=== PATIENT | female | born 1940 | race Caucasian/White ===

== ENCOUNTER → 2018-09-03 12:56 | Outpatient (CLI) | payer MEDICARE, SELFPAY ==
--- NOTE | 2018-09-03 | DI.MG.S_ITS ---
BILATERAL DIGITAL SCREENING MAMMOGRAM 3D/2D WITH CAD: 09/03/2018 CLINICAL: Routine screening. Family history of breast cancer. Comparison is made to exams dated: 07/21/2017 mammogram, 10/18/2015 mammogram, and 10/03/2014 mammogram - [facility]. There are scattered fibroglandular elements in both breasts. Current study was also evaluated with a Computer Aided Detection (CAD) system. No significant masses, calcifications, or other findings are seen in either breast. There has been no significant interval change. IMPRESSION: NEGATIVE There is no mammographic evidence of malignancy. A 1 year screening mammogram is recommended. This exam was interpreted at Station ID: [id number]. NOTE: For mammograms, a report in lay terms will be sent to the patient. Approximately 15% of breast malignancies will not be visualized mammographically. In the management of a palpable breast mass, a negative mammogram must not discourage biopsy of a clinically suspicious lesion. Electronically Signed By: Danilo jose/marielle:09/03/2018 16:49:14 letter sent: Normal Exam ACR BI-RADS Category 1: Negative 3341F
== END ==
PROVIDERS: PCP Physician Assistant; Visit Provider Physician Assistant
DX: Z12.31 Encounter for screening mammogram for malignant neoplasm of breast (principal); Z80.3 Family history of malignant neoplasm of breast
CPT/HCPCS: 77063; 77067

== ENCOUNTER 2018-10-29 09:46 | Day surgery (SDC) | payer MEDICARE, SELFPAY ==
--- NOTE | 2018-10-29 | PATH_ITS ---
[facility] Accession Number: [id number] . 01 Material submitted: . PART A: CECUM POLYP PART B: COLON POLYP AT 100CM . 01 Clinical history: . A: CECUM POLYP X3 B: COLON POLYP AT 100CM X2 . 02 Diagnosis: A. Cecal Polyps: Fragments of tubular adenoma (3 polyps removed). . B. Colon Polyps At 100 CM: Fragments of tubular adenoma (2 polyps removed). BFI/11/01/2018 . 02 Electronically signed: . Stanley Naik MD, PhD, Pathologist NPI- [id number] . 01 Gross description: . Part A: CECUM POLYP: Received in formalin are multiple fragment(s) of [place], soft tissue measuring 1.2 x 0.6 x 0.3 cm in aggregate submitted entirely in 1 cassette(s) Part B: COLON POLYP AT 100CM: Received in formalin are multiple fragment(s) of [place], soft tissue measuring 1.0 x 0.4 x 0.2 cm in aggregate submitted entirely in 1 cassette(s) /CKI /CKI . 02 Pathologist provided ICD-10: D12.0 . 02 CPT . 699479, [id number] Performed at: 01 [facility] [address], [place], [place] [id number] MD Danilo Moe MD Phone: [phone] Performed at: 02 [facility] [address] [place], [place] [id number] MD Amita Lopez MD Phone: [phone]
[2018-10-29 10:16] VITALS: BP 121/68; PULSE 63; RESP 15; TEMP 36.6; O2SAT 93; BMI 27.4
[2018-10-29] MEDS: SODIUM CHLORIDE 0.9% 1,000 ML 200 ML IV (10:20)
[2018-10-29] MEDS: CEFOTETAN 2 GM/50 ML PIGGYBACK IV (11:42)
--- NOTE | 2018-10-29 11:45 | PM.HP.1 ---
History of Present Illness Date Patient Seen: 10/29/18 Time Patient Seen: 11:45 Chief complaint: [id number] Narrative: Patient is a woman who has had polyps removed in the past. She is here for a follow-up exam. She is not sure when her last colonoscopy was but she was either 3 or 5 years ago. Was done elsewhere. 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5 mg DAILY 10/29/18 10/29/18 History simvastatin 20 mg DAILY 10/29/18 10/29/18 History warfarin 5 mg 10/29/18 History Allergies Allergy/AdvReac Type Severity Reaction Status Date / Time Sulfa (Sulfonamide Allergy Severe Anaphylaxis Verified 10/29/18 10:10 Antibiotics) [SULFA (SULFONAMIDE ANTIBIOTICS)] adhesive tape [ADHESIVE TAPE] Allergy Unknown WELTS Verified 10/29/18 10:10 Review of Systems Review of Systems All systems reviewed & are unremarkable except as noted in HPI and below Exam Vital Signs (past 8 hours): - 10/29/18 10:16 Temperature 97.8 F Pulse Rate 63 Respiratory Rate 15 Blood Pressure 121/68 Pulse Oximetry 93 Oxygen Delivery Method Room Air Narrative Exam Narrative: Operative no apparent distress. Lungs are clear to auscultation no rales or rhonchi . Heart fairly regular rate and rhythm with occasional ectopy. Could be slow AFib. Abdomen is protuberant soft nontender without mass. Patient is alert and oriented x3. Assessment & Plan Plan: Assessment/Plan Narrative: Patient for a screening colonoscopy. I have discussed the procedure and the rationale with the patient including risks of bleeding, perforation which would necessitate a major operation, failure to find remove all lesions and the potential to tattoo. They appeared to understand and wished to proceed.. I explained that she is at slightly increased risk of bleeding due to the use of warfarin.
--- NOTE | 2018-10-29 11:53 | PM.PREOP ---
Pre-operative Note Interval Note History & Physical reviewed/Exam performed by Physician: Yes Changes to H&P: No ASA Class (for procedural sedation): III
[2018-10-29] MEDS: fentaNYL 250 MCG/5 ML INJ IV (12:06)
[2018-10-29] MEDS: MIDAZOLAM 5 MG/5 ML VIAL IV (12:06)
--- NOTE | 2018-10-29 12:34 | PM.OP.ENDO ---
Operative Date/Time/Diagnoses Date of procedure: 10/29/18 Time of procedure: 12:34 Pre-op diagnosis: History of polyps. Screening exam. Last exam 3-5 years ago. Post-op diagnosis: same (Five polyps removed.) Procedure & Clinicians Study performed: Colonoscopy with hot snare polypectomy and cold biopsy Same procedure as scheduled: Yes Indications: Screening Surgeon: Eric Bautista Procedure Notes SCOAP/Timeout: Performed Procedure in detail: The patient was placed in the left lateral decubitus position and underwent IV sedation directed by the surgeon consisting of fentanyl and Versed. Digital exam was unremarkable. The scope was inserted and advanced through the rectum into the sigmoid, descending, transverse, and ascending colon. The patient had extensive diet edwards colonic diverticulosis. A stiffener had to be inserted in order to make our way into the cecum.. The cecum was reached identified by the ileocecal valve and the appendiceal opening. Within the cecum and immediately beyond in the ascending colon there were 3 polyps. One was biopsied to complete removal. This was adjacent to the appendiceal opening. The other 2 were larger polyps and hot snare was applied to them in order to remove them. All appeared to be completely removed. The scope was gradually brought out. Two additional Polyps were found at 100 cm from the anal verge. The rectum was ultimately reached. The scope ultimately was retroflexed in the rectum. The appearance was remarkable for scarring but no active hemorrhoidal disease. The scope was removed and the patient tolerated the procedure well. The prep was good. Scope withdrawal time: 22 min Sedation minutes: 38 Findings: diverticulosis (Edwards colonic) and polyp (Five polyps removed) Specimen(s): other (Polyps) Complications: none Recommendations: Colonscopy in 5 years Follow up: as needed Disposition: PACU
[2018-10-29 12:38] VITALS: BP 115/59; PULSE 68; RESP 16; TEMP 36.5; O2SAT 98
[2018-10-29 12:42] VITALS: BP 109/57; PULSE 69; RESP 18; O2SAT 99
[2018-10-29 12:49] VITALS: BP 106/49; PULSE 70; RESP 12; O2SAT 100
[2018-10-29 12:54] VITALS: BP 95/53; PULSE 66; RESP 12; O2SAT 99
[2018-10-29 13:10] VITALS: BP 106/58; PULSE 63; RESP 16; O2SAT 98
== END 2018-10-29 13:25 ==
LOC: ENDO 09:49
PROVIDERS: Specialist; PCP Physician Assistant; Visit Provider Surgery
PROC: 0DJD8ZZ Inspection of Lower Intestinal Tract, Via Natural or Artificial Opening Endoscopic (ICD-10-PCS; CPT 45378; principal; 2018-10-29 11:45)
DX: Z86.010 Personal history of colon polyps (principal); K57.30 Diverticulosis of large intestine without perforation or abscess without bleeding; I48.91 Unspecified atrial fibrillation; Z79.01 Long term (current) use of anticoagulants; Q79.6 Ehlers-Danlos syndromes; D12.0 Benign neoplasm of cecum
CPT/HCPCS: 45385; 45380; 88305; J2250; J3010

== ENCOUNTER → 2019-05-13 13:43 | Outpatient (CLI) | payer MEDICARE, SELFPAY | PROVIDERS: PCP Physician Assistant; Visit Provider Physician Assistant | DX: R47.01 Aphasia (principal) ==

== ENCOUNTER → 2019-05-30 17:21 | Outpatient (CLI) | payer MEDICARE, SELFPAY ==
--- NOTE | 2019-05-30 | DI.MRI.S_ITS ---
PROCEDURE: MR STROKE Pre- and post-contrast brain MRI, non-contrast brain MR angiogram, pre- and postcontrast neck MR angiogram INDICATIONS: APHASIA TECHNIQUE: Brain: Noncontrast axial T1 spin echo, axial T2 fast spin echo, sagittal and axial FLAIR, coronal T2 fast spin echo, axial gradient echo, axial diffusion and ADC through the brain. After the administration of contrast, axial 3D VIBE of the cranial vasculature and brain. Brain MRA: Non-contrast 3-D time of flight MR angiogram, with multiple adijulh-lgddrkylz-ptlkaytxyl (MIP) reformats performed. Neck MRA: Axial and sagittal TruFISP through the neck. Coronal dynamic MR angiogram during administration of contrast in the arterial and venous phases, with 3-dimenstional cmfmnhs-tklcxyrsn-lngbxjmzbm (MIP) reformats constructed from subtraction images. COMPARISON: None. FINDINGS: Image quality: Excellent. BRAIN: CSF spaces: Ventricles are normal in size and shape. Basal cisterns are patent. No extra-axial fluid collections. Brain: No intracranial bleeds or mass effects. De La Cruz-white matter interface is normal. Diffusion weighted images show no acute ischemic insults. Brainstem appears normal. Normal intravascular flow voids are present. No abnormal intracranial enhancement. Very mild small vessel ischemic change. Tiny area of hemosiderin deposition in the left frontal deep white matter may represent a cavernous angioma. Skull and face: Calvarial marrow signal is normal. Orbits appear normal. Sinuses: Sinuses and mastoids are clear. BRAIN MR ANGIOGRAM: Anterior circulation: Intracranial internal carotid arteries are normal in size and enhancement. The flow within the paired anterior cerebral arteries is normal and symmetric. The flow within the middle cerebral arteries is normal and symmetric. The anterior communicating artery is seen. No stenoses, occlusions, or aneurysms. Posterior circulation: The visualized portions of the vertebral arteries demonstrate normal caliber, and join to form a normal appearing basilar artery. The flow within the posterior cerebral arteries is normal and symmetric. No stenoses, occlusions, or aneurysms. NECK MR ANGIOGRAM: Carotids: Extensive venous opacification decreases image quality. The origins of the common carotid arteries appear grossly patent. The calibers and courses of both common carotid arteries are normal. The bifurcation regions appear normal bilaterally. The internal carotid arteries demonstrate grossly normal course and caliber. Posterior circulation: The origins of the vertebral arteries appear patent. More superior portions of both vertebral arteries demonstrate normal course and caliber, and join to form a normal appearing basilar artery. Miscellaneous: Subclavian arteries appear patent. Pre-contrast images through the neck show no soft tissue abnormalities. IMPRESSION: BRAIN MRI: 1. Incidental tiny focus of hemosiderin deposition in the left frontal deep white matter. 2. Otherwise unremarkable brain MRI for patient age. Very mild small vessel ischemic change. No acute stroke, hemorrhage or mass. BRAIN MR ANGIOGRAM: Unremarkable NECK MR ANGIOGRAM: Image quality diminished by superimposed venous opacification. Internal carotid is grossly patent. Dictated by: Rahul Reyes M.D. on 05/30/2019 at 18:23 Approved by: Rahul Reyes M.D. on 05/30/2019 at 18:31
== END ==
PROVIDERS: PCP Physician Assistant; Visit Provider Physician Assistant
DX: R47.01 Aphasia (principal)
CPT/HCPCS: 70548; 70553; A9579

== ENCOUNTER 2019-07-16 12:08 | Emergency (ER) | payer MEDICARE, SELFPAY ==
[2019-07-16 12:13] VITALS: BP 144/90; PULSE 65; RESP 18; TEMP 36.3; O2SAT 98
--- NOTE | 2019-07-16 12:46 | ED_ITS ---
HPI - Skin/Abscess/Foreign Bdy <Amber Barclay, MOBILITY DEVELOPER-BC - Last Filed: 07/16/19 14:10> General Chief complaint: Skin/Abscess/Foreign Body Stated complaint: rash on head/neck Time Seen by Provider: 07/16/19 12:27 Source: patient Mode of arrival: Ambulatory Limitations: no limitations History of Present Illness HPI narrative: The patient is a 78-year-old female nonsmoker with history of a subarachnoid hemorrhage who presents with a chief complaint of a rash. She states that she has had a rash for the past 10 days over her head face and shoulders. She states it is worse at her shoulders and in her head. She is concerned that she might have measles. She has been afebrile no nausea vomiting diarrhea. She denies any painful rash, just itchy rash. She denies any conjunctivitis symptoms. She thinks that it may be related to a new shampoo that she used for the 1st time just prior to her rash breaking out. She states that the rash is also at her bra line and across her abdomen. Related Data Home Medications Medication Instructions Recorded Confirmed metoprolol tartrate 25 mg PO BID #0 08/20/16 10/29/18 pantoprazole 40 mg PO QDAY #0 08/20/16 10/29/18 Vitamin D2 5,000 units DAILY 10/29/18 10/29/18 biotin 5,000 units DAILY 10/29/18 10/29/18 clonazepam 0.5 mg PRN 10/29/18 levothyroxine 0.25 mg DAILY 10/29/18 10/29/18 losartan 12.5 mg DAILY 10/29/18 10/29/18 simvastatin 20 mg DAILY 10/29/18 10/29/18 warfarin 5 mg 10/29/18 Previous Rx's Medication Instructions Recorded prednisone 50 mg PO DAILY #5 tab 07/16/19 triamcinolone acetonide 1 applictn TOP TID 7 Days #15 gram 07/16/19 Allergies Allergy/AdvReac Type Severity Reaction Status Date / Time Sulfa (Sulfonamide Allergy Severe Anaphylaxis Verified 07/16/19 12:17 Antibiotics) [SULFA (SULFONAMIDE ANTIBIOTICS)] adhesive tape [ADHESIVE TAPE] Allergy Unknown WELTS Verified 07/16/19 12:17 propoxyphene [From Darvon] Allergy Unknown Verified 07/16/19 12:17 Review of Systems <ROSARIO Deluna - Last Filed: 07/16/19 14:10> Review of Systems Narrative: GENERAL: Denies chills, fatigue, malaise, fever, sweats. HEENT: Denies sinus pain, ear pain, sore throat, difficulty swallowing, dizziness. RESPIRATORY: Denies dyspnea, cough, wheezing, hemoptysis, sputum. CARDIOVASCULAR: Denies chest pain, palpitations, orthopnea, edema, GASTROINTESTINAL: Denies nausea, vomiting, abdominal pain, diarrhea, constipation, melena. : Denies dysuria, frequency, incontinence, hematuria, urinary retention. MUSCULOSKELETAL: denies weakness, joint pain, or bony pain SKIN: See HPI NEUROLOGIC: Denies weakness, headache, numbness, change in speech, confusion, seizures, incoordination. PSYCHIATRIC: No concerning psychosocial issues. 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 Normocephalic. No temporal or scalp tenderness. EYES: Pupils equal round and reactive. Extraocular motions intact. No scleral icterus. No injection or drainage. ENT: Nose without bleeding, purulent drainage or septal hematoma. Throat without erythema, tonsillar hypertrophy or exudate. Uvula midline. Airway patent. NECK: Trachea midline. No JVD or lymphadenopathy. Supple, nontender, no meningeal signs. CARDIOVASCULAR: Regular rate and rhythm without murmurs, gallops, or rubs. RESPIRATORY: Clear to auscultation. Breath sounds equal bilaterally. No wheezes, rales, or rhonchi. No cough. No increased respiratory effort. No accessory muscle use. GASTROINTESTINAL: Abdomen soft, non-tender, nondistended. No hepato- splenomegaly, or palpable masses. No guarding. EXTREMITIES: No clubbing, cyanosis, or edema. No joint tenderness, effusion, or edema noted. BACK: Nontender without deformity or crepitance. No flank tenderness. NEURO: AOx3. SKIN: Eczematous lesions noted over neck, shoulders, and hair under breasts. Slight peeling noted. No crusting. No drainage. No extending redness. No weeping lesions. Initial Vital Signs Initial Vital Signs: Vital Signs Temperature 97.3 F L 07/16/19 12:13 Pulse Rate 65 07/16/19 12:13 Respiratory Rate 18 07/16/19 12:13 Blood Pressure 144/90 H 07/16/19 12:13 Pulse Oximetry 98 07/16/19 12:13 <Geovani Robles DO - Last Filed: 07/16/19 14:12> Initial Vital Signs Initial Vital Signs: Vital Signs Temperature 97.3 F L 07/16/19 12:13 Pulse Rate 65 07/16/19 12:13 Respiratory Rate 18 07/16/19 12:13 Blood Pressure 144/90 H 07/16/19 12:13 Pulse Oximetry 98 07/16/19 12:13 Course <FAVIO Deluna-BC - Last Filed: 07/16/19 14:10> Vital Signs Vital signs: Vital Signs - 8 hr 07/16/19 12:13 Temperature 97.3 F L Pulse Rate 65 Respiratory Rate 18 Blood Pressure 144/90 H Pulse Oximetry 98 <Geovani Robles DO - Last Filed: 07/16/19 14:12> Vital Signs Vital signs: Vital Signs - 8 hr 07/16/19 12:13 Temperature 97.3 F L Pulse Rate 65 Respiratory Rate 18 Blood Pressure 144/90 H Pulse Oximetry 98 MDM - Skin/Abscess/Foreign Bdy <KIRIT DelunaP-BC - Last Filed: 07/16/19 14:10> [facility] Narrative Medical decision making narrative: The patient is a 70-year-old female presents with a chief complaint of a rash that has been going on for 10 days. The patient is concerned about measles, but she is afebrile, has been afebrile and has no symptoms of conjunctivitis. Thus I believe a measles is unlikely at this point time. Her rash is itchy not painful, on both sides of her body and does not follow a dermatome is, helping rule out shingles. I do believe that her rash is a reaction to this new she who, as her exam is consistent with a contact dermatitis. Given that she has a rash in her hair, I did offer to put her on a burst of steroids to help ease her symptoms. I also gave her a prescription of triamcinolone cream. I discussed at length follow up with PCP, discussed going back to emergency department for any acute concerns such as chest pain, shortness of breath, etc. Patient has no questions or concerns upon discharge and states understanding of return precautions as well as follow-up care. Discharge Plan Departure Patient Disposition: Home Clinical Impression: Contact dermatitis Qualifiers: Contact dermatitis type: irritant Contact dermatitis trigger: other trigger Qualified Code(s): L24.89 - Irritant contact dermatitis due to other agents Discharge Date/Time: 07/16/19 13:07 Instructions: DI for Contact Dermatitis Activity Restrictions/Additional Instructions: Your exam is not consistent with measles today. Please use the steroid burst and steroid cream that I have given you. Please follow up with primary care provider. Please come back to emergency department for any acute concerns. Please avoid the shampoo that your exposed to. Prescriptions: New prednisone 50 mg tablet 50 mg PO DAILY Qty: 5 RF: 0 triamcinolone acetonide 0.025 % ointment 1 applictn TOP TID 7 Days Qty: 15 RF: 0 No Action pantoprazole 40 MG tablet,delayed release (DR/EC) 40 mg PO QDAY Qty: 0 RF: 0 metoprolol tartrate 25 MG tablet 25 mg PO BID Qty: 0 RF: 0 Vitamin D2 5,000 unit 5,000 units DAILY RF: 0 biotin 5,000 units 5,000 units DAILY RF: 0 clonazepam 0.5 mg 0.5 mg PRN (Reason: Restless Leg(S)) RF: 0 levothyroxine 0.25 mg 0.25 mg DAILY RF: 0 losartan 25 mg 12.5 mg DAILY RF: 0 simvastatin 20 mg 20 mg DAILY RF: 0 warfarin 5 mg 5 mg RF: 0 Referrals: Rosa Darnell PA-C [Primary Care Provider] - <Geovani Robles DO - Last Filed: 07/16/19 14:12> Sign Out Provider Sign Out Attestation: I was available for consultation during this patient's emergency department visit. This chart is signed by myself for administrative purposes only. I did not have direct contact with this patient during this visit. They were seen independently by the APC.
== END 2019-07-16 13:07 | disposition home or self-care (01) ==
PROVIDERS: Emergency Provider Nurse Practitioner Family; PCP Physician Assistant
DX: L24.89 Irritant contact dermatitis due to other agents (principal)
CPT/HCPCS: 99282

== ENCOUNTER → 2019-10-04 13:12 | Outpatient (CLI) | payer MEDICARE, SELFPAY ==
--- NOTE | 2019-10-04 | DI.MG.S_ITS ---
BILATERAL DIGITAL SCREENING MAMMOGRAM 3D/2D WITH CAD: 10/04/2019 CLINICAL: Routine screening. Family history of breast cancer. Comparison is made to exams dated: 09/03/2018 mammogram, 07/21/2017 mammogram, 10/18/2015 mammogram, 10/03/2014 mammogram, 11/22/2012 mammogram, and 11/21/2011 mammogram - [facility]. There are scattered fibroglandular elements in both breasts. Current study was also evaluated with a Computer Aided Detection (CAD) system. No significant masses, calcifications, or other findings are seen in either breast. There has been no significant interval change. IMPRESSION: NEGATIVE There is no mammographic evidence of malignancy. A 1 year screening mammogram is recommended. This exam was interpreted at Station ID: [id number]. NOTE: For mammograms, a report in lay terms will be sent to the patient. Approximately 15% of breast malignancies will not be visualized mammographically. In the management of a palpable breast mass, a negative mammogram must not discourage biopsy of a clinically suspicious lesion. Electronically Signed By: Kamron cole/marielle:10/07/2019 08:29:53 letter sent: Normal Exam ACR BI-RADS Category 1: Negative [id number]
== END ==
PROVIDERS: PCP Student in an Organized Health Care Education/Training Program; Visit Provider Student in an Organized Health Care Education/Training Program
DX: Z12.31 Encounter for screening mammogram for malignant neoplasm of breast (principal); Z80.3 Family history of malignant neoplasm of breast
CPT/HCPCS: 77063; 77067

== ENCOUNTER → 2019-11-15 13:08 | Outpatient (CLI) | payer MEDICARE, SELFPAY | PROVIDERS: PCP Student in an Organized Health Care Education/Training Program; Referring Provider Student in an Organized Health Care Education/Training Program; Visit Provider Student in an Organized Health Care Education/Training Program | DX: M85.832 Other specified disorders of bone density and structure, left forearm (principal); Z78.0 Asymptomatic menopausal state; Z82.62 Family history of osteoporosis | CPT/HCPCS: 77080 ==

== ENCOUNTER 2019-11-22 09:52 | Emergency (ER) | payer MEDICARE, SELFPAY ==
[2019-11-22 09:45] VITALS: BP 143/84; PULSE 66; RESP 18; TEMP 36.9; O2SAT 99
--- NOTE | 2019-11-22 09:58 | DI.RAD.S_ITS ---
PROCEDURE: XR KNEE RT 3V INDICATIONS: Patient concerned about dislocation TECHNIQUE: 3 views of the knee were acquired. COMPARISON: [facility], , KNEE 1-2 VIEWS LEFT, 03/31/2011, 13:30. FINDINGS: Bones: No fractures or dislocations. No suspicious bony lesions. Right knee arthroplasty expected postoperative alignment. No evidence of hardware failure or loosening. Soft tissues: Large joint effusion. No suspicious soft tissue calcifications. IMPRESSION: Large joint effusion. Expected postoperative alignment of right knee arthroplasty. Dictated by: Dario Cash M.D. on 11/22/2019 at 11:04 Approved by: Dario Cash M.D. on 11/22/2019 at 11:32
--- NOTE | 2019-11-22 09:58 | ED.GENADULT ---
HPI - General Adult General Chief complaint: Extremity Problem,Nontraumatic Stated complaint: R knee dislocation Time Seen by Provider: 11/22/19 09:55 Source: patient Mode of arrival: EMS Limitations: no limitations History of Present Illness HPI narrative: Patient is a 79-year-old female. Has a right total knee arthroplasty which was done many years ago. She states that this morning she had pain in her right knee that woke her up. She a very difficult time moving it. No specific trauma. Went to bed without any problems. Is on Coumadin for atrial fibrillation. Related Data Home Medications Medication Instructions Recorded Confirmed pantoprazole 40 mg PO DAILY #0 08/20/16 11/22/19 biotin 5,000 units DAILY 10/29/18 10/29/18 cholecalciferol (vitamin D3) 5,000 unit PO DAILY 10/29/18 11/22/19 [Vitamin D3] clonazepam 0.5 mg PRN 10/29/18 levothyroxine 25 mcg PO DAILY 10/29/18 11/22/19 losartan 12.5 mg PO DAILY 10/29/18 11/22/19 simvastatin 20 mg PO DAILY 10/29/18 11/22/19 latanoprost 1 drp OPHTHALMIC (EYE) BEDTIME 11/22/19 metoprolol succinate 25 mg PO BID 11/22/19 warfarin [Jantoven] 5 mg PO DAILY 11/22/19 11/22/19 zolpidem 5 mg PO BEDTIME 11/22/19 11/22/19 Allergies Allergy/AdvReac Type Severity Reaction Status Date / Time Sulfa (Sulfonamide Allergy Severe Anaphylaxis Verified 11/22/19 10:04 Antibiotics) [SULFA (SULFONAMIDE ANTIBIOTICS)] adhesive tape [ADHESIVE TAPE] Allergy Unknown WELTS Verified 11/22/19 10:04 propoxyphene [From Darvon] Allergy Unknown Verified 11/22/19 10:04 Review of Systems Constitutional Constitutional: Denies fever(s) Cardiovascular Cardiovascular: Denies chest pain and Denies dyspnea Respiratory Respiratory: Denies dyspnea Musculoskeletal Comments: Right knee pain and swelling Integumentary/Breasts Skin/Breast: Denies rash Neurologic Neurologic: Denies behavioral changes and Denies confusion Psychiatric Psychiatric: Denies behavioral changes and Denies confusion Patient History Medical History Atrial fibrillation (Chronic) Chronic anticoagulation (Chronic) 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) Social History household members: none Smoking Status: Never smoker Smoking Status: Never smoker alcohol intake frequency: 0-2 drinks per day Substance Use Type: does not use Exam Initial Vital Signs Initial Vital Signs: Vital Signs Temperature 98.4 F 11/22/19 09:45 Pulse Rate 66 11/22/19 09:45 Respiratory Rate 18 11/22/19 09:45 Blood Pressure 143/84 H 11/22/19 09:45 Pulse Oximetry 99 11/22/19 09:45 Const General: cooperative and comfortable Cardio Pulses: dorsalis pedis present on the right Skin Lesions: no lesions Rashes: no rashes Neuro General: alert and awake Cognition: normal cognition Speech: speech normal Extrem General: normal to inspection and capillary refill normal Other: Swelling in tender throughout palpation of the right knee. Does have a small effusion. Course Orders Ordered: ED Orders 11/22/19 09:58 XR knee RT 3V Stat 11/22/19 10:40 Basic Metabolic Panel Stat Complete Blood Count AUTO DIFF Stat Prothrombin Time INR Stat Discontinued Medications Hydrocodone Bitart/Acetaminophen ([place] 5/325) 1 tab PO NOW ONE Stop: 11/22/19 10:34 Last Admin: 11/22/19 10:41 Dose: 1 tab Documented by: NUNO Vital Signs Vital signs: Vital Signs - 8 hr 11/22/19 09:45 11/22/19 10:05 11/22/19 11:01 Temperature 98.4 F Pulse Rate 80 Pulse Rate [Left Radial] 66 64 Pulse Rate [Right Dorsalis Pedis] 64 Respiratory Rate 18 15 Blood Pressure [Left Arm] 143/84 H 190/71 H Pulse Oximetry 99 99 Medical Decision Making Lab Data Lab results reviewed: Yes I reviewed the patient's lab results. Result diagrams: 11/22/19 10:40 11/22/19 10:40 Labs: Lab Results 11/22/19 11/22/19 11/22/19 Range/Units 10:40 10:40 10:40 WBC 7.6 (4.5-11.0) X10^3/uL RBC 3.94 L (4.0-5.2) X10^6/uL Hgb 13.0 (12.0-16.0) g/dL Hct 37.9 (36-46) % MCV 96.1 (80-100) fL MCH 33.0 (26-34) PG MCHC 34.4 (30-36) % RDW 14.2 (11.6-14.8) % Plt Count 225 (150-400) X10^3/uL Neut % (Auto) 80.4 H (50-75) % Lymph % (Auto) 11.2 L (25-40) % [place] % (Auto) 7.3 (3-14) % Eos % (Auto) 0.3 L (2-4) % Baso % (Auto) 0.8 (0-2) % Neut # (Auto) 6100 (7094-9263) /uL Lymph # (Auto) 800 L (3009-6127) /uL [place] # (Auto) 600 (0-900) /uL Eos # (Auto) 0 (0-450) /uL Baso # (Auto) 100 (0-100) /uL PT 47.6 H (10.1-12.7) SECONDS INR 4.2 H (0.9-1.3) Sodium 139 (137-145) mmol/L Potassium 4.3 (3.4-5.1) mmol/L Chloride 104 (98-107) mmol/L Carbon Dioxide 27 (22-32) mmol/L BUN 16 (7-17) mg/dL Creatinine 0.60 (0.52-1.04) mg/dL Estimated GFR > 60.0 (>60) mL/min BUN/Creatinine Ratio 26.7 H (6-22) Glucose 104 (80-110) mg/dL Calcium 10.1 (8.4-10.2) mg/dL Imaging Data Extremity x-ray #1: Attestation: I personally reviewed and interpreted this imaging study as follows: My Impression: No fractures, no dislocation MDM Narrative Medical decision making narrative: Patient does have an effusion. Her x-ray shows no fractures or dislocations. Her INR is above 4 today. I do suspect that this could very well be a spontaneous hemarthrosis given the lack of trauma and her INR level. She normally takes her Coumadin at night. She is going to hold her Coumadin tonight and tomorrow. She also already has a scheduled INR draw for at her primary provider. We did discuss potentially doing a arthrocentesis however we did discuss the risks and benefits to include pain, introduction of an infection, and potentially recurrence of the effusion despite our efforts. We will hold on this for now. Patient was given a knee immobilizer. She can use this as needed for comfort. She does have a walker at home. We did discuss return precautions and follow-up instructions. She expressed understanding and agreement plan. Discharge Plan Departure Patient Disposition: Home Clinical Impression: Effusion of knee joint right Instructions: DI for Knee Effusion Activity Restrictions/Additional Instructions: Recommend that you hold your Coumadin/warfarin for the next 2 days. Keep your appointment on for repeat INR. You can walk on your right leg. Use the knee immobilizer and Siddharth bandage as needed. Return to the emergency department for any new or worsening symptoms Prescriptions: No Action pantoprazole 40 MG tablet,delayed release (DR/EC) 40 mg PO DAILY Qty: 0 RF: 0 levothyroxine 25 mcg Tablet 25 mcg PO DAILY RF: 0 simvastatin 20 mg Tablet 20 mg PO DAILY RF: 0 losartan 25 mg Tablet 12.5 mg PO DAILY RF: 0 cholecalciferol (vitamin D3) [Vitamin D3] 125 mcg (5,000 unit) Tablet 5,000 unit PO DAILY RF: 0 biotin 5,000 units 5,000 units DAILY RF: 0 clonazepam 0.5 mg 0.5 mg PRN (Reason: Restless Leg(S)) RF: 0 latanoprost 0.005 % drops 1 drp ophthalmic (eye) BEDTIME RF: 0 warfarin [Jantoven] 5 mg tablet 5 mg PO DAILY RF: 0 zolpidem 5 mg tablet 5 mg PO BEDTIME RF: 0 metoprolol succinate 25 mg tablet extended release 24 hr 25 mg PO BID RF: 0 Referrals: Rosette Grey PA-C [Primary Care Provider] -
[2019-11-22 10:05] VITALS: PULSE 64
[2019-11-22] MEDS: HYDROCODONE/ACET 5/325 TABLET 1 TAB PO (10:41)
[2019-11-22 10:52] LABS: Add Manual Diff / Slide Review NO; Basophils Absolute Auto 100 /uL (0-100); Basophils Percent Auto 0.8 % (0-2); Eosinophils Absolute Auto 0 /uL (0-450); Eosinophils Percent Auto 0.3 % (2-4); Hematocrit 37.9 % (36-46); Lymphocytes Absolute Auto 800 /uL (1100-4500); Lymphocytes Percent Auto 11.2 % (25-40); Mean Corpuscular HGB Conc 34.4 % (30-36); Mean Corpuscular Volume 96.1 fL (80-100); Monocytes Absolute Auto 600 /uL (0-900); Monocytes Percent Auto 7.3 % (3-14); Neutrophils Absolute Auto 6100 /uL (1500-7000); Neutrophils Percent Auto 80.4 % (50-75); Platelet Count 225 X10^3/uL (150-400); Red Blood Cell Count 3.94 X10^6/uL (4.0-5.2); Red Cell Distribution Width 14.2 % (11.6-14.8); White Blood Cell Count 7.6 X10^3/uL (4.5-11.0)
[2019-11-22 10:59] LABS: INR 4.2 (0.9-1.3); Prothrombin Time 47.6 SECONDS (10.1-12.7)
[2019-11-22 11:01] VITALS: BP 190/71; PULSE 80; RESP 15; O2SAT 99
[2019-11-22 11:02] LABS: BUN Creatinine Ratio 26.7 (6-22); Blood Urea Nitrogen 16 mg/dL (7-17); Calcium 10.1 mg/dL (8.4-10.2); Carbon Dioxide 27 mmol/L (22-32); Chloride 104 mmol/L (98-107); Estimated Glomerular Filt Rate > 60.0 mL/min (>60); Glucose 104 mg/dL (80-110); HEMOLYSIS < 15 (0-50); Potassium 4.3 mmol/L (3.4-5.1); Sodium 139 mmol/L (137-145)
[2019-11-22 12:14] VITALS: BP 180/88
== END 2019-11-22 12:15 | disposition home or self-care (01) ==
PROVIDERS: Emergency Provider Emergency Medicine; PCP Student in an Organized Health Care Education/Training Program
DX: M25.461 Effusion, right knee (principal); I48.91 Unspecified atrial fibrillation; Z79.01 Long term (current) use of anticoagulants
CPT/HCPCS: 36415; 73562; 80048; 85025; 85610; 99284

== ENCOUNTER 2020-03-28 14:30 | Outpatient (RCR) | payer MEDICARE, SELFPAY ==
--- NOTE | 2019-12-05 15:15 | PT.OIE ---
Current Diagnoses Pain in right hip (12/07/19) Pain in right knee (12/07/19) Pain in right leg (12/07/19) Pain in left leg (12/07/19) Difficulty in walking, not elsewhere classified (12/07/19) Weakness (12/07/19) Past Medical History (Last Reviewed 11/22/19 @ 09:59 by Geovani Robles DO) Atrial fibrillation (Chronic) Chronic anticoagulation (Chronic) 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) Past Surgical History (Last Reviewed 07/16/19 @ 13:03 by FAVIO Deluna-) H/O hysterectomy for benign disease (Resolved) S/P hip replacement (Resolved) Total knee replacement status (Resolved) Visit Care Team Role Provider Type Rosette Grey PA-C Attending Provider Physician Primary Care Provider Referring Provider Specialty: Internal Medicine Address: [address] [place] [address] Email: [email or web address] Physical Therapy Initial Evaluation PT-OP-A Visit Information Start: 12/05/19 15:14 Freq: Status: Active Protocol: Document 12/05/19 15:15 SAK (Rec: 12/05/19 16:50 SAK [id number]) Out-Patient Physical Therapy Visit Information Visit Information Visit Type Initial Evaluation Visit Start Time 15:15 Visit Stop Time 16:12 Total Visit Minutes 57 Visit Number 1 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 After a few years, repair done, but she reports still didn't do well. Saw maribel in [place] who recommended new JUANCARLOS, but by time she said ok, doctor was retired and she did not have surgery. Pain continues and is worsening. 1 week ago went to ER because couldn't move her right leg, states her knee was swollen and locked. . Physician thought hematoma due to Coumadin use. Was given a stabilizing brace. Dr. Noland to review ER x-rays. Pain worse when first stands, then gets a little better. Uses walking stick at sometimes, no cane or walker. Occasional ice or heat. Exercise is around the house and volunteering at [employer]. Short walks around the neighborhood. Left LE longer. Leg hasn't given way. Prior Treatments and Tests Abe JUANCARLOS, abe TKA, mitral valve repair, fall with fractured 12 ribs. 3 foot surgeries right with severe bunion Treatment Goals Patient/Caregiver Goals Decrease pain, resume prior level of physical activity Prior Functional Status Baseline Function- ADL's Independent Baseline Function- Mobility Independent Baseline Function- Gait Able to walk 20-30 min without pain Baseline Function- Work/School retired, volunteers at 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 Also posterior R knee Intensity 6 PT-OP-D Balance Start: 12/05/19 15:14 Freq: Status: Active Protocol: Document 12/05/19 15:15 SAK (Rec: 12/05/19 16:50 [facility] [id number]) OP-PT Balance Assessment Sitting Balance Static Sitting Balance Ability Good Dynamic Sitting Balance Ability Good Standing Balance Static Standing Balance Ability Good Dynamic Standing Balance Ability Fair Device Used walking stick Tinetti Balance Assessment Sitting Balance Sitting Balance Steady, safe Arising from Chair Ability to Arise Able, uses arms to help Standing Balance Standing Balance Steady, wide stance Nudged Response Staggers, catches self Standing with Eyes Closed Unsteady Turning Step Pattern Turning 360 Degrees Discontinuous steps Stability Turning 360 Degrees Unsteady, grabs/staggers Sitting Down Sitting Down Uses arms or unsteady Gait and Step Initiation of Gait No hesitancy Right Foot Step Length Does pass stance foot Right Foot Step Height Completely clears floor Left Foot Step Length Does not pass stance foot Left Foot Step Height Does not clear floor Step Description Step Symmetry Step length not equal Gait Description Path Description Mild/moderate deviation Trunk Description No sway but posturing Scoring and Interpretation Tinetti Composite Score (points) 10 Cobos Fall Scale Copyright Permission PT-OP-F Manual Assessment Start: 12/05/19 15:14 Freq: Status: Active Protocol: Document 12/05/19 15:15 SAK (Rec: 12/05/19 16:50 SAK [id number]) Manual Assessments Soft Tissue Assessment Soft Tissue Mobility Assessment mod tightness right IT band Joint Mobility Assessment Joint Mobility Assessment NA due to abe JUANCARLOS Other Manual Assessments Other Manual Assessments Leg length discrepancy with right LE 1/2 longer than left (patient reports she has a couple built up shoes but doesn't wear regularly) PT-OP-G Mobility & Gait Start: 12/05/19 15:14 Freq: Status: Active Protocol: Document 12/05/19 15:15 SAK (Rec: 12/05/19 16:50 SAK [id number]) OP Mobility Evaluation Bed Mobility Rolling indep Supine to and from Sit indep Transfers Sit to Stand indep with decreased weight- bearing right LE OP Gait Assessment Gait Gait Assistance Required: Independent Distance (Feet) 40 Assistive Devices Assistive Device None Gait Deviations General Gait Pattern Antalgic,Flexed Trunk,Lateral Trunk Lean Factors Limiting Gait Function Factors Limiting Gait Function Decreased Strength,Limited Range of Motion,Pain,Poor Balance Stair Climbing Evaluation Evaluation Level of Assist On Stairs Independent Devices Stair Climbing Assistive Devices Left Railing,Right Railing Technique/Endurance Stair Climbing Direction Ascend and Descend Stair Climbing Technique Step to Step PT-OP-H Neuro Start: 12/05/19 15:14 Freq: Status: Active Protocol: Document 12/05/19 15:15 SAK (Rec: 12/05/19 16:50 SAK [id number]) Sensation Evaluation Gross Sensation Gross Sensation WNL PT-OP-J Posture/Palpation/Skin Start: 12/05/19 15:14 Freq: Status: Active Protocol: Document 12/05/19 15:15 SAK (Rec: 12/05/19 16:50 SAK [id number]) Posture Evaluation Position Standing Head/C-Spine Posture C-Spine Flattened L-Spine Posture Flattened Arm Posture (L) Internally Rotated,(R) Internally Rotated Pelvis Posture (R) Rotated Posterior Weight Distribution Weight Shifted Left Hip Posture (R) Internally Rotated Knee Posture (L) Genu Valgus,(R) Excess Flexion PT-OP-K Range of Motion Start: 12/05/19 15:14 Freq: Status: Active Protocol: Document 12/05/19 15:15 SAK (Rec: 12/05/19 16:50 SAK [id number]) Hip Goniometric Range of Motion Hip Right Hip ROM WFL No Flexion w/Knee Flexed 95 Straight Leg Raise 75 Extension 0 Abduction 25 Internal Rotation 0 External Rotation 35 left Hip ROM WFL No Testing Position Supine Flexion w/Knee Flexed 100 Straight Leg Raise 65 Extension 0 Abduction 25 Internal Rotation 15 External Rotation 45 Hip ROM Limitations Hip ROM Limitations Soft Tissue Tightness,Bony Restriction,Pain Knee Goniometric Range of Motion Knee abe Knee ROM WFL Yes Ankle and Foot Goniometric Range of Motion Ankle and Foot abe Dorsiflexion with Knee Flexed 5 Dorsiflexion with Knee Extended 0 Ankle and Foot ROM Limitations ROM Limitations Soft Tissue Tightness PT-OP-M Strength Start: 12/05/19 15:14 Freq: Status: Active Protocol: Document 12/05/19 15:15 [facility] (Rec: 12/05/19 16:50 [facility] [id number]) Trunk Strength Trunk Manual Muscle Testing Core Stabilization poor ability to activate TrA Hip Strength Hip Manual Muscle Testing Right Abduction 3+ Fair+ Adduction 3+ Fair+ External Rotation 3+ Fair+ Internal Rotation 3+ Fair+ Left Flexion (L2) 4 Good Abduction 4 Good Adduction 4 Good External Rotation 3+ Fair+ Internal Rotation 4 Good Knee Strength Knee Manual Muscle Testing Right Flexion (S2) 4 Good Extension (L3) 4- Good- Left Flexion (S2) 5 Normal Extension (L3) 5 Normal Ankle/Foot Strength Ankle and Foot Manual Muscle Testing Left Dorsiflexion (L4) 4+ Good+ Plantarflexion (S1) 4+ Good+ Right Dorsiflexion (L4) 4 Good Plantarflexion (S1) 4 Good PT-OP-Q Treatments Start: 12/05/19 15:14 Freq: Status: Active Protocol: Document 12/05/19 15:15 SAK (Rec: 12/05/19 16:50 [facility] [id number]) Self-Care/Home Management Treatment Education Patient Education Home Exercise Program,Pain Management,Safety Other Education Wear shoes with lift, use cane or walking stick; bring all to next PT Use of ice and heat PT-OP-R Modalities Start: 12/05/19 15:14 Freq: Status: Active Protocol: Document 12/05/19 15:15 SAK (Rec: 12/05/19 16:50 [facility] [id number]) Hot Pack/Cold Pack Treatment Hot Pack Location right hip and knee Patient Position Hooklying Treatment Duration (minutes) 15 PT-OP-T Assessment and Plan Start: 12/05/19 15:14 Freq: Status: Active Protocol: Document 12/05/19 15:15 [facility] (Rec: 12/05/19 16:50 [facility] [id number]) Physical Therapy Assessment Rehab Potential Rehabilitation Potential Good Evaluation Complexity Number of Personal Factors/Comorbidities 1-2 Impairments Impairments Activity Tolerance,Gait,Pain, Strength Goals Four Impairment weakness abe LE's right greater than left Short Term Goal (STG) Patient to be independent and compliant with HEP, ongoing progression of HEP as tolerated STG Duration 01/21/20 Technical Aid Goal (LTG) Patient to demonstrate improvement in LE muscle strength to at least 4+/5 throughout LTG Duration 03/04/20 Three Impairment antalgic and unsteady gait Technical Aid Goal (LTG) Patient able to ambulate with least restrictive device with minimal limp or compensatory movement strategies to decrease stresses to her joints and soft tissues. Be able to ascend and descend stairs with step over step pattern. LTG Duration 03/04/20 Two Impairment lower extremity functional scale (LEFS) 49% Short Term Goal (STG) Improve LEFS to at least 60% STG Duration 01/21/20 Prison Goal (LTG) Improve LEFS to at least 75%, with patient resuming prior level of functional activity LTG Duration 03/04/20 One Impairment function-limiting pain right LE Short Term Goal (STG) Decrease pain to no greater than 3/10 STG Duration 01/21/20 Prison Goal (LTG) Decrease pain to no grater than 1/10 LTG Duration 03/04/20 Assessment Summary Assessment Patient presents with function -limiting pain right LE. Impairments include muscle imbalances and weakness throughout her LE's, leg length discrepancy with patient not consistently wearing her built up shoes, antalgic gait with patient not using assistive device. Would benefit from physical therapy to help her decrease her pain, improve her strength and muscle activation patterns, and return to a more active lifestyle. Physical Therapy Plan Frequency and Duration Frequency of Treatment 2x/Week Duration of Treatment 12 wks Plan of Care Start Date 12/05/19 Plan of Care End Date 03/04/20 Therapeutic Interventions Therapeutic Interventions Aquatic Therapy,Balance Training,Gait Training,Home Exercise Program,Manual Therapy,Neuromuscular Re- education,Patient/Caregiver Education,Self-Care/Home Management,Soft Tissue Mobilization,Taping, Therapeutic Activities, Therapeutic Exercises Modalities Cold Pack/Ice Massage,Electric Stimulation,Hot Packs Next Visit Focus/Plan Next Visit Plan Review HEP, gait training with cane or trekking pole ( patient to bring in), neur re- ed regarding muscle activation patterns and posture for gait , ther ex for strengthening, moist heat.
--- NOTE | 2019-12-05 15:15 | PT.OPPOC ---
Physical, Occupational & Speech Therapy At [facility] Current Diagnoses Pain in right hip (12/07/19) Pain in right knee (12/07/19) Pain in right leg (12/07/19) Pain in left leg (12/07/19) Difficulty in walking, not elsewhere classified (12/07/19) Weakness (12/07/19) Visit Care Team Role Provider Type Rosette Grey PA-C Attending Provider Physician Primary Care Provider Referring Provider Specialty: Internal Medicine Address: [address] [place] [address], [facility] Email: [email or web address] Plan Of Care PT-OP-T Assessment and Plan Start: 12/05/19 15:14 Freq: Status: Active Protocol: Document 12/05/19 15:15 SAK (Rec: 12/05/19 16:50 SAK [id number]) Physical Therapy Assessment Rehab Potential Rehabilitation Potential Good Evaluation Complexity Number of Personal Factors/Comorbidities 1-2 Impairments Impairments Activity Tolerance,Gait,Pain, Strength Goals Four Impairment weakness abe LE's right greater than left Short Term Goal (STG) Patient to be independent and compliant with HEP, ongoing progression of HEP as tolerated STG Duration 01/21/20 It Security Architect Goal (LTG) Patient to demonstrate improvement in LE muscle strength to at least 4+/5 throughout LTG Duration 03/04/20 Three Impairment antalgic and unsteady gait It Security Architect Goal (LTG) Patient able to ambulate with least restrictive device with minimal limp or compensatory movement strategies to decrease stresses to her joints and soft tissues. Be able to ascend and descend stairs with step over step pattern. LTG Duration 03/04/20 Two Impairment lower extremity functional scale (LEFS) 49% Short Term Goal (STG) Improve LEFS to at least 60% STG Duration 01/21/20 It Security Architect Goal (LTG) Improve LEFS to at least 75%, with patient resuming prior level of functional activity LTG Duration 03/04/20 One Impairment function-limiting pain right LE Short Term Goal (STG) Decrease pain to no greater than 3/10 STG Duration 01/21/20 Intermediate Goal (LTG) Decrease pain to no grater than 1/10 LTG Duration 03/04/20 Assessment Summary Assessment Patient presents with function -limiting pain right LE. Impairments include muscle imbalances and weakness throughout her LE's, leg length discrepancy with patient not consistently wearing her built up shoes, antalgic gait with patient not using assistive device. Would benefit from physical therapy to help her decrease her pain, improve her strength and muscle activation patterns, and return to a more active lifestyle. Physical Therapy Plan Frequency and Duration Frequency of Treatment 2x/Week Duration of Treatment 12 wks Plan of Care Start Date 12/05/19 Plan of Care End Date 03/04/20 Therapeutic Interventions Therapeutic Interventions Aquatic Therapy,Balance Training,Gait Training,Home Exercise Program,Manual Therapy,Neuromuscular Re- education,Patient/Caregiver Education,Self-Care/Home Management,Soft Tissue Mobilization,Taping, Therapeutic Activities, Therapeutic Exercises Modalities Cold Pack/Ice Massage,Electric Stimulation,Hot Packs Next Visit Focus/Plan Next Visit Plan Review HEP, gait training with cane or trekking pole ( patient to bring in), neur re- ed regarding muscle activation patterns and posture for gait , ther ex for strengthening, moist heat. Plan of Care Dates Plan of Care Start Date 12/05/19 Plan of Care End Date 03/04/20 Electronically Signed by: Elizabeth Quick, PT 12/07/19 [id number] Please Sign and Return: I have reviewed this Plan of Care and certify that the skilled therapy services above are required to meet the patient?s needs. Physician Signature Date Printed Name and Credentials Clinical Instructor Signature Printed Name and Credentials
--- NOTE | 2019-12-07 16:59 | PT.OTN ---
Current Diagnoses Pain in right hip (12/07/19) Pain in right knee (12/07/19) Pain in right leg (12/07/19) Pain in left leg (12/07/19) Difficulty in walking, not elsewhere classified (12/07/19) Weakness (12/07/19) Physical Therapy Treatment Note PT-OP-A Visit Information Start: 12/05/19 15:14 Freq: Status: Active Protocol: Document 12/07/19 16:44 [facility] (Rec: 12/07/19 16:59 [facility] [id number]) Out-Patient Physical Therapy Visit Information Visit Information Visit Type Treatment Note Visit Start Time 14:30 Visit Stop Time 15:15 Total Visit Minutes 60 Visit Number 2 Number of BACON STRINGER Visits 0 Evaluation Information Evaluation Date 12/05/19 Precautions Precautions Cardiac; history of miltral valve replacement, chronic coumadin use, history osteoporosis,history of fall with 12 rib fractures PT-OP-B Current Condition Start: 12/05/19 15:14 Freq: Status: Active Protocol: Document 12/07/19 16:44 [facility] (Rec: 12/07/19 16:59 [facility] [id number]) Current Condition History of Current Condition Onset Date 6 yrs ago Current Complaints right hip pain History of Current Condition Reports that after her original right JUANCARLOS, greater trochanter was found to be broken and did not heal well. After a few years, repair done, but she reports still didn't do well. Saw maribel in [place] who recommended new JUANCARLOS, but by time she said ok, doctor was retired and she did not have surgery. Pain continues and is worsening. 1 week ago went to ER because couldn't move her right leg, states her knee was swollen and locked. . Physician thought hematoma due to Coumadin use. Was given a stabilizing brace. Dr. Noland to review ER x-rays. Pain worse when first stands, then gets a little better. Uses walking stick at sometimes, no cane or walker. Occasional ice or heat. Exercise is around the house and volunteering at [employer]. Short walks around the neighborhood. Left LE longer. Leg hasn't given way. Prior Treatments and Tests Gio JUANCARLOS, gio TKA, mitral valve repair, fall with fractured 12 ribs. 3 foot surgeries right with severe bunion Treatment Goals Patient/Caregiver Goals Decrease pain, resume prior level of physical activity PT-OP-C Subjective Start: 12/05/19 15:14 Freq: Status: Active Protocol: Document 12/07/19 16:44 [facility] (Rec: 12/07/19 16:59 [facility] [id number]) OP-PT Subjective Patient Comments Patient Comments Compliant to HEP except didn't have a theraband. Brought her walking stick, trekking pole, and 2 pairs of built up shoes. PT-OP-D Balance Start: 12/05/19 15:14 Freq: Status: Active Protocol: Document 12/05/19 15:15 [facility] (Rec: 12/05/19 16:50 [facility] [id number]) OP-PT Balance Assessment Sitting Balance Static Sitting Balance Ability Good Dynamic Sitting Balance Ability Good Standing Balance Static Standing Balance Ability Good Dynamic Standing Balance Ability Fair Device Used walking stick Tinetti Balance Assessment Sitting Balance Sitting Balance Steady, safe Arising from Chair Ability to Arise Able, uses arms to help Standing Balance Standing Balance Steady, wide stance Nudged Response Staggers, catches self Standing with Eyes Closed Unsteady Turning Step Pattern Turning 360 Degrees Discontinuous steps Stability Turning 360 Degrees Unsteady, grabs/staggers Sitting Down Sitting Down Uses arms or unsteady Gait and Step Initiation of Gait No hesitancy Right Foot Step Length Does pass stance foot Right Foot Step Height Completely clears floor Left Foot Step Length Does not pass stance foot Left Foot Step Height Does not clear floor Step Description Step Symmetry Step length not equal Gait Description Path Description Mild/moderate deviation Trunk Description No sway but posturing Scoring and Interpretation Tinetti Composite Score (points) 10 Cobos Fall Scale Copyright Permission PT-OP-F Manual Assessment Start: 12/05/19 15:14 Freq: Status: Active Protocol: Document 12/05/19 15:15 [facility] (Rec: 12/05/19 16:50 [facility] [id number]) Manual Assessments Soft Tissue Assessment Soft Tissue Mobility Assessment mod tightness right IT band Joint Mobility Assessment Joint Mobility Assessment NA due to gio JUANCARLOS Other Manual Assessments Other Manual Assessments Leg length discrepancy with right LE 1/2 longer than left (patient reports she has a couple built up shoes but doesn't wear regularly) PT-OP-G Mobility & Gait Start: 12/05/19 15:14 Freq: Status: Active Protocol: Document 12/05/19 15:15 [facility] (Rec: 12/05/19 16:50 [facility] [id number]) OP Mobility Evaluation Bed Mobility Rolling indep Supine to and from Sit indep Transfers Sit to Stand indep with decreased weight- bearing right LE OP Gait Assessment Gait Gait Assistance Required: Independent Distance (Feet) 40 Assistive Devices Assistive Device None Gait Deviations General Gait Pattern Antalgic,Flexed Trunk,Lateral Trunk Lean Factors Limiting Gait Function Factors Limiting Gait Function Decreased Strength,Limited Range of Motion,Pain,Poor Balance Stair Climbing Evaluation Evaluation Level of Assist On Stairs Independent Devices Stair Climbing Assistive Devices Left Railing,Right Railing Technique/Endurance Stair Climbing Direction Ascend and Descend Stair Climbing Technique Step to Step PT-OP-H Neuro Start: 12/05/19 15:14 Freq: Status: Active Protocol: Document 12/05/19 15:15 [facility] (Rec: 12/05/19 16:50 [facility] [id number]) Sensation Evaluation Gross Sensation Gross Sensation WNL PT-OP-J Posture/Palpation/Skin Start: 12/05/19 15:14 Freq: Status: Active Protocol: Document 12/05/19 15:15 [facility] (Rec: 12/05/19 16:50 [facility] [id number]) Posture Evaluation Position Standing Head/C-Spine Posture C-Spine Flattened L-Spine Posture Flattened Arm Posture (L) Internally Rotated,(R) Internally Rotated Pelvis Posture (R) Rotated Posterior Weight Distribution Weight Shifted Left Hip Posture (R) Internally Rotated Knee Posture (L) Genu Valgus,(R) Excess Flexion PT-OP-K Range of Motion Start: 12/05/19 15:14 Freq: Status: Active Protocol: Document 12/05/19 15:15 [facility] (Rec: 12/05/19 16:50 [facility] [id number]) Hip Goniometric Range of Motion Hip Right Hip ROM WFL No Flexion w/Knee Flexed 95 Straight Leg Raise 75 Extension 0 Abduction 25 Internal Rotation 0 External Rotation 35 left Hip ROM WFL No Testing Position Supine Flexion w/Knee Flexed 100 Straight Leg Raise 65 Extension 0 Abduction 25 Internal Rotation 15 External Rotation 45 Hip ROM Limitations Hip ROM Limitations Soft Tissue Tightness,Bony Restriction,Pain Knee Goniometric Range of Motion Knee gio Knee ROM WFL Yes Ankle and Foot Goniometric Range of Motion Ankle and Foot gio Dorsiflexion with Knee Flexed 5 Dorsiflexion with Knee Extended 0 Ankle and Foot ROM Limitations ROM Limitations Soft Tissue Tightness PT-OP-M Strength Start: 12/05/19 15:14 Freq: Status: Active Protocol: Document 12/05/19 15:15 [facility] (Rec: 12/05/19 16:50 [facility] [id number]) Trunk Strength Trunk Manual Muscle Testing Core Stabilization poor ability to activate TrA Hip Strength Hip Manual Muscle Testing Right Abduction 3+ Fair+ Adduction 3+ Fair+ External Rotation 3+ Fair+ Internal Rotation 3+ Fair+ Left Flexion (L2) 4 Good Abduction 4 Good Adduction 4 Good External Rotation 3+ Fair+ Internal Rotation 4 Good Knee Strength Knee Manual Muscle Testing Right Flexion (S2) 4 Good Extension (L3) 4- Good- Left Flexion (S2) 5 Normal Extension (L3) 5 Normal Ankle/Foot Strength Ankle and Foot Manual Muscle Testing Left Dorsiflexion (L4) 4+ Good+ Plantarflexion (S1) 4+ Good+ Right Dorsiflexion (L4) 4 Good Plantarflexion (S1) 4 Good PT-OP-Q Treatments Start: 12/05/19 15:14 Freq: Status: Active Protocol: Document 12/07/19 16:44 [facility] (Rec: 12/07/19 16:59 [facility] [id number]) Cardio Equipment Recumbent Stepper (Sci-Fit) Duration (Minutes) 7 Resistance 1 Other cues for neutral LE alignment Gym Equipment Shuttle Recovery Bilateral Squats Resistance 50 Shuttle Recovery Platform Stable Reps/Time 10x2 Therapeutic Exercises Supine Exercises ball squeeze Reps/Minutes 10x hip ab/ER with TB Resistance L2 TB Reps/Minutes 10x glut set Reps/Minutes 10x gio, 5x ea unil Gait Training Gait Activity level surface gait Device Used single point cane, trekking pole Level of Assistance CGA to SBA, verbal and manual cues Surface level Treatment Focus upright posture, decreased lateral lean, activation of gluteals in stance Comments visual cues with mirror Neuro Re-Education Treatment Movement Re-Education Movement Re-education Activities verbal and manual cues for neutral postural alignment with mirror for visual feedback Pre-gait weight-shift in stride position with emphasis on upright posture and gluteal activation with mirror for visual feedback PT-OP-R Modalities Start: 12/05/19 15:14 Freq: Status: Active Protocol: Document 12/07/19 16:44 [facility] (Rec: 12/07/19 16:59 [facility] [id number]) Hot Pack/Cold Pack Treatment Hot Pack Location right hip and knee Patient Position Hooklying Treatment Duration (minutes) 15 PT-OP-T Assessment and Plan Start: 12/05/19 15:14 Freq: Status: Active Protocol: Document 12/07/19 16:44 [facility] (Rec: 12/07/19 16:59 [facility] [id number]) Physical Therapy Assessment Goals Four Impairment weakness gio LE's right greater than left Short Term Goal (STG) Patient to be independent and compliant with HEP, ongoing progression of HEP as tolerated STG Duration 01/21/20 Carpet Floor Layer Apprentice Goal (LTG) Patient to demonstrate improvement in LE muscle strength to at least 4+/5 throughout LTG Duration 03/04/20 Three Impairment antalgic and unsteady gait Nursing Home Goal (LTG) Patient able to ambulate with least restrictive device with minimal limp or compensatory movement strategies to decrease stresses to her joints and soft tissues. Be able to ascend and descend stairs with step over step pattern. LTG Duration 03/04/20 Two Impairment lower extremity functional scale (LEFS) 49% Short Term Goal (STG) Improve LEFS to at least 60% STG Duration 01/21/20 Nursing Home Goal (LTG) Improve LEFS to at least 75%, with patient resuming prior level of functional activity LTG Duration 03/04/20 One Impairment function-limiting pain right LE Short Term Goal (STG) Decrease pain to no greater than 3/10 STG Duration 01/21/20 Nursing Home Goal (LTG) Decrease pain to no grater than 1/10 LTG Duration 03/04/20 Physical Therapy Plan Frequency and Duration Frequency of Treatment 2x/Week Duration of Treatment 12 wks Plan of Care Start Date 12/05/19 Plan of Care End Date 03/04/20 Therapeutic Interventions Therapeutic Interventions Aquatic Therapy,Balance Training,Gait Training,Home Exercise Program,Manual Therapy,Neuromuscular Re- education,Patient/Caregiver Education,Self-Care/Home Management,Soft Tissue Mobilization,Taping, Therapeutic Activities, Therapeutic Exercises Modalities Cold Pack/Ice Massage,Electric Stimulation,Hot Packs Next Visit Focus/Plan Next Visit Plan Review pre-gait and gait with emphasis on alignment and muscle activation, progression of ther ex as tolerated, Consider kinesiotape to right hip and knee.
--- NOTE | 2019-12-14 15:01 | PT.OTN ---
Current Diagnoses Pain in right hip (12/14/19) Pain in right knee (12/14/19) Pain in right leg (12/14/19) Pain in left leg (12/14/19) Difficulty in walking, not elsewhere classified (12/14/19) Weakness (12/14/19) Physical Therapy Treatment Note PT-OP-A Visit Information Start: 12/05/19 15:14 Freq: Status: Active Protocol: Document 12/14/19 08:27 [facility] (Rec: 12/14/19 09:02 [facility] [id number]) Out-Patient Physical Therapy Visit Information Visit Information Visit Type Treatment Note Visit Start Time 08:15 Visit Stop Time 09:10 Total Visit Minutes 55 Visit Number 3 Number of CHILD WELFARE CASEWORKER Visits 0 Evaluation Information Evaluation Date 12/05/19 Precautions Precautions Cardiac; history of miltral valve replacement, chronic coumadin use, history osteoporosis,history of fall with 12 rib fractures PT-OP-B Current Condition Start: 12/05/19 15:14 Freq: Status: Active Protocol: Document 12/14/19 08:27 [facility] (Rec: 12/14/19 09:02 [facility] [id number]) Current Condition Treatment Goals Patient/Caregiver Goals Decrease pain, resume prior level of physical activity PT-OP-C Subjective Start: 12/05/19 15:14 Freq: Status: Active Protocol: Document 12/14/19 08:27 [facility] (Rec: 12/14/19 09:02 [facility] [id number]) OP-PT Subjective Patient Comments Patient Comments Pain a little better. Having difficulty with correction of gait due to habits, fearful of right knee locking again. PT-OP-D Balance Start: 12/05/19 15:14 Freq: Status: Active Protocol: Document 12/05/19 15:15 [facility] (Rec: 12/05/19 16:50 [facility] [id number]) OP-PT Balance Assessment Sitting Balance Static Sitting Balance Ability Good Dynamic Sitting Balance Ability Good Standing Balance Static Standing Balance Ability Good Dynamic Standing Balance Ability Fair Device Used walking stick Tinetti Balance Assessment Sitting Balance Sitting Balance Steady, safe Arising from Chair Ability to Arise Able, uses arms to help Standing Balance Standing Balance Steady, wide stance Nudged Response Staggers, catches self Standing with Eyes Closed Unsteady Turning Step Pattern Turning 360 Degrees Discontinuous steps Stability Turning 360 Degrees Unsteady, grabs/staggers Sitting Down Sitting Down Uses arms or unsteady Gait and Step Initiation of Gait No hesitancy Right Foot Step Length Does pass stance foot Right Foot Step Height Completely clears floor Left Foot Step Length Does not pass stance foot Left Foot Step Height Does not clear floor Step Description Step Symmetry Step length not equal Gait Description Path Description Mild/moderate deviation Trunk Description No sway but posturing Scoring and Interpretation Tinetti Composite Score (points) 10 Cobos Fall Scale Copyright Permission PT-OP-F Manual Assessment Start: 12/05/19 15:14 Freq: Status: Active Protocol: Document 12/05/19 15:15 [facility] (Rec: 12/05/19 16:50 [facility] [id number]) Manual Assessments Soft Tissue Assessment Soft Tissue Mobility Assessment mod tightness right IT band Joint Mobility Assessment Joint Mobility Assessment NA due to abe JUANCARLOS Other Manual Assessments Other Manual Assessments Leg length discrepancy with right LE 1/2 longer than left (patient reports she has a couple built up shoes but doesn't wear regularly) PT-OP-G Mobility & Gait Start: 12/05/19 15:14 Freq: Status: Active Protocol: Document 12/05/19 15:15 [facility] (Rec: 12/05/19 16:50 [facility] [id number]) OP Mobility Evaluation Bed Mobility Rolling indep Supine to and from Sit indep Transfers Sit to Stand indep with decreased weight- bearing right LE OP Gait Assessment Gait Gait Assistance Required: Independent Distance (Feet) 40 Assistive Devices Assistive Device None Gait Deviations General Gait Pattern Antalgic,Flexed Trunk,Lateral Trunk Lean Factors Limiting Gait Function Factors Limiting Gait Function Decreased Strength,Limited Range of Motion,Pain,Poor Balance Stair Climbing Evaluation Evaluation Level of Assist On Stairs Independent Devices Stair Climbing Assistive Devices Left Railing,Right Railing Technique/Endurance Stair Climbing Direction Ascend and Descend Stair Climbing Technique Step to Step PT-OP-H Neuro Start: 12/05/19 15:14 Freq: Status: Active Protocol: Document 12/05/19 15:15 [facility] (Rec: 12/05/19 16:50 [facility] [id number]) Sensation Evaluation Gross Sensation Gross Sensation WNL PT-OP-J Posture/Palpation/Skin Start: 12/05/19 15:14 Freq: Status: Active Protocol: Document 12/05/19 15:15 [facility] (Rec: 12/05/19 16:50 [facility] [id number]) Posture Evaluation Position Standing Head/C-Spine Posture C-Spine Flattened L-Spine Posture Flattened Arm Posture (L) Internally Rotated,(R) Internally Rotated Pelvis Posture (R) Rotated Posterior Weight Distribution Weight Shifted Left Hip Posture (R) Internally Rotated Knee Posture (L) Genu Valgus,(R) Excess Flexion PT-OP-K Range of Motion Start: 12/05/19 15:14 Freq: Status: Active Protocol: Document 12/05/19 15:15 [facility] (Rec: 12/05/19 16:50 [facility] [id number]) Hip Goniometric Range of Motion Hip Right Hip ROM WFL No Flexion w/Knee Flexed 95 Straight Leg Raise 75 Extension 0 Abduction 25 Internal Rotation 0 External Rotation 35 left Hip ROM WFL No Testing Position Supine Flexion w/Knee Flexed 100 Straight Leg Raise 65 Extension 0 Abduction 25 Internal Rotation 15 External Rotation 45 Hip ROM Limitations Hip ROM Limitations Soft Tissue Tightness,Bony Restriction,Pain Knee Goniometric Range of Motion Knee abe Knee ROM WFL Yes Ankle and Foot Goniometric Range of Motion Ankle and Foot abe Dorsiflexion with Knee Flexed 5 Dorsiflexion with Knee Extended 0 Ankle and Foot ROM Limitations ROM Limitations Soft Tissue Tightness PT-OP-M Strength Start: 12/05/19 15:14 Freq: Status: Active Protocol: Document 12/05/19 15:15 [facility] (Rec: 12/05/19 16:50 [facility] [id number]) Trunk Strength Trunk Manual Muscle Testing Core Stabilization poor ability to activate TrA Hip Strength Hip Manual Muscle Testing Right Abduction 3+ Fair+ Adduction 3+ Fair+ External Rotation 3+ Fair+ Internal Rotation 3+ Fair+ Left Flexion (L2) 4 Good Abduction 4 Good Adduction 4 Good External Rotation 3+ Fair+ Internal Rotation 4 Good Knee Strength Knee Manual Muscle Testing Right Flexion (S2) 4 Good Extension (L3) 4- Good- Left Flexion (S2) 5 Normal Extension (L3) 5 Normal Ankle/Foot Strength Ankle and Foot Manual Muscle Testing Left Dorsiflexion (L4) 4+ Good+ Plantarflexion (S1) 4+ Good+ Right Dorsiflexion (L4) 4 Good Plantarflexion (S1) 4 Good PT-OP-Q Treatments Start: 12/05/19 15:14 Freq: Status: Active Protocol: Document 12/14/19 08:27 [facility] (Rec: 12/14/19 09:02 [facility] [id number]) Cardio Equipment Recumbent Stepper (Sci-Fit) Duration (Minutes) 10 Resistance 1.5 Other cues for neutral LE alignment, 5 min UE's/LE's, 5 min LE's only Gym Equipment Shuttle Recovery Unilateral Squats Resistance 37 Shuttle Recovery Platform Stable Reps/Time 10x1 Bilateral Squats Resistance 75 Shuttle Recovery Platform Stable Reps/Time 10x1 Therapeutic Exercises Supine Exercises ball squeeze Reps/Minutes 10x hip ab/ER with TB Resistance L2 TB Reps/Minutes 10x glut set Reps/Minutes 10x abe, 5x ea unil Sitting Exercises knee flexion Equipment Used L2 TB Comments start next session Standing Exercises SLS Reps/Minutes 5 x 3 Comments bilateral UE support, mirror for visual feedback Gait Training Gait Activity level surface gait Device Used single point cane, trekking pole Level of Assistance CGA to SBA, verbal and manual cues Surface level Treatment Focus upright posture, decreased lateral lean, activation of gluteals in stance Comments visual cues with mirror Neuro Re-Education Treatment Movement Re-Education Movement Re-education Activities verbal and manual cues for neutral postural alignment with mirror for visual feedback Pre-gait weight-shift in stride position with emphasis on upright posture and gluteal activation with mirror for visual feedback PT-OP-R Modalities Start: 12/05/19 15:14 Freq: Status: Active Protocol: Document 12/14/19 08:27 [facility] (Rec: 12/14/19 09:02 [facility] [id number]) Hot Pack/Cold Pack Treatment Cold Pack Location right knee and hip Patient Position Hooklying Treatment Duration (minutes) 10 PT-OP-T Assessment and Plan Start: 12/05/19 15:14 Freq: Status: Active Protocol: Document 12/14/19 08:27 [facility] (Rec: 12/14/19 09:02 [facility] [id number]) Physical Therapy Assessment Goals Four Impairment weakness abe LE's right greater than left Short Term Goal (STG) Patient to be independent and compliant with HEP, ongoing progression of HEP as tolerated STG Duration 01/21/20 Box Office Clerk Goal (LTG) Patient to demonstrate improvement in LE muscle strength to at least 4+/5 throughout LTG Duration 03/04/20 Three Impairment antalgic and unsteady gait Correction Goal (LTG) Patient able to ambulate with least restrictive device with minimal limp or compensatory movement strategies to decrease stresses to her joints and soft tissues. Be able to ascend and descend stairs with step over step pattern. LTG Duration 03/04/20 Two Impairment lower extremity functional scale (LEFS) 49% Short Term Goal (STG) Improve LEFS to at least 60% STG Duration 01/21/20 Correction Goal (LTG) Improve LEFS to at least 75%, with patient resuming prior level of functional activity LTG Duration 03/04/20 One Impairment function-limiting pain right LE Short Term Goal (STG) Decrease pain to no greater than 3/10 STG Duration 01/21/20 Box Office Clerk Goal (LTG) Decrease pain to no grater than 1/10 LTG Duration 03/04/20 Assessment Summary Assessment Patient able to partially correct posture and gait with verbal, manual, and visual cues, but quickly slips back into usual habits. Aching but no increase in pain and no locking of right knee. Physical Therapy Plan Frequency and Duration Frequency of Treatment 2x/Week Duration of Treatment 12 wks Plan of Care Start Date 12/05/19 Plan of Care End Date 03/04/20 Therapeutic Interventions Therapeutic Interventions Aquatic Therapy,Balance Training,Gait Training,Home Exercise Program,Manual Therapy,Neuromuscular Re- education,Patient/Caregiver Education,Self-Care/Home Management,Soft Tissue Mobilization,Taping, Therapeutic Activities, Therapeutic Exercises Modalities Cold Pack/Ice Massage,Electric Stimulation,Hot Packs Next Visit Focus/Plan Next Visit Plan Patient to see Dr. Noland tomorrow. Continue PT pending any further recommendations from him. Assess response to ice. Kinesiotape.
--- NOTE | 2019-12-19 14:54 | PT.OTN ---
Current Diagnoses Pain in right hip (12/21/19) Pain in right knee (12/21/19) Pain in right leg (12/21/19) Pain in left leg (12/21/19) Difficulty in walking, not elsewhere classified (12/21/19) Weakness (12/21/19) Physical Therapy Treatment Note PT-OP-A Visit Information Start: 12/05/19 15:14 Freq: Status: Active Protocol: Document 12/19/19 14:27 SAK (Rec: 12/19/19 15:17 SAK [id number]) Out-Patient Physical Therapy Visit Information Visit Information Visit Type Treatment Note Visit Start Time 14:30 Total Visit Minutes 55 Visit Number 4 Number of SNAILER Visits 0 Evaluation Information Evaluation Date 12/05/19 Precautions Precautions Cardiac; history of miltral valve replacement, chronic coumadin use, history osteoporosis,history of fall with 12 rib fractures PT-OP-B Current Condition Start: 12/05/19 15:14 Freq: Status: Active Protocol: Document 12/19/19 14:27 SAK (Rec: 12/19/19 15:17 SAK [id number]) Current Condition History of Current Condition Onset Date 6 yrs ago Current Complaints right hip pain History of Current Condition Reports that after her original right JUANCARLOS, greater trochanter was found to be broken and did not heal well. After a few years, repair done, but she reports still didn't do well. Saw maribel in [place] who recommended new JUANCARLOS, but by time she said ok, doctor was retired and she did not have surgery. Pain continues and is worsening. 1 week ago went to ER because couldn't move her right leg, states her knee was swollen and locked. . Physician thought hematoma due to Coumadin use. Was given a stabilizing brace. Dr. Noland to review ER x-rays. Pain worse when first stands, then gets a little better. Uses walking stick at sometimes, no cane or walker. Occasional ice or heat. Exercise is around the house and volunteering at [employer]. Short walks around the neighborhood. Left LE longer. Leg hasn't given way. Prior Treatments and Tests Abe JUANCARLOS, abe TKA, mitral valve repair, fall with fractured 12 ribs. 3 foot surgeries right with severe bunion Treatment Goals Patient/Caregiver Goals Decrease pain, resume prior level of physical activity PT-OP-C Subjective Start: 12/05/19 15:14 Freq: Status: Active Protocol: Document 12/19/19 14:27 SAK (Rec: 12/19/19 15:17 SAK [id number]) OP-PT Subjective Patient Comments Patient Comments x-rays negative, may be referred to new orthopedist. PT-OP-D Balance Start: 12/05/19 15:14 Freq: Status: Active Protocol: Document 12/05/19 15:15 SAK (Rec: 12/05/19 16:50 SAK [id number]) OP-PT Balance Assessment Sitting Balance Static Sitting Balance Ability Good Dynamic Sitting Balance Ability Good Standing Balance Static Standing Balance Ability Good Dynamic Standing Balance Ability Fair Device Used walking stick Tinetti Balance Assessment Sitting Balance Sitting Balance Steady, safe Arising from Chair Ability to Arise Able, uses arms to help Standing Balance Standing Balance Steady, wide stance Nudged Response Staggers, catches self Standing with Eyes Closed Unsteady Turning Step Pattern Turning 360 Degrees Discontinuous steps Stability Turning 360 Degrees Unsteady, grabs/staggers Sitting Down Sitting Down Uses arms or unsteady Gait and Step Initiation of Gait No hesitancy Right Foot Step Length Does pass stance foot Right Foot Step Height Completely clears floor Left Foot Step Length Does not pass stance foot Left Foot Step Height Does not clear floor Step Description Step Symmetry Step length not equal Gait Description Path Description Mild/moderate deviation Trunk Description No sway but posturing Scoring and Interpretation Tinetti Composite Score (points) 10 Cobos Fall Scale Copyright Permission PT-OP-F Manual Assessment Start: 12/05/19 15:14 Freq: Status: Active Protocol: Document 12/05/19 15:15 SAK (Rec: 12/05/19 16:50 [facility] [id number]) Manual Assessments Soft Tissue Assessment Soft Tissue Mobility Assessment mod tightness right IT band Joint Mobility Assessment Joint Mobility Assessment NA due to abe JUANCARLOS Other Manual Assessments Other Manual Assessments Leg length discrepancy with right LE 1/2 longer than left (patient reports she has a couple built up shoes but doesn't wear regularly) PT-OP-G Mobility & Gait Start: 12/05/19 15:14 Freq: Status: Active Protocol: Document 12/05/19 15:15 SAK (Rec: 12/05/19 16:50 SAK [id number]) OP Mobility Evaluation Bed Mobility Rolling indep Supine to and from Sit indep Transfers Sit to Stand indep with decreased weight- bearing right LE OP Gait Assessment Gait Gait Assistance Required: Independent Distance (Feet) 40 Assistive Devices Assistive Device None Gait Deviations General Gait Pattern Antalgic,Flexed Trunk,Lateral Trunk Lean Factors Limiting Gait Function Factors Limiting Gait Function Decreased Strength,Limited Range of Motion,Pain,Poor Balance Stair Climbing Evaluation Evaluation Level of Assist On Stairs Independent Devices Stair Climbing Assistive Devices Left Railing,Right Railing Technique/Endurance Stair Climbing Direction Ascend and Descend Stair Climbing Technique Step to Step PT-OP-H Neuro Start: 12/05/19 15:14 Freq: Status: Active Protocol: Document 12/05/19 15:15 SAK (Rec: 12/05/19 16:50 SAK [id number]) Sensation Evaluation Gross Sensation Gross Sensation WNL PT-OP-J Posture/Palpation/Skin Start: 12/05/19 15:14 Freq: Status: Active Protocol: Document 12/05/19 15:15 SAK (Rec: 12/05/19 16:50 SAK [id number]) Posture Evaluation Position Standing Head/C-Spine Posture C-Spine Flattened L-Spine Posture Flattened Arm Posture (L) Internally Rotated,(R) Internally Rotated Pelvis Posture (R) Rotated Posterior Weight Distribution Weight Shifted Left Hip Posture (R) Internally Rotated Knee Posture (L) Genu Valgus,(R) Excess Flexion PT-OP-K Range of Motion Start: 12/05/19 15:14 Freq: Status: Active Protocol: Document 12/05/19 15:15 SAK (Rec: 12/05/19 16:50 SAK [id number]) Hip Goniometric Range of Motion Hip Right Hip ROM WFL No Flexion w/Knee Flexed 95 Straight Leg Raise 75 Extension 0 Abduction 25 Internal Rotation 0 External Rotation 35 left Hip ROM WFL No Testing Position Supine Flexion w/Knee Flexed 100 Straight Leg Raise 65 Extension 0 Abduction 25 Internal Rotation 15 External Rotation 45 Hip ROM Limitations Hip ROM Limitations Soft Tissue Tightness,Bony Restriction,Pain Knee Goniometric Range of Motion Knee abe Knee ROM WFL Yes Ankle and Foot Goniometric Range of Motion Ankle and Foot abe Dorsiflexion with Knee Flexed 5 Dorsiflexion with Knee Extended 0 Ankle and Foot ROM Limitations ROM Limitations Soft Tissue Tightness PT-OP-M Strength Start: 12/05/19 15:14 Freq: Status: Active Protocol: Document 12/05/19 15:15 [facility] (Rec: 12/05/19 16:50 [facility] [id number]) Trunk Strength Trunk Manual Muscle Testing Core Stabilization poor ability to activate TrA Hip Strength Hip Manual Muscle Testing Right Abduction 3+ Fair+ Adduction 3+ Fair+ External Rotation 3+ Fair+ Internal Rotation 3+ Fair+ Left Flexion (L2) 4 Good Abduction 4 Good Adduction 4 Good External Rotation 3+ Fair+ Internal Rotation 4 Good Knee Strength Knee Manual Muscle Testing Right Flexion (S2) 4 Good Extension (L3) 4- Good- Left Flexion (S2) 5 Normal Extension (L3) 5 Normal Ankle/Foot Strength Ankle and Foot Manual Muscle Testing Left Dorsiflexion (L4) 4+ Good+ Plantarflexion (S1) 4+ Good+ Right Dorsiflexion (L4) 4 Good Plantarflexion (S1) 4 Good PT-OP-Q Treatments Start: 12/05/19 15:14 Freq: Status: Active Protocol: Document 12/19/19 14:27 [facility] (Rec: 12/19/19 15:17 [facility] [id number]) Cardio Equipment Recumbent Stepper (Sci-Fit) Duration (Minutes) 10 Resistance 1.5 Other cues for neutral LE alignment, 5 min UE's/LE's, 5 min LE's only Therapeutic Exercises Sidelying Exercises hip abd Reps/Minutes 10x clamshell Reps/Minutes 10x Sitting Exercises knee flexion Equipment Used L2 TB Comments start next session Gait Training Gait Activity level surface gait Device Used single point cane, trekking pole Level of Assistance CGA to SBA, verbal and manual cues Surface level Treatment Focus upright posture, decreased lateral lean, activation of gluteals in stance Comments visual cues with mirror Manual Therapy Treatment Soft Tissue Mobilization IT band Mobilization Type Instrument Assisted,Rolling Intensity/Depth mild Body Position left sidelying Taping 1 Body Location right IT band Treatment Focus inhibition Type of Tape Kinesio Tape Skin Inspection intact Neuro Re-Education Treatment Movement Re-Education Movement Re-education Activities verbal and manual cues for neutral postural alignment with mirror for visual feedback Pre-gait weight-shift in stride position with emphasis on upright posture and gluteal activation with mirror for visual feedback PT-OP-R Modalities Start: 12/05/19 15:14 Freq: Status: Active Protocol: Document 12/14/19 08:27 [facility] (Rec: 12/14/19 09:02 [facility] [id number]) Hot Pack/Cold Pack Treatment Cold Pack Location right knee and hip Patient Position Hooklying Treatment Duration (minutes) 10 PT-OP-T Assessment and Plan Start: 12/05/19 15:14 Freq: Status: Active Protocol: Document 12/19/19 14:27 MORIAH (Rec: 12/19/19 15:17 SAK [id number]) Physical Therapy Assessment Goals Four Impairment weakness abe LE's right greater than left Short Term Goal (STG) Patient to be independent and compliant with HEP, ongoing progression of HEP as tolerated STG Duration 01/21/20 Shelter Goal (LTG) Patient to demonstrate improvement in LE muscle strength to at least 4+/5 throughout LTG Duration 03/04/20 Three Impairment antalgic and unsteady gait Carpet Yarn Winder Operator Goal (LTG) Patient able to ambulate with least restrictive device with minimal limp or compensatory movement strategies to decrease stresses to her joints and soft tissues. Be able to ascend and descend stairs with step over step pattern. LTG Duration 03/04/20 Two Impairment lower extremity functional scale (LEFS) 49% Short Term Goal (STG) Improve LEFS to at least 60% STG Duration 01/21/20 Shelter Goal (LTG) Improve LEFS to at least 75%, with patient resuming prior level of functional activity LTG Duration 03/04/20 One Impairment function-limiting pain right LE Short Term Goal (STG) Decrease pain to no greater than 3/10 STG Duration 01/21/20 Carpet Yarn Winder Operator Goal (LTG) Decrease pain to no grater than 1/10 LTG Duration 03/04/20 Assessment Summary Assessment Mod IT band tightness but low tolerance for use of rolling pin, encouraged patient to do at home. Feel IT band tightness contributory Physical Therapy Plan Frequency and Duration Frequency of Treatment 2x/Week Duration of Treatment 12 wks Plan of Care Start Date 12/05/19 Plan of Care End Date 03/04/20 Therapeutic Interventions Therapeutic Interventions Aquatic Therapy,Balance Training,Gait Training,Home Exercise Program,Manual Therapy,Neuromuscular Re- education,Patient/Caregiver Education,Self-Care/Home Management,Soft Tissue Mobilization,Taping, Therapeutic Activities, Therapeutic Exercises Modalities Cold Pack/Ice Massage,Electric Stimulation,Hot Packs Next Visit Focus/Plan Next Note Type Treatment Note Next Visit Plan assess response to manual treatment and kinesiotape today, addition of hamstring strengthening.
--- NOTE | 2020-02-16 12:43 | PT.OTRE ---
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) Surgical History (Last Reviewed 07/16/19 @ 13:03 by FAVIO Deluna-) H/O hysterectomy for benign disease (Resolved) S/P hip replacement (Resolved) Total knee replacement status (Resolved) Visit Care Team Role Provider Type Rosette Grey PA-C Attending Provider Physician Primary Care Provider Referring Provider Specialty: Internal Medicine Address: [address] [place] [address] Email: [email or web address] Physical Therapy Re-Evaluation PT-OP-A Visit Information Start: 12/05/19 15:14 Freq: Status: Active Protocol: Document 02/16/20 08:14 SAK (Rec: 02/16/20 09:12 SAK [id number]) Out-Patient Physical Therapy Visit Information Visit Information Visit Type Re-Evaluation Visit Start Time 08:15 Visit Stop Time 09:00 Total Visit Minutes 45 Visit Number 6 Number of SURVEILLANCE TECHNICIAN Visits 0 Evaluation Information Evaluation Date 12/05/19 Precautions Precautions Cardiac; history of miltral valve replacement, chronic coumadin use, history osteoporosis,history of fall with 12 rib fractures PT-OP-B Current Condition Start: 12/05/19 15:14 Freq: Status: Active Protocol: Document 12/21/19 15:04 SAK (Rec: 12/21/19 15:11 SAK [id number]) Current Condition Treatment Goals Patient/Caregiver Goals Decrease pain, resume prior level of physical activity PT-OP-C Subjective Start: 12/05/19 15:14 Freq: Status: Active Protocol: Document 02/16/20 08:14 SAK (Rec: 02/16/20 09:12 SAK [id number]) OP-PT Subjective Patient Comments Patient Comments doing fair, compliant to HEP, started chair yoga. PT-OP-D Balance Start: 12/05/19 15:14 Freq: Status: Active Protocol: Document 12/05/19 15:15 [facility] (Rec: 12/05/19 16:50 [facility] [id number]) OP-PT Balance Assessment Sitting Balance Static Sitting Balance Ability Good Dynamic Sitting Balance Ability Good Standing Balance Static Standing Balance Ability Good Dynamic Standing Balance Ability Fair Device Used walking stick Tinetti Balance Assessment Sitting Balance Sitting Balance Steady, safe Arising from Chair Ability to Arise Able, uses arms to help Standing Balance Standing Balance Steady, wide stance Nudged Response Staggers, catches self Standing with Eyes Closed Unsteady Turning Step Pattern Turning 360 Degrees Discontinuous steps Stability Turning 360 Degrees Unsteady, grabs/staggers Sitting Down Sitting Down Uses arms or unsteady Gait and Step Initiation of Gait No hesitancy Right Foot Step Length Does pass stance foot Right Foot Step Height Completely clears floor Left Foot Step Length Does not pass stance foot Left Foot Step Height Does not clear floor Step Description Step Symmetry Step length not equal Gait Description Path Description Mild/moderate deviation Trunk Description No sway but posturing Scoring and Interpretation Tinetti Composite Score (points) 10 Cobos Fall Scale Copyright Permission Chandrika OWENS, Chandrika RM, Júnior SJ. Development of a scale to identify the fall- prone patient. Can J Aging 1989;8;366-7. Carina Cobos (2009). Preventing patient falls. (2nd ed). [place]: Gutierrez. PT-OP-F Manual Assessment Start: 12/05/19 15:14 Freq: Status: Active Protocol: Document 12/05/19 15:15 [facility] (Rec: 12/05/19 16:50 [facility] [id number]) Manual Assessments Soft Tissue Assessment Soft Tissue Mobility Assessment mod tightness right IT band Joint Mobility Assessment Joint Mobility Assessment NA due to abe JUANCARLOS Other Manual Assessments Other Manual Assessments Leg length discrepancy with right LE 1/2 longer than left (patient reports she has a couple built up shoes but doesn't wear regularly) PT-OP-G Mobility & Gait Start: 12/05/19 15:14 Freq: Status: Active Protocol: Document 12/05/19 15:15 SAK (Rec: 12/05/19 16:50 [facility] [id number]) OP Mobility Evaluation Bed Mobility Rolling indep Supine to and from Sit indep Transfers Sit to Stand indep with decreased weight- bearing right LE OP Gait Assessment Gait Gait Assistance Required: Independent Distance (Feet) 40 Assistive Devices Assistive Device None Gait Deviations General Gait Pattern Antalgic,Flexed Trunk,Lateral Trunk Lean Factors Limiting Gait Function Factors Limiting Gait Function Decreased Strength,Limited Range of Motion,Pain,Poor Balance Stair Climbing Evaluation Evaluation Level of Assist On Stairs Independent Devices Stair Climbing Assistive Devices Left Railing,Right Railing Technique/Endurance Stair Climbing Direction Ascend and Descend Stair Climbing Technique Step to Step PT-OP-H Neuro Start: 12/05/19 15:14 Freq: Status: Active Protocol: Document 12/05/19 15:15 SAK (Rec: 12/05/19 16:50 SAK [id number]) Sensation Evaluation Gross Sensation Gross Sensation WNL PT-OP-J Posture/Palpation/Skin Start: 12/05/19 15:14 Freq: Status: Active Protocol: Document 12/05/19 15:15 SAK (Rec: 12/05/19 16:50 SAK [id number]) Posture Evaluation Position Standing Head/C-Spine Posture C-Spine Flattened L-Spine Posture Flattened Arm Posture (L) Internally Rotated,(R) Internally Rotated Pelvis Posture (R) Rotated Posterior Weight Distribution Weight Shifted Left Hip Posture (R) Internally Rotated Knee Posture (L) Genu Valgus,(R) Excess Flexion PT-OP-K Range of Motion Start: 12/05/19 15:14 Freq: Status: Active Protocol: Document 02/16/20 08:14 SAK (Rec: 02/16/20 09:12 SAK [id number]) Knee Goniometric Range of Motion Knee Measured in Degrees abe Knee ROM WFL Yes PT-OP-M Strength Start: 12/05/19 15:14 Freq: Status: Active Protocol: Document 02/16/20 08:14 SAK (Rec: 02/16/20 09:12 SAK [id number]) Trunk Strength Trunk Manual Muscle Testing Core Stabilization Poor Hip Strength Hip Manual Muscle Testing Right Flexion (L2) 4- Good- Abduction 3+ Fair+ Adduction 4- Good- External Rotation 3+ Fair+ Internal Rotation 3+ Fair+ Left Flexion (L2) 4 Good Abduction 4 Good Adduction 4 Good External Rotation 4- Good- Internal Rotation 4 Good Knee Strength Knee Manual Muscle Testing Right Flexion (S2) 4+ Good+ Extension (L3) 4+ Good+ Left Flexion (S2) 5 Normal Extension (L3) 5 Normal Ankle/Foot Strength Ankle and Foot Manual Muscle Testing Left Dorsiflexion (L4) 4+ Good+ Plantarflexion (S1) 4+ Good+ Right Dorsiflexion (L4) 4+ Good+ Plantarflexion (S1) 4 Good PT-OP-Q Treatments Start: 12/05/19 15:14 Freq: Status: Active Protocol: Document 02/16/20 08:14 [facility] (Rec: 02/16/20 09:12 [facility] [id number]) Therapeutic Exercises Supine Exercises march, supine LE lower Reps/Minutes 10x Comments core stab emphasis Sidelying Exercises reverse clamshell Reps/Minutes 10x Other Exercises sit to stand Reps/Minutes 10x Comments 2 pillows + cushion on chair PT-OP-R Modalities Start: 12/05/19 15:14 Freq: Status: Active Protocol: Document 02/16/20 08:14 [facility] (Rec: 02/16/20 09:12 [facility] [id number]) Hot Pack/Cold Pack Treatment Hot Pack Location right hip and knee Patient Position Hooklying Treatment Duration (minutes) 10 Comments time constraints of pt. PT-OP-T Assessment and Plan Start: 12/05/19 15:14 Freq: Status: Active Protocol: Document 02/16/20 08:14 [facility] (Rec: 02/16/20 09:12 [facility] [id number]) Physical Therapy Assessment Goals Four Impairment weakness abe LE's right greater than left Short Term Goal (STG) Patient to be independent and compliant with HEP, ongoing progression of HEP as tolerated STG Duration 02/29/20 Telephone Station Repairer Goal (LTG) Patient to demonstrate improvement in LE muscle strength to at least 4+/5 throughout LTG Duration 03/15/20 Three Impairment antalgic and unsteady gait Group Home Goal (LTG) Patient able to ambulate with least restrictive device with minimal limp or compensatory movement strategies to decrease stresses to her joints and soft tissues. Be able to ascend and descend stairs with step over step pattern. LTG Duration 03/15/20 Two Impairment lower extremity functional scale (LEFS) 49% Telephone Station Repairer Goal (LTG) Improve LEFS to at least 75%, with patient resuming prior level of functional activity 02/15/20: currently 53% LTG Duration 03/15/20 One Impairment function-limiting pain right LE Group Home Goal (LTG) Decrease pain to no grater than 10/1402/15/20: currently 11/14 LTG Duration 03/15/20 Assessment Summary Assessment Patient has made some improvements in all goal areas , though not as much as anticipated with strength and core stabilization or gait. Feel she would benefit from further PT to help her further improve in all impairment areas and reach all PT goals. We progressed her HEP today with good tolerance. Not able to do aquatic therapy at this time due to pool closure as result of Covid19. Physical Therapy Plan Frequency and Duration Frequency of Treatment 1x/Week Duration of Treatment 4 Plan of Care Start Date 02/16/20 Plan of Care End Date 03/15/20 Therapeutic Interventions Therapeutic Interventions Aquatic Therapy,Balance Training,Gait Training,Home Exercise Program,Manual Therapy,Neuromuscular Re- education,Patient/Caregiver Education,Self-Care/Home Management,Therapeutic Activities,Therapeutic Exercises Modalities Cold Pack/Ice Massage,Electric Stimulation,Hot Packs, Ultrasound Next Visit Focus/Plan Next Note Type Treatment Note Next Visit Plan Review new exercises, further functional gait training and ther ex.
--- NOTE | 2020-02-16 12:43 | PT.OPPOC ---
Physical, Occupational & Speech Therapy At [facility] Current Diagnoses Pain in right hip (02/16/20) Pain in right knee (02/16/20) Pain in right leg (02/16/20) Pain in left leg (02/16/20) Difficulty in walking, not elsewhere classified (02/16/20) Weakness (02/16/20) Visit Care Team Role Provider Type Rosette Grey PA-C Attending Provider Physician Primary Care Provider Referring Provider Specialty: Internal Medicine Address: [address] [place] [address], [facility] Email: [email or web address] Plan Of Care PT-OP-T Assessment and Plan Start: 12/05/19 15:14 Freq: Status: Active Protocol: Document 02/16/20 08:14 MORIAH (Rec: 02/16/20 09:12 SAK [id number]) Physical Therapy Assessment Goals Four Impairment weakness abe LE's right greater than left Short Term Goal (STG) Patient to be independent and compliant with HEP, ongoing progression of HEP as tolerated STG Duration 02/29/20 Shelter Goal (LTG) Patient to demonstrate improvement in LE muscle strength to at least 4+/5 throughout LTG Duration 03/15/20 Three Impairment antalgic and unsteady gait Streetcar Conductor Goal (LTG) Patient able to ambulate with least restrictive device with minimal limp or compensatory movement strategies to decrease stresses to her joints and soft tissues. Be able to ascend and descend stairs with step over step pattern. LTG Duration 03/15/20 Two Impairment lower extremity functional scale (LEFS) 49% Shelter Goal (LTG) Improve LEFS to at least 75%, with patient resuming prior level of functional activity 02/15/20: currently 53% LTG Duration 03/15/20 One Impairment function-limiting pain right LE Streetcar Conductor Goal (LTG) Decrease pain to no grater than 1/10 02/15/20: currently 2/10 LTG Duration 03/15/20 Assessment Summary Assessment Patient has made some improvements in all goal areas , though not as much as anticipated with strength and core stabilization or gait. Feel she would benefit from further PT to help her further improve in all impairment areas and reach all PT goals. We progressed her HEP today with good tolerance. Not able to do aquatic therapy at this time due to pool closure as result of Covid19. Physical Therapy Plan Frequency and Duration Frequency of Treatment 1x/Week Duration of Treatment 4 Plan of Care Start Date 02/16/20 Plan of Care End Date 03/15/20 Therapeutic Interventions Therapeutic Interventions Aquatic Therapy,Balance Training,Gait Training,Home Exercise Program,Manual Therapy,Neuromuscular Re- education,Patient/Caregiver Education,Self-Care/Home Management,Therapeutic Activities,Therapeutic Exercises Modalities Cold Pack/Ice Massage,Electric Stimulation,Hot Packs, Ultrasound Next Visit Focus/Plan Next Note Type Treatment Note Next Visit Plan Review new exercises, further functional gait training and ther ex. Plan of Care Dates Plan of Care Start Date 02/16/20 Plan of Care End Date 03/15/20 Electronically Signed by: Elizabeth Quick, PT 02/16/20 7312 Please Sign and Return: I have reviewed this Plan of Care and certify that the skilled therapy services above are required to meet the patient?s needs. Physician Signature Date Printed Name and Credentials Clinical Instructor Signature Printed Name and Credentials
--- NOTE | 2020-02-23 12:01 | PT.OTN ---
Current Diagnoses Pain in right hip (02/23/20) Pain in right knee (02/23/20) Pain in right leg (02/23/20) Pain in left leg (02/23/20) Difficulty in walking, not elsewhere classified (02/23/20) Weakness (02/23/20) Physical Therapy Treatment Note PT-OP-A Visit Information Start: 12/05/19 15:14 Freq: Status: Active Protocol: Document 02/23/20 08:14 SAK (Rec: 02/23/20 08:59 SAK [id number]) Out-Patient Physical Therapy Visit Information Visit Information Visit Type Treatment Note Visit Start Time 08:15 Visit Stop Time 09:13 Total Visit Minutes 57 Visit Number 7 Number of CORRECTIONAL SECURITY OFFICER Visits 0 Evaluation Information Evaluation Date 12/05/19 Precautions Precautions Cardiac; history of miltral valve replacement, chronic coumadin use, history osteoporosis,history of fall with 12 rib fractures PT-OP-B Current Condition Start: 12/05/19 15:14 Freq: Status: Active Protocol: Document 12/21/19 15:04 SAK (Rec: 12/21/19 15:11 SAK [id number]) Current Condition Treatment Goals Patient/Caregiver Goals Decrease pain, resume prior level of physical activity PT-OP-C Subjective Start: 12/05/19 15:14 Freq: Status: Active Protocol: Document 02/23/20 08:14 SAK (Rec: 02/23/20 08:59 SAK [id number]) OP-PT Subjective Patient Comments Patient Comments reports sit to stand difficult , not sure doing reverse clamshell correctly. PT-OP-D Balance Start: 12/05/19 15:14 Freq: Status: Active Protocol: Document 12/05/19 15:15 SAK (Rec: 12/05/19 16:50 SAK [id number]) OP-PT Balance Assessment Sitting Balance Static Sitting Balance Ability Good Dynamic Sitting Balance Ability Good Standing Balance Static Standing Balance Ability Good Dynamic Standing Balance Ability Fair Device Used walking stick Tinetti Balance Assessment Sitting Balance Sitting Balance Steady, safe Arising from Chair Ability to Arise Able, uses arms to help Standing Balance Standing Balance Steady, wide stance Nudged Response Staggers, catches self Standing with Eyes Closed Unsteady Turning Step Pattern Turning 360 Degrees Discontinuous steps Stability Turning 360 Degrees Unsteady, grabs/staggers Sitting Down Sitting Down Uses arms or unsteady Gait and Step Initiation of Gait No hesitancy Right Foot Step Length Does pass stance foot Right Foot Step Height Completely clears floor Left Foot Step Length Does not pass stance foot Left Foot Step Height Does not clear floor Step Description Step Symmetry Step length not equal Gait Description Path Description Mild/moderate deviation Trunk Description No sway but posturing Scoring and Interpretation Tinetti Composite Score (points) 10 Cobos Fall Scale Copyright Permission PT-OP-F Manual Assessment Start: 12/05/19 15:14 Freq: Status: Active Protocol: Document 12/05/19 15:15 SAK (Rec: 12/05/19 16:50 [facility] [id number]) Manual Assessments Soft Tissue Assessment Soft Tissue Mobility Assessment mod tightness right IT band Joint Mobility Assessment Joint Mobility Assessment NA due to abe JUANCARLOS Other Manual Assessments Other Manual Assessments Leg length discrepancy with right LE 1/2 longer than left (patient reports she has a couple built up shoes but doesn't wear regularly) PT-OP-G Mobility & Gait Start: 12/05/19 15:14 Freq: Status: Active Protocol: Document 12/05/19 15:15 SAK (Rec: 12/05/19 16:50 [facility] [id number]) OP Mobility Evaluation Bed Mobility Rolling indep Supine to and from Sit indep Transfers Sit to Stand indep with decreased weight- bearing right LE OP Gait Assessment Gait Gait Assistance Required: Independent Distance (Feet) 40 Assistive Devices Assistive Device None Gait Deviations General Gait Pattern Antalgic,Flexed Trunk,Lateral Trunk Lean Factors Limiting Gait Function Factors Limiting Gait Function Decreased Strength,Limited Range of Motion,Pain,Poor Balance Stair Climbing Evaluation Evaluation Level of Assist On Stairs Independent Devices Stair Climbing Assistive Devices Left Railing,Right Railing Technique/Endurance Stair Climbing Direction Ascend and Descend Stair Climbing Technique Step to Step PT-OP-H Neuro Start: 12/05/19 15:14 Freq: Status: Active Protocol: Document 12/05/19 15:15 SAK (Rec: 12/05/19 16:50 SAK [id number]) Sensation Evaluation Gross Sensation Gross Sensation WNL PT-OP-J Posture/Palpation/Skin Start: 12/05/19 15:14 Freq: Status: Active Protocol: Document 12/05/19 15:15 SAK (Rec: 12/05/19 16:50 SAK [id number]) Posture Evaluation Position Standing Head/C-Spine Posture C-Spine Flattened L-Spine Posture Flattened Arm Posture (L) Internally Rotated,(R) Internally Rotated Pelvis Posture (R) Rotated Posterior Weight Distribution Weight Shifted Left Hip Posture (R) Internally Rotated Knee Posture (L) Genu Valgus,(R) Excess Flexion PT-OP-K Range of Motion Start: 12/05/19 15:14 Freq: Status: Active Protocol: Document 02/16/20 08:14 [facility] (Rec: 02/16/20 09:12 [facility] [id number]) Knee Goniometric Range of Motion Knee abe Knee ROM WFL Yes PT-OP-M Strength Start: 12/05/19 15:14 Freq: Status: Active Protocol: Document 02/16/20 08:14 [facility] (Rec: 02/16/20 09:12 [facility] [id number]) Trunk Strength Trunk Manual Muscle Testing Core Stabilization Poor Hip Strength Hip Manual Muscle Testing Right Flexion (L2) 4- Good- Abduction 3+ Fair+ Adduction 4- Good- External Rotation 3+ Fair+ Internal Rotation 3+ Fair+ Left Flexion (L2) 4 Good Abduction 4 Good Adduction 4 Good External Rotation 4- Good- Internal Rotation 4 Good Knee Strength Knee Manual Muscle Testing Right Flexion (S2) 4+ Good+ Extension (L3) 4+ Good+ Left Flexion (S2) 5 Normal Extension (L3) 5 Normal Ankle/Foot Strength Ankle and Foot Manual Muscle Testing Left Dorsiflexion (L4) 4+ Good+ Plantarflexion (S1) 4+ Good+ Right Dorsiflexion (L4) 4+ Good+ Plantarflexion (S1) 4 Good PT-OP-Q Treatments Start: 12/05/19 15:14 Freq: Status: Active Protocol: Document 02/23/20 08:14 [facility] (Rec: 02/23/20 08:59 [facility] [id number]) Cardio Equipment Recumbent Stepper (Sci-Fit) Duration (Minutes) 10 Resistance 2.0 Other cues for neutral LE alignment, 5 min UE's/LE's, 5 min LE's only Gym Equipment Shuttle Balance chains red Details weight shifts forward/bck, side to side Reps/Duration 10' Therapeutic Exercises Supine Exercises march, supine LE lower Reps/Minutes 10x Comments core stab emphasis Sidelying Exercises reverse clamshell Reps/Minutes 10x clamshell Reps/Minutes 10x Other Exercises sit to stand Reps/Minutes 10x Comments hi-lo table starting high, gradual lowering to 18 Gait Training Gait Activity level surface gait Device Used 1 trekking pole Level of Assistance CGA to SBA, verbal and manual cues Surface level Treatment Focus upright posture, decreased lateral lean, activation of gluteals in stance Comments visual cues with mirror Neuro Re-Education Treatment Balance Activities standing rhythmic stabilization Surface firm Comments mirror for visual feedback PT-OP-R Modalities Start: 12/05/19 15:14 Freq: Status: Active Protocol: Document 02/23/20 08:14 [facility] (Rec: 02/23/20 08:59 [facility] [id number]) Hot Pack/Cold Pack Treatment Hot Pack Location right hip and knee Patient Position Hooklying Treatment Duration (minutes) 10 PT-OP-T Assessment and Plan Start: 12/05/19 15:14 Freq: Status: Active Protocol: Document 02/23/20 08:14 [facility] (Rec: 02/23/20 08:59 [facility] [id number]) Physical Therapy Assessment Goals Four Impairment weakness abe LE's right greater than left Short Term Goal (STG) Patient to be independent and compliant with HEP, ongoing progression of HEP as tolerated STG Duration 02/29/20 Fish Culturist Goal (LTG) Patient to demonstrate improvement in LE muscle strength to at least 4+/5 throughout LTG Duration 03/15/20 Three Impairment antalgic and unsteady gait Fish Culturist Goal (LTG) Patient able to ambulate with least restrictive device with minimal limp or compensatory movement strategies to decrease stresses to her joints and soft tissues. Be able to ascend and descend stairs with step over step pattern. LTG Duration 03/15/20 Two Impairment lower extremity functional scale (LEFS) 49% Fish Culturist Goal (LTG) Improve LEFS to at least 75%, with patient resuming prior level of functional activity 02/15/20: currently 53% LTG Duration 03/15/20 One Impairment function-limiting pain right LE Halfway Goal (LTG) Decrease pain to no grater than 10/1402/15/20: currently 2/10 LTG Duration 03/15/20 Assessment Summary Assessment Mirror for visual feedback helpful in partial self- correction of biomechanical impairments; poor kinesthetic awareness and ability to correct without verbal and manual cues. Patient very fearful of falling again . Improved sit to stand mechanics with repetition and cues. Physical Therapy Plan Frequency and Duration Frequency of Treatment 1x/Week Duration of Treatment 4 Plan of Care Start Date 02/16/20 Plan of Care End Date 03/15/20 Therapeutic Interventions Therapeutic Interventions Aquatic Therapy,Balance Training,Gait Training,Home Exercise Program,Manual Therapy,Neuromuscular Re- education,Patient/Caregiver Education,Self-Care/Home Management,Therapeutic Activities,Therapeutic Exercises Modalities Cold Pack/Ice Massage,Electric Stimulation,Hot Packs, Ultrasound Next Visit Focus/Plan Next Note Type Treatment Note Next Visit Plan Continue progression of ther ex and gait training to correct impairments and return patient to improved gait and function.
--- NOTE | 2020-03-01 13:10 | PT.OTN ---
Current Diagnoses Pain in right hip (03/01/20) Pain in right knee (03/01/20) Pain in right leg (03/01/20) Pain in left leg (03/01/20) Difficulty in walking, not elsewhere classified (03/01/20) Weakness (03/01/20) Physical Therapy Treatment Note PT-OP-A Visit Information Start: 12/05/19 15:14 Freq: Status: Active Protocol: Document 03/01/20 08:19 SAK (Rec: 03/01/20 09:06 [facility] [id number]) Out-Patient Physical Therapy Visit Information Visit Information Visit Type Treatment Note Visit Start Time 08:15 Visit Stop Time 09:13 Total Visit Minutes 58 Visit Number 8 Number of JEWELRY MECHANIC Visits 0 Evaluation Information Evaluation Date 12/05/19 Precautions Precautions Cardiac; history of miltral valve replacement, chronic coumadin use, history osteoporosis,history of fall with 12 rib fractures PT-OP-B Current Condition Start: 12/05/19 15:14 Freq: Status: Active Protocol: Document 12/21/19 15:04 SAK (Rec: 12/21/19 15:11 SAK [id number]) Current Condition Treatment Goals Patient/Caregiver Goals Decrease pain, resume prior level of physical activity PT-OP-C Subjective Start: 12/05/19 15:14 Freq: Status: Active Protocol: Document 03/01/20 08:19 SAK (Rec: 03/01/20 09:06 [facility] [id number]) OP-PT Subjective Patient Comments Patient Comments Feels very tight on her right side of her body due to hip, prior rib fractures, as well as 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 Feels PT is helping, pain not as excruciating. PT-OP-D Balance Start: 12/05/19 15:14 Freq: Status: Active Protocol: Document 12/05/19 15:15 SAK (Rec: 12/05/19 16:50 SAK [id number]) OP-PT Balance Assessment Sitting Balance Static Sitting Balance Ability Good Dynamic Sitting Balance Ability Good Standing Balance Static Standing Balance Ability Good Dynamic Standing Balance Ability Fair Device Used walking stick Tinetti Balance Assessment Sitting Balance Sitting Balance Steady, safe Arising from Chair Ability to Arise Able, uses arms to help Standing Balance Standing Balance Steady, wide stance Nudged Response Staggers, catches self Standing with Eyes Closed Unsteady Turning Step Pattern Turning 360 Degrees Discontinuous steps Stability Turning 360 Degrees Unsteady, grabs/staggers Sitting Down Sitting Down Uses arms or unsteady Gait and Step Initiation of Gait No hesitancy Right Foot Step Length Does pass stance foot Right Foot Step Height Completely clears floor Left Foot Step Length Does not pass stance foot Left Foot Step Height Does not clear floor Step Description Step Symmetry Step length not equal Gait Description Path Description Mild/moderate deviation Trunk Description No sway but posturing Scoring and Interpretation Tinetti Composite Score (points) 10 Cobos Fall Scale Copyright Permission PT-OP-F Manual Assessment Start: 12/05/19 15:14 Freq: Status: Active Protocol: Document 12/05/19 15:15 SAK (Rec: 12/05/19 16:50 SAK [id number]) Manual Assessments Soft Tissue Assessment Soft Tissue Mobility Assessment mod tightness right IT band Joint Mobility Assessment Joint Mobility Assessment NA due to abe JUANCARLOS Other Manual Assessments Other Manual Assessments Leg length discrepancy with right LE 1/2 longer than left (patient reports she has a couple built up shoes but doesn't wear regularly) PT-OP-G Mobility & Gait Start: 12/05/19 15:14 Freq: Status: Active Protocol: Document 12/05/19 15:15 SAK (Rec: 12/05/19 16:50 SAK [id number]) OP Mobility Evaluation Bed Mobility Rolling indep Supine to and from Sit indep Transfers Sit to Stand indep with decreased weight- bearing right LE OP Gait Assessment Gait Gait Assistance Required: Independent Distance (Feet) 40 Assistive Devices Assistive Device None Gait Deviations General Gait Pattern Antalgic,Flexed Trunk,Lateral Trunk Lean Factors Limiting Gait Function Factors Limiting Gait Function Decreased Strength,Limited Range of Motion,Pain,Poor Balance Stair Climbing Evaluation Evaluation Level of Assist On Stairs Independent Devices Stair Climbing Assistive Devices Left Railing,Right Railing Technique/Endurance Stair Climbing Direction Ascend and Descend Stair Climbing Technique Step to Step PT-OP-H Neuro Start: 12/05/19 15:14 Freq: Status: Active Protocol: Document 12/05/19 15:15 SAK (Rec: 12/05/19 16:50 SAK [id number]) Sensation Evaluation Gross Sensation Gross Sensation WNL PT-OP-J Posture/Palpation/Skin Start: 12/05/19 15:14 Freq: Status: Active Protocol: Document 12/05/19 15:15 [facility] (Rec: 12/05/19 16:50 [facility] [id number]) Posture Evaluation Position Standing Head/C-Spine Posture C-Spine Flattened L-Spine Posture Flattened Arm Posture (L) Internally Rotated,(R) Internally Rotated Pelvis Posture (R) Rotated Posterior Weight Distribution Weight Shifted Left Hip Posture (R) Internally Rotated Knee Posture (L) Genu Valgus,(R) Excess Flexion PT-OP-K Range of Motion Start: 12/05/19 15:14 Freq: Status: Active Protocol: Document 02/16/20 08:14 [facility] (Rec: 02/16/20 09:12 [facility] [id number]) Knee Goniometric Range of Motion Knee abe Knee ROM WFL Yes PT-OP-M Strength Start: 12/05/19 15:14 Freq: Status: Active Protocol: Document 02/16/20 08:14 [facility] (Rec: 02/16/20 09:12 [facility] [id number]) Trunk Strength Trunk Manual Muscle Testing Core Stabilization Poor Hip Strength Hip Manual Muscle Testing Right Flexion (L2) 4- Good- Abduction 3+ Fair+ Adduction 4- Good- External Rotation 3+ Fair+ Internal Rotation 3+ Fair+ Left Flexion (L2) 4 Good Abduction 4 Good Adduction 4 Good External Rotation 4- Good- Internal Rotation 4 Good Knee Strength Knee Manual Muscle Testing Right Flexion (S2) 4+ Good+ Extension (L3) 4+ Good+ Left Flexion (S2) 5 Normal Extension (L3) 5 Normal Ankle/Foot Strength Ankle and Foot Manual Muscle Testing Left Dorsiflexion (L4) 4+ Good+ Plantarflexion (S1) 4+ Good+ Right Dorsiflexion (L4) 4+ Good+ Plantarflexion (S1) 4 Good PT-OP-Q Treatments Start: 12/05/19 15:14 Freq: Status: Active Protocol: Document 03/01/20 08:19 [facility] (Rec: 03/01/20 09:06 [facility] [id number]) Cardio Equipment Recumbent Stepper (Sci-Fit) Duration (Minutes) 10 Resistance 2.0 Other cues for neutral LE alignment, 5 min UE's/LE's, 5 min LE's only Gym Equipment Shuttle Balance chains red Details weight shifts forward/bck, side to side Reps/Duration 10' Therapeutic Exercises Supine Exercises lateral trunk stretch Side bilateral Comments cues to incorporate deep breathing bridge Reps/Minutes isometric with small lift glut set Reps/Minutes 10x abe, 5x ea unil Sidelying Exercises reverse clamshell Reps/Minutes 10x clamshell Reps/Minutes 10x Standing Exercises forward/bck wt shifts Reps/Minutes 10x Comments cues for gluteal activation on weight-bearing LE glut set Reps/Minutes 10x abe, 5x unil Other Exercises sit to stand Reps/Minutes 10x Comments hi-lo table starting high, gradual lowering to 18 Gait Training Gait Activity level surface gait Device Used 1 NowledgeDataing pole Level of Assistance CGA to SBA, verbal and manual cues Surface level Treatment Focus upright posture, decreased lateral lean, activation of gluteals in stance Comments visual cues with mirror; improved gait after training Manual Therapy Treatment Soft Tissue Mobilization IT band Mobilization Type Rolling Intensity/Depth mild Body Position left sidelying PT-OP-R Modalities Start: 12/05/19 15:14 Freq: Status: Active Protocol: Document 03/01/20 08:19 [facility] (Rec: 03/01/20 13:10 [facility] [id number]) Hot Pack/Cold Pack Treatment Hot Pack Location right hip and knee Patient Position Hooklying Treatment Duration (minutes) 15 PT-OP-T Assessment and Plan Start: 12/05/19 15:14 Freq: Status: Active Protocol: Document 03/01/20 08:19 [facility] (Rec: 03/01/20 09:06 [facility] [id number]) Physical Therapy Assessment Goals Four Impairment weakness abe LE's right greater than left Short Term Goal (STG) Patient to be independent and compliant with HEP, ongoing progression of HEP as tolerated STG Duration 02/29/20 Technical Programs Manager Goal (LTG) Patient to demonstrate improvement in LE muscle strength to at least 4+/5 throughout LTG Duration 03/15/20 Three Impairment antalgic and unsteady gait Technical Programs Manager Goal (LTG) Patient able to ambulate with least restrictive device with minimal limp or compensatory movement strategies to decrease stresses to her joints and soft tissues. Be able to ascend and descend stairs with step over step pattern. LTG Duration 03/15/20 Two Impairment lower extremity functional scale (LEFS) 49% Shelter Goal (LTG) Improve LEFS to at least 75%, with patient resuming prior level of functional activity 02/15/20: currently 53% LTG Duration 03/15/20 One Impairment function-limiting pain right LE Technical Programs Manager Goal (LTG) Decrease pain to no grater than 10/1402/15/20: currently 2/ LTG Duration 03/15/20 Assessment Summary Assessment Patient has tightness entire right side kinetic chain, supine lateral trunk stretching tolerated well. Patient has much difficulty activating her right gluteals; stressed limportance of transition to standing for functional gluteal facilitation Physical Therapy Plan Frequency and Duration Frequency of Treatment 1x/Week Duration of Treatment 4 Plan of Care Start Date 02/16/20 Plan of Care End Date 03/15/20 Therapeutic Interventions Therapeutic Interventions Aquatic Therapy,Balance Training,Gait Training,Home Exercise Program,Manual Therapy,Neuromuscular Re- education,Patient/Caregiver Education,Self-Care/Home Management,Therapeutic Activities,Therapeutic Exercises Modalities Cold Pack/Ice Massage,Electric Stimulation,Hot Packs, Ultrasound Next Visit Focus/Plan Next Note Type Treatment Note Next Visit Plan Assess gluteal activation, continue progressive therapeutic exercise, patient education, neuro-re-ed. Modalities as needed for pain.
--- NOTE | 2020-03-06 17:19 | PT.OTN ---
Current Diagnoses Pain in right hip (03/06/20) Pain in right knee (03/06/20) Pain in right leg (03/06/20) Pain in left leg (03/06/20) Difficulty in walking, not elsewhere classified (03/06/20) Weakness (03/06/20) Physical Therapy Treatment Note PT-OP-A Visit Information Start: 12/05/19 15:14 Freq: Status: Active Protocol: Document 03/06/20 11:10 SAK (Rec: 03/06/20 12:06 [facility] [id number]) Out-Patient Physical Therapy Visit Information Visit Information Visit Type Treatment Note Visit Start Time 11:13 Visit Stop Time 12:13 Total Visit Minutes 60 Visit Number 9 Number of SECTION PLOTTER OPERATOR Visits 0 Evaluation Information Evaluation Date 12/05/19 Precautions Precautions Cardiac; history of miltral valve replacement, chronic coumadin use, history osteoporosis,history of fall with 12 rib fractures PT-OP-B Current Condition Start: 12/05/19 15:14 Freq: Status: Active Protocol: Document 12/21/19 15:04 SAK (Rec: 12/21/19 15:11 SAK [id number]) Current Condition Treatment Goals Patient/Caregiver Goals Decrease pain, resume prior level of physical activity PT-OP-C Subjective Start: 12/05/19 15:14 Freq: Status: Active Protocol: Document 03/06/20 11:10 SAK (Rec: 03/06/20 12:06 SAK [id number]) OP-PT Subjective Patient Comments Patient Comments [place] better after last session , working on HEP especially gluteal strengthening, still feels tightness right hip. Wants to do aquatic PT when the pool opens back up PT-OP-D Balance Start: 12/05/19 15:14 Freq: Status: Active Protocol: Document 12/05/19 15:15 SAK (Rec: 12/05/19 16:50 SAK [id number]) OP-PT Balance Assessment Sitting Balance Static Sitting Balance Ability Good Dynamic Sitting Balance Ability Good Standing Balance Static Standing Balance Ability Good Dynamic Standing Balance Ability Fair Device Used walking stick Tinetti Balance Assessment Sitting Balance Sitting Balance Steady, safe Arising from Chair Ability to Arise Able, uses arms to help Standing Balance Standing Balance Steady, wide stance Nudged Response Staggers, catches self Standing with Eyes Closed Unsteady Turning Step Pattern Turning 360 Degrees Discontinuous steps Stability Turning 360 Degrees Unsteady, grabs/staggers Sitting Down Sitting Down Uses arms or unsteady Gait and Step Initiation of Gait No hesitancy Right Foot Step Length Does pass stance foot Right Foot Step Height Completely clears floor Left Foot Step Length Does not pass stance foot Left Foot Step Height Does not clear floor Step Description Step Symmetry Step length not equal Gait Description Path Description Mild/moderate deviation Trunk Description No sway but posturing Scoring and Interpretation Tinetti Composite Score (points) 10 Cobos Fall Scale Copyright Permission PT-OP-F Manual Assessment Start: 12/05/19 15:14 Freq: Status: Active Protocol: Document 12/05/19 15:15 SAK (Rec: 12/05/19 16:50 [facility] [id number]) Manual Assessments Soft Tissue Assessment Soft Tissue Mobility Assessment mod tightness right IT band Joint Mobility Assessment Joint Mobility Assessment NA due to abe JUANCARLOS Other Manual Assessments Other Manual Assessments Leg length discrepancy with right LE 1/2 longer than left (patient reports she has a couple built up shoes but doesn't wear regularly) PT-OP-G Mobility & Gait Start: 12/05/19 15:14 Freq: Status: Active Protocol: Document 12/05/19 15:15 SAK (Rec: 12/05/19 16:50 [facility] [id number]) OP Mobility Evaluation Bed Mobility Rolling indep Supine to and from Sit indep Transfers Sit to Stand indep with decreased weight- bearing right LE OP Gait Assessment Gait Gait Assistance Required: Independent Distance (Feet) 40 Assistive Devices Assistive Device None Gait Deviations General Gait Pattern Antalgic,Flexed Trunk,Lateral Trunk Lean Factors Limiting Gait Function Factors Limiting Gait Function Decreased Strength,Limited Range of Motion,Pain,Poor Balance Stair Climbing Evaluation Evaluation Level of Assist On Stairs Independent Devices Stair Climbing Assistive Devices Left Railing,Right Railing Technique/Endurance Stair Climbing Direction Ascend and Descend Stair Climbing Technique Step to Step PT-OP-H Neuro Start: 12/05/19 15:14 Freq: Status: Active Protocol: Document 12/05/19 15:15 SAK (Rec: 12/05/19 16:50 SAK [id number]) Sensation Evaluation Gross Sensation Gross Sensation WNL PT-OP-J Posture/Palpation/Skin Start: 12/05/19 15:14 Freq: Status: Active Protocol: Document 12/05/19 15:15 SAK (Rec: 12/05/19 16:50 SAK [id number]) Posture Evaluation Position Standing Head/C-Spine Posture C-Spine Flattened L-Spine Posture Flattened Arm Posture (L) Internally Rotated,(R) Internally Rotated Pelvis Posture (R) Rotated Posterior Weight Distribution Weight Shifted Left Hip Posture (R) Internally Rotated Knee Posture (L) Genu Valgus,(R) Excess Flexion PT-OP-K Range of Motion Start: 12/05/19 15:14 Freq: Status: Active Protocol: Document 02/16/20 08:14 [facility] (Rec: 02/16/20 09:12 [facility] [id number]) Knee Goniometric Range of Motion Knee abe Knee ROM WFL Yes PT-OP-M Strength Start: 12/05/19 15:14 Freq: Status: Active Protocol: Document 02/16/20 08:14 [facility] (Rec: 02/16/20 09:12 [facility] [id number]) Trunk Strength Trunk Manual Muscle Testing Core Stabilization Poor Hip Strength Hip Manual Muscle Testing Right Flexion (L2) 4- Good- Abduction 3+ Fair+ Adduction 4- Good- External Rotation 3+ Fair+ Internal Rotation 3+ Fair+ Left Flexion (L2) 4 Good Abduction 4 Good Adduction 4 Good External Rotation 4- Good- Internal Rotation 4 Good Knee Strength Knee Manual Muscle Testing Right Flexion (S2) 4+ Good+ Extension (L3) 4+ Good+ Left Flexion (S2) 5 Normal Extension (L3) 5 Normal Ankle/Foot Strength Ankle and Foot Manual Muscle Testing Left Dorsiflexion (L4) 4+ Good+ Plantarflexion (S1) 4+ Good+ Right Dorsiflexion (L4) 4+ Good+ Plantarflexion (S1) 4 Good PT-OP-Q Treatments Start: 12/05/19 15:14 Freq: Status: Active Protocol: Document 03/06/20 11:10 [facility] (Rec: 03/06/20 12:06 [facility] [id number]) Cardio Equipment Recumbent Stepper (Sci-Fit) Duration (Minutes) 10 Resistance 2.0 Other cues for neutral LE alignment, 5 min UE's/LE's, 5 min LE's only Gym Equipment Shuttle Balance chains red Details weight shifts forward/bck, side to side Reps/Duration 10' Therapeutic Exercises Supine Exercises Hip IR/ER Reps/Minutes 10x lateral trunk stretch Side bilateral Comments cues to incorporate deep breathing bridge Reps/Minutes isometric with small lift Sidelying Exercises reverse clamshell Reps/Minutes 10x clamshell Reps/Minutes 10x Standing Exercises forward/bck wt shifts Reps/Minutes 10x Comments cues for gluteal activation on weight-bearing LE glut set Reps/Minutes 10x abe, 5x unil Other Exercises sit to stand Reps/Minutes 10x Comments hi-lo table starting high, gradual lowering to 18 Gait Training Gait Activity level surface gait Device Used 1 trekking pole Level of Assistance CGA to SBA, verbal and manual cues Surface level Treatment Focus upright posture, decreased lateral lean, activation of gluteals in stance Comments visual cues with mirror; improved gait after training Manual Therapy Treatment Soft Tissue Mobilization IT band Mobilization Type Rolling Intensity/Depth mod Body Position left sidelying PT-OP-R Modalities Start: 12/05/19 15:14 Freq: Status: Active Protocol: Document 03/01/20 08:19 [facility] (Rec: 03/01/20 13:10 [facility] [id number]) Hot Pack/Cold Pack Treatment Hot Pack Location right hip and knee Patient Position Hooklying Treatment Duration (minutes) 15 PT-OP-T Assessment and Plan Start: 12/05/19 15:14 Freq: Status: Active Protocol: Document 03/06/20 11:10 [facility] (Rec: 03/06/20 12:06 [facility] [id number]) Physical Therapy Assessment Goals Four Impairment weakness abe LE's right greater than left Short Term Goal (STG) Patient to be independent and compliant with HEP, ongoing progression of HEP as tolerated STG Duration 02/29/20 [facility] Goal (LTG) Patient to demonstrate improvement in LE muscle strength to at least 4+/5 throughout LTG Duration 03/15/20 Three Impairment antalgic and unsteady gait [facility] Goal (LTG) Patient able to ambulate with least restrictive device with minimal limp or compensatory movement strategies to decrease stresses to her joints and soft tissues. Be able to ascend and descend stairs with step over step pattern. LTG Duration 03/15/20 Two Impairment lower extremity functional scale (LEFS) 49% [facility] Goal (LTG) Improve LEFS to at least 75%, with patient resuming prior level of functional activity 02/15/20: currently 53% LTG Duration 03/15/20 One Impairment function-limiting pain right LE Relocation Director Goal (LTG) Decrease pain to no grater than 1/10 5/13/20: currently 11/14 LTG Duration 03/15/20 Assessment Summary Assessment Patient demonstrating improved ability with sit to stand exercises and improved gluteal activation with exercises and gait. Has difficulty correcting her gait deviations of excessive left sidebend, decreased weight-bearing and stance time right. Pain overall decreased. Physical Therapy Plan Frequency and Duration Frequency of Treatment 1x/Week Duration of Treatment 4 Plan of Care Start Date 02/16/20 Plan of Care End Date 03/15/20 Therapeutic Interventions Therapeutic Interventions Aquatic Therapy,Balance Training,Gait Training,Home Exercise Program,Manual Therapy,Neuromuscular Re- education,Patient/Caregiver Education,Self-Care/Home Management,Therapeutic Activities,Therapeutic Exercises Modalities Cold Pack/Ice Massage,Electric Stimulation,Hot Packs, Ultrasound Next Visit Focus/Plan Next Note Type Progress Note Next Visit Plan reassess LE strength, continue rehab to decrease pain and improve function.
--- NOTE | 2020-03-15 12:19 | PT.OTRE ---
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) Surgical History (Last Reviewed 07/16/19 @ 13:03 by FAVIO Deluna-) H/O hysterectomy for benign disease (Resolved) S/P hip replacement (Resolved) Total knee replacement status (Resolved) Visit Care Team Role Provider Type Rosette Grey PA-C Attending Provider Physician Primary Care Provider Referring Provider Specialty: Internal Medicine Address: [address] [place] [address] Email: [email or web address] Physical Therapy Re-Evaluation PT-OP-A Visit Information Start: 12/05/19 15:14 Freq: Status: Active Protocol: Document 03/15/20 11:12 SAK (Rec: 03/15/20 11:43 SAK [id number]) Out-Patient Physical Therapy Visit Information Visit Information Visit Type Progress Note Visit Start Time 11:13 Visit Stop Time 12:13 Total Visit Minutes 60 Visit Number 10 Number of RECOIL SPRING WINDER Visits 0 Evaluation Information Evaluation Date 12/05/19 Precautions Precautions Cardiac; history of miltral valve replacement, chronic coumadin use, history osteoporosis,history of fall with 12 rib fractures PT-OP-B Current Condition Start: 12/05/19 15:14 Freq: Status: Active Protocol: Document 03/15/20 11:12 SAK (Rec: 03/15/20 11:43 SAK [id number]) Current Condition Treatment Goals Patient/Caregiver Goals Decrease pain, resume prior level of physical activity PT-OP-C Subjective Start: 12/05/19 15:14 Freq: Status: Active Protocol: Document 03/15/20 11:12 SAK (Rec: 03/15/20 11:43 SAK [id number]) OP-PT Subjective Patient Comments Patient Comments No new c/o. Forgot to bring her written HEP for review. Decrease in LE pain and patient reports she feels her walking is improving. IT band felt much better after manual work last session. PT-OP-D Balance Start: 12/05/19 15:14 Freq: Status: Active Protocol: Document 12/05/19 15:15 SAK (Rec: 12/05/19 16:50 SAK [id number]) OP-PT Balance Assessment Sitting Balance Static Sitting Balance Ability Good Dynamic Sitting Balance Ability Good Standing Balance Static Standing Balance Ability Good Dynamic Standing Balance Ability Fair Device Used walking stick Tinetti Balance Assessment Sitting Balance Sitting Balance Steady, safe Arising from Chair Ability to Arise Able, uses arms to help Standing Balance Standing Balance Steady, wide stance Nudged Response Staggers, catches self Standing with Eyes Closed Unsteady Turning Step Pattern Turning 360 Degrees Discontinuous steps Stability Turning 360 Degrees Unsteady, grabs/staggers Sitting Down Sitting Down Uses arms or unsteady Gait and Step Initiation of Gait No hesitancy Right Foot Step Length Does pass stance foot Right Foot Step Height Completely clears floor Left Foot Step Length Does not pass stance foot Left Foot Step Height Does not clear floor Step Description Step Symmetry Step length not equal Gait Description Path Description Mild/moderate deviation Trunk Description No sway but posturing Scoring and Interpretation Tinetti Composite Score (points) 10 Cobos Fall Scale Copyright Permission Chandrika JM, Chandrika RM, Júnior SJ. Development of a scale to identify the fall- prone patient. Can J Aging 1989;8;366-7. Carina Cobos (2009). Preventing patient falls. (2nd ed). [place]: Gutierrez. PT-OP-F Manual Assessment Start: 12/05/19 15:14 Freq: Status: Active Protocol: Document 12/05/19 15:15 SAK (Rec: 12/05/19 16:50 SAK [id number]) Manual Assessments Soft Tissue Assessment Soft Tissue Mobility Assessment mod tightness right IT band Joint Mobility Assessment Joint Mobility Assessment NA due to abe JUANCARLOS Other Manual Assessments Other Manual Assessments Leg length discrepancy with right LE 1/2 longer than left (patient reports she has a couple built up shoes but doesn't wear regularly) PT-OP-G Mobility & Gait Start: 12/05/19 15:14 Freq: Status: Active Protocol: Document 12/05/19 15:15 SAK (Rec: 12/05/19 16:50 [facility] [id number]) OP Mobility Evaluation Bed Mobility Rolling indep Supine to and from Sit indep Transfers Sit to Stand indep with decreased weight- bearing right LE OP Gait Assessment Gait Gait Assistance Required: Independent Distance (Feet) 40 Assistive Devices Assistive Device None Gait Deviations General Gait Pattern Antalgic,Flexed Trunk,Lateral Trunk Lean Factors Limiting Gait Function Factors Limiting Gait Function Decreased Strength,Limited Range of Motion,Pain,Poor Balance Stair Climbing Evaluation Evaluation Level of Assist On Stairs Independent Devices Stair Climbing Assistive Devices Left Railing,Right Railing Technique/Endurance Stair Climbing Direction Ascend and Descend Stair Climbing Technique Step to Step PT-OP-H Neuro Start: 12/05/19 15:14 Freq: Status: Active Protocol: Document 12/05/19 15:15 [facility] (Rec: 12/05/19 16:50 [facility] [id number]) Sensation Evaluation Gross Sensation Gross Sensation WNL PT-OP-J Posture/Palpation/Skin Start: 12/05/19 15:14 Freq: Status: Active Protocol: Document 12/05/19 15:15 [facility] (Rec: 12/05/19 16:50 [facility] [id number]) Posture Evaluation Position Standing Head/C-Spine Posture C-Spine Flattened L-Spine Posture Flattened Arm Posture (L) Internally Rotated,(R) Internally Rotated Pelvis Posture (R) Rotated Posterior Weight Distribution Weight Shifted Left Hip Posture (R) Internally Rotated Knee Posture (L) Genu Valgus,(R) Excess Flexion PT-OP-K Range of Motion Start: 12/05/19 15:14 Freq: Status: Active Protocol: Document 02/16/20 08:14 [facility] (Rec: 02/16/20 09:12 [facility] [id number]) Knee Goniometric Range of Motion Knee Measured in Degrees abe Knee ROM WFL Yes PT-OP-M Strength Start: 12/05/19 15:14 Freq: Status: Active Protocol: Document 02/16/20 08:14 [facility] (Rec: 02/16/20 09:12 [facility] [id number]) Trunk Strength Trunk Manual Muscle Testing Core Stabilization Poor Hip Strength Hip Manual Muscle Testing Right Flexion (L2) 4- Good- Abduction 3+ Fair+ Adduction 4- Good- External Rotation 3+ Fair+ Internal Rotation 3+ Fair+ Left Flexion (L2) 4 Good Abduction 4 Good Adduction 4 Good External Rotation 4- Good- Internal Rotation 4 Good Knee Strength Knee Manual Muscle Testing Right Flexion (S2) 4+ Good+ Extension (L3) 4+ Good+ Left Flexion (S2) 5 Normal Extension (L3) 5 Normal Ankle/Foot Strength Ankle and Foot Manual Muscle Testing Left Dorsiflexion (L4) 4+ Good+ Plantarflexion (S1) 4+ Good+ Right Dorsiflexion (L4) 4+ Good+ Plantarflexion (S1) 4 Good PT-OP-Q Treatments Start: 12/05/19 15:14 Freq: Status: Active Protocol: Document 03/15/20 11:12 [facility] (Rec: 03/15/20 11:43 [facility] [id number]) Cardio Equipment Recumbent Stepper (Sci-Fit) Duration (Minutes) 10 Resistance 2.0 Other cues for neutral LE alignment, 5 min UE's/LE's, 5 min LE's only Gym Equipment Sport Cord 1 Exercise Details forward Cord/Resistance yellow Reps/Duration 7x Comments emphasis on alignment, muscle activation sequencing mirror for visual fedback. Therapeutic Exercises Supine Exercises Hip IR/ER Reps/Minutes 10x lateral trunk stretch Side bilateral Comments cues to incorporate deep breathing bridge Supine Exercise Name one leg straight, gluteal activation without lift Reps/Minutes 10x Other Exercises sit to stand Reps/Minutes 10x Comments hi-lo table starting high, gradual lowering to 18 Gait Training Gait Activity level surface gait Device Used 1 trekking pole Level of Assistance CGA to SBA, verbal and manual cues Surface level Treatment Focus upright posture, decreased lateral lean, activation of gluteals in stance Comments visual cues with mirror; improved gait after training Manual Therapy Treatment Soft Tissue Mobilization IT band Mobilization Type Rolling Intensity/Depth mod Body Position left sidelying PT-OP-R Modalities Start: 12/05/19 15:14 Freq: Status: Active Protocol: Document 03/15/20 11:12 [facility] (Rec: 03/15/20 12:16 [facility] [id number]) Hot Pack/Cold Pack Treatment Hot Pack Location right hip and knee Patient Position Hooklying Treatment Duration (minutes) 15 PT-OP-T Assessment and Plan Start: 12/05/19 15:14 Freq: Status: Active Protocol: Document 03/15/20 11:12 SAK (Rec: 03/15/20 11:43 [facility] [id number]) Physical Therapy Assessment Goals Four Impairment weakness abe LE's right greater than left Short Term Goal (STG) Patient to be independent and compliant with HEP, ongoing progression of HEP as tolerated STG Duration goal met [facility] Goal (LTG) Patient to demonstrate improvement in LE muscle strength to at least 4+/5 throughout 03/15/20: goal progress, most limited in hip abduction and extension LTG Duration 05/14/20 Three Impairment antalgic and unsteady gait Insole And Outsole Preparer Goal (LTG) Patient able to ambulate with least restrictive device with minimal limp or compensatory movement strategies to decrease stresses to her joints and soft tissues. Be able to ascend and descend stairs with step over step pattern. 03/15/20: goal progress LTG Duration 05/14/20 Two Impairment lower extremity functional scale (LEFS) 49% [facility] Goal (LTG) Improve LEFS to at least 75%, with patient resuming prior level of functional activity 02/15/20: currently 53% 03/15/20: 60% LTG Duration 05/14/20 One Impairment function-limiting pain right LE [facility] Goal (LTG) Decrease pain to no grater than 10/1402/15/20: currently 11/1403/15/20: good goal progress LTG Duration 05/14/20 Assessment Summary Assessment Patient demonstrating improvement in all goal areas. Would benefit from further PT to help her fully achieve her goals. Plan 1 further PT visit in clinic, then transition to aquatic PT to help patient fully achieve her goals and educate her in in an independent aquatic exercise program. Physical Therapy Plan Frequency and Duration Frequency of Treatment 2/Week Duration of Treatment 4 Plan of Care Start Date 03/15/20 Plan of Care End Date 05/14/20 Therapeutic Interventions Therapeutic Interventions Aquatic Therapy,Balance Training,Gait Training,Home Exercise Program,Manual Therapy,Neuromuscular Re- education,Patient/Caregiver Education,Self-Care/Home Management,Therapeutic Activities,Therapeutic Exercises Modalities Cold Pack/Ice Massage,Electric Stimulation,Hot Packs, Ultrasound Next Visit Focus/Plan Next Note Type Progress Note Next Visit Plan 1 further land-based PT session to fully review patient's written HEP and modify as necessary (she forgot her papers today), then transition to aquatic-based PT. There will likely be a delay in starting aquatic PT due to Covid19 closure.
--- NOTE | 2020-03-15 12:19 | PT.OPPOC ---
Physical, Occupational & Speech Therapy At [facility] Current Diagnoses Pain in right hip (03/15/20) Pain in right knee (03/15/20) Pain in right leg (03/15/20) Pain in left leg (03/15/20) Difficulty in walking, not elsewhere classified (03/15/20) Weakness (03/15/20) Visit Care Team Role Provider Type Rosette Grey PA-C Attending Provider Physician Primary Care Provider Referring Provider Specialty: Internal Medicine Address: [address] [place] [address], [facility] Email: [email or web address] Plan Of Care PT-OP-T Assessment and Plan Start: 12/05/19 15:14 Freq: Status: Active Protocol: Document 03/15/20 11:12 SAK (Rec: 03/15/20 11:43 SAK [id number]) Physical Therapy Assessment Goals Four Impairment weakness abe LE's right greater than left Short Term Goal (STG) Patient to be independent and compliant with HEP, ongoing progression of HEP as tolerated STG Duration goal met Halfway Goal (LTG) Patient to demonstrate improvement in LE muscle strength to at least 4+/5 throughout 03/15/20: goal progress, most limited in hip abduction and extension LTG Duration 05/14/20 Three Impairment antalgic and unsteady gait Teletypewriter Operator Goal (LTG) Patient able to ambulate with least restrictive device with minimal limp or compensatory movement strategies to decrease stresses to her joints and soft tissues. Be able to ascend and descend stairs with step over step pattern. 03/15/20: goal progress LTG Duration 05/14/20 Two Impairment lower extremity functional scale (LEFS) 49% Teletypewriter Operator Goal (LTG) Improve LEFS to at least 75%, with patient resuming prior level of functional activity 02/15/20: currently 53% 03/15/20: 60% LTG Duration 05/14/20 One Impairment function-limiting pain right LE Teletypewriter Operator Goal (LTG) Decrease pain to no grater than 10/1402/15/20: currently 11/1403/15/20: good goal progress LTG Duration 05/14/20 Assessment Summary Assessment Patient demonstrating improvement in all goal areas. Would benefit from further PT to help her fully achieve her goals. Plan 1 further PT visit in clinic, then transition to aquatic PT to help patient fully achieve her goals and educate her in in an independent aquatic exercise program. Physical Therapy Plan Frequency and Duration Frequency of Treatment 2/Week Duration of Treatment 4 Plan of Care Start Date 03/15/20 Plan of Care End Date 05/14/20 Therapeutic Interventions Therapeutic Interventions Aquatic Therapy,Balance Training,Gait Training,Home Exercise Program,Manual Therapy,Neuromuscular Re- education,Patient/Caregiver Education,Self-Care/Home Management,Therapeutic Activities,Therapeutic Exercises Modalities Cold Pack/Ice Massage,Electric Stimulation,Hot Packs, Ultrasound Next Visit Focus/Plan Next Note Type Progress Note Next Visit Plan 1 further land-based PT session to fully review patient's written HEP and modify as necessary (she forgot her papers today), then transition to aquatic-based PT. There will likely be a delay in starting aquatic PT due to Covid19 closure. Plan of Care Dates Plan of Care Start Date 03/15/20 Plan of Care End Date 05/14/20 Electronically Signed by: Elizabeth Quick, PT 03/15/20 [id number] Please Sign and Return: I have reviewed this Plan of Care and certify that the skilled therapy services above are required to meet the patient?s needs. Physician Signature Date Printed Name and Credentials Clinical Instructor Signature Printed Name and Credentials
--- NOTE | 2020-03-28 14:30 | PT.OTN ---
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 Evaluation Information Evaluation Date 12/05/19 Precautions Precautions Cardiac; history of miltral valve replacement, chronic coumadin use, history osteoporosis,history of fall with 12 rib fractures PT-OP-B Current Condition Start: 12/05/19 15:14 Freq: Status: Active Protocol: Document 03/15/20 11:12 SAK (Rec: 03/15/20 11:43 SAK [id number]) Current Condition Treatment Goals Patient/Caregiver Goals Decrease pain, resume prior level of physical activity PT-OP-C Subjective Start: 12/05/19 15:14 Freq: Status: Active Protocol: Document 03/28/20 14:31 SAK (Rec: 03/28/20 14:47 [facility] [id number]) OP-PT Subjective Patient Comments Patient Comments c/o LBP more recently in PT-OP-D Balance Start: 12/05/19 15:14 Freq: Status: Active Protocol: Document 12/05/19 15:15 SAK (Rec: 12/05/19 16:50 SAK [id number]) OP-PT Balance Assessment Sitting Balance Static Sitting Balance Ability Good Dynamic Sitting Balance Ability Good Standing Balance Static Standing Balance Ability Good Dynamic Standing Balance Ability Fair Device Used walking stick Tinetti Balance Assessment Sitting Balance Sitting Balance Steady, safe Arising from Chair Ability to Arise Able, uses arms to help Standing Balance Standing Balance Steady, wide stance Nudged Response Staggers, catches self Standing with Eyes Closed Unsteady Turning Step Pattern Turning 360 Degrees Discontinuous steps Stability Turning 360 Degrees Unsteady, grabs/staggers Sitting Down Sitting Down Uses arms or unsteady Gait and Step Initiation of Gait No hesitancy Right Foot Step Length Does pass stance foot Right Foot Step Height Completely clears floor Left Foot Step Length Does not pass stance foot Left Foot Step Height Does not clear floor Step Description Step Symmetry Step length not equal Gait Description Path Description Mild/moderate deviation Trunk Description No sway but posturing Scoring and Interpretation Tinetti Composite Score (points) 10 Cobos Fall Scale Copyright Permission PT-OP-F Manual Assessment Start: 12/05/19 15:14 Freq: Status: Active Protocol: Document 12/05/19 15:15 SAK (Rec: 12/05/19 16:50 [facility] [id number]) Manual Assessments Soft Tissue Assessment Soft Tissue Mobility Assessment mod tightness right IT band Joint Mobility Assessment Joint Mobility Assessment NA due to abe JUANCARLOS Other Manual Assessments Other Manual Assessments Leg length discrepancy with right LE 1/2 longer than left (patient reports she has a couple built up shoes but doesn't wear regularly) PT-OP-G Mobility & Gait Start: 12/05/19 15:14 Freq: Status: Active Protocol: Document 12/05/19 15:15 [facility] (Rec: 12/05/19 16:50 [facility] [id number]) OP Mobility Evaluation Bed Mobility Rolling indep Supine to and from Sit indep Transfers Sit to Stand indep with decreased weight- bearing right LE OP Gait Assessment Gait Gait Assistance Required: Independent Distance (Feet) 40 Assistive Devices Assistive Device None Gait Deviations General Gait Pattern Antalgic,Flexed Trunk,Lateral Trunk Lean Factors Limiting Gait Function Factors Limiting Gait Function Decreased Strength,Limited Range of Motion,Pain,Poor Balance Stair Climbing Evaluation Evaluation Level of Assist On Stairs Independent Devices Stair Climbing Assistive Devices Left Railing,Right Railing Technique/Endurance Stair Climbing Direction Ascend and Descend Stair Climbing Technique Step to Step PT-OP-H Neuro Start: 12/05/19 15:14 Freq: Status: Active Protocol: Document 12/05/19 15:15 SAK (Rec: 12/05/19 16:50 [facility] [id number]) Sensation Evaluation Gross Sensation Gross Sensation WNL PT-OP-J Posture/Palpation/Skin Start: 12/05/19 15:14 Freq: Status: Active Protocol: Document 12/05/19 15:15 SAK (Rec: 12/05/19 16:50 SAK [id number]) Posture Evaluation Position Standing Head/C-Spine Posture C-Spine Flattened L-Spine Posture Flattened Arm Posture (L) Internally Rotated,(R) Internally Rotated Pelvis Posture (R) Rotated Posterior Weight Distribution Weight Shifted Left Hip Posture (R) Internally Rotated Knee Posture (L) Genu Valgus,(R) Excess Flexion PT-OP-K Range of Motion Start: 12/05/19 15:14 Freq: Status: Active Protocol: Document 02/16/20 08:14 [facility] (Rec: 02/16/20 09:12 [facility] [id number]) Knee Goniometric Range of Motion Knee abe Knee ROM WFL Yes PT-OP-M Strength Start: 12/05/19 15:14 Freq: Status: Active Protocol: Document 02/16/20 08:14 [facility] (Rec: 02/16/20 09:12 [facility] [id number]) Trunk Strength Trunk Manual Muscle Testing Core Stabilization Poor Hip Strength Hip Manual Muscle Testing Right Flexion (L2) 4- Good- Abduction 3+ Fair+ Adduction 4- Good- External Rotation 3+ Fair+ Internal Rotation 3+ Fair+ Left Flexion (L2) 4 Good Abduction 4 Good Adduction 4 Good External Rotation 4- Good- Internal Rotation 4 Good Knee Strength Knee Manual Muscle Testing Right Flexion (S2) 4+ Good+ Extension (L3) 4+ Good+ Left Flexion (S2) 5 Normal Extension (L3) 5 Normal Ankle/Foot Strength Ankle and Foot Manual Muscle Testing Left Dorsiflexion (L4) 4+ Good+ Plantarflexion (S1) 4+ Good+ Right Dorsiflexion (L4) 4+ Good+ Plantarflexion (S1) 4 Good PT-OP-Q Treatments Start: 12/05/19 15:14 Freq: Status: Active Protocol: Document 03/28/20 14:31 [facility] (Rec: 03/28/20 14:47 [facility] [id number]) Cardio Equipment Recumbent Stepper (Sci-Fit) Duration (Minutes) 5 Resistance 2.0 Other cues for neutral LE alignment, 5 min UE's/LE's, 5 min LE's only Treadmill Duration (Minutes) 5 Speed 0.7 mph Gym Equipment Shuttle Balance chains red Details weight shifts forward/bck, side to side Reps/Duration 10' Sport Cord 1 Exercise Details forward Cord/Resistance yellow Reps/Duration 7x Comments emphasis on alignment, muscle activation sequencing mirror for visual fedback. Therapeutic Exercises Supine Exercises single knee to chest Reps/Minutes 30 LTR Reps/Minutes 10x Hip IR/ER Reps/Minutes 10x lateral trunk stretch Side bilateral Comments cues to incorporate deep breathing bridge Supine Exercise Name one leg straight, gluteal activation without lift Reps/Minutes 10x Gait Training Gait Activity level surface gait Device Used 1 trekking pole Level of Assistance CGA to SBA, verbal and manual cues Surface level Treatment Focus upright posture, decreased lateral lean, activation of gluteals in stance Comments visual cues with mirror; improved gait after training PT-OP-R Modalities Start: 12/05/19 15:14 Freq: Status: Active Protocol: Document 03/28/20 14:31 [facility] (Rec: 03/28/20 14:47 [facility] [id number]) Hot Pack/Cold Pack Treatment Hot Pack Location right hip and knee Patient Position Hooklying Treatment Duration (minutes) 15 PT-OP-T Assessment and Plan Start: 12/05/19 15:14 Freq: Status: Active Protocol: Document 03/28/20 14:31 [facility] (Rec: 03/28/20 14:47 [facility] [id number]) Physical Therapy Assessment Goals Four Impairment weakness abe LE's right greater than left Short Term Goal (STG) Patient to be independent and compliant with HEP, ongoing progression of HEP as tolerated STG Duration goal met Pie Bakery Laborer Goal (LTG) Patient to demonstrate improvement in LE muscle strength to at least 4+/5 throughout 03/15/20: goal progress, most limited in hip abduction and extension LTG Duration 05/14/20 Three Impairment antalgic and unsteady gait Pie Bakery Laborer Goal (LTG) Patient able to ambulate with least restrictive device with minimal limp or compensatory movement strategies to decrease stresses to her joints and soft tissues. Be able to ascend and descend stairs with step over step pattern. 03/15/20: goal progress LTG Duration 05/14/20 Two Impairment lower extremity functional scale (LEFS) 49% [facility]ci Goal (LTG) Improve LEFS to at least 75%, with patient resuming prior level of functional activity 02/15/20: currently 53% 03/15/20: 60% LTG Duration 05/14/20 One Impairment function-limiting pain right LE Fci Goal (LTG) Decrease pain to no grater than 10/1402/15/20: currently 203/15/20: good goal progress LTG Duration 05/14/20 Assessment Summary Assessment Alannah has been making good goal progress though significant gait dysfunction persists and she has the potential to make further progress in all goal areas. Recommend patient continue with her HEP, start aquatic therapy when pool re- opens in Phase 3. Physical Therapy Plan Frequency and Duration Frequency of Treatment 2/Week Duration of Treatment 4 Plan of Care Start Date 03/15/20 Plan of Care End Date 05/14/20 Therapeutic Interventions Therapeutic Interventions Aquatic Therapy,Balance Training,Gait Training,Home Exercise Program,Manual Therapy,Neuromuscular Re- education,Patient/Caregiver Education,Self-Care/Home Management,Therapeutic Activities,Therapeutic Exercises Modalities Cold Pack/Ice Massage,Electric Stimulation,Hot Packs, Ultrasound Next Visit Focus/Plan Next Note Type Treatment Note Next Visit Plan Aquatic therapy when pool re- opens for Phase 3.
--- NOTE | 2020-09-06 11:52 | PT.OPDS ---
Current Diagnoses Pain in right hip (03/28/20) Pain in right knee (03/28/20) Pain in right leg (03/28/20) Pain in left leg (03/28/20) Difficulty in walking, not elsewhere classified (03/28/20) Weakness (03/28/20) Visit Care Team Role Provider Type Rosette Grey PA-C Attending Provider Physician Primary Care Provider Referring Provider Specialty: Internal Medicine Address: [address] [place] [address], [facility] Email: [email or web address] Visit Number Visit Number [id number] Discharge Summary PT-OP-B Current Condition Start: 12/05/19 15:14 Freq: Status: Active Protocol: Document 03/15/20 11:12 SAK (Rec: 03/15/20 11:43 SAK [id number]) Current Condition Treatment Goals Patient/Caregiver Goals Decrease pain, resume prior level of physical activity PT-OP-C Subjective Start: 12/05/19 15:14 Freq: Status: Active Protocol: Document 03/28/20 14:31 SAK (Rec: 03/28/20 14:47 SAK [id number]) OP-PT Subjective Patient Comments Patient Comments c/o LBP more recently in PT-OP-D Balance Start: 12/05/19 15:14 Freq: Status: Active Protocol: Document 12/05/19 15:15 SAK (Rec: 12/05/19 16:50 SAK [id number]) OP-PT Balance Assessment Sitting Balance Static Sitting Balance Ability Good Dynamic Sitting Balance Ability Good Standing Balance Static Standing Balance Ability Good Dynamic Standing Balance Ability Fair Device Used walking stick Tinetti Balance Assessment Sitting Balance Sitting Balance Steady, safe Arising from Chair Ability to Arise Able, uses arms to help Standing Balance Standing Balance Steady, wide stance Nudged Response Staggers, catches self Standing with Eyes Closed Unsteady Turning Step Pattern Turning 360 Degrees Discontinuous steps Stability Turning 360 Degrees Unsteady, grabs/staggers Sitting Down Sitting Down Uses arms or unsteady Gait and Step Initiation of Gait No hesitancy Right Foot Step Length Does pass stance foot Right Foot Step Height Completely clears floor Left Foot Step Length Does not pass stance foot Left Foot Step Height Does not clear floor Step Description Step Symmetry Step length not equal Gait Description Path Description Mild/moderate deviation Trunk Description No sway but posturing Scoring and Interpretation Tinetti Composite Score (points) 10 Cobos Fall Scale Copyright Permission PT-OP-F Manual Assessment Start: 12/05/19 15:14 Freq: Status: Active Protocol: Document 12/05/19 15:15 [facility] (Rec: 12/05/19 16:50 [facility] [id number]) Manual Assessments Soft Tissue Assessment Soft Tissue Mobility Assessment mod tightness right IT band Joint Mobility Assessment Joint Mobility Assessment NA due to abe JUANCARLOS Other Manual Assessments Other Manual Assessments Leg length discrepancy with right LE 1/2 longer than left (patient reports she has a couple built up shoes but doesn't wear regularly) PT-OP-G Mobility & Gait Start: 12/05/19 15:14 Freq: Status: Active Protocol: Document 12/05/19 15:15 [facility] (Rec: 12/05/19 16:50 [facility] [id number]) OP Mobility Evaluation Bed Mobility Rolling indep Supine to and from Sit indep Transfers Sit to Stand indep with decreased weight- bearing right LE OP Gait Assessment Gait Gait Assistance Required: Independent Distance (Feet) 40 Assistive Devices Assistive Device None Gait Deviations General Gait Pattern Antalgic,Flexed Trunk,Lateral Trunk Lean Factors Limiting Gait Function Factors Limiting Gait Function Decreased Strength,Limited Range of Motion,Pain,Poor Balance Stair Climbing Evaluation Evaluation Level of Assist On Stairs Independent Devices Stair Climbing Assistive Devices Left Railing,Right Railing Technique/Endurance Stair Climbing Direction Ascend and Descend Stair Climbing Technique Step to Step PT-OP-H Neuro Start: 12/05/19 15:14 Freq: Status: Active Protocol: Document 12/05/19 15:15 [facility] (Rec: 12/05/19 16:50 [facility] [id number]) Sensation Evaluation Gross Sensation Gross Sensation WNL PT-OP-J Posture/Palpation/Skin Start: 12/05/19 15:14 Freq: Status: Active Protocol: Document 12/05/19 15:15 [facility] (Rec: 12/05/19 16:50 [facility] [id number]) Posture Evaluation Position Standing Head/C-Spine Posture C-Spine Flattened L-Spine Posture Flattened Arm Posture (L) Internally Rotated,(R) Internally Rotated Pelvis Posture (R) Rotated Posterior Weight Distribution Weight Shifted Left Hip Posture (R) Internally Rotated Knee Posture (L) Genu Valgus,(R) Excess Flexion PT-OP-K Range of Motion Start: 12/05/19 15:14 Freq: Status: Active Protocol: Document 02/16/20 08:14 [facility] (Rec: 02/16/20 09:12 [facility] [id number]) Knee Goniometric Range of Motion Knee abe Knee ROM WFL Yes PT-OP-M Strength Start: 12/05/19 15:14 Freq: Status: Active Protocol: Document 02/16/20 08:14 [facility] (Rec: 02/16/20 09:12 [facility] [id number]) Trunk Strength Trunk Manual Muscle Testing Core Stabilization Poor Hip Strength Hip Manual Muscle Testing Right Flexion (L2) 4- Good- Abduction 3+ Fair+ Adduction 4- Good- External Rotation 3+ Fair+ Internal Rotation 3+ Fair+ Left Flexion (L2) 4 Good Abduction 4 Good Adduction 4 Good External Rotation 4- Good- Internal Rotation 4 Good Knee Strength Knee Manual Muscle Testing Right Flexion (S2) 4+ Good+ Extension (L3) 4+ Good+ Left Flexion (S2) 5 Normal Extension (L3) 5 Normal Ankle/Foot Strength Ankle and Foot Manual Muscle Testing Left Dorsiflexion (L4) 4+ Good+ Plantarflexion (S1) 4+ Good+ Right Dorsiflexion (L4) 4+ Good+ Plantarflexion (S1) 4 Good PT-OP-T Assessment and Plan Start: 12/05/19 15:14 Freq: Status: Active Protocol: Document 09/06/20 11:51 [facility] (Rec: 09/06/20 11:52 [facility] [id number]) Physical Therapy Plan Discharge Physical Therapy Discharge Reasons No Longer Attending PT Discharge Comments May return to PT when aquatic PT opens back up
== END 2020-09-21 14:14 ==
LOC: PHYS 14:30
PROVIDERS: PCP Student in an Organized Health Care Education/Training Program; Referring Provider Student in an Organized Health Care Education/Training Program; Visit Provider Student in an Organized Health Care Education/Training Program
DX: M25.551 Pain in right hip (principal); M25.561 Pain in right knee; M79.604 Pain in right leg; R26.2 Difficulty in walking, not elsewhere classified; M79.605 Pain in left leg; R53.1 Weakness
CPT/HCPCS: 97010; 97110; 97112; 97116; 97140; 97162; 97535

== ENCOUNTER 2020-06-27 09:31 | Emergency (ER) | payer MEDICARE, SELFPAY ==
[2020-06-27] VITALS (22 sets, daily range): BP systolic 93–130; BP diastolic 46–72; PULSE 56–93; RESP 15–26; TEMP 36.6–36.7; O2SAT 83–99
--- NOTE | 2020-06-27 09:37 | DI.RAD.S_ITS ---
PROCEDURE: XR KNEE RT 1TO2V INDICATIONS: trauma TECHNIQUE: 2 views of the knee were acquired. COMPARISON: [facility], , XR KNEE RT 3V, 11/22/2019, 9:52. FINDINGS: Bones: Patient is status post prior right total knee arthroplasty. There is acute comminuted fracture involving super condylar region of distal femur with impaction and overlapping at fracture site and medial and posterior displacement. Soft tissues: Moderate to large joint effusion is seen. No suspicious soft tissue calcifications. IMPRESSION: Acute comminuted, impacted and displaced fracture involving supracondylar region of distal femur as above. Prior right total knee arthroplasty. Moderate to large joint effusion suspicious for hemarthrosis. Dictated by: Aurelio Roberts M.D. on 06/27/2020 at 9:53 Approved by: Aurelio Roberts M.D. on 06/27/2020 at 9:54
--- NOTE | 2020-06-27 09:38 | DI.CT.S_ITS ---
PROCEDURE: CT HEAD/BRAIN WO CON INDICATIONS: trauma TECHNIQUE: Noncontrast 4.5 mm thick angled axial sections acquired from the foramen magnum to the vertex, with coronal and sagittal reformats. For radiation dose reduction, the following was used: automated exposure control, adjustment of mA and/or kV according to patient size. COMPARISON: [facility], CT, HEAD WITHOUT CONTRAST, 08/20/2016, 20:36. FINDINGS: Image quality: Excellent. CSF spaces: Basal cisterns are patent. No extra-axial fluid collections. The ventricles are symmetric in size and shape. Brain: No intracranial bleeds or masses. There is cerebral volume loss for age, with resultant ventricular and sulcal prominence. There are mild periventricular and deep white matter chronic small vessel ischemic changes. There is intracranial internal carotid artery atherosclerosis. Skull and face: Calvarium and visualized facial bones appear intact, without suspicious lesions. Sinuses: Visualized sinuses and mastoids are clear. IMPRESSION: 1. Age-related volume loss and mild small vessel ischemic change. 2. Negative for acute stroke, hemorrhage, or mass. 3. No evidence of significant intracranial sequelae of acute trauma. Dictated by: Rahul Reyes M.D. on 06/27/2020 at 10:08 Approved by: Rahul Reyes M.D. on 06/27/2020 at 10:09
--- NOTE | 2020-06-27 09:38 | DI.CT.S_ITS ---
PROCEDURE: CT CERVICAL SPINE WO CON INDICATIONS: trauma TECHNIQUE: Noncontrast 3 mm thick sections acquired from the skull base to the T4 level. Sagittal and coronal reformats were then constructed. For radiation dose reduction, the following was used: automated exposure control, adjustment of mA and/or kV according to patient size. COMPARISON: [facility], CT, C-SPINE WITHOUT CONTRAST, 08/20/2016, 20:36. [facility], CT, CT HEAD/BRAIN WO CON, 06/27/2020, 9:41. FINDINGS: Image quality: Excellent. Bones: No fractures or dislocations. There is grade 1 anterolisthesis of C7 on T1. 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 Moderate to severe bilateral facet arthropathy, most pronounced at C4-C5 and C5-C6. 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 Soft tissues: Prevertebral soft tissues are normal in thickness. No paravertebral hematomas. No apical pneumothoraces. IMPRESSION: No fractures. [id number] degenerative changes as described. Dictated by: Km Stephenson M.D. on 06/27/2020 at 10:02 Approved by: Km Stephenson M.D. on 06/27/2020 at 10:09
[2020-06-27 09:44] LABS: Add Manual Diff / Slide Review NO; Basophils Absolute Auto 0 /uL (0-100); Basophils Percent Auto 0.2 % (0-2); Eosinophils Absolute Auto 0 /uL (0-450); Hematocrit 38.6 % (36-46); Hemoglobin 13.3 g/dL (12.0-16.0); Lymphocytes Absolute Auto 1200 /uL (1100-4500); Lymphocytes Percent Auto 8.2 % (25-40); Mean Corpuscular HGB Conc 34.5 % (30-36); Mean Corpuscular Hemoglobin 33.7 PG (26-34); Mean Corpuscular Volume 97.6 fL (80-100); Monocytes Absolute Auto 500 /uL (0-900); Monocytes Percent Auto 3.5 % (3-14); Neutrophils Absolute Auto 12600 /uL (1500-7000); Neutrophils Percent Auto 88.1 % (50-75); Platelet Count 239 X10^3/uL (150-400); Red Blood Cell Count 3.95 X10^6/uL (4.0-5.2); Red Cell Distribution Width 13.3 % (11.6-14.8); White Blood Cell Count 14.3 X10^3/uL (4.5-11.0)
[2020-06-27 09:53] LABS: Alanine Aminotransferase 26 IU/L (<35); Albumin 4.5 g/dL (3.5-5.0); Albumin Globulin Ratio 1.7 (1.0-2.8); Alkaline Phosphatase 61 U/L (38-126); Aspartate Aminotransferase 32 IU/L (14-36); BUN Creatinine Ratio 35.7 (6-22); Bilirubin Total 0.7 mg/dL (0.2-1.3); Blood Urea Nitrogen 20 mg/dL (7-17); Calcium 9.4 mg/dL (8.4-10.2); Carbon Dioxide 26 mmol/L (22-32); Chloride 98 mmol/L (98-107); Estimated Glomerular Filt Rate > 60.0 mL/min (>60); Globulin 2.7 g/dL (1.7-4.1); Glucose 142 mg/dL (80-110); HEMOLYSIS < 15 (0-50); Magnesium 1.8 mg/dL (1.6-2.3); Potassium 4.2 mmol/L (3.4-5.1); Sodium 134 mmol/L (137-145); Total Protein 7.2 g/dL (6.3-8.2)
[2020-06-27 10:04] LABS: Troponin I < 0.012 ng/mL (0.01-0.034)
[2020-06-27] MEDS: ONDANSETRON 4 MG/2 ML INJ IV (10:09)
[2020-06-27] MEDS: HYDROMORPHONE 0.5 MG INJ IV ×2 (10:46→17:31)
--- NOTE | 2020-06-27 11:22 | ED_ITS ---
HPI - Fall General Chief Complaint: Fall Stated Complaint: GLF Time Seen by Provider: 06/27/20 09:31 Source: EMS Mode of arrival: EMS History of Present Illness HPI Narrative: 79-year-old woman who was found on the floor this morning by a fr iend with a black eye on the left side and no recollection of previous events. The patient remembers getting up around 3 in the morning to go to the bathroom and then waking up on the floor. She is complaining of right knee pain. She is anticoagulated with Coumadin for chronic atrial fibrillation. Related Data Home Medications Medication Instructions Recorded Confirmed pantoprazole 40 mg PO DAILY #0 08/20/16 06/27/20 biotin 5,000 units DAILY 10/29/18 10/29/18 cholecalciferol (vitamin D3) 5,000 unit PO DAILY 10/29/18 11/22/19 [Vitamin D3] clonazepam 0.5 mg PO BEDTIME PRN 10/29/18 06/27/20 levothyroxine 25 mcg PO DAILY 10/29/18 06/27/20 losartan 12.5 mg PO DAILY 10/29/18 06/27/20 simvastatin 20 mg PO DAILY 10/29/18 06/27/20 latanoprost 1 drp OPHTHALMIC (EYE) BEDTIME 11/22/19 06/27/20 metoprolol succinate 25 mg PO BID 11/22/19 06/27/20 warfarin [Jantoven] 5 mg PO DAILY 11/22/19 06/27/20 zolpidem 5 mg PO BEDTIME 11/22/19 06/27/20 hydrocodone-acetaminophen 1 tab PO Q4-6H PRN 06/27/20 06/27/20 Previous Rx's Medication Instructions Recorded tramadol [Ultram] 50 mg PO BID PRN #7 tab 11/22/19 Allergies Allergy/AdvReac Type Severity Reaction Status Date / Time Sulfa (Sulfonamide Allergy Severe Anaphylaxis Verified 06/27/20 10:35 Antibiotics) [SULFA (SULFONAMIDE ANTIBIOTICS)] adhesive tape [ADHESIVE TAPE] Allergy Unknown WELTS Verified 06/27/20 10:35 propoxyphene [From Darvon] Allergy Unknown Verified 06/27/20 10:35 Review of Systems Review of Systems Narrative: Pertinent positive and negative findings as per HPI Remainder of review of systems is otherwise unremarkable for Constitutional: Fevers, chills, weakness ENT: No sore throat, neck pain, ear pain CV: Chest pain, palpitations, dyspnea on exertion Respiratory: Cough, wheeze, dyspnea GI: Nausea, vomiting, diarrhea, change in bowel habits, black or bloody stools : Dysuria, hematuria, flank pain MS: Muscle weakness, numbness, joint swelling or warmth Skin: Rashes, nonhealing lesions Patient History Medical History Atrial fibrillation (Chronic) Chronic anticoagulation (Chronic) 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 Able to give a complete and coherent history. Well-nourished well-developed HEENT: Large ecchymosis and small abrasion (not needing sutures) around the left eye. Moist mucous membranes, normal sclera with reactive pupils, no subconjunctival hemorrhage and no hematomas or abrasions to the remainder of the head Neck: No JVD, supple, no midline tenderness Respiratory: Lungs are clear to auscultation, no wheezing no rales no rhonchi. Full and symmetrical air movement Cardiac: iregular rate and rhythm no murmurs no bruits Abdomen: Soft nontender good bowel tones, no flank pain Skin: Warm and dry, multiple bruises and thin skin secondary to age and Coumadin use Neurologic: Grossly neurologically intact with no obvious asymmetries or abnormalities Extremities: Right knee with deformity, ecchymosis and significant pain. Left knee with minor contusion. Neurovascularly intact distally bilaterally Psych: Cooperative, appropriate insight and affect Initial Vital Signs Initial Vital Signs: Vital Signs Temperature 98 F 06/27/20 09:33 Pulse Rate 64 06/27/20 09:33 Respiratory Rate 25 H 06/27/20 09:33 Blood Pressure 130/58 L 06/27/20 09:33 Pulse Oximetry 96 06/27/20 09:33 Course Orders Ordered: ED Orders 06/27/20 09:37 XR knee RT 1to2V Stat 06/27/20 09:38 CT cervical spine wo con Stat CT head/brain wo con Stat 06/27/20 09:40 Complete Blood Count AUTO DIFF Stat Comprehensive Metabolic Panel Stat Magnesium Stat Troponin I Stat 06/27/20 09:57 EKG-12 Lead Routine 06/27/20 11:49 COVID19 -ED/INPAT/OR/L&D Stat Hemoglobin and Hematocrit Stat Prothrombin Time INR Stat Urinalysis and Microscopic Stat Urine Culture Stat Hydromorphone HCl (Dilaudid) 0.5 mg IV Q15MIN PRN PRN Reason: pain Last Admin: 06/27/20 17:31 Dose: 0.5 mg Documented by: Admin: 06/27/20 10:46 Dose: 0.5 mg Documented by: MORGAN Discontinued Medications Sodium Chloride (Normal Saline 0.9%) 1,000 mls @ 1,000 mls/hr IV BOLUS ONE Stop: 06/27/20 12:29 Last Infusion: 06/27/20 16:36 Dose: 0 mls/hr Documented by: Admin: 06/27/20 11:50 Dose: 1,000 mls/hr Documented by: MORGAN Ondansetron HCl (Zofran) 4 mg IV NOW ONE Stop: 06/27/20 10:06 Last Admin: 06/27/20 10:09 Dose: 4 mg Documented by: DEAN Oxycodone/Acetaminophen (Percocet 5/325) 1 tab PO NOW ONE Stop: 06/27/20 16:20 Last Admin: 06/27/20 17:00 Dose: 1 tab Documented by: ADALBERTO Phytonadione (Mephyton) 5 mg PO NOW ONE Stop: 06/27/20 15:37 Last Admin: 06/27/20 16:28 Dose: 5 mg Documented by: ADALBERTO Vital Signs Vital signs: Vital Signs - 8 hr 06/27/20 09:56 06/27/20 09:57 06/27/20 10:00 Pulse Rate 60 61 62 Respiratory Rate 18 19 15 Blood Pressure 130/58 L 130/58 L 111/54 L Pulse Oximetry 94 92 98 06/27/20 10:30 06/27/20 11:00 06/27/20 11:03 Pulse Rate 56 L 57 L 59 L Respiratory Rate 17 16 19 Blood Pressure 104/53 L 93/48 L 95/46 L Pulse Oximetry 99 98 98 06/27/20 11:30 06/27/20 12:00 06/27/20 12:30 Pulse Rate 69 68 66 Respiratory Rate 17 17 15 Blood Pressure 114/51 L 118/53 L 101/50 L Pulse Oximetry 98 98 97 06/27/20 13:00 06/27/20 13:30 06/27/20 14:00 Pulse Rate 69 87 Respiratory Rate 16 20 Blood Pressure 111/51 L 103/72 Pulse Oximetry 96 83 L 06/27/20 14:04 06/27/20 14:30 06/27/20 15:00 Pulse Rate 80 87 89 Respiratory Rate 21 17 19 Blood Pressure 104/56 L 104/59 L 104/58 L Pulse Oximetry 98 98 97 06/27/20 15:30 06/27/20 16:00 06/27/20 16:30 Pulse Rate 82 88 91 H Respiratory Rate 21 24 26 H Blood Pressure 100/56 L 109/51 L 104/58 L Pulse Oximetry 97 97 97 06/27/20 17:00 06/27/20 17:30 Pulse Rate 85 93 H Respiratory Rate 19 24 Blood Pressure 105/70 107/53 L Pulse Oximetry 97 97 MDM - Fall Medical Records Attestation: I reviewed the patient's medical records. Lab Data Attestation: I reviewed the patient's lab results. Lab results narrative: h/h 13.3 to 12.6 38.6 to 36.8 Result diagrams: 06/27/20 11:49 06/27/20 09:40 Labs: Lab Results 06/27/20 06/27/20 06/27/20 Range/Units 09:40 09:40 11:49 WBC 14.3 H (4.5-11.0) X10^3/uL RBC 3.95 L (4.0-5.2) X10^6/uL Hgb 13.3 12.6 (12.0-16.0) g/dL Hct 38.6 36.8 (36-46) % MCV 97.6 (80-100) fL MCH 33.7 (26-34) PG MCHC 34.5 (30-36) % RDW 13.3 (11.6-14.8) % Plt Count 239 (150-400) X10^3/uL Neut % (Auto) 88.1 H (50-75) % Lymph % (Auto) 8.2 L (25-40) % Villalba % (Auto) 3.5 (3-14) % Eos % (Auto) 0.0 L (2-4) % Baso % (Auto) 0.2 (0-2) % Neut # (Auto) 42864 H (8521-5451) /uL Lymph # (Auto) 1200 (7644-8105) /uL Villalba # (Auto) 500 (0-900) /uL Eos # (Auto) 0 (0-450) /uL Baso # (Auto) 0 (0-100) /uL PT (10.1-12.7) SECONDS INR (0.9-1.3) Sodium 134 L (137-145) mmol/L Potassium 4.2 (3.4-5.1) mmol/L Chloride 98 (98-107) mmol/L Carbon Dioxide 26 (22-32) mmol/L BUN 20 H (7-17) mg/dL Creatinine 0.56 (0.52-1.04) mg/dL Estimated GFR > 60.0 (>60) mL/min BUN/Creatinine Ratio 35.7 H (6-22) Glucose 142 H (80-110) mg/dL Calcium 9.4 (8.4-10.2) mg/dL Magnesium 1.8 (1.6-2.3) mg/dL Total Bilirubin 0.7 (0.2-1.3) mg/dL AST 32 (14-36) IU/L ALT 26 (<35) IU/L Alkaline Phosphatase 61 (38-126) U/L Troponin I < 0.012 (0.01-0.034) ng/mL Total Protein 7.2 (6.3-8.2) g/dL Albumin 4.5 (3.5-5.0) g/dL Globulin 2.7 (1.7-4.1) g/dL Albumin/Globulin Ratio 1.7 (1.0-2.8) Urine Color Urine Appearance Urine pH (4.5-8.0) Ur Specific [place] (1.000-1.035) Urine Protein (Negative) Urine Glucose (UA) (Negative) g/dL Urine Ketones (NEGATIVE) Urine Occult Blood (Negative) Urine Nitrate (Negative) Urine Bilirubin (NEGATIVE) Urine Urobilinogen (0.2) E.U./dL Ur Leukocyte Esterase (NEGATIVE) Urine RBC (0-5/HPF) Urine WBC (0-5/HPF) Urine Bacteria (None) Ur Culture Indicated? COVID-19 PCR (Negative) 06/27/20 06/27/20 06/27/20 Range/Units 11:49 11:49 11:49 WBC (4.5-11.0) X10^3/uL RBC (4.0-5.2) X10^6/uL Hgb (12.0-16.0) g/dL Hct (36-46) % MCV (80-100) fL MCH (26-34) PG MCHC (30-36) % RDW (11.6-14.8) % Plt Count (150-400) X10^3/uL Neut % (Auto) (50-75) % Lymph % (Auto) (25-40) % Villalba % (Auto) (3-14) % Eos % (Auto) (2-4) % Baso % (Auto) (0-2) % Neut # (Auto) (8034-2475) /uL Lymph # (Auto) (8179-2307) /uL Villalba # (Auto) (0-900) /uL Eos # (Auto) (0-450) /uL Baso # (Auto) (0-100) /uL PT 46.9 H (10.1-12.7) SECONDS INR 4.1 H (0.9-1.3) Sodium (137-145) mmol/L Potassium (3.4-5.1) mmol/L Chloride (98-107) mmol/L Carbon Dioxide (22-32) mmol/L BUN (7-17) mg/dL Creatinine (0.52-1.04) mg/dL Estimated GFR (>60) mL/min BUN/Creatinine Ratio (6-22) Glucose (80-110) mg/dL Calcium (8.4-10.2) mg/dL Magnesium (1.6-2.3) mg/dL Total Bilirubin (0.2-1.3) mg/dL AST (14-36) IU/L ALT (<35) IU/L Alkaline Phosphatase (38-126) U/L Troponin I (0.01-0.034) ng/mL Total Protein (6.3-8.2) g/dL Albumin (3.5-5.0) g/dL Globulin (1.7-4.1) g/dL Albumin/Globulin Ratio (1.0-2.8) Urine Color Yellow Urine Appearance Clear Urine pH 5.0 (4.5-8.0) Ur Specific [place] 1.020 (1.000-1.035) Urine Protein Negative (Negative) Urine Glucose (UA) Negative (Negative) g/dL Urine Ketones Trace H (NEGATIVE) Urine Occult Blood 2+ H (Negative) Urine Nitrate Positive H (Negative) Urine Bilirubin Negative (NEGATIVE) Urine Urobilinogen 0.2 (0.2) E.U./dL Ur Leukocyte Esterase Negative (NEGATIVE) Urine RBC 5-10/hpf H (0-5/HPF) Urine WBC None seen (0-5/HPF) Urine Bacteria Few (2-10) H (None) Ur Culture Indicated? Specimen cultured COVID-19 PCR Negative (Negative) Imaging Data X-ray right knee: Radiologist's Impression: FINDINGS: Bones: Patient is status post prior right total knee arthroplasty. There is acute comminuted fracture involving super condylar region of distal femur with impaction and overlapping at fracture site and medial and posterior displacement. Soft tissues: Moderate to large joint effusion is seen. No suspicious soft tissue calcifications. IMPRESSION: Acute comminuted, impacted and displaced fracture involving supracondylar region of distal femur as above. Prior right total knee arthroplasty. Moderate to large joint effusion suspicious for hemarthrosis. Dictated by: Aurelio Roberts M.D. on 06/27/2020 at 9:53 CT scan - head: Radiologist's Impression: FINDINGS: Image quality: Excellent. CSF spaces: Basal cisterns are patent. No extra-axial fluid collections. The ventricles are symmetric in size and shape. Brain: No intracranial bleeds or masses. There is cerebral volume loss for age, with resultant ventricular and sulcal prominence. There are mild periventricular and deep white matter chronic small vessel ischemic changes. There is intracranial internal carotid artery atherosclerosis. Skull and face: Calvarium and visualized facial bones appear intact, without suspicious lesions. Sinuses: Visualized sinuses and mastoids are clear. IMPRESSION: 1. Age-related volume loss and mild small vessel ischemic change. 2. Negative for acute stroke, hemorrhage, or mass. 3. No evidence of significant intracranial sequelae of acute trauma. Dictated by: Rahul Reyes M.D. on 06/27/2020 at 10:08 CT - cervical spine: Radiologist's Impression: FINDINGS: Image quality: Excellent. Bones: No fractures or dislocations. There is grade 1 anterolisthesis of C7 on T1. 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 Moderate to severe bilateral facet arthropathy, most pronounced at C4-C5 and C5-C6. 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 Soft tissues: Prevertebral soft tissues are normal in thickness. No paravertebral hematomas. No apical pneumothoraces. IMPRESSION: No fractures. [id number] degenerative changes as described. Dictated by: Km Stephenson M.D. on 06/27/2020 at 10:02 ECG Data Attestation: I personally reviewed and interpreted this ECG as follows: Interpretation: Atrial fibrillation at a rate of 60 Normal axis No acute ischemic changes MDM Narrative Medical decision making narrative: Care is reviewed with Dr. Pulido, on-call orthopedist. Will see if any of his partners are available in able to deal with the surgery that she will need to fix the right knee-supracondylar distal femur fracture involving knee replacement hardware. INR is currently pending as is Covid. Will anticipate admission. If surgery is able to be facilitated at [facility] contact hospitalist for admission if not will need to discuss options for transfer. INR 4.[address] Pulido confirms neither he, Dr Ibarra or Dr Brenner all agree that this fracture is complex enough to request help from ortho trauma surgeon. images, face sheet sent to [facility]. Transfer center paged. 200 transfer center returns call indicating that wait for returned calls may be extended. Findings, anticipated transfer and wait times are discussed with patient. [phone] Transfer center. Will review with ortho doc at [facility], may need to talk with ortho at [facility]. Will call back [phone] Dr Cory Deluca ER attending, Dr Obregon ortho attending will accept. Can arrange for ground transport Discharge Plan Departure [facility] Clinical Impression: Anticoagulated Fall Qualifiers: Encounter type: initial encounter Qualified Code(s): W19.XXXA - Unspecified fall, initial encounter Fariba-prosthetic fracture around prosthetic joint Qualifiers: Encounter type: initial encounter Qualified Code(s): M97.9XXA - Periprosthetic fracture around unspecified internal prosthetic joint, initial encounter Femoral distal fracture Qualifiers: Encounter type: initial encounter Fracture type: closed Fracture morphology: unspecified fracture morphology Laterality: right Qualified Code(s): S72.401A - Unspecified fracture of lower end of right femur, initial encounter for closed fracture Contusion of face Qualifiers: Encounter type: initial encounter Qualified Code(s): S00.83XA - Contusion of other part of head, initial encounter Prescriptions: No Action pantoprazole 40 MG tablet,delayed release (DR/EC) 40 mg PO DAILY Qty: 0 RF: 0 hydrocodone-acetaminophen 5-325 mg Tablet 1 tab PO Q4-6H PRN (Reason: Pain (Scale Score 1-3)) RF: 0 levothyroxine 25 mcg Tablet 25 mcg PO DAILY RF: 0 simvastatin 20 mg Tablet 20 mg PO DAILY RF: 0 losartan 25 mg Tablet 12.5 mg PO DAILY RF: 0 cholecalciferol (vitamin D3) [Vitamin D3] 125 mcg (5,000 unit) Tablet 5,000 unit PO DAILY RF: 0 biotin 5,000 units 5,000 units DAILY RF: 0 clonazepam 0.5 mg 0.5 mg PO BEDTIME PRN (Reason: Restless Leg(S)) RF: 0 latanoprost 0.005 % drops 1 drp ophthalmic (eye) BEDTIME RF: 0 warfarin [Jantoven] 5 mg tablet 5 mg PO DAILY RF: 0 zolpidem 5 mg tablet 5 mg PO BEDTIME RF: 0 metoprolol succinate 25 mg tablet extended release 24 hr 25 mg PO BID RF: 0 tramadol [Ultram] 50 mg tablet 50 mg PO BID PRN (Reason: pain) Qty: 7 RF: 0 Referrals: Rosette Grey PA-C [Primary Care Provider] -
[2020-06-27] MEDS: SODIUM CHLORIDE 0.9% 1,000 ML 1000 ML IV (11:50)
[2020-06-27 11:56] LABS: WBC Urine None Seen (0-5/HPF)
[2020-06-27 11:58] LABS: Appearance Urine UA CLEAR; Bilirubin Urine UA NEGATIVE (NEGATIVE); Color Urine UA YELLOW; Glucose Urine UA NEGATIVE (Negative); Ketones Urine UA TRACE (NEGATIVE); Leukocyte Esterase Urine UA NEGATIVE (NEGATIVE); Nitrite Urine UA POSITIVE (Negative); Occult Blood Urine UA 2+ (Negative); Protein Urine UA NEGATIVE (Negative); Urobilinogen Urine UA 0.2 E.U./dL (0.2)
[2020-06-27 12:03] LABS: Bacteria Urine Few (2-10); Culture Indicated Urine Specimen Cultured; RBC Urine 5-10/HPF (0-5/HPF)
[2020-06-27 12:04] LABS: Hematocrit 36.8 % (36-46); Hemoglobin 12.6 g/dL (12.0-16.0)
[2020-06-27 12:13] LABS: COVID19 -Nasal RAPID Negative (Negative)
[2020-06-27 12:15] LABS: INR 4.1 (0.9-1.3)
[2020-06-27 12:16] LABS: Prothrombin Time 46.9 SECONDS (10.1-12.7)
[2020-06-27] MEDS: PHYTONADIONE (VIT K1) 5 MG TABLET PO (16:28)
[2020-06-27] MEDS: OXYCODONE/ACETAMINOPHEN 5/325 TABLET 1 TAB PO (17:00)
--- NOTE | 2020-06-27 17:53 | PC.NURSE ---
Pt belongings sent with ambulance and friend took home personal blanket.
== END 2020-06-27 17:54 | disposition short-term general hospital (02) ==
PROVIDERS: Emergency Provider Emergency Medicine; PCP Student in an Organized Health Care Education/Training Program
DX: M97.9XXA Periprosthetic fracture around unspecified internal prosthetic joint, initial encounter (principal); S72.401A Unspecified fracture of lower end of right femur, initial encounter for closed fracture; S00.83XA Contusion of other part of head, initial encounter; W19.XXXA Unspecified fall, initial encounter; I48.20 Chronic atrial fibrillation, unspecified; Z79.01 Long term (current) use of anticoagulants
CPT/HCPCS: 36415; 51701; 70450; 72125; 73560; 80053; 81001; 83735; 84484; 85014; 85018; 85025; 85610; 87077; 87086; 87186; 87635; 93005; 93010; 96361; 96374; 96375; 99285; J1170; J2405

== ENCOUNTER → 2021-01-10 14:52 | Outpatient (ROUT) | payer MEDICARE, SELFPAY ==
[2021-01-10 15:05] LABS: Hematocrit 41.3 % (36-46); Hemoglobin 13.6 g/dL (12.0-16.0); Mean Corpuscular Volume 99.9 fL (80-100); Platelet Count 212 X10^3/uL (150-400); Red Blood Cell Count 4.14 X10^6/uL (4.0-5.2); Red Cell Distribution Width 14.6 % (11.6-14.8); White Blood Cell Count 6.2 X10^3/uL (4.5-11.0)
[2021-01-10 15:08] LABS: Alanine Aminotransferase 21 IU/L (<35); Albumin 4.3 g/dL (3.5-5.0); Albumin Globulin Ratio 1.6 (1.0-2.8); Alkaline Phosphatase 71 U/L (38-126); Aspartate Aminotransferase 30 IU/L (14-36); BUN Creatinine Ratio 47.5 (6-22); Bilirubin Total 0.9 mg/dL (0.2-1.3); Blood Urea Nitrogen 28 mg/dL (7-17); Calcium 9.8 mg/dL (8.4-10.2); Carbon Dioxide 26 mmol/L (22-32); Chloride 105 mmol/L (98-107); Estimated Glomerular Filt Rate > 60.0 mL/min (>60); Globulin 2.7 g/dL (1.7-4.1); Glucose 86 mg/dL (80-110); HEMOLYSIS < 15 (0-50); Potassium 4.6 mmol/L (3.4-5.1); Sodium 138 mmol/L (137-145)
== END ==
PROVIDERS: PCP Student in an Organized Health Care Education/Training Program; Visit Provider Internal Medicine
DX: E03.9 Hypothyroidism, unspecified (principal); E78.2 Mixed hyperlipidemia; I10 Essential (primary) hypertension; I48.20 Chronic atrial fibrillation, unspecified
CPT/HCPCS: 80053; 85027

== ENCOUNTER → 2021-02-13 10:13 | Outpatient (CLI) | payer MEDICARE, SELFPAY ==
--- NOTE | 2021-02-13 10:14 | DI.MG.S_ITS ---
BILATERAL DIGITAL SCREENING MAMMOGRAM 3D/2D WITH CAD: 02/13/2021 CLINICAL: Routine screening. Family history of breast cancer. Comparison is made to exams dated: 10/04/2019 mammogram, 09/03/2018 mammogram, and 07/21/2017 mammogram - [facility]. There are scattered fibroglandular elements in both breasts. Current study was also evaluated with a Computer Aided Detection (CAD) system. There are benign calcifications in both breasts. There also are benign vascular calcifications in the left breast. Additionally, there are benign post operative findings in the left breast. No significant masses, calcifications, or other findings are seen in either breast. There has been no significant interval change. IMPRESSION: BENIGN There is no mammographic evidence of malignancy. A 1 year screening mammogram is recommended. This exam was interpreted at Station ID: [id number]. NOTE: For mammograms, a report in lay terms will be sent to the patient. Approximately 15% of breast malignancies will not be visualized mammographically. In the management of a palpable breast mass, a negative mammogram must not discourage biopsy of a clinically suspicious lesion. Electronically Signed By: Kristian Choi acr/penrad:02/13/2021 10:46:55 letter sent: Normal Exam ACR BI-RADS Category 2: Benign Finding(s) [id number]
== END ==
PROVIDERS: PCP Student in an Organized Health Care Education/Training Program; Referring Provider Student in an Organized Health Care Education/Training Program; Visit Provider Student in an Organized Health Care Education/Training Program
DX: Z12.31 Encounter for screening mammogram for malignant neoplasm of breast (principal); Z80.3 Family history of malignant neoplasm of breast
CPT/HCPCS: 77063; 77067

== ENCOUNTER → 2022-02-14 10:13 | Outpatient (CLI) | payer MEDICARE, SELFPAY ==
--- NOTE | 2022-02-14 | DI.MG.S_ITS ---
BILATERAL DIGITAL SCREENING MAMMOGRAM 3D/2D WITH CAD: 02/14/2022 CLINICAL: Routine screening. Family history of breast cancer. Comparison is made to exams dated: 02/13/2021 mammogram, 10/04/2019 mammogram, 09/03/2018 mammogram, and 07/21/2017 mammogram - [facility]. There are scattered fibroglandular elements in both breasts. Current study was also evaluated with a Computer Aided Detection (CAD) system. There are benign calcifications in both breasts. There also are benign vascular calcifications in the left breast. Additionally, there are benign post operative findings in the left breast. No significant masses, calcifications, or other findings are seen in either breast. There has been no significant interval change. IMPRESSION: BENIGN There is no mammographic evidence of malignancy. A 1 year screening mammogram is recommended. This exam was interpreted at Station ID: [id number]. NOTE: For mammograms, a report in lay terms will be sent to the patient. Approximately 15% of breast malignancies will not be visualized mammographically. In the management of a palpable breast mass, a negative mammogram must not discourage biopsy of a clinically suspicious lesion. Electronically Signed By: Kamron cole/marielle:02/14/2022 12:41:14 letter sent: Normal Exam ACR BI-RADS Category 2: Benign Finding(s) 3342F
== END ==
PROVIDERS: PCP Student in an Organized Health Care Education/Training Program; Referring Provider Student in an Organized Health Care Education/Training Program; Visit Provider Student in an Organized Health Care Education/Training Program
DX: Z12.31 Encounter for screening mammogram for malignant neoplasm of breast (principal); Z80.3 Family history of malignant neoplasm of breast
CPT/HCPCS: 77063; 77067

== ENCOUNTER 2022-07-21 17:56 | Inpatient (IN) | payer MEDICARE, SELFPAY ==
[2022-07-21] VITALS (30 sets, daily range): BP systolic 71–156; BP diastolic 41–88; PULSE 58–142; RESP 12–42; TEMP 36.4–36.7; O2SAT 89–99; BMI 28.3
--- NOTE | 2022-07-21 18:28 | ED_ITS ---
HPI - Arrhythmia/Palpitations General Chief Complaint: Arrhythmia/Palpitations Stated Complaint: Poss AFIB Time Seen by Provider: 07/21/22 18:06 Source: patient Mode of arrival: Ambulatory History of Present Illness HPI narrative: 81-year-old female nonsmoker with history of atrial fibrillation is anticoagulated on Coumadin presents from her cardiology office for evaluation of rapid AFib. She states that she has not had any changes in her medications, has not missed any doses of Coumadin in a year. She states that at least since Sat urday she is had a rapid heart rate and has become short of breath and increasingly fatigued with minimal chest pressure. She is a bit dizzy and lightheaded. She is intolerant of exertion. She is had no fever or chills. Related Data Home Medications Medication Instructions Recorded Confirmed pantoprazole 40 mg tablet,delayed 40 mg PO DAILY ##0 08/20/16 06/27/20 release biotin 5,000 units DAILY 10/29/18 10/29/18 cholecalciferol (vitamin D3) 125 5,000 unit PO DAILY 10/29/18 11/22/19 mcg (5,000 unit) tablet (Vitamin D3) clonazepam 0.5 mg PO BEDTIME PRN Restless 10/29/18 06/27/20 Leg(S) levothyroxine 25 mcg tablet 25 mcg PO DAILY 10/29/18 06/27/20 losartan 25 mg tablet 12.5 mg PO DAILY 10/29/18 06/27/20 simvastatin 20 mg tablet 20 mg PO DAILY 10/29/18 06/27/20 latanoprost 0.005 % eye drops 1 drp ophthalmic (eye) BEDTIME 11/22/19 06/27/20 metoprolol succinate 25 mg 25 mg PO BID 11/22/19 06/27/20 tablet,extended release 24 hr warfarin 5 mg tablet (Jantoven) 5 mg PO DAILY 11/22/19 06/27/20 zolpidem 5 mg tablet 5 mg PO BEDTIME 11/22/19 06/27/20 hydrocodone 5 mg-acetaminophen 325 1 tab PO Q4-6H PRN Pain (Scale 06/27/20 06/27/20 mg tablet Score 1-3) Previous Rx's Medication Instructions Recorded tramadol 50 mg tablet (Ultram) 50 mg PO BID PRN pain #7 tabs 11/22/19 Allergies Allergy/AdvReac Type Severity Reaction Status Date / Time Sulfa (Sulfonamide Allergy Severe Anaphylaxis Verified 06/27/20 10:35 Antibiotics) [SULFA (SULFONAMIDE ANTIBIOTICS)] adhesive tape [ADHESIVE TAPE] Allergy Unknown WELTS Verified 06/27/20 10:35 propoxyphene [From Darvon] Allergy Unknown Verified 06/27/20 10:35 Review of Systems Review of Systems Narrative: GENERAL: Denies chills, fatigue, malaise, fever, sweats. HEENT: Denies sinus pain, ear pain, sore throat, difficulty swallowing, dizziness. RESPIRATORY: See HPI CARDIOVASCULAR: See HPI GASTROINTESTINAL: Denies nausea, vomiting, abdominal pain, diarrhea, constipation, melena. : Denies dysuria, frequency, incontinence, hematuria, urinary retention. MUSCULOSKELETAL: denies weakness, joint pain, or bony pain SKIN: Denies rash, skin lesions, or other NEUROLOGIC: Denies weakness, headache, numbness, change in speech, confusion, seizures, incoordination. PSYCHIATRIC: No concerning psychosocial issues. 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 Well-developed patient, in mild distress. HEAD: Atraumatic. Normocephalic. EYES: Pupils equal round and reactive. Extraocular motions intact. No scleral icterus. No injection or drainage. ENT: Nose without bleeding, purulent drainage. Throat without erythema, tonsillar hypertrophy or exudate. Airway patent. NECK: Trachea midline. Non tender CARDIOVASCULAR: Tachycardic and irregular rhythm without murmurs, gallops, or rubs. RESPIRATORY: Faint crackles bilateral bases GASTROINTESTINAL: Abdomen soft, non-tender, nondistended. EXTREMITIES: No edema or joint tenderness. BACK: Nontender without deformity or crepitance. No flank tenderness. NEURO: AOx3. SKIN: No rash or erythema of visible areas Initial Vital Signs Initial Vital Signs: Vital Signs Temperature 97.6 F 07/21/22 18:01 Pulse Rate 134 H 07/21/22 18:01 Respiratory Rate 24 07/21/22 18:01 Blood Pressure 122/77 07/21/22 18:01 Pulse Oximetry 96 07/21/22 18:01 Oxygen Delivery Method 07/21/22 18:01 Procedures Cardioversion Consent Signed: Yes Indication: rapid a. fib Stability: Unstable Number of attempts (shocks): 1 Joules used: 120 Cardiac rhythm post-cardioversion: NSR Procedural Sedation Consent signed: Yes Time out performed: Yes Indication: cardioversion ASA Class: II Mallampati Airway Classification: Class III Preparation: equipment monitor phototypesetting applied, pulse oximeter, capnometry used, supplemental O2 applied, suction/airway equipment at bedside and IV secured IV Propofol dose (mg): 60 Intraservice time/total sedation time (min): 10 ED Sedation Level: Moderate (Concious) Course Orders Ordered: ED Orders 07/21/22 18:14 EKG-12 Lead Stat 07/21/22 18:23 Complete Blood Count AUTO DIFF Stat Comprehensive Metabolic Panel Stat D Dimer Stat Lipase Stat Magnesium Stat NT-proBNP (BNP-Adult 18+) Stat Prothrombin Time INR Stat TSH w/ Reflex to FT4 Stat Troponin & CK Cardiac Panel Stat 07/21/22 19:34 EKG-12 Lead Routine 07/21/22 20:10 COVID19 -Nasal RAPID/Pre-Proc Stat Sodium Chloride (Normal Saline 0.9%) 1,000 mls @ 150 mls/hr IV CONT JENNI Last Admin: 07/21/22 18:30 Dose: 150 mls/hr Documented By: KP DILTIAZEM (Diltiazem 125 Mg/125 Ml-D5w) 125 mg in 125 mls @ 5 mls/hr IV TITRATE JENNI; Protocol Discontinued Medications Diltiazem HCl (Diltiazem 5 Mg/Ml Sdv) 10 mg IV NOW ONE Stop: 07/21/22 20:02 Propofol (Propofol 200 Mg/20 Ml Vial) 135 mg 2 mg/kg (135 mg) IV NOW ONE Stop: 07/21/22 18:40 Last Admin: 07/21/22 19:29 Dose: 60 mg Documented By: WESLEY Vital Signs Vital signs: Vital Signs - 8 hr 07/21/22 18:01 07/21/22 19:27 07/21/22 19:56 Temperature 97.6 F 98.1 F Pulse Rate 134 H 129 H 124 H Respiratory Rate 24 16 16 Blood Pressure 122/77 118/72 94/58 L Pulse Oximetry 96 98 99 Oxygen Delivery Method Room Air Room Air 07/21/22 19:46 07/21/22 20:11 Temperature Pulse Rate 135 H 124 H Respiratory Rate 16 16 Blood Pressure 92/60 Pulse Oximetry 98 Oxygen Delivery Method MDM - Arrhythmia/Palpitations Lab Data Result diagrams: 07/21/22 18:23 07/21/22 18:23 Labs: Lab Results 07/21/22 07/21/22 07/21/22 Range/Units 18:23 18:23 18:23 WBC 6.3 (4.5-11.0) X10^3/uL RBC 4.22 (4.0-5.2) X10^6/uL Hgb 14.2 (12.0-16.0) g/dL Hct 42.2 (36-46) % MCV 100.2 H (80-100) fL MCH 33.6 (26-34) PG MCHC 33.5 (30-36) % RDW 13.8 (11.6-14.8) % Plt Count 247 (150-400) X10^3/uL Neut % (Auto) 51.3 (50-75) % Lymph % (Auto) 34.1 (25-40) % Barnwell % (Auto) 12.2 (3-14) % Eos % (Auto) 1.0 L (2-4) % Baso % (Auto) 1.4 (0-2) % Neut # (Auto) 3200 (5324-0579) /uL Lymph # (Auto) 2100 (4999-6510) /uL Barnwell # (Auto) 800 (0-900) /uL Eos # (Auto) 100 (0-450) /uL Baso # (Auto) 100 (0-100) /uL PT 64.7 H (10.1-12.7) SECONDS INR 5.5 H* (0.9-1.3) D-Dimer 490 (<500) ng/ml Sodium 138 (137-145) mmol/L Potassium 4.6 (3.4-5.1) mmol/L Chloride 101 (98-107) mmol/L Carbon Dioxide 23 (22-32) mmol/L BUN 21 H (7-17) mg/dL Creatinine 0.81 (0.52-1.04) mg/dL Estimated GFR > 60 (>60) mL/min BUN/Creatinine Ratio 25.9 H (6-22) Glucose 113 H (80-110) mg/dL Calcium 9.6 (8.4-10.2) mg/dL Magnesium 2.0 (1.6-2.3) mg/dL Total Bilirubin 1.3 (0.2-1.3) mg/dL AST 73 H (14-36) IU/L ALT 56 H (<35) IU/L Alkaline Phosphatase 82 (38-126) U/L Total Creatine Kinase 31 (30-135) U/L CK-MB (CK-2) TNP CK-MB (CK-2) Rel Index TNP Troponin I < 0.012 (0.01-0.034) ng/mL NT-Pro-B Natriuret Pep (<450) pg/mL Total Protein 7.5 (6.3-8.2) g/dL Albumin 4.5 (3.5-5.0) g/dL Globulin 3.0 (1.7-4.1) g/dL Albumin/Globulin Ratio 1.5 (1.0-2.8) Lipase 124 (23-300) U/L TSH (0.47-4.68) uIU/mL 07/21/22 07/21/22 Range/Units 18:23 18:23 WBC (4.5-11.0) X10^3/uL RBC (4.0-5.2) X10^6/uL Hgb (12.0-16.0) g/dL Hct (36-46) % MCV (80-100) fL MCH (26-34) PG MCHC (30-36) % RDW (11.6-14.8) % Plt Count (150-400) X10^3/uL Neut % (Auto) (50-75) % Lymph % (Auto) (25-40) % Barnwell % (Auto) (3-14) % Eos % (Auto) (2-4) % Baso % (Auto) (0-2) % Neut # (Auto) (6956-0677) /uL Lymph # (Auto) (4895-7112) /uL Barnwell # (Auto) (0-900) /uL Eos # (Auto) (0-450) /uL Baso # (Auto) (0-100) /uL PT (10.1-12.7) SECONDS INR (0.9-1.3) D-Dimer (<500) ng/ml Sodium (137-145) mmol/L Potassium (3.4-5.1) mmol/L Chloride (98-107) mmol/L Carbon Dioxide (22-32) mmol/L BUN (7-17) mg/dL Creatinine (0.52-1.04) mg/dL Estimated GFR (>60) mL/min BUN/Creatinine Ratio (6-22) Glucose (80-110) mg/dL Calcium (8.4-10.2) mg/dL Magnesium (1.6-2.3) mg/dL Total Bilirubin (0.2-1.3) mg/dL AST (14-36) IU/L ALT (<35) IU/L Alkaline Phosphatase (38-126) U/L Total Creatine Kinase (30-135) U/L CK-MB (CK-2) CK-MB (CK-2) Rel Index Troponin I (0.01-0.034) ng/mL NT-Pro-B Natriuret Pep 6900 H (<450) pg/mL Total Protein (6.3-8.2) g/dL Albumin (3.5-5.0) g/dL Globulin (1.7-4.1) g/dL Albumin/Globulin Ratio (1.0-2.8) Lipase (23-300) U/L TSH 3.54 (0.47-4.68) uIU/mL Point of Care Testing Test Results Not applicable ECG Data Interpretation: 1813 - Rapid Atrial Fib with rate of 128. No ST depressions MDM Narrative Medical decision making narrative: Within 5 or 10 minutes of the successful cardioversion patient unfortunately flipped back into a rapid AFib and became symptomatic again. At this point diltiazem push and drip were ordered and patient prepared for admission Discharge Plan Departure Patient Disposition: Admitted as Observation Clinical Impression: Atrial fibrillation Prescriptions: No Action pantoprazole 40 MG tablet,delayed release (DR/EC) 40 mg PO DAILY Qty: 0 hydrocodone-acetaminophen 5-325 mg Tablet 1 tab PO Q4-6H PRN (Reason: Pain (Scale Score 1-3)) levothyroxine 25 mcg Tablet 25 mcg PO DAILY simvastatin 20 mg Tablet 20 mg PO DAILY losartan 25 mg Tablet 12.5 mg PO DAILY cholecalciferol (vitamin D3) [Vitamin D3] 125 mcg (5,000 unit) Tablet 5,000 unit PO DAILY biotin 5,000 units 5,000 units DAILY Label Comments: pt. no longer takes clonazepam 0.5 mg 0.5 mg PO BEDTIME PRN (Reason: Restless Leg(S)) latanoprost 0.005 % drops 1 drp ophthalmic (eye) BEDTIME warfarin [Jantoven] 5 mg tablet 5 mg PO DAILY Rx Instructions: thursday 5mg bid thursday sat sun 5mg daily zolpidem 5 mg tablet 5 mg PO BEDTIME metoprolol succinate 25 mg tablet extended release 24 hr 25 mg PO BID tramadol [Ultram] 50 mg tablet 50 mg PO BID PRN (Reason: pain) Qty: 7 0RF Referrals: Rosette Grey PA-C [Primary Care Provider] -
[2022-07-21] MEDS: SODIUM CHLORIDE 0.9% 1,000 ML 150 ML IV (18:30)
[2022-07-21 18:34] LABS: Add Manual Diff / Slide Review NO; Basophils Absolute Auto 100 /uL (0-100); Basophils Percent Auto 1.4 % (0-2); Eosinophils Absolute Auto 100 /uL (0-450); Hematocrit 42.2 % (36-46); Hemoglobin 14.2 g/dL (12.0-16.0); Lymphocytes Absolute Auto 2100 /uL (1100-4500); Lymphocytes Percent Auto 34.1 % (25-40); Mean Corpuscular HGB Conc 33.5 % (30-36); Mean Corpuscular Hemoglobin 33.6 PG (26-34); Mean Corpuscular Volume 100.2 fL (80-100); Monocytes Absolute Auto 800 /uL (0-900); Monocytes Percent Auto 12.2 % (3-14); Neutrophils Absolute Auto 3200 /uL (1500-7000); Neutrophils Percent Auto 51.3 % (50-75); Platelet Count 247 X10^3/uL (150-400); Red Blood Cell Count 4.22 X10^6/uL (4.0-5.2); Red Cell Distribution Width 13.8 % (11.6-14.8); White Blood Cell Count 6.3 X10^3/uL (4.5-11.0)
[2022-07-21 18:40] LABS: Prothrombin Time 64.7 SECONDS (10.1-12.7)
[2022-07-21 18:42] LABS: D Dimer 490 ng/ml (<500)
[2022-07-21 18:49] LABS: Alanine Aminotransferase 56 IU/L (<35); Albumin 4.5 g/dL (3.5-5.0); Albumin Globulin Ratio 1.5 (1.0-2.8); Alkaline Phosphatase 82 U/L (38-126); Aspartate Aminotransferase 73 IU/L (14-36); BUN Creatinine Ratio 25.9 (6-22); Bilirubin Total 1.3 mg/dL (0.2-1.3); Blood Urea Nitrogen 21 mg/dL (7-17); Calcium 9.6 mg/dL (8.4-10.2); Carbon Dioxide 23 mmol/L (22-32); Chloride 101 mmol/L (98-107); Creatine Kinase 31 U/L (30-135); Estimated Glomerular Filt Rate > 60 mL/min (>60); Glucose 113 mg/dL (80-110); HEMOLYSIS < 15 (0-50); INR 5.5 (0.9-1.3); Lipase 124 U/L (23-300); Potassium 4.6 mmol/L (3.4-5.1); Sodium 138 mmol/L (137-145); Total Protein 7.5 g/dL (6.3-8.2)
[2022-07-21 18:57] LABS: NT-proBNP (BNP-Adult 18+) 6900 pg/mL (<450)
[2022-07-21 19:00] LABS: Troponin I < 0.012 ng/mL (0.01-0.034)
[2022-07-21] MEDS: propofoL 200 MG/20 ML VIAL 135 MG IV (19:29)
[2022-07-21 19:33] LABS: TSH w/ Reflex to FT4 3.54 uIU/mL (0.47-4.68)
--- NOTE | 2022-07-21 19:52 | PC.NURSE ---
1951 Patient alert and answering questions appropriately post procedural sedation for cardioversion. She is able to move all extremities equally, bilaterally and symmetrically. After converting to NSR at 1930, patient appeared to convert back into afib at 1942. MD notified. Patient denies any CP or discomfort.
[2022-07-21] MEDS: dilTIAZem 5 MG/ML SDV 10 MG IV (20:20)
[2022-07-21] MEDS: DILTIAZEM 125 MG/125 ML PIGGYBACK IV (20:21)
--- NOTE | 2022-07-21 20:34 | DI.ECHO.S_ITS ---
[facility]---------+ [facility] +---------+ : : [address] : : : : [id number] : : : : Phone: [phone]+ Echocardiogram Report + + :Name: TARSHA VILLAGOMEZ Study Date: 07/22/2022 Height: 64.5 in: :[facility] ReadingLocation: Weight: 150 lb : : Gender: Female BSA: 1.7 m2 : :: 1940 Age: 81 yrs BP: 107/71 mmHg: :Reason For Study: ATRIAL FIBRILLATION : :Ordering Physician: JILLIAN, : :LEIGHANN Performed By: Ruth Pacheco : :Referring: LEIGHANN WALSH : + + Interpretation Summary The patient was in atrial fibrillation with heart rates between 85-113 bpm during the exam. Normal left ventricle size with ejection fraction 30-35%. There is moderate global hypokinesis of the left ventricle. Mild to moderately dilated right ventricle with moderate to severely reduced right ventricular systolic function. Severe biatrial enlargement. Mild aortic valve sclerosis. Mild aortic regurgitation. An annuloplasty ring is noted in the mitral position. The mitral valve mean gradient is 5.4 mmHg. Mild mitral regurgitation. Mild to moderate tricuspid regurgitation. The right ventricular systolic pressure is estimated to be at least 45 mmHg based on an estimated right atrial pressure of 15 mm Hg. Comparison is made with the echocardiogram of 08/09/2021, LV function has worsen significantly. Procedure: A two-dimensional transthoracic echocardiogram with color flow and Doppler was performed. The study quality was technically adequate. Comparison is made with the echocardiogram of 08/09/2021. The patient was in atrial fibrillation with heart rates between 85-113 bpm during the exam. Left Ventricle: The left ventricle is normal in size and wall thickness. The ejection fraction is estimated to be 30-35%. There is moderate global hypokinesis of the left ventricle. Diastolic function could not be accurately assessed due to atrial fibrillation. Right Ventricle: The right ventricle is mild to moderately dilated. Right ventricular systolic function is moderate to severely reduced. Atria: There is severe biatrial enlargement. Mitral Valve: The mitral valve leaflets appear moderately thickened, but open well. An annuloplasty ring is noted in the mitral position. The mitral valve mean gradient is 5.4 mmHg. There is mild mitral regurgitation. Aortic Valve: The aortic valve is trileaflet. The aortic valve opens well. There is mild aortic valve sclerosis. There is no aortic valve stenosis. There is mild aortic regurgitation. Tricuspid Valve: The tricuspid valve leaflets are thin and pliable. There is mild to moderate tricuspid regurgitation. The right ventricular systolic pressure is estimated to be at least 45 mmHg based on an estimated right atrial pressure of 15 mm Hg. Pulmonic Valve: The pulmonic valve is not well seen, but is grossly normal. There is mild pulmonic regurgitation. Great Vessels: The aortic root is normal size. The ascending aorta is at the upper limits of normal in size. The IVC is dilated (diameter is greater than 2.1 cm) and it collapses less than 50% with a sniff. This suggests a high right atrial pressure of 15 mm Hg. Pericardium/ Pleura There is no pericardial effusion. There is no pleural effusion. MMode/2D Measurements & Calculations LVIDd: 4.7 cm LVOT diam: 2.2 cm LVIDs: 3.9 cm Ao root diam: 3.4 cm FS: 16.6 % asc Aorta Diam: 3.8 cm IVSd: 0.91 cm Ao Arch Diam (Prox Trans): 3.5 cm LVPWd: 0.87 cm LV douglas. diameter/BSA (cm/m^2): 2.7 LV sys. diameter/BSA (cm/m^2): 2.3 LA A2 area: 37.9 cm2 RA long axis: 7.0 cm LA A4 area: 38.4 cm2 RA area: 29.8 cm2 LA length (vol): 7.6 cm RA vol: 108.6 ml LA vol: 162.1 ml RA : 62.4 ml/m2 LA vol index: 93.1 ml/m2 IVC diam: 2.8 cm RVD1 (basal): 4.1 cm RVD2 (mid): 3.1 cm TAPSE: 1.0 cm Doppler Measurements & Calculations Ao V2 max: 110.6 cm/sec LVOT Max Ramin: 73.1 cm/sec Ao V2 mean: 79.8 cm/sec LV V1 max P.1 mmHg Ao max P.9 mmHg LV V1 VTI: 15.3 cm Ao mean P.8 mmHg FILIPPO(I,D): 2.7 cm2 Ao V2 VTI: 22.1 cm FILIPPO(V,D): 2.6 cm2 sev ratio: 0.69 FILIPPO indexed to BSA (cm^2/m^2): 1.6 AI P1/2t: 623.2 msec AI dec slope: 184.4 cm/sec2 MV E max ramin: 157.0 cm/sec TR max ramin: 283.4 cm/sec MV A max ramin: 1.5 cm/sec TR max P.1 mmHg MV E/A: 105.9 PA pr(Accel): 48.2 mmHg Med Peak E' Ramin: 6.4 cm/sec E/E' med: 24.6 Lat Peak E' Ramin: 9.3 cm/sec E/E' lat: 16.9 E/e' average: 20.7 MV dec time: 0.16 sec MVA(VTI): 2.6 cm2 MV V2 mean: 106.5 cm/sec SV(LVOT): 60.2 ml MV mean P.4 mmHg MV V2 VTI: 23.6 cm Electronically signed by: Sharifa Roman on Reading Physician:07/22/2022 04:56 PM
[2022-07-21 21:09] LABS: COVID19 -Nasal RAPID Negative (Negative)
[2022-07-21] MEDS: METOPROLOL ER 25 MG TABLET PO (23:06)
[2022-07-21] MEDS: SODIUM CHLORIDE 0.9% 1,000 ML 60 ML IV (23:06)
[2022-07-21] MEDS: ZOLPIDEM 5 MG TABLET PO (23:06)
[2022-07-22] VITALS (38 sets, daily range): BP systolic 85–126; BP diastolic 55–96; PULSE 73–126; RESP 13–33; TEMP 36.4–36.9; O2SAT 94–99
[2022-07-22 00:34] LABS: Appearance Urine UA CLEAR; Bilirubin Urine UA NEGATIVE (NEGATIVE); Color Urine UA YELLOW; Glucose Urine UA NEGATIVE (Negative); Ketones Urine UA TRACE (NEGATIVE); Leukocyte Esterase Urine UA 1+ (NEGATIVE); Nitrite Urine UA NEGATIVE (Negative); Occult Blood Urine UA 1+ (Negative); Protein Urine UA NEGATIVE (Negative); Urobilinogen Urine UA 0.2 E.U./dL (0.2)
[2022-07-22 00:39] LABS: Bacteria Urine Moderate (10-30); RBC Urine 0-1/HPF (0-5/HPF); Squamous Epithelial Cell Urine 1-5 /HPF (0-5/HPF)
[2022-07-22 00:40] LABS: Culture Indicated Urine Specimen Cultured; WBC Urine 5-10/HPF (0-5/HPF)
[2022-07-22 01:28] LABS: Troponin I < 0.012 ng/mL (0.01-0.034)
--- NOTE | 2022-07-22 03:06 | P.HP_ITS ---
History of Present Illness History of Present Illness Date Patient Seen: 07/21/22 Time Patient Seen: 20:35 Chief complaint: Poss AFIB Narrative: Kanika Valladares is a 81-year-old female nonsmoker with history of atrial fibrillation is anticoagulated on Coumadin, GERD, RLS, hypothyroidism, and hyperlipidemia presented to the ED from her cardiology office for evaluation of rapid AFib.? She states that she has not had any changes in her medications, has not missed any doses of Coumadin in a year, but notes that she has chronic difficulty managing her INR on coumadin. She states that at least since Thursday she is had a rapid heart rate and has become short of breath and increasingly fatigued with minimal chest pressure.? She is a bit dizzy and lightheaded.? She is intolerant of exertion.? She denies currently fever, body aches, chills, abdominal pain, nausea, vomiting, diarrhea, urinary symptoms dysuria urgency frequency, hematemesis, hematuria, melena, cough, sore throat, congestion, any recent falls, illness, injury, or trauma. Patient states that her last echo was done by Dr. Aniyah hays over a year ago, she does have a ring in place secondary to repair of her mitral valve. Patient reports that previously at [facility] she was cardioverted successfully, cardioversion was attempted down in the ED today and failed, the patient was then placed on a Cardizem drip On admit on the floor patient denies chest pain, shortness of breast has improved, is resting comfortably in bed, in no distress at this time. Temp 98.1?, BP 94/58, HR 124, respiratory rate 16, O2 saturation 99% on room air. Patient's CBC and CMP are predominantly within normal limits, BNP 6900, AST 73, ALT 56, PT 64.7 INR 5.5, lipase, mag, TSH- WNL, D-dimer WNL. EKG ?Rapid Atrial Fib with rate of 128. No ST depressions. Patient admitted for atrial fibrillation with RVR, and supratherapeutic INR. Patient History Medical History Atrial fibrillation 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 Surgical History H/O hysterectomy for benign disease S/P hip replacement Total knee replacement status Family & Social History Family History (Updated 07/22/22 @ 03:16 by Lazara Caldwell [facility]) Mother Cancer Father Diabetes mellitus Social History: household members none Prior Living Arrangements House Safety & Behavioral: Feels Safe in Current Yes Environment Been Physically Hurt or No Threatened By a Person Tobacco & Substance use: Smoking Status Never smoker alcohol intake current alcohol intake frequency 0-2 drinks per day Substance Use Type does not use Meds Home Medications and Allergies Home Medications Medication Instructions Recorded Confirmed Type cholecalciferol (vitamin D3) 125 5,000 unit PO DAILY 10/29/18 07/21/22 History mcg (5,000 unit) tablet (Vitamin D3) clonazepam 0.5 mg PO BEDTIME PRN Restless 10/29/18 07/21/22 History Leg(S) acetaminophen 500 mg capsule 1,000 mg PO DAILY PRN Pain (Scale 07/21/22 07/21/22 History Score 4-6) levothyroxine 50 mcg tablet 50 mcg PO DAILY 07/21/22 07/21/22 History metoprolol succinate 50 mg 50 mg PO BID 07/21/22 07/21/22 History tablet,extended release 24 hr potassium chloride 10 mEq 10 meq PO DAILY 07/21/22 07/21/22 History tablet,extended release simvastatin 20 mg tablet 20 mg PO DAILY 07/21/22 07/21/22 History warfarin 6 mg tablet 6 mg PO DAILY 07/21/22 07/21/22 History zolpidem 5 mg tablet 5 mg PO BEDTIME PRN Insomnia 07/21/22 07/21/22 History Allergies Allergy/AdvReac Type Severity Reaction Status Date / Time Sulfa (Sulfonamide Allergy Severe Anaphylaxis Verified 06/27/20 10:35 Antibiotics) [SULFA (SULFONAMIDE ANTIBIOTICS)] adhesive tape [ADHESIVE TAPE] Allergy Unknown WELTS Verified 06/27/20 10:35 propoxyphene [From Darvon] Allergy Unknown Verified 06/27/20 10:35 Review of Systems Review of Systems Narrative: All 12 point systems reviewed with the patient and are negative except otherwise documented. Exam Vital Signs (past 8 hours): - 07/21/22 19:27 07/21/22 19:56 07/21/22 19:46 Temperature 98.1 F Pulse Rate 129 H 124 H 135 H Respiratory Rate 16 16 16 Blood Pressure 118/72 94/58 L 92/60 Pulse Oximetry 98 99 98 Oxygen Delivery Method Room Air Oxygen Flow Rate 07/21/22 20:11 07/21/22 20:32 07/21/22 21:56 Temperature Pulse Rate 124 H 96 H 97 H Respiratory Rate 16 16 16 Blood Pressure 128/61 103/66 Pulse Oximetry 98 97 Oxygen Delivery Method Room Air Room Air Oxygen Flow Rate 07/21/22 22:00 07/21/22 19:26 07/21/22 19:26 Temperature 97.9 F Pulse Rate 101 H 126 H Respiratory Rate 17 24 Blood Pressure 120/88 118/72 Pulse Oximetry 99 98 Oxygen Delivery Method Oxygen Flow Rate 0 07/21/22 19:30 07/21/22 19:30 07/21/22 19:34 Temperature Pulse Rate 127 H Respiratory Rate 17 Blood Pressure 105/49 L 71/41 L Pulse Oximetry 99 Oxygen Delivery Method Oxygen Flow Rate 07/21/22 19:34 07/21/22 19:36 07/21/22 19:36 Temperature Pulse Rate 74 58 L Respiratory Rate 26 H 21 Blood Pressure 80/46 L Pulse Oximetry 89 L 92 Oxygen Delivery Method Oxygen Flow Rate 07/21/22 19:39 07/21/22 19:39 07/21/22 19:41 Temperature Pulse Rate 73 123 H Respiratory Rate 21 21 Blood Pressure 76/52 L Pulse Oximetry 94 96 Oxygen Delivery Method Oxygen Flow Rate 07/21/22 19:41 07/21/22 19:45 07/21/22 19:45 Temperature Pulse Rate 121 H Respiratory Rate 19 Blood Pressure 76/60 L 92/60 Pulse Oximetry 96 Oxygen Delivery Method Oxygen Flow Rate 07/21/22 19:51 07/21/22 19:51 07/21/22 19:58 Temperature Pulse Rate 122 H 120 H Respiratory Rate 25 H 17 Blood Pressure 94/58 L Pulse Oximetry 97 98 Oxygen Delivery Method Oxygen Flow Rate 07/21/22 19:58 07/21/22 20:00 07/21/22 20:18 Temperature Pulse Rate 121 H Respiratory Rate 18 Blood Pressure 110/74 105/75 Pulse Oximetry 98 Oxygen Delivery Method Oxygen Flow Rate 07/21/22 20:18 07/21/22 20:30 07/21/22 20:32 Temperature Pulse Rate 119 H 98 H Respiratory Rate 23 23 Blood Pressure 80/59 L Pulse Oximetry 99 98 Oxygen Delivery Method Oxygen Flow Rate 07/21/22 20:32 07/21/22 20:35 07/21/22 20:35 Temperature Pulse Rate 97 H 95 H Respiratory Rate 21 19 Blood Pressure 128/61 Pulse Oximetry 98 98 Oxygen Delivery Method Oxygen Flow Rate 07/21/22 21:00 07/21/22 21:30 07/21/22 21:30 Temperature Pulse Rate 100 H 102 H Respiratory Rate 23 42 H Blood Pressure 103/66 Pulse Oximetry 96 97 Oxygen Delivery Method Oxygen Flow Rate 07/21/22 23:06 07/21/22 23:00 07/21/22 22:25 Temperature Pulse Rate 84 86 Respiratory Rate 12 Blood Pressure 127/77 127/77 Pulse Oximetry 97 Oxygen Delivery Method Room Air Oxygen Flow Rate 0 07/22/22 00:00 07/22/22 01:00 07/22/22 00:00 Temperature Pulse Rate 79 77 86 Respiratory Rate 27 H 20 Blood Pressure 106/56 L 124/66 97/67 Pulse Oximetry 94 94 Oxygen Delivery Method Oxygen Flow Rate 0 0 Oxygen Delivery Method Room Air Oxygen Flow Rate 0 Narrative Exam Narrative: General: Patient is a pleasant well-developed, well-nourished elderly female who appears younger than stated age, in no distress at this time. HEENT: Normocephalic, atraumatic, extraocular muscles intact, oral pharynx is clear and mucous membranes are moist. Neck is supple and symmetric, trachea is midline, no adenopathy, no thyroid enlargement, nontender, no masses palpated. Negative for JVD Chest: Normal AP diameter and contour without kyphoscoliosis, no nasal flaring, retractions, or tachypneic labored breathing. Lungs: Auscultation of all lung amaya are clear without adventitious sounds, wheezes, rhonchi, or rales. Cardio: AFib, regular rate without murmur, rubs, or gallops, no carotid bruit, no cardiac pulsations present. Abdomen: Soft nontender, negative for organomegaly, or masses. Bowel sounds are present in all 4 quadrants without guarding or rebound, no CVA tenderness. Musculoskeletal: Muscle strength and tone are equal within normal limits, no deformity, crepitus, effusions, cyanosis, clubbing or edema present. Full range of motion intact radial and pedal pulses are normal. Skin: Warm dry and intact without rashes, ulcerations or petechiae. Neuro: Alert and orientated x3, strength is +5/5 in all extremities, sensation to touch intact, no gross deficits noted of cranial nerves. Psych: Patient has a well-kept appearance, appropriate affect, mental status attitude thought context and judgment are appropriate for age. Objective Labs Result Diagrams: 07/21/22 18:23 07/21/22 18:23 Labs: Laboratory Results - last 24 hr 07/21/22 07/21/22 07/21/22 18:23 18:23 18:23 WBC 6.3 RBC 4.22 Hgb 14.2 Hct 42.2 MCV 100.2 H MCH 33.6 MCHC 33.5 RDW 13.8 Plt Count 247 Neut % (Auto) 51.3 Lymph % (Auto) 34.1 [place] % (Auto) 12.2 Eos % (Auto) 1.0 L Baso % (Auto) 1.4 Neut # (Auto) 3200 Lymph # (Auto) 2100 [place] # (Auto) 800 Eos # (Auto) 100 Baso # (Auto) 100 PT 64.7 H INR 5.5 H* D-Dimer 490 Sodium 138 Potassium 4.6 Chloride 101 Carbon Dioxide 23 BUN 21 H Creatinine 0.81 Estimated GFR > 60 BUN/Creatinine Ratio 25.9 H Glucose 113 H Calcium 9.6 Magnesium 2.0 Total Bilirubin 1.3 AST 73 H ALT 56 H Alkaline Phosphatase 82 Total Creatine Kinase 31 CK-MB (CK-2) TNP CK-MB (CK-2) Rel Index TNP Troponin I < 0.012 NT-Pro-B Natriuret Pep Total Protein 7.5 Albumin 4.5 Globulin 3.0 Albumin/Globulin Ratio 1.5 Lipase 124 TSH Urine Color Urine Appearance Urine pH Ur Specific [place] Urine Protein Urine Glucose (UA) Urine Ketones Urine Occult Blood Urine Nitrate Urine Bilirubin Urine Urobilinogen Ur Leukocyte Esterase Urine RBC Urine WBC Ur Squamous Epith Cells Urine Bacteria Ur Culture Indicated? Nasal Screen MRSA (PCR) SARS-CoV-2 (PCR) 07/21/22 07/21/22 07/21/22 18:23 18:23 18:23 WBC RBC Hgb Hct MCV MCH MCHC RDW Plt Count Neut % (Auto) Lymph % (Auto) [place] % (Auto) Eos % (Auto) Baso % (Auto) Neut # (Auto) Lymph # (Auto) [place] # (Auto) Eos # (Auto) Baso # (Auto) PT INR D-Dimer Sodium Potassium Chloride Carbon Dioxide BUN Creatinine Estimated GFR BUN/Creatinine Ratio Glucose Calcium Magnesium Total Bilirubin AST ALT Alkaline Phosphatase Total Creatine Kinase CK-MB (CK-2) CK-MB (CK-2) Rel Index Troponin I NT-Pro-B Natriuret Pep 6900 H Total Protein Albumin Globulin Albumin/Globulin Ratio Lipase TSH 3.54 Urine Color Urine Appearance Urine pH Ur Specific [place] Urine Protein Urine Glucose (UA) Urine Ketones Urine Occult Blood Urine Nitrate Urine Bilirubin Urine Urobilinogen Ur Leukocyte Esterase Urine RBC Urine WBC Ur Squamous Epith Cells Urine Bacteria Ur Culture Indicated? Nasal Screen MRSA (PCR) SARS-CoV-2 (PCR) Negative 07/21/22 07/22/22 07/22/22 22:10 00:00 00:31 WBC RBC Hgb Hct MCV MCH MCHC RDW Plt Count Neut % (Auto) Lymph % (Auto) [place] % (Auto) Eos % (Auto) Baso % (Auto) Neut # (Auto) Lymph # (Auto) [place] # (Auto) Eos # (Auto) Baso # (Auto) PT INR D-Dimer Sodium Potassium Chloride Carbon Dioxide BUN Creatinine Estimated GFR BUN/Creatinine Ratio Glucose Calcium Magnesium Total Bilirubin AST ALT Alkaline Phosphatase Total Creatine Kinase CK-MB (CK-2) CK-MB (CK-2) Rel Index Troponin I < 0.012 NT-Pro-B Natriuret Pep Total Protein Albumin Globulin Albumin/Globulin Ratio Lipase TSH Urine Color Yellow Urine Appearance Clear Urine pH 5.0 Ur Specific [place] 1.010 Urine Protein Negative Urine Glucose (UA) Negative Urine Ketones Trace H Urine Occult Blood 1+ H Urine Nitrate Negative Urine Bilirubin Negative Urine Urobilinogen 0.2 Ur Leukocyte Esterase 1+ H Urine RBC 0-1/hpf Urine WBC 5-10/hpf H Ur Squamous Epith Cells 1-5 /hpf Urine Bacteria Moderate (10-30) H Ur Culture Indicated? Specimen cultured Nasal Screen MRSA (PCR) Negative for mrsa SARS-CoV-2 (PCR) Assessment & Plan Assessment & Plan narrative: Kanika Valladares is a 81-year-old female nonsmoker with history of atrial fibrillation is anticoagulated on Coumadin, GERD, RLS, hypothyroidism, and hyperlipidemia presented to the ED from her cardiology office for evaluation of rapid AFib.? Patient initially presented with heart rates 140-125, cardioversion attempted in ED and was unsuccessful. Patient admitted for atrial fibrillation with RVR and supratherapeutic INR. 1. Atrial fibrillation with RVR, acute on chronic, on long-term anticoagulation, present on admission -initial heart rates 142-125, on admit heart rate 124-currently patient's heart rate is 100-110 on 5 mcg Cardizem. -patient admitted to the ICU, placed on telemedicine -continue Cardizem drip -continue metoprolol 2. Supratherapeutic INR, acute, long-term anticoagulation (coumadin) present on admission -Intial INR 5.5 -hold patient's Coumadin, no VTE medication -monitor for bleeding as risk of bleeding is high when INR>5 -gentle rehydration NS at 60 cc/HR 3. Hypothyroidism, acquired, chronic, present on admission -continue levothyroxine -TSH ordered 4. Hyperlipidemia, chronic, present on admission -continue simvastatin 5. GERD, chronic, present on admission -continue Protonix 6. Restless leg syndrome, chronic, present on admission -continue clonazepam 7. Insomnia, chronic, present on admission -continue Ambien Code status:DNI Surrogate decision maker: Chel Palafox Daughter SUE PCR: Negative DVT/VTE prophylaxis: Hold medication due to INR, SCDs only Disposition: Patient admitted to ICU for observation for medication cardioversion, and resolve supratherapeutic INR, expected length of stay less than 2 midnights. I have utilized all available immediate resources to obtain, update, or review the patient's current medications. I confirmed that the patient's advanced care plan is present, Code status is documented and/or surrogate decision maker is listed in the patient's medical record. Time Spent With Patient Critical Care time: I spent a total of [] minutes of critical care time on this patient's care today; this time is exclusive of procedural time. Quality VTE Deep Vein Thrombosis/Pulmonary Embolism Present on Admission: No
[2022-07-22] MEDS: LEVOTHYROXINE 25 MCG TABLET PO (06:17)
--- NOTE | 2022-07-22 06:28 | PC.NURSE ---
Quality Control Supervisor Note-Patient admitted to ICU room 230 at 2200. A/Ox4, weak and lightheaded but able transfer to bed with SBA. Diltiazem gtt infusing at 5mg/hr, HR A-fib 90-120, VSS. Once patient settled in bed and PO metoprolol given, HR started trending down, titrated diltiazem off at 0100 when HR was in 60s and BP 97/67. At 0145 diltiazem back on for increasing HR up to 120s with activity, currently running at 5mg/hr. Patient states she feels better, dizziness and palpitations are gone.
[2022-07-22 06:40] LABS: Add Manual Diff / Slide Review NO; Basophils Absolute Auto 100 /uL (0-100); Basophils Percent Auto 1.2 % (0-2); Eosinophils Absolute Auto 100 /uL (0-450); Eosinophils Percent Auto 1.8 % (2-4); Hematocrit 37.8 % (36-46); Hemoglobin 12.8 g/dL (12.0-16.0); Lymphocytes Absolute Auto 1400 /uL (1100-4500); Mean Corpuscular HGB Conc 33.8 % (30-36); Mean Corpuscular Volume 100.6 fL (80-100); Monocytes Absolute Auto 600 /uL (0-900); Monocytes Percent Auto 12.9 % (3-14); Neutrophils Absolute Auto 2600 /uL (1500-7000); Neutrophils Percent Auto 54.1 % (50-75); Platelet Count 200 X10^3/uL (150-400); Red Blood Cell Count 3.76 X10^6/uL (4.0-5.2); Red Cell Distribution Width 13.5 % (11.6-14.8); White Blood Cell Count 4.8 X10^3/uL (4.5-11.0)
[2022-07-22 06:42] LABS: Prothrombin Time 56.7 SECONDS (10.1-12.7)
[2022-07-22 06:44] LABS: PTT Partial Thromboplastin Tim 48 SECONDS (26-36)
[2022-07-22 06:48] LABS: INR 4.9 (0.9-1.3)
[2022-07-22 06:56] LABS: BUN Creatinine Ratio 26.2 (6-22); Blood Urea Nitrogen 17 mg/dL (7-17); Calcium 8.9 mg/dL (8.4-10.2); Carbon Dioxide 25 mmol/L (22-32); Chloride 103 mmol/L (98-107); Estimated Glomerular Filt Rate > 60 mL/min (>60); Glucose 90 mg/dL (80-110); HEMOLYSIS < 15 (0-50); Magnesium 1.9 mg/dL (1.6-2.3); Potassium 4.2 mmol/L (3.4-5.1); Sodium 137 mmol/L (137-145)
[2022-07-22 07:01] LABS: Troponin I < 0.012 ng/mL (0.01-0.034)
[2022-07-22 07:05] LABS: NT-proBNP (BNP-Adult 18+) 5080 pg/mL (<450)
--- NOTE | 2022-07-22 08:03 | PM.PN.1 ---
Subjective Subjective Interval history: Patient feelin well. No headache, no nausea and vomiting. No chest pain or palpitations. No SOB. Exam Vital Signs (past 8 hours): - 07/22/22 01:00 07/22/22 03:00 07/22/22 04:11 Temperature 97.5 F L Pulse Rate 77 85 102 H Respiratory Rate 20 22 31 H Blood Pressure 124/66 123/63 107/77 Pulse Oximetry 94 96 Oxygen Delivery Method Oxygen Flow Rate 0 0 07/22/22 04:00 07/22/22 05:00 07/22/22 06:00 Temperature Pulse Rate 80 Respiratory Rate 21 15 Blood Pressure 111/84 119/68 Pulse Oximetry 95 Oxygen Delivery Method Room Air Oxygen Flow Rate 0 07/22/22 07:00 Temperature Pulse Rate Respiratory Rate 18 Blood Pressure 107/71 Pulse Oximetry Oxygen Delivery Method Oxygen Flow Rate Oxygen Delivery Method Room Air Oxygen Flow Rate 0 Objective Labs Result Diagrams: 07/22/22 06:21 07/22/22 06:21 Labs: Laboratory Results - last 24 hr 07/21/22 07/21/22 07/21/22 18:23 18:23 18:23 WBC 6.3 RBC 4.22 Hgb 14.2 Hct 42.2 MCV 100.2 H MCH 33.6 MCHC 33.5 RDW 13.8 Plt Count 247 Neut % (Auto) 51.3 Lymph % (Auto) 34.1 [place] % (Auto) 12.2 Eos % (Auto) 1.0 L Baso % (Auto) 1.4 Neut # (Auto) 3200 Lymph # (Auto) 2100 [place] # (Auto) 800 Eos # (Auto) 100 Baso # (Auto) 100 PT 64.7 H INR 5.5 H* APTT D-Dimer 490 Sodium 138 Potassium 4.6 Chloride 101 Carbon Dioxide 23 BUN 21 H Creatinine 0.81 Estimated GFR > 60 BUN/Creatinine Ratio 25.9 H Glucose 113 H Calcium 9.6 Magnesium 2.0 Total Bilirubin 1.3 AST 73 H ALT 56 H Alkaline Phosphatase 82 Total Creatine Kinase 31 CK-MB (CK-2) TNP CK-MB (CK-2) Rel Index TNP Troponin I < 0.012 NT-Pro-B Natriuret Pep Total Protein 7.5 Albumin 4.5 Globulin 3.0 Albumin/Globulin Ratio 1.5 Lipase 124 TSH Urine Color Urine Appearance Urine pH Ur Specific [place] Urine Protein Urine Glucose (UA) Urine Ketones Urine Occult Blood Urine Nitrate Urine Bilirubin Urine Urobilinogen Ur Leukocyte Esterase Urine RBC Urine WBC Ur Squamous Epith Cells Urine Bacteria Ur Culture Indicated? Nasal Screen MRSA (PCR) SARS-CoV-2 (PCR) 07/21/22 07/21/22 07/21/22 18:23 18:23 18:23 WBC RBC Hgb Hct MCV MCH MCHC RDW Plt Count Neut % (Auto) Lymph % (Auto) [place] % (Auto) Eos % (Auto) Baso % (Auto) Neut # (Auto) Lymph # (Auto) [place] # (Auto) Eos # (Auto) Baso # (Auto) PT INR APTT D-Dimer Sodium Potassium Chloride Carbon Dioxide BUN Creatinine Estimated GFR BUN/Creatinine Ratio Glucose Calcium Magnesium Total Bilirubin AST ALT Alkaline Phosphatase Total Creatine Kinase CK-MB (CK-2) CK-MB (CK-2) Rel Index Troponin I NT-Pro-B Natriuret Pep 6900 H Total Protein Albumin Globulin Albumin/Globulin Ratio Lipase TSH 3.54 Urine Color Urine Appearance Urine pH Ur Specific [place] Urine Protein Urine Glucose (UA) Urine Ketones Urine Occult Blood Urine Nitrate Urine Bilirubin Urine Urobilinogen Ur Leukocyte Esterase Urine RBC Urine WBC Ur Squamous Epith Cells Urine Bacteria Ur Culture Indicated? Nasal Screen MRSA (PCR) SARS-CoV-2 (PCR) Negative 07/21/22 07/22/22 07/22/22 22:10 00:00 00:31 WBC RBC Hgb Hct MCV MCH MCHC RDW Plt Count Neut % (Auto) Lymph % (Auto) [place] % (Auto) Eos % (Auto) Baso % (Auto) Neut # (Auto) Lymph # (Auto) [place] # (Auto) Eos # (Auto) Baso # (Auto) PT INR APTT D-Dimer Sodium Potassium Chloride Carbon Dioxide BUN Creatinine Estimated GFR BUN/Creatinine Ratio Glucose Calcium Magnesium Total Bilirubin AST ALT Alkaline Phosphatase Total Creatine Kinase CK-MB (CK-2) CK-MB (CK-2) Rel Index Troponin I < 0.012 NT-Pro-B Natriuret Pep Total Protein Albumin Globulin Albumin/Globulin Ratio Lipase TSH Urine Color Yellow Urine Appearance Clear Urine pH 5.0 Ur Specific [place] 1.010 Urine Protein Negative Urine Glucose (UA) Negative Urine Ketones Trace H Urine Occult Blood 1+ H Urine Nitrate Negative Urine Bilirubin Negative Urine Urobilinogen 0.2 Ur Leukocyte Esterase 1+ H Urine RBC 0-1/hpf Urine WBC 5-10/hpf H Ur Squamous Epith Cells 1-5 /hpf Urine Bacteria Moderate (10-30) H Ur Culture Indicated? Specimen cultured Nasal Screen MRSA (PCR) Negative for mrsa SARS-CoV-2 (PCR) 07/22/22 07/22/22 07/22/22 06:21 06:21 06:21 WBC 4.8 RBC 3.76 L Hgb 12.8 Hct 37.8 MCV 100.6 H MCH 34.0 MCHC 33.8 RDW 13.5 Plt Count 200 Neut % (Auto) 54.1 Lymph % (Auto) 30.0 [place] % (Auto) 12.9 Eos % (Auto) 1.8 L Baso % (Auto) 1.2 Neut # (Auto) 2600 Lymph # (Auto) 1400 [place] # (Auto) 600 Eos # (Auto) 100 Baso # (Auto) 100 PT 56.7 H D INR 4.9 H* APTT 48 H D-Dimer Sodium 137 Potassium 4.2 Chloride 103 Carbon Dioxide 25 BUN 17 Creatinine 0.65 Estimated GFR > 60 BUN/Creatinine Ratio 26.2 H Glucose 90 Calcium 8.9 Magnesium 1.9 Total Bilirubin AST ALT Alkaline Phosphatase Total Creatine Kinase CK-MB (CK-2) CK-MB (CK-2) Rel Index Troponin I NT-Pro-B Natriuret Pep 5080 H Total Protein Albumin Globulin Albumin/Globulin Ratio Lipase TSH Urine Color Urine Appearance Urine pH Ur Specific [place] Urine Protein Urine Glucose (UA) Urine Ketones Urine Occult Blood Urine Nitrate Urine Bilirubin Urine Urobilinogen Ur Leukocyte Esterase Urine RBC Urine WBC Ur Squamous Epith Cells Urine Bacteria Ur Culture Indicated? Nasal Screen MRSA (PCR) SARS-CoV-2 (PCR) 07/22/22 06:21 WBC RBC Hgb Hct MCV MCH MCHC RDW Plt Count Neut % (Auto) Lymph % (Auto) [place] % (Auto) Eos % (Auto) Baso % (Auto) Neut # (Auto) Lymph # (Auto) [place] # (Auto) Eos # (Auto) Baso # (Auto) PT INR APTT D-Dimer Sodium Potassium Chloride Carbon Dioxide BUN Creatinine Estimated GFR BUN/Creatinine Ratio Glucose Calcium Magnesium Total Bilirubin AST ALT Alkaline Phosphatase Total Creatine Kinase CK-MB (CK-2) CK-MB (CK-2) Rel Index Troponin I < 0.012 NT-Pro-B Natriuret Pep Total Protein Albumin Globulin Albumin/Globulin Ratio Lipase TSH Urine Color Urine Appearance Urine pH Ur Specific [place] Urine Protein Urine Glucose (UA) Urine Ketones Urine Occult Blood Urine Nitrate Urine Bilirubin Urine Urobilinogen Ur Leukocyte Esterase Urine RBC Urine WBC Ur Squamous Epith Cells Urine Bacteria Ur Culture Indicated? Nasal Screen MRSA (PCR) SARS-CoV-2 (PCR) PFSH Medical History Atrial fibrillation 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 Surgical History H/O hysterectomy for benign disease S/P hip replacement Total knee replacement status Family History (Updated 07/22/22 @ 03:16 by FAVIO Ornelas-MARLEN) Mother Cancer Father Diabetes mellitus Social History household members: none Smoking Status: Never smoker alcohol intake: current Assessment & Plan Time Spent With Patient Critical Care time: I spent a total of [] minutes of critical care time on this patient's care today; this time is exclusive of procedural time. Quality VTE Deep Vein Thrombosis/Pulmonary Embolism Present on Admission: No
[2022-07-22] MEDS: PANTOPRAZOLE DR 40 MG TABLET PO (08:53)
[2022-07-22] MEDS: METOPROLOL ER 25 MG TABLET PO (08:54)
[2022-07-22] MEDS: ATORVASTATIN 20 MG TABLET 10 MG PO (08:56)
--- NOTE | 2022-07-22 09:04 | PM.CN.EICU ---
History of Present Illness Consult details IF CAMERA ACTIVATED, patient seen via real-time interactive audiovisual communication: Camera activated Date Patient Seen: 07/22/22 Chief complaint: Poss AFIB Reason for consult: A fib w/ RVR Requesting provider: Lazara Caldwell Consent obtained for tele-instructor product inspection care: Yes Patient Location: ICU Provider location (State): [place] Other participants/roles: RN Narrative: Patient is a 81 year old female with history of atrial fibrillation on metoprolol and coumadin, GERD, and hypothyroidism who was sent from her cardiology office for A fib w/ RVR. Patient reports having intermittent palpitations and increasing shortness of breath over the last couple of days prior to admission. She also noticed mild RLE swelling which she attributed to her prior fall. Denies chest pain, N/V, fever/chills, or abdominal pain. In ER, cardiversion attempted but unsuccessful. Started on diltiazem infusion and admitted to ICU for further management. In ICU, HR came down to the 90s which diltiazem was stopped briefly for 2 hours. However her HR jump back to the 130s and diltiazem 5 mg/hr was restarted. [facility] Medical History Atrial fibrillation 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 Surgical History H/O hysterectomy for benign disease S/P hip replacement Total knee replacement status Family History (Updated 07/22/22 @ 03:16 by ROSARIO Ornelas) Mother Cancer Father Diabetes mellitus Social History household members: none Smoking Status: Never smoker alcohol intake: current Current Medications Current Medications Medications: Home Medications cholecalciferol (vitamin D3) 125 mcg (5,000 unit) tablet (Vitamin D3) 5,000 unit PO DAILY 10/29/18 [History Confirmed 07/21/22] clonazepam 0.5 mg PO BEDTIME PRN Restless Leg(S) 10/29/18 [History Confirmed 07/21/22] acetaminophen 500 mg capsule 1,000 mg PO DAILY PRN Pain (Scale Score 4-6) 07/21/22 [History Confirmed 07/21/22] levothyroxine 50 mcg tablet 50 mcg PO DAILY 07/21/22 [History Confirmed 07/21/22] metoprolol succinate 50 mg tablet,extended release 24 hr 50 mg PO BID 07/21/22 [History Confirmed 07/21/22] potassium chloride 10 mEq tablet,extended release 10 meq PO DAILY 07/21/22 [History Confirmed 07/21/22] simvastatin 20 mg tablet 20 mg PO DAILY 07/21/22 [History Confirmed 07/21/22] warfarin 6 mg tablet 6 mg PO DAILY 07/21/22 [History Confirmed 07/21/22] zolpidem 5 mg tablet 5 mg PO BEDTIME PRN Insomnia 07/21/22 [History Confirmed 07/21/22] furosemide 20 mg tablet 20 mg PO DAILY 07/22/22 [History Confirmed 07/22/22] Visit Medications (administered) Generic Name Dose Route Start Last Admin Trade Name Guillaumeq PRN Reason Stop Dose Admin Atorvastatin Calcium 10 mg 07/22/22 09:00 07/22/22 08:56 Atorvastatin 20 Mg Tablet PO 10 mg DAILY JENNI Administration DILTIAZEM 125 mg in 125 mls @ 5 mls/hr 07/21/22 20:15 07/22/22 08:19 Diltiazem 125 Mg/125 Ml-D5w IV 6 mg/hr TITRATE JENIN 6 mls/hr Titration Protocol 5 MG/HR Sodium Chloride 1,000 mls @ 60 mls/hr 07/21/22 20:30 07/21/22 23:06 Normal Saline 0.9% IV 60 mls/hr CONT JENNI Administration Levothyroxine Sodium 25 mcg 07/22/22 06:00 07/22/22 06:17 Levothyroxine 25 Mcg Tablet PO 25 mcg 0600 JENNI Administration Metoprolol Succinate 25 mg 07/21/22 22:38 07/22/22 08:54 Metoprolol Er 25 Mg Tablet PO 25 mg BID JENNI Administration Pantoprazole Sodium 40 mg 07/22/22 09:00 07/22/22 08:[address] 40 Mg Tablet PO 40 mg DAILY JENNI Administration Zolpidem Tartrate 5 mg 07/21/22 23:00 07/21/22 23:06 Zolpidem 5 Mg Tablet PO 5 mg BEDTIME JENNI Administration Exam Vital Signs (past 8 hours): - 07/22/22 03:00 07/22/22 04:11 07/22/22 04:00 Temperature 97.5 F L Pulse Rate 85 102 H Respiratory Rate 22 31 H Blood Pressure 123/63 107/77 Pulse Oximetry 96 Oxygen Delivery Method Room Air Oxygen Flow Rate 0 07/22/22 05:00 07/22/22 06:00 07/22/22 07:00 Temperature Pulse Rate 80 Respiratory Rate 21 15 18 Blood Pressure 111/84 119/68 107/71 Pulse Oximetry 95 Oxygen Delivery Method Oxygen Flow Rate 0 07/22/22 08:00 07/22/22 08:00 07/22/22 08:54 Temperature 97.5 F L Pulse Rate 112 H 112 H Respiratory Rate 18 Blood Pressure 109/72 116/90 Pulse Oximetry 99 Oxygen Delivery Method Room Air Oxygen Flow Rate 0 Oxygen Delivery Method Room Air Oxygen Flow Rate 0 Narrative Exam Narrative: Sitting up in bed eating breakfast; speaking in full sentence. Objective Labs Result Diagrams: 07/22/22 06:21 07/22/22 06:21 Labs: Laboratory Results - last 24 hr 07/21/22 07/21/22 07/21/22 18:23 18:23 18:23 WBC 6.3 RBC 4.22 Hgb 14.2 Hct 42.2 MCV 100.2 H MCH 33.6 MCHC 33.5 RDW 13.8 Plt Count 247 Neut % (Auto) 51.3 Lymph % (Auto) 34.1 [place] % (Auto) 12.2 Eos % (Auto) 1.0 L Baso % (Auto) 1.4 Neut # (Auto) 3200 Lymph # (Auto) 2100 [place] # (Auto) 800 Eos # (Auto) 100 Baso # (Auto) 100 PT 64.7 H INR 5.5 H* APTT D-Dimer 490 Sodium 138 Potassium 4.6 Chloride 101 Carbon Dioxide 23 BUN 21 H Creatinine 0.81 Estimated GFR > 60 BUN/Creatinine Ratio 25.9 H Glucose 113 H Calcium 9.6 Magnesium 2.0 Total Bilirubin 1.3 AST 73 H ALT 56 H Alkaline Phosphatase 82 Total Creatine Kinase 31 CK-MB (CK-2) TNP CK-MB (CK-2) Rel Index TNP Troponin I < 0.012 NT-Pro-B Natriuret Pep Total Protein 7.5 Albumin 4.5 Globulin 3.0 Albumin/Globulin Ratio 1.5 Lipase 124 TSH Urine Color Urine Appearance Urine pH Ur Specific [place] Urine Protein Urine Glucose (UA) Urine Ketones Urine Occult Blood Urine Nitrate Urine Bilirubin Urine Urobilinogen Ur Leukocyte Esterase Urine RBC Urine WBC Ur Squamous Epith Cells Urine Bacteria Ur Culture Indicated? Nasal Screen MRSA (PCR) SARS-CoV-2 (PCR) 07/21/22 07/21/22 07/21/22 18:23 18:23 18:23 WBC RBC Hgb Hct MCV MCH MCHC RDW Plt Count Neut % (Auto) Lymph % (Auto) [place] % (Auto) Eos % (Auto) Baso % (Auto) Neut # (Auto) Lymph # (Auto) [place] # (Auto) Eos # (Auto) Baso # (Auto) PT INR APTT D-Dimer Sodium Potassium Chloride Carbon Dioxide BUN Creatinine Estimated GFR BUN/Creatinine Ratio Glucose Calcium Magnesium Total Bilirubin AST ALT Alkaline Phosphatase Total Creatine Kinase CK-MB (CK-2) CK-MB (CK-2) Rel Index Troponin I NT-Pro-B Natriuret Pep 6900 H Total Protein Albumin Globulin Albumin/Globulin Ratio Lipase TSH 3.54 Urine Color Urine Appearance Urine pH Ur Specific [place] Urine Protein Urine Glucose (UA) Urine Ketones Urine Occult Blood Urine Nitrate Urine Bilirubin Urine Urobilinogen Ur Leukocyte Esterase Urine RBC Urine WBC Ur Squamous Epith Cells Urine Bacteria Ur Culture Indicated? Nasal Screen MRSA (PCR) SARS-CoV-2 (PCR) Negative 07/21/22 07/22/22 07/22/22 22:10 00:00 00:31 WBC RBC Hgb Hct MCV MCH MCHC RDW Plt Count Neut % (Auto) Lymph % (Auto) [place] % (Auto) Eos % (Auto) Baso % (Auto) Neut # (Auto) Lymph # (Auto) [place] # (Auto) Eos # (Auto) Baso # (Auto) PT INR APTT D-Dimer Sodium Potassium Chloride Carbon Dioxide BUN Creatinine Estimated GFR BUN/Creatinine Ratio Glucose Calcium Magnesium Total Bilirubin AST ALT Alkaline Phosphatase Total Creatine Kinase CK-MB (CK-2) CK-MB (CK-2) Rel Index Troponin I < 0.012 NT-Pro-B Natriuret Pep Total Protein Albumin Globulin Albumin/Globulin Ratio Lipase TSH Urine Color Yellow Urine Appearance Clear Urine pH 5.0 Ur Specific [place] 1.010 Urine Protein Negative Urine Glucose (UA) Negative Urine Ketones Trace H Urine Occult Blood 1+ H Urine Nitrate Negative Urine Bilirubin Negative Urine Urobilinogen 0.2 Ur Leukocyte Esterase 1+ H Urine RBC 0-1/hpf Urine WBC 5-10/hpf H Ur Squamous Epith Cells 1-5 /hpf Urine Bacteria Moderate (10-30) H Ur Culture Indicated? Specimen cultured Nasal Screen MRSA (PCR) Negative for mrsa SARS-CoV-2 (PCR) 07/22/22 07/22/22 07/22/22 06:21 06:21 06:21 WBC 4.8 RBC 3.76 L Hgb 12.8 Hct 37.8 MCV 100.6 H MCH 34.0 MCHC 33.8 RDW 13.5 Plt Count 200 Neut % (Auto) 54.1 Lymph % (Auto) 30.0 [place] % (Auto) 12.9 Eos % (Auto) 1.8 L Baso % (Auto) 1.2 Neut # (Auto) 2600 Lymph # (Auto) 1400 [place] # (Auto) 600 Eos # (Auto) 100 Baso # (Auto) 100 PT 56.7 H D INR 4.9 H* APTT 48 H D-Dimer Sodium 137 Potassium 4.2 Chloride 103 Carbon Dioxide 25 BUN 17 Creatinine 0.65 Estimated GFR > 60 BUN/Creatinine Ratio 26.2 H Glucose 90 Calcium 8.9 Magnesium 1.9 Total Bilirubin AST ALT Alkaline Phosphatase Total Creatine Kinase CK-MB (CK-2) CK-MB (CK-2) Rel Index Troponin I NT-Pro-B Natriuret Pep 5080 H Total Protein Albumin Globulin Albumin/Globulin Ratio Lipase TSH Urine Color Urine Appearance Urine pH Ur Specific [place] Urine Protein Urine Glucose (UA) Urine Ketones Urine Occult Blood Urine Nitrate Urine Bilirubin Urine Urobilinogen Ur Leukocyte Esterase Urine RBC Urine WBC Ur Squamous Epith Cells Urine Bacteria Ur Culture Indicated? Nasal Screen MRSA (PCR) SARS-CoV-2 (PCR) 07/22/22 06:21 WBC RBC Hgb Hct MCV MCH MCHC RDW Plt Count Neut % (Auto) Lymph % (Auto) [place] % (Auto) Eos % (Auto) Baso % (Auto) Neut # (Auto) Lymph # (Auto) [place] # (Auto) Eos # (Auto) Baso # (Auto) PT INR APTT D-Dimer Sodium Potassium Chloride Carbon Dioxide BUN Creatinine Estimated GFR BUN/Creatinine Ratio Glucose Calcium Magnesium Total Bilirubin AST ALT Alkaline Phosphatase Total Creatine Kinase CK-MB (CK-2) CK-MB (CK-2) Rel Index Troponin I < 0.012 NT-Pro-B Natriuret Pep Total Protein Albumin Globulin Albumin/Globulin Ratio Lipase TSH Urine Color Urine Appearance Urine pH Ur Specific [place] Urine Protein Urine Glucose (UA) Urine Ketones Urine Occult Blood Urine Nitrate Urine Bilirubin Urine Urobilinogen Ur Leukocyte Esterase Urine RBC Urine WBC Ur Squamous Epith Cells Urine Bacteria Ur Culture Indicated? Nasal Screen MRSA (PCR) SARS-CoV-2 (PCR) Assessment & Plan Assessment & Plan narrative: NEURO: -- Seek PT/OT and OOB as tolerated RESP: # Shortness of breath -- Secondary to pulmonary edema vs decondition -- Check CXR -- Start gentle diuresis to seek net negative fluid balance -- PT/OT and OOB as tolerated CVS: # A fib w/ RVR -- Secondary to left atrial dilation from volume overload vs inadequate AVN blocking agent -- Failed cardioversion in ER -- TSH nl -- Will start gentle diuresis to seek net negative fluid balance -- Follow up TTE -- Switch metoprolol XL to IR 50 mg BID -- Ordered magensium 2 gram IV once -- Titrate down diltiazem gtt to maintain goal HR < 110 -- INR supratherapeutic -> pharmacy to dose INR 2-3 -- High lytes goal (K>4 and Mg >2) -- Pending cardiology evaluation -- If HR fails to be control then will consider adding digoxin therapy # RLE swelling -- Check venosu duplex to rule out DVT HEME: # Supratherapeutic INR -- Pharmacy to dose INR 2-3 ENDO: -- Goal BS < 180 D/w RN, patient and Dr. Lugo. Time Spent With Patient Critical Care time: I spent a total of 35 minutes of critical care time on this patient's care today; this time is exclusive of procedural time.
--- NOTE | 2022-07-22 09:11 | DI.RAD.S_ITS ---
PROCEDURE: XR CHEST 1V INDICATIONS: Shortness of breath TECHNIQUE: One view of the chest was acquired. COMPARISON: [facility], , CHEST 1 VIEW, 08/20/2016, 22:23. FINDINGS: Surgical changes and devices: Sternal wires are present including fractured superior sternal wire. Lungs and pleura: Chronic interstitial changes are present. There is blunting of the costophrenic angles, new compared to prior exam. There is coarsening of the interstitium. Mediastinum: Mediastinal contours appear normal. Heart size is enlarged. Bones and chest wall: No suspicious bony lesions. Overlying soft tissues appear unremarkable. IMPRESSION: Chronic interstitial changes well coarsening of the interstitium and blunted costophrenic angles. Overall there is a suggestion of trace effusions/edema. No focal consolidations. Dictated by: Negra Terry M.D. on 07/22/2022 at 10:41 Approved by: Negra Terry M.D. on 07/22/2022 at 10:42
[2022-07-22] MEDS: FUROSEMIDE 20 MG TABLET PO (09:26)
[2022-07-22] MEDS: MAGNESIUM SULFATE 2 GM/50 ML PIGGYBACK IV (09:26)
[2022-07-22] MEDS: METOPROLOL IR 25 MG TABLET PO (09:30)
--- NOTE | 2022-07-22 09:37 | DI.US.S_ITS ---
PROCEDURE: US PERIPH VENOUS LOW EXTREM RT INDICATIONS: RLE swelling TECHNIQUE: Real-time imaging, as well as color and pulse Doppler interrogation, were performed of the lower extremity deep veins from the inguinal ligament to the popliteal fossa. COMPARISON: None. FINDINGS: The common femoral, femoral and popliteal veins are normally compressible, and free of intraluminal thrombus. Color and pulse Doppler demonstrate normal phasic intraluminal flow. There is normal augmentation response to distal compression maneuver. IMPRESSION: No deep venous thrombosis. Dictated by: Negra Terry M.D. on 07/22/2022 at 10:42 Approved by: Negra Terry M.D. on 07/22/2022 at 10:42
[2022-07-22] MEDS: INFLUENZA HD VACCINE 0.7 ML SYRINGE IM (10:23)
--- NOTE | 2022-07-22 10:27 | PM.PN.1 ---
Subjective Subjective Interval history: Kanika Valladares is a 81-year-old female nonsmoker with history of atrial fibrillation is anticoagulated on Coumadin, GERD, RLS, hypothyroidism, and hyperlipidemia presented to the ED from her cardiology office for evaluation of rapid AFib. Patient feeling better. No complaint significant shortness of breath and feels that her heart rate is beginning to settle. No edema of his lower extremities. Exam Vital Signs (past 8 hours): - 07/22/22 03:00 07/22/22 04:11 07/22/22 04:00 Temperature 97.5 F L Pulse Rate 85 102 H Respiratory Rate 22 31 H Blood Pressure 123/63 107/77 Pulse Oximetry 96 Oxygen Delivery Method Room Air Oxygen Flow Rate 0 07/22/22 05:00 07/22/22 06:00 07/22/22 07:00 Temperature Pulse Rate 80 Respiratory Rate 21 15 18 Blood Pressure 111/84 119/68 107/71 Pulse Oximetry 95 Oxygen Delivery Method Oxygen Flow Rate 0 07/22/22 08:00 07/22/22 08:00 07/22/22 08:54 Temperature 97.5 F L Pulse Rate 112 H 112 H Respiratory Rate 18 Blood Pressure 109/72 116/90 Pulse Oximetry 99 Oxygen Delivery Method Room Air Oxygen Flow Rate 0 07/22/22 09:00 07/22/22 09:24 07/22/22 10:00 Temperature Pulse Rate 115 H 108 H 113 H Respiratory Rate 20 13 Blood Pressure 115/84 91/68 101/70 Pulse Oximetry 99 99 Oxygen Delivery Method Oxygen Flow Rate 0 0 Oxygen Delivery Method Room Air Oxygen Flow Rate 0 Narrative Exam Narrative: General:? Patient is a pleasant well-developed, no acute medical distress. HEENT:? Normocephalic, atraumatic, extraocular muscles intact. ? Neck is supple and symmetric, trachea is midline, no adenopathy, no thyroid enlargement, nontender, no masses palpated.? Negative for JVD Lungs:? Auscultation of all lung amaya are clear without adventitious sounds, wheezes, rhonchi, or rales. Cardio: AFib, regular rate without murmur, rubs, or gallops, no carotid bruit, peripheral pulses equal bilaterally. No pedal edema. Abdomen:? Soft nontender, negative for organomegaly, or masses.? Bowel sounds are present in all 4 quadrants without guarding or rebound, no CVA tenderness. Musculoskeletal:? Muscle strength and tone are equal within normal limits, no deformity. Full range of motion intact radial and pedal pulses are normal. Skin:? Warm dry and intact without rashes, ulcerations or petechiae.? Neuro:? Alert and orientated x3, strength is +5/5 in all extremities, sensation to touch intact, no gross deficits noted of cranial nerves. Psych:? Patient has a well-kept appearance. Normal mood and affect. Objective Labs Result Diagrams: 07/22/22 06:21 07/22/22 06:21 Labs: Laboratory Results - last 24 hr 07/21/22 07/21/22 07/21/22 18:23 18:23 18:23 WBC 6.3 RBC 4.22 Hgb 14.2 Hct 42.2 MCV 100.2 H MCH 33.6 MCHC 33.5 RDW 13.8 Plt Count 247 Neut % (Auto) 51.3 Lymph % (Auto) 34.1 [place] % (Auto) 12.2 Eos % (Auto) 1.0 L Baso % (Auto) 1.4 Neut # (Auto) 3200 Lymph # (Auto) 2100 [place] # (Auto) 800 Eos # (Auto) 100 Baso # (Auto) 100 PT 64.7 H INR 5.5 H* APTT D-Dimer 490 Sodium 138 Potassium 4.6 Chloride 101 Carbon Dioxide 23 BUN 21 H Creatinine 0.81 Estimated GFR > 60 BUN/Creatinine Ratio 25.9 H Glucose 113 H Calcium 9.6 Magnesium 2.0 Total Bilirubin 1.3 AST 73 H ALT 56 H Alkaline Phosphatase 82 Total Creatine Kinase 31 CK-MB (CK-2) TNP CK-MB (CK-2) Rel Index TNP Troponin I < 0.012 NT-Pro-B Natriuret Pep Total Protein 7.5 Albumin 4.5 Globulin 3.0 Albumin/Globulin Ratio 1.5 Lipase 124 TSH Urine Color Urine Appearance Urine pH Ur Specific [place] Urine Protein Urine Glucose (UA) Urine Ketones Urine Occult Blood Urine Nitrate Urine Bilirubin Urine Urobilinogen Ur Leukocyte Esterase Urine RBC Urine WBC Ur Squamous Epith Cells Urine Bacteria Ur Culture Indicated? Nasal Screen MRSA (PCR) SARS-CoV-2 (PCR) 07/21/22 07/21/22 07/21/22 18:23 18:23 18:23 WBC RBC Hgb Hct MCV MCH MCHC RDW Plt Count Neut % (Auto) Lymph % (Auto) [place] % (Auto) Eos % (Auto) Baso % (Auto) Neut # (Auto) Lymph # (Auto) [place] # (Auto) Eos # (Auto) Baso # (Auto) PT INR APTT D-Dimer Sodium Potassium Chloride Carbon Dioxide BUN Creatinine Estimated GFR BUN/Creatinine Ratio Glucose Calcium Magnesium Total Bilirubin AST ALT Alkaline Phosphatase Total Creatine Kinase CK-MB (CK-2) CK-MB (CK-2) Rel Index Troponin I NT-Pro-B Natriuret Pep 6900 H Total Protein Albumin Globulin Albumin/Globulin Ratio Lipase TSH 3.54 Urine Color Urine Appearance Urine pH Ur Specific [place] Urine Protein Urine Glucose (UA) Urine Ketones Urine Occult Blood Urine Nitrate Urine Bilirubin Urine Urobilinogen Ur Leukocyte Esterase Urine RBC Urine WBC Ur Squamous Epith Cells Urine Bacteria Ur Culture Indicated? Nasal Screen MRSA (PCR) SARS-CoV-2 (PCR) Negative 07/21/22 07/22/22 07/22/22 22:10 00:00 00:31 WBC RBC Hgb Hct MCV MCH MCHC RDW Plt Count Neut % (Auto) Lymph % (Auto) [place] % (Auto) Eos % (Auto) Baso % (Auto) Neut # (Auto) Lymph # (Auto) [place] # (Auto) Eos # (Auto) Baso # (Auto) PT INR APTT D-Dimer Sodium Potassium Chloride Carbon Dioxide BUN Creatinine Estimated GFR BUN/Creatinine Ratio Glucose Calcium Magnesium Total Bilirubin AST ALT Alkaline Phosphatase Total Creatine Kinase CK-MB (CK-2) CK-MB (CK-2) Rel Index Troponin I < 0.012 NT-Pro-B Natriuret Pep Total Protein Albumin Globulin Albumin/Globulin Ratio Lipase TSH Urine Color Yellow Urine Appearance Clear Urine pH 5.0 Ur Specific [place] 1.010 Urine Protein Negative Urine Glucose (UA) Negative Urine Ketones Trace H Urine Occult Blood 1+ H Urine Nitrate Negative Urine Bilirubin Negative Urine Urobilinogen 0.2 Ur Leukocyte Esterase 1+ H Urine RBC 0-1/hpf Urine WBC 5-10/hpf H Ur Squamous Epith Cells 1-5 /hpf Urine Bacteria Moderate (10-30) H Ur Culture Indicated? Specimen cultured Nasal Screen MRSA (PCR) Negative for mrsa SARS-CoV-2 (PCR) 07/22/22 07/22/22 07/22/22 06:21 06:21 06:21 WBC 4.8 RBC 3.76 L Hgb 12.8 Hct 37.8 MCV 100.6 H MCH 34.0 MCHC 33.8 RDW 13.5 Plt Count 200 Neut % (Auto) 54.1 Lymph % (Auto) 30.0 [place] % (Auto) 12.9 Eos % (Auto) 1.8 L Baso % (Auto) 1.2 Neut # (Auto) 2600 Lymph # (Auto) 1400 [place] # (Auto) 600 Eos # (Auto) 100 Baso # (Auto) 100 PT 56.7 H D INR 4.9 H* APTT 48 H D-Dimer Sodium 137 Potassium 4.2 Chloride 103 Carbon Dioxide 25 BUN 17 Creatinine 0.65 Estimated GFR > 60 BUN/Creatinine Ratio 26.2 H Glucose 90 Calcium 8.9 Magnesium 1.9 Total Bilirubin AST ALT Alkaline Phosphatase Total Creatine Kinase CK-MB (CK-2) CK-MB (CK-2) Rel Index Troponin I NT-Pro-B Natriuret Pep 5080 H Total Protein Albumin Globulin Albumin/Globulin Ratio Lipase TSH Urine Color Urine Appearance Urine pH Ur Specific [place] Urine Protein Urine Glucose (UA) Urine Ketones Urine Occult Blood Urine Nitrate Urine Bilirubin Urine Urobilinogen Ur Leukocyte Esterase Urine RBC Urine WBC Ur Squamous Epith Cells Urine Bacteria Ur Culture Indicated? Nasal Screen MRSA (PCR) SARS-CoV-2 (PCR) 07/22/22 06:21 WBC RBC Hgb Hct MCV MCH MCHC RDW Plt Count Neut % (Auto) Lymph % (Auto) [place] % (Auto) Eos % (Auto) Baso % (Auto) Neut # (Auto) Lymph # (Auto) [place] # (Auto) Eos # (Auto) Baso # (Auto) PT INR APTT D-Dimer Sodium Potassium Chloride Carbon Dioxide BUN Creatinine Estimated GFR BUN/Creatinine Ratio Glucose Calcium Magnesium Total Bilirubin AST ALT Alkaline Phosphatase Total Creatine Kinase CK-MB (CK-2) CK-MB (CK-2) Rel Index Troponin I < 0.012 NT-Pro-B Natriuret Pep Total Protein Albumin Globulin Albumin/Globulin Ratio Lipase TSH Urine Color Urine Appearance Urine pH Ur Specific [place] Urine Protein Urine Glucose (UA) Urine Ketones Urine Occult Blood Urine Nitrate Urine Bilirubin Urine Urobilinogen Ur Leukocyte Esterase Urine RBC Urine WBC Ur Squamous Epith Cells Urine Bacteria Ur Culture Indicated? Nasal Screen MRSA (PCR) SARS-CoV-2 (PCR) [facility] Medical History Atrial fibrillation 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 Surgical History H/O hysterectomy for benign disease S/P hip replacement Total knee replacement status Family History (Updated 07/22/22 @ 03:16 by ROSARIO Ornelas) Mother Cancer Father Diabetes mellitus Social History household members: none Smoking Status: Never smoker alcohol intake: current Assessment & Plan Assessment & Plan narrative: 1. Atrial fibrillation with RVR, acute on chronic, on long-term anticoagulation, present on admission -initial heart rates 142-125, on admit heart rate 124-currently patient's heart rate is 100-110 on Cardizem infusion continues. -patient admitted to the ICU, on telemetry -continue Cardizem drip until conversion to sinus rhythm -continue metoprolol with dose increased by ICU hand stitcher 2. Supratherapeutic INR, acute, long-term anticoagulation (coumadin) present on admission -Intial INR 5.5, INR today 4.9 continue to hold Coumadin, follow INR -hold patient's Coumadin, no VTE medication -gentle rehydration NS at 60 cc/HR 3. Hypothyroidism, acquired, chronic, present on admission -continue levothyroxine -TSH normal value on this replacement 4. Hyperlipidemia, chronic, present on admission -continue simvastatin 5. GERD, chronic, present on admission -continue Protonix 6. Restless leg syndrome, chronic, present on admission -continue clonazepam 7. Insomnia, chronic, present on admission -continue Ambien 8. Chest x-ray today confirmed no consolidation however persistent effusion/edema. 9. Ultrasound of the lower extremities confirms no DVT. 10. Echocardiogram completed but not read as of yet. Follow clinically and labs. Code status:DNI Surrogate decision maker:? Chel Palafox Daughter COVID PCR:? Negative DVT/VTE prophylaxis:? Hold medication due to INR, SCDs only Patient status changed to ICU inpatient with the expectation of hospital stay longer than 2 midnights for medication cardioversion with a combination of diltiazem and metoprolol, and resolve supratherapeutic INR. Diagnoses require medically necessary hospital care that can only be safely given on an inpatient basis due to the complexity and severity of the diagnoses. I confirmed that the patient's advanced care plan is present, Code status is documented and/or surrogate decision maker is listed in the patient's medical record. Time Spent With Patient Critical Care time: I spent a total of [] minutes of critical care time on this patient's care today; this time is exclusive of procedural time. Quality VTE Deep Vein Thrombosis/Pulmonary Embolism Present on Admission: No
--- NOTE | 2022-07-22 13:42 | CM.DANOTE ---
Pt is 81 year old female admitted 07/21/2022 for AFIB with RVR. Pt has Medicare A+B and AARP supplement. SW met pt at bedside introduced self and role. Pt lives alone in single story condo and uses 4WW and/or hiking stick when needed. Plan: Pt will likely discharge home with no CM needs in 1-2 days. ERLIN Moseley Discharge Planning/Care Management CM Discharge Assessment Start: 07/22/22 13:34 Freq: Status: Active Protocol: Document 07/22/22 13:34 TM (Rec: 07/22/22 13:42 TM [id number]) Discharge Planning Assessment Assigned Drop Forger Helper ERLIN Moseley DPOA/Assigned Designee Name Tosha GUZMÁN group - contact information unknown at this time. Advance Directives? Yes Advance Directives on File No History Provided By Patient,Medical Record Has Patient been admitted in last 30 No days? Prior Living Arrangements Apartment/Condo Comment Pt lives alone in single story home with 0 stairs to enter. Household Members none Type of transporation used prior to Drives own vehicle admit Independent with ADL's Yes: Pt uses 4WW and walking stick, when needed. Is patient alert and oriented? Yes Caregiver for Another No DME Already Rented / Owned FWW / Walker,Other Comment hiking stick. Comment Home with no assistance Barriers to Discharge No Discharge Plan Home Referrals Initiated None needed Whiteboard Updated in Patient Room with Yes name and ext. # of Drop Forger Helper Review Status In Process Please Provide Date Initial DC 07/22/22 Assessment Was Performed Next Review Type Continued Stay Review
[2022-07-22] MEDS: DIGOXIN 500 MCG/2 ML AMPUL IV (13:48)
--- NOTE | 2022-07-22 15:16 | PC.NURSE ---
Addendum entered by Kami Anderson 07/22/22 17:42: Patient up to the chair for dinner. HR remains in A-fib in the 100's-120's. Will continue to monitor. Addendum entered by Diana West R.N. 07/22/22 16:19: I agree with all of the assessments and interventions by this student nurse Original Note: Day shift nurse note Patient A&Ox4. HR in the 90s-120's. On diltiazem drip titrated to HR <110s. Continues to be in A-fib. SBA to BSC. Room air. Purewick placed after ordered dose of furosemide. Digoxin given per provider order. Blood pressure remains stable. Will continue to monitor.
[2022-07-22] MEDS: lisinopriL 5 MG TABLET 2.5 MG PO (18:49)
[2022-07-22] MEDS: DIGOXIN 500 MCG/2 ML AMPUL 250 MCG IV (20:15)
--- NOTE | 2022-07-22 20:46 | PM.ICURNDS ---
- :: This patient was seen via real time interactive two-way audiovisual telecommunication. HR imp[roved - now off cardizem, gtt, on lopressor po. monitor BP overnight, if HD stable and rate remians controlled, may be stable for telemetry. f/u labs and correct lytes. TTE.
[2022-07-22] MEDS: METOPROLOL IR 25 MG TABLET 75 MG PO (21:33)
[2022-07-22] MEDS: ZOLPIDEM 5 MG TABLET PO (21:33)
--- NOTE | 2022-07-22 23:15 | PC.NURSE ---
RN entered patient room to assess patient and vitals, patient adamant that something was going on out there, RN assured patient that nothing was going on outside her room. She then asked where everyone was and where the patients were as well as seeing Misty lights and if there was some type of production going on. RN told her the patient's were in their rooms and the nurses were at the computers. Patient continued to be suspicious about something going on and asking about the medications that were given to her tonight. RN reassured and explained the medications she was given and why they were given. Marketing And Outreach Coordinator also offered if she wanted another nurse to come in and explain to her what medications were given, but patient declined. Marketing And Outreach Coordinator also offered if she wanted to speak to the doctor but said you could say he's a doctor but that doesn't mean he is. Marketing And Outreach Coordinator kept bed alarm on, opened curtain so she could see what was going on outside her room and again, reassured her nothing was going on outside her room. RN will continue to monitor.
[2022-07-23] VITALS (24 sets, daily range): BP systolic 94–146; BP diastolic 56–104; PULSE 75–132; RESP 0–36; TEMP 36.4–36.8; O2SAT 93–98
--- NOTE | 2022-07-23 02:20 | PC.NURSE ---
Dr Townsend called to bedside to assess patient's status. Patient still very confused and suspicious about where her bed is and what's going on outside. Dr Townsend, TRANSPLANT RN, and mortgage loan underwriter at bedside reassuring patient about her whereabouts and why she does not have her bed from home. Patient consistent about wanting to leave the hospital and finding her bed. Per Dr. Townsend, continue to monitor patient and keep patient safe. No additional medications ordered at this time.
[2022-07-23] MEDS: DILTIAZEM 125 MG/125 ML PIGGYBACK IV ×2 (02:46→06:59)
[2022-07-23] MEDS: HALOPERIDOL 5 MG/ML VIAL 1 MG IV (03:34)
--- NOTE | 2022-07-23 04:05 | PC.NURSE ---
Patient verbally abusive to staff, continuing to get out of bed, RN needed to restart patient on diltiazem drip for HR's > 120. Dr Townsend made aware. 1 mg haldol ordered. RN called patient's daughter for update. Daughter able to speak with patient and try to help reorient her. After haldol given, patient agreeable to get back into bed. RN will continue to monitor.
[2022-07-23 05:03] LABS: INR 3.2 (0.9-1.3); Prothrombin Time 37.6 SECONDS (10.1-12.7)
[2022-07-23 05:04] LABS: Add Manual Diff / Slide Review NO; Basophils Absolute Auto 0 /uL (0-100); Basophils Percent Auto 0.8 % (0-2); Eosinophils Absolute Auto 100 /uL (0-450); Eosinophils Percent Auto 2.2 % (2-4); Hematocrit 38.4 % (36-46); Hemoglobin 12.9 g/dL (12.0-16.0); Lymphocytes Absolute Auto 1000 /uL (1100-4500); Lymphocytes Percent Auto 16.5 % (25-40); Mean Corpuscular HGB Conc 33.6 % (30-36); Mean Corpuscular Hemoglobin 33.7 PG (26-34); Mean Corpuscular Volume 100.3 fL (80-100); Monocytes Absolute Auto 700 /uL (0-900); Monocytes Percent Auto 11.8 % (3-14); Neutrophils Absolute Auto 4000 /uL (1500-7000); Neutrophils Percent Auto 68.7 % (50-75); Platelet Count 213 X10^3/uL (150-400); Red Blood Cell Count 3.83 X10^6/uL (4.0-5.2); Red Cell Distribution Width 13.7 % (11.6-14.8); White Blood Cell Count 5.8 X10^3/uL (4.5-11.0)
[2022-07-23 05:17] LABS: Alanine Aminotransferase 37 IU/L (<35); Albumin 3.8 g/dL (3.5-5.0); Albumin Globulin Ratio 1.4 (1.0-2.8); Alkaline Phosphatase 70 U/L (38-126); Aspartate Aminotransferase 34 IU/L (14-36); BUN Creatinine Ratio 24.6 (6-22); Bilirubin Total 1.5 mg/dL (0.2-1.3); Blood Urea Nitrogen 16 mg/dL (7-17); Calcium 8.6 mg/dL (8.4-10.2); Carbon Dioxide 25 mmol/L (22-32); Chloride 103 mmol/L (98-107); Estimated Glomerular Filt Rate > 60 mL/min (>60); Globulin 2.7 g/dL (1.7-4.1); Glucose 111 mg/dL (80-110); HEMOLYSIS < 15 (0-50); Potassium 3.8 mmol/L (3.4-5.1); Sodium 137 mmol/L (137-145); Total Protein 6.5 g/dL (6.3-8.2)
[2022-07-23 05:24] LABS: NT-proBNP (BNP-Adult 18+) 4420 pg/mL (<450)
[2022-07-23] MEDS: LEVOTHYROXINE 25 MCG TABLET PO (05:34)
[2022-07-23] MEDS: HALOPERIDOL 5 MG/ML VIAL 2 MG IV (06:54)
--- NOTE | 2022-07-23 06:55 | PM.EVENT ---
Event Note Date Patient Seen: 07/23/22 Event Note (Rapid Response, Code, or fall): I spent several minutes at bedside during this night for patient ongoing delirium. Patient was mean to the staff and insist on finding her bed. Reorientation and calming her down did not help much. We called daughter to give an update. Haldol 1 mg did not help much, as the patient not getting rest and continues to argue with the staff and continues to be confused and wanted to leave the floor, had to add 2 mg of IV Haldol at this time to see if that will help. Had to resume IV Cardizem briefly for elevated heart rate but most of the times patient heart rate is consistently in 90s to 110s. We will continue to watch the patient closely. Continue delirium protocol to help the patient. Overall prognosis is guarded. Nursing staff did not leave the bedside during the entire night to make sure the patient's safety.
[2022-07-23] MEDS: ACETAMINOPHEN 325 MG TABLET 650 MG PO (07:58)
[2022-07-23] MEDS: ATORVASTATIN 20 MG TABLET 10 MG PO (07:59)
[2022-07-23] MEDS: lisinopriL 5 MG TABLET 2.5 MG PO (07:59)
[2022-07-23] MEDS: METOPROLOL IR 25 MG TABLET 75 MG PO ×3 (08:00→21:09)
[2022-07-23] MEDS: PANTOPRAZOLE DR 40 MG TABLET PO (08:00)
[2022-07-23] MEDS: FUROSEMIDE 20 MG TABLET PO (08:01)
--- NOTE | 2022-07-23 11:49 | PM.PN.EICU ---
Subjective Subjective IF CAMERA ACTIVATED, patient seen via real-time interactive audiovisual communication: Camera activated Consent obtained for tele-insurance sales executive care: Yes Patient Location: ICU Provider location (State): [place] Other participants/roles: na Current Medications Current Medications Medications: Home Medications cholecalciferol (vitamin D3) 125 mcg (5,000 unit) tablet (Vitamin D3) 5,000 unit PO DAILY 10/29/18 [History Confirmed 07/21/22] clonazepam 0.5 mg PO BEDTIME PRN Restless Leg(S) 10/29/18 [History Confirmed 07/21/22] acetaminophen 500 mg capsule 1,000 mg PO DAILY PRN Pain (Scale Score 4-6) 07/21/22 [History Confirmed 07/21/22] levothyroxine 50 mcg tablet 50 mcg PO DAILY 07/21/22 [History Confirmed 07/21/22] metoprolol succinate 50 mg tablet,extended release 24 hr 50 mg PO BID 07/21/22 [History Confirmed 07/21/22] potassium chloride 10 mEq tablet,extended release 10 meq PO DAILY 07/21/22 [History Confirmed 07/21/22] simvastatin 20 mg tablet 20 mg PO DAILY 07/21/22 [History Confirmed 07/21/22] warfarin 6 mg tablet 6 mg PO DAILY 07/21/22 [History Confirmed 07/21/22] zolpidem 5 mg tablet 5 mg PO BEDTIME PRN Insomnia 07/21/22 [History Confirmed 07/21/22] furosemide 20 mg tablet 20 mg PO DAILY 07/22/22 [History Confirmed 07/22/22] Visit Medications (administered) Generic Name Dose Route Start Last Admin Trade Name Leanne PRN Reason Stop Dose Admin Acetaminophen 650 mg 07/21/22 20:23 07/23/22 07:58 Acetaminophen 325 Mg Tablet PO 650 mg Q6HR PRN Administration Fever/Mild Pain (1-3) Atorvastatin Calcium 10 mg 07/22/22 09:00 07/23/22 07:59 Atorvastatin 20 Mg Tablet PO 10 mg DAILY JENNI Administration Furosemide 20 mg 07/22/22 09:15 07/23/22 08:01 Furosemide 20 Mg Tablet PO 20 mg DAILY JENNI Administration DILTIAZEM 125 mg in 125 mls @ 5 mls/hr 07/21/22 20:15 07/23/22 09:00 Diltiazem 125 Mg/125 Ml-D5w IV 0 mg/hr TITRATE JENNI 0 mls/hr Titration Protocol 5 MG/HR Levothyroxine Sodium 25 mcg 07/22/22 06:00 07/23/22 05:34 Levothyroxine 25 Mcg Tablet PO 25 mcg 0600 JENNI Administration Lisinopril 2.5 mg 07/22/22 19:00 07/23/22 07:59 Lisinopril 5 Mg Tablet PO 2.5 mg DAILY JENNI Administration Metoprolol Tartrate 75 mg 07/22/22 21:00 07/23/22 08:00 Metoprolol Ir 25 Mg Tablet PO 75 mg BID JENNI Administration Pantoprazole Sodium 40 mg 07/22/22 09:00 07/23/22 08:[address] 40 Mg Tablet PO 40 mg DAILY JENNI Administration Objective Labs Result Diagrams: 07/23/22 04:22 07/23/22 04:22 Labs: Laboratory Results - last 24 hr 07/23/22 07/23/22 07/23/22 04:22 04:22 04:22 WBC 5.8 RBC 3.83 L Hgb 12.9 Hct 38.4 MCV 100.3 H MCH 33.7 MCHC 33.6 RDW 13.7 Plt Count 213 Neut % (Auto) 68.7 Lymph % (Auto) 16.5 L Barton % (Auto) 11.8 Eos % (Auto) 2.2 Baso % (Auto) 0.8 Neut # (Auto) 4000 Lymph # (Auto) 1000 L Barton # (Auto) 700 Eos # (Auto) 100 Baso # (Auto) 0 PT 37.6 H D INR 3.2 H Sodium 137 Potassium 3.8 Chloride 103 Carbon Dioxide 25 BUN 16 Creatinine 0.65 Estimated GFR > 60 BUN/Creatinine Ratio 24.6 H Glucose 111 H Calcium 8.6 Total Bilirubin 1.5 H AST 34 ALT 37 H Alkaline Phosphatase 70 NT-Pro-B Natriuret Pep 4420 H Total Protein 6.5 Albumin 3.8 Globulin 2.7 Albumin/Globulin Ratio 1.4 Exam Vital Signs (past 8 hours): - 07/23/22 03:57 07/23/22 03:57 07/23/22 04:00 Temperature Pulse Rate 114 H Respiratory Rate 0 L Blood Pressure 107/56 L 100/68 Pulse Oximetry 95 Oxygen Delivery Method Oxygen Flow Rate 07/23/22 04:00 07/23/22 04:00 07/23/22 04:30 Temperature Pulse Rate 90 Respiratory Rate 16 Blood Pressure 103/66 Pulse Oximetry 95 Oxygen Delivery Method Room Air Oxygen Flow Rate 07/23/22 04:30 07/23/22 04:59 07/23/22 05:00 Temperature Pulse Rate 77 75 Respiratory Rate 19 17 Blood Pressure 128/80 Pulse Oximetry 93 Oxygen Delivery Method Oxygen Flow Rate 07/23/22 05:00 07/23/22 05:36 07/23/22 05:36 Temperature Pulse Rate 84 93 H Respiratory Rate 18 30 H Blood Pressure 127/64 Pulse Oximetry Oxygen Delivery Method Oxygen Flow Rate 07/23/22 06:00 07/23/22 06:00 07/23/22 06:01 Temperature Pulse Rate 104 H Respiratory Rate 22 Blood Pressure 129/104 H 133/79 Pulse Oximetry Oxygen Delivery Method Oxygen Flow Rate 07/23/22 06:01 07/23/22 07:00 07/23/22 08:00 Temperature 97.8 F Pulse Rate 100 H 120 H 121 H Respiratory Rate 19 19 22 Blood Pressure 146/94 H 146/91 H Pulse Oximetry 96 97 Oxygen Delivery Method Oxygen Flow Rate 0 0 07/23/22 09:00 07/23/22 09:00 Temperature Pulse Rate 99 H Respiratory Rate 25 H Blood Pressure 131/74 Pulse Oximetry 97 Oxygen Delivery Method Room Air Oxygen Flow Rate 0 Oxygen Delivery Method Room Air Oxygen Flow Rate 0 Quality TeleICU VTE Deep Vein Thrombosis/Pulmonary Embolism Present on Admission: No Assessment & Plan Assessment & Plan narrative: patient seen with bedside nurse chart/labs/imaging reviewed 81 year old female admitted to ICU for afib w/rr Supratheraputic inr delirium hypothyroid ism currently afebirile, HD stable, hr 120s afib labs wnl plan -neurochecks/seizure precautions -given haldol overnight. can consider seroquel, check qtc, keep under 500 -increase metoprolol 75mg tid -digoxin 0.175, check level whwere appropriate -off cardizem drip -monitor ins/outs -replace lytes prn -keep glucose 140-180s -off IVf, diet as tolerated -minimize klonazapam use -synthroid -repeat inr daily -gi/dvt ppx Code status:DNI -please call eICU prn Time Spent With Patient Critical Care time: I spent a total of [] minutes of critical care time on this patient's care today; this time is exclusive of procedural time.
[2022-07-23] MEDS: HALOPERIDOL 5 MG/ML VIAL IV ×7 (13:24→16:20)
--- NOTE | 2022-07-23 13:30 | P.PN_ITS ---
Subjective Subjective Interval history: Kanika Valladares is a 81-year-old female nonsmoker with history of atrial fib rillation is anticoagulated on Coumadin, GERD, RLS, hypothyroidism, and hyperlipidemia presented to the ED from her cardiology office for evaluation of rapid AFib.? Patient feeling better.? No complaint significant shortness of breath and feels that her heart rate is beginning to settle.? No edema of his lower extremities. Concurrently on the diltiazem infusion. However heart rate is jumping up greater than 100 in the 120s. Still is in atrial fibrillation with occasional PVC. Patient quite agitated similar to last night having paranoid thoughts and feeling that she needs to go and take people to appointments and not always clear as to where she is. Haldol 0.5 mg IV Q 30 minutes as needed agitation/paranoid thoughts has been initiated. Exam Vital Signs (past 8 hours): - 07/23/22 05:36 07/23/22 05:36 07/23/22 06:00 Temperature Pulse Rate 93 H Respiratory Rate 30 H Blood Pressure 127/64 129/104 H Pulse Oximetry Oxygen Delivery Method Oxygen Flow Rate 07/23/22 06:00 07/23/22 06:01 07/23/22 06:01 Temperature Pulse Rate 104 H 100 H Respiratory Rate 22 19 Blood Pressure 133/79 Pulse Oximetry Oxygen Delivery Method Oxygen Flow Rate 07/23/22 07:00 07/23/22 08:00 07/23/22 09:00 Temperature 97.8 F Pulse Rate 120 H 121 H Respiratory Rate 19 22 Blood Pressure 146/94 H 146/91 H Pulse Oximetry 96 97 Oxygen Delivery Method Room Air Oxygen Flow Rate 0 0 07/23/22 09:00 07/23/22 12:08 Temperature 98.2 F Pulse Rate 99 H 124 H Respiratory Rate 25 H 12 Blood Pressure 131/74 122/78 Pulse Oximetry 97 98 Oxygen Delivery Method Oxygen Flow Rate 0 0 Oxygen Delivery Method Room Air Oxygen Flow Rate 0 Narrative Exam Narrative: General:? Patient is a pleasant well-developed, no acute medical distress. However very agitated and often up trying to pace a bit. HEENT:? Normocephalic, atraumatic, extraocular muscles intact. ? Neck is supple and symmetric, trachea is midline, no adenopathy, no thyroid enlargement, nontender, no masses palpated.? Negative for JVD Lungs:? Auscultation of all lung amaya are clear without adventitious sounds, wheezes, rhonchi, or rales. Cardio: AFib, with occasional PVC without murmur, rubs, or gallops, no carotid bruit, peripheral pulses equal bilaterally.? No pedal edema. Abdomen:? Soft nontender, negative for organomegaly, or masses.? Bowel sounds are present in all 4 quadrants without guarding or rebound, no CVA tenderness. Musculoskeletal:? Muscle strength and tone are equal within normal limits, no deformity. Full range of motion intact radial and pedal pulses are normal. Skin:? Warm dry and intact without rashes, ulcerations or petechiae.? Neuro:? Alert and orientated x3, strength is +5/5 in all extremities, sensation to touch intact, no gross deficits noted of cranial nerves. Psych:? Patient has a well-kept appearance.? Intermittent delusional thinking. Objective Labs Result Diagrams: 07/23/22 04:22 07/23/22 04:22 Labs: Laboratory Results - last 24 hr 07/23/22 07/23/22 07/23/22 04:22 04:22 04:22 WBC 5.8 RBC 3.83 L Hgb 12.9 Hct 38.4 MCV 100.3 H MCH 33.7 MCHC 33.6 RDW 13.7 Plt Count 213 Neut % (Auto) 68.7 Lymph % (Auto) 16.5 L Brack[place] % (Auto) 11.8 Eos % (Auto) 2.2 Baso % (Auto) 0.8 Neut # (Auto) 4000 Lymph # (Auto) 1000 L [place]ack[place] # (Auto) 700 Eos # (Auto) 100 Baso # (Auto) 0 PT 37.6 H D INR 3.2 H Sodium 137 Potassium 3.8 Chloride 103 Carbon Dioxide 25 BUN 16 Creatinine 0.65 Estimated GFR > 60 BUN/Creatinine Ratio 24.6 H Glucose 111 H Calcium 8.6 Total Bilirubin 1.5 H AST 34 ALT 37 H Alkaline Phosphatase 70 NT-Pro-B Natriuret Pep 4420 H Total Protein 6.5 Albumin 3.8 Globulin 2.7 Albumin/Globulin Ratio 1.4 PFSH Medical History Atrial fibrillation 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 Surgical History H/O hysterectomy for benign disease S/P hip replacement Total knee replacement status Family History (Updated 07/22/22 @ 03:[address] [facility]) Mother Cancer Father Diabetes mellitus Social History household members: none Smoking Status: Never smoker alcohol intake: current Assessment & Plan Assessment & Plan narrative: 1. Atrial fibrillation with RVR, acute on chronic, on long-term anticoagulation, present on admission -initial heart rates 142-125, on admit heart rate 124-currently patient's heart rate is 120-127. Cardizem infusion discontinued. Metoprolol dose increasing. -patient admitted to the ICU, on telemetry -continue metoprolol with dose increased by ICU cell inspector 2. Supratherapeutic INR, acute, long-term anticoagulation (coumadin) present on admission -Intial INR 5.5, INR today 3.2 continue to hold Coumadin, follow INR -hold patient's Coumadin, no VTE medication -gentle rehydration NS at 60 cc/HR 3. Hypothyroidism, acquired, chronic, present on admission -continue levothyroxine -TSH normal value on this replacement 4. Hyperlipidemia, chronic, present on admission -continue simvastatin 5. GERD, chronic, present on admission -continue Protonix 6. Restless leg syndrome, chronic, present on admission -continue clonazepam 7. Insomnia, chronic, present on admission -continue Ambien 8. Chest x-ray today confirmed no consolidation however persistent effu jun/edema. 9. Ultrasound of the lower extremities confirms no DVT.? 10. Echocardiogram completed, ejection fraction 30-35%. 11. Agitation with paranoid thinking. Delusional thoughts. Often difficult to orient to place. Received Haldol in the night. Will continue with Haldol 0.5 mg IV Q 30 minutes as needed agitation/delusions/paranoia thinking. Follow clinically and labs. Time Spent With Patient Critical Care time: I spent a total of [] minutes of critical care time on this patient's care today; this time is exclusive of procedural time. Quality VTE Deep Vein Thrombosis/Pulmonary Embolism Present on Admission: No
--- NOTE | 2022-07-23 13:50 | PC.NURSE ---
Day Shift Note Patient awake and confused this AM. Unable to accurately state where she is or her situation. Cooperative with care this morning but impulsive and requiring frequent reorienting. Afib CVR in the 70s post metoprolol administration and dilt gtt off at 0900. Pt with increasing agitation and paranoia this afternoon requiring 1:1 observation for safety as pt is unsteady. MD notified and at bedside and had lengthy discussion with pt. Haldol ordered and administered to pt (see emar) as pt continued to bed up constantly and was becoming very difficult to redirect. Very worried about getting to appointments and was insistent on needing to leave the hospital. Pt now resting in bed with friend (Mansi) at bedside. 1:1 observation continues. HR in the low 100s. Bed alarm on.
[2022-07-23] MEDS: DIGOXIN 0.125 MG TABLET PO (16:32)
[2022-07-24] VITALS: BP 119/83; PULSE 102; RESP 15; TEMP 36.3; O2SAT 94
[2022-07-24 04:00] VITALS: BP 151/78; PULSE 77; RESP 14; TEMP 36.2; O2SAT 93
[2022-07-24 05:08] LABS: Add Manual Diff / Slide Review NO; Basophils Absolute Auto 100 /uL (0-100); Basophils Percent Auto 1.2 % (0-2); Eosinophils Absolute Auto 100 /uL (0-450); Eosinophils Percent Auto 2.1 % (2-4); Hemoglobin 12.7 g/dL (12.0-16.0); Lymphocytes Absolute Auto 1200 /uL (1100-4500); Lymphocytes Percent Auto 22.7 % (25-40); Mean Corpuscular HGB Conc 33.5 % (30-36); Mean Corpuscular Hemoglobin 33.5 PG (26-34); Mean Corpuscular Volume 99.9 fL (80-100); Monocytes Absolute Auto 700 /uL (0-900); Neutrophils Absolute Auto 3100 /uL (1500-7000); Platelet Count 207 X10^3/uL (150-400); White Blood Cell Count 5.1 X10^3/uL (4.5-11.0)
[2022-07-24 05:13] LABS: INR 2.2 (0.9-1.3); Prothrombin Time 25.7 SECONDS (10.1-12.7)
[2022-07-24 05:20] LABS: Alanine Aminotransferase 30 IU/L (<35); Albumin 3.5 g/dL (3.5-5.0); Albumin Globulin Ratio 1.4 (1.0-2.8); Alkaline Phosphatase 63 U/L (38-126); Aspartate Aminotransferase 24 IU/L (14-36); BUN Creatinine Ratio 23.3 (6-22); Blood Urea Nitrogen 14 mg/dL (7-17); Calcium 8.7 mg/dL (8.4-10.2); Carbon Dioxide 27 mmol/L (22-32); Chloride 104 mmol/L (98-107); Estimated Glomerular Filt Rate > 60 mL/min (>60); Globulin 2.5 g/dL (1.7-4.1); Glucose 90 mg/dL (80-110); HEMOLYSIS < 15 (0-50); Potassium 3.6 mmol/L (3.4-5.1); Sodium 139 mmol/L (137-145)
[2022-07-24 05:26] LABS: NT-proBNP (BNP-Adult 18+) 5090 pg/mL (<450)
[2022-07-24 05:38] LABS: Digoxin 1.4 ng/mL (0.8-2.0)
[2022-07-24 06:07] LABS: Vitamin B12 > 1000 pg/mL (239-931)
[2022-07-24] MEDS: LEVOTHYROXINE 25 MCG TABLET PO (06:20)
[2022-07-24 07:40] VITALS: BP 136/88; PULSE 125; RESP 20; TEMP 36.9; O2SAT 98
[2022-07-24] MEDS: PANTOPRAZOLE DR 40 MG TABLET PO (08:12)
[2022-07-24 08:14] VITALS: BP 136/88; PULSE 130
[2022-07-24] MEDS: METOPROLOL IR 25 MG TABLET 75 MG PO ×2 (08:14→14:01)
[2022-07-24] MEDS: FUROSEMIDE 20 MG TABLET PO (08:14)
[2022-07-24] MEDS: ATORVASTATIN 20 MG TABLET 10 MG PO (08:14)
[2022-07-24] MEDS: lisinopriL 5 MG TABLET PO (08:14)
[2022-07-24 12:05] VITALS: BP 106/66; PULSE 87; RESP 23; TEMP 37; O2SAT 97
--- NOTE | 2022-07-24 14:52 | PM.DS.1 ---
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 Patient should discontinue Ambien. Secondary diagnoses: Bella-Danlos syndrome Mitral valve disease History hysterectomy for benign disease History hip replacement History Total knee replacement Hospital Course: Kanika Valladares is a 81-year-old female nonsmoker with history of atrial fibrillation is anticoagulated on Coumadin, GERD, RLS, hypothyroidism, and hyperlipidemia presented to the ED from her cardiology office for evaluation of rapid AFib.? She states that she has not had any changes in her medications, has not missed any doses of Coumadin in a year, but notes that she has chronic difficulty managing her INR on coumadin. She stated that at least 3 days she had a rapid heart rate and has become short of breath and increasingly fatigued with minimal chest pressure.? She was a bit dizzy and lightheaded.? She was intolerant of exertion. Patient admitted for atrial fibrillation with RVR with a documentation of heart rate of 128 by EKG, and supratherapeutic INR of 5.5. Initially rapid atrial fibrillation was controlled by diltiazem infusion. Coumadin was held until INR was within therapeutic range. Patient was given her regular prescription of Ambien to help with sleep however it appears that the patient had an adverse effect of Ambien and the the patient began to not sleep and become delusional with paranoid thinking as well. These symptoms needed to be controlled with Haldol. Initially intermittent doses of IV Haldol, and then what improved her paranoid thinking was discontinuing Ambien and initiating Haldol 0.5 mg IV Q 30 minutes as needed. After several doses the patient calmed down and was able to sleep through the night on the last night of admission. Medication needed to be adjusted for her blood pressure and combination of metoprolol, lisinopril, and furosemide as regular doses both controlled her blood pressure and her rapid heart rate. She was discharged in stable baseline condition. Coumadin was to be initiated on the day of discharge at 3 mg daily and this should be followed closely by her primary care physician approximately 5 days after discharge to check the INR. Time Spent with Patient Time spent: Greater than 30 minutes Exam Vital Signs (past 8 hours): - 07/24/22 07:40 07/24/22 08:14 07/24/22 07:00 Temperature 98.4 F Pulse Rate 125 H 130 H Respiratory Rate 20 Blood Pressure 136/88 136/88 Pulse Oximetry 98 Oxygen Delivery Method Room Air Oxygen Flow Rate 0 07/24/22 12:05 Temperature 98.6 F Pulse Rate 87 Respiratory Rate 23 Blood Pressure 106/66 Pulse Oximetry 97 Oxygen Delivery Method Oxygen Flow Rate 0 Oxygen Delivery Method Room Air Oxygen Flow Rate 0 Narrative Exam Narrative: General:? Patient is a pleasant well-developed, no acute medical distress.? HEENT:? Normocephalic, atraumatic, extraocular muscles intact. ? Neck is supple and symmetric, trachea is midline, no adenopathy, no thyroid enlargement, nontender, no masses palpated.? Negative for JVD Lungs:? Auscultation of all lung amaya are clear without adventitious sounds, wheezes, rhonchi, or rales. Cardio: AFib, without murmur, rubs, or gallops, no carotid bruit, peripheral pulses equal bilaterally.? No pedal edema. Abdomen:? Soft nontender, negative for organomegaly, or masses.? Bowel sounds are present in all 4 quadrants without guarding or rebound, no CVA tenderness. Musculoskeletal:? Muscle strength and tone are equal within normal limits, no deformity. Full range of motion intact radial and pedal pulses are normal. Skin:? Warm dry and intact without rashes, ulcerations or petechiae.? Neuro:? Alert and orientated x3, strength is +5/5 in all extremities, sensation to touch intact, no gross deficits noted of cranial nerves. Psych:? Patient has a well-kept appearance.? Objective Labs Result Diagrams: 07/24/22 04:24 07/24/22 04:24 Labs: Laboratory Results - last 24 hr 07/24/22 07/24/22 07/24/22 04:24 04:24 04:24 WBC 5.1 RBC 3.80 L Hgb 12.7 Hct 38.0 MCV 99.9 MCH 33.5 MCHC 33.5 RDW 14.0 Plt Count 207 Neut % (Auto) 61.0 Lymph % (Auto) 22.7 L Lewis % (Auto) 13.0 Eos % (Auto) 2.1 Baso % (Auto) 1.2 Neut # (Auto) 3100 Lymph # (Auto) 1200 Lewis # (Auto) 700 Eos # (Auto) 100 Baso # (Auto) 100 PT 25.7 H D INR 2.2 H Sodium Potassium Chloride Carbon Dioxide BUN Creatinine Estimated GFR BUN/Creatinine Ratio Glucose Calcium Total Bilirubin AST ALT Alkaline Phosphatase NT-Pro-B Natriuret Pep Total Protein Albumin Globulin Albumin/Globulin Ratio Vitamin B12 Digoxin 1.4 07/24/22 04:24 WBC RBC Hgb Hct MCV MCH MCHC RDW Plt Count Neut % (Auto) Lymph % (Auto) Lewis % (Auto) Eos % (Auto) Baso % (Auto) Neut # (Auto) Lymph # (Auto) Lewis # (Auto) Eos # (Auto) Baso # (Auto) PT INR Sodium 139 Potassium 3.6 Chloride 104 Carbon Dioxide 27 BUN 14 Creatinine 0.60 Estimated GFR > 60 BUN/Creatinine Ratio 23.3 H Glucose 90 Calcium 8.7 Total Bilirubin 2.0 H AST 24 ALT 30 Alkaline Phosphatase 63 NT-Pro-B Natriuret Pep 5090 H Total Protein 6.0 L Albumin 3.5 Globulin 2.5 Albumin/Globulin Ratio 1.4 Vitamin B12 > 1000 H Digoxin PFSH Medical History Atrial fibrillation 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 Surgical History H/O hysterectomy for benign disease S/P hip replacement Total knee replacement status Family History (Updated 07/22/22 @ 03:16 by ROSARIO Ornelas) Mother Cancer Father Diabetes mellitus Social History household members: none Smoking Status: Never smoker alcohol intake: current Discharge Plan Discharge Plan Patient Disposition: Home Discharge orders & Medications Prescriptions: New tramadol 50 mg Tablet 50 mg PO BID PRN (Reason: pain) Qty: 20 0RF pantoprazole 40 mg Tablet,Delayed Release (Dr/Ec) 40 mg PO DAILY Qty: 30 0RF lisinopril 5 mg Tablet 5 mg PO DAILY Qty: 30 0RF furosemide 20 mg Tablet 20 mg PO DAILY Qty: 30 0RF warfarin [Jantoven] 1 mg Tablet 3 mg PO DAILY@1700 Qty: 30 0RF metoprolol tartrate 25 mg Tablet 75 mg PO TID Qty: 90 0RF trazodone 50 mg tablet 25 mg PO BEDTIME PRN (Reason: sleep) Qty: 30 0RF acetaminophen 325 mg Tablet 650 mg PO Q6HR PRN (Reason: Fever/Mild Pain (1-3)) Qty: 90 0RF Continued simvastatin 20 mg tablet 20 mg PO DAILY metoprolol succinate 50 mg tablet extended release 24 hr 50 mg PO BID Rx Instructions: pt is unsure of doses levothyroxine 50 mcg tablet 50 mcg PO DAILY potassium chloride 10 mEq tablet extended release 10 meq PO DAILY acetaminophen 500 mg Capsule 1,000 mg PO DAILY PRN (Reason: Pain (Scale Score 4-6)) furosemide 20 mg Tablet 20 mg PO DAILY Label Comments: pt takes PRN, not every day cholecalciferol (vitamin D3) [Vitamin D3] 125 mcg (5,000 unit) Tablet 5,000 unit PO DAILY clonazepam 0.5 mg 0.5 mg PO BEDTIME PRN (Reason: Restless Leg(S)) Discontinued warfarin 6 mg tablet 6 mg PO DAILY zolpidem 5 mg tablet 5 mg PO BEDTIME PRN (Reason: Insomnia) Follow up/Referrals: Rosette Grey PA-C [Primary Care Provider] - Discharge Data Primary Care Provider: Rosette Grey Quality VTE Deep Vein Thrombosis/Pulmonary Embolism Present on Admission: No
--- NOTE | 2022-07-24 18:25 | PC.NURSE ---
Addendum entered by Diana West R.N. 07/24/22 18:34: I agree with all assessments and interventions by this student nurse-Diana West RN Original Note: Day shift note: Patient A&Ox4. SBA to BR. VSS. Discharge education provided. IV discontinued. Able to verbalize needs and ask questions. Discharged home with family friend in private vehicle.
== END 2022-07-24 15:01 | disposition home or self-care (01) | DRG 309 ==
LOC: ED 20:17 → ICU 07-22 10:22 → AC 07-22 11:13 → ICU 07-22 11:13
PROVIDERS: Neuromusculoskeletal Medicine, Sports Medicine; Admitting Provider Nurse Practitioner Family; Emergency Provider Emergency Medicine; PCP Student in an Organized Health Care Education/Training Program; Visit Provider Nurse Practitioner Family
DX: I48.91 Unspecified atrial fibrillation (principal); Q79.60 Ehlers-Danlos syndrome, unspecified; R79.1 Abnormal coagulation profile; E03.9 Hypothyroidism, unspecified; E78.5 Hyperlipidemia, unspecified; K21.9 Gastro-esophageal reflux disease without esophagitis; G25.81 Restless legs syndrome; G47.00 Insomnia, unspecified; M79.89 Other specified soft tissue disorders; R41.0 Disorientation, unspecified; R45.1 Restlessness and agitation; T42.6X5A Adverse effect of other antiepileptic and sedative-hypnotic drugs, initial encounter; I10 Essential (primary) hypertension; Z23 Encounter for immunization; Z20.822 Contact with and (suspected) exposure to COVID-19; Z79.01 Long term (current) use of anticoagulants
CPT/HCPCS: 36415; 71045; 80048; 80053; 80162; 81001; 82550; 82607; 83690; 83735; 83880; 84443; 84484; 85025; 85379; 85610; 85730; 87086; 87635; 87797; 90471; 90662; 92960; 93005; 93010; 93306; 93971; 96374; 99152; 99284; 99285; 99291; C9803; J1160; J1630; J2704; J3475

== ENCOUNTER → 2022-08-12 10:44 | Outpatient (CLI) | payer MEDICARE, SELFPAY ==
[2022-07-21 22:04] VITALS: BMI 28.3
== END ==
PROVIDERS: PCP Student in an Organized Health Care Education/Training Program; Referring Provider Student in an Organized Health Care Education/Training Program; Visit Provider Student in an Organized Health Care Education/Training Program
DX: Z13.820 Encounter for screening for osteoporosis (principal); Z78.0 Asymptomatic menopausal state; Z87.311 Personal history of (healed) other pathological fracture; Z92.29 Personal history of other drug therapy; Z90.710 Acquired absence of both cervix and uterus
CPT/HCPCS: 77080

== ENCOUNTER → 2022-08-15 10:44 | Outpatient (CLI) | payer MEDICARE, SELFPAY ==
[2022-07-21 22:04] VITALS: BMI 28.3
--- NOTE | 2022-08-15 15:01 | DI.ECHO.S_ITS ---
[facility]---------+ [facility] +---------+ : : [address] [place] : : : : [id number] : : : : Phone: [phone]---------+ Echocardiogram Report + + :Name: TARSHA VILLAGOMEZ Study Date: 08/15/2022 Height: 64 in : :[facility] ReadingLocation: Weight: 155 lb : : Gender: Female BSA: 1.8 m2 : :: 1940 Age: 81 yrs BP: 117/79 mmHg: :Reason For Study: Mitral Valve - Annulus Repair/Replacement : :Ordering Physician: COLLEEN, : :SHANNA Performed By: Pierce Bello : :Referring: SHANNA MACIAS : + + Interpretation Summary The left ventricle is normal in size and wall thickness. Left ventricular ejection fraction is estimated to be 55 +/- 5%. In May 22, 2022 during A. fib with fast ventricular rate LVEF 30 to 35%. Now patient is in sinus rhythm. Left ventricular systolic function has significantly improved compared to the previous exam. Diastolic parameters suggest a pseudonormalization pattern, consistent with probable elevated filling pressures. The right ventricle is at the upper limits of normal in size. Visually RV function appears to be mildly reduced. Improved from the previous study. An annuloplasty ring is noted in the mitral position. Patient is status post mitral valve repair. The mitral valve mean gradient is 3.2 mmHg. Previously 5.4 mmHg. No significant mitral valve stenosis. There is mild aortic regurgitation. Compared to the prior echo study, there has been no change in the severity of aortic regurgitation. The right ventricular systolic pressure is estimated to be at least 30 mmHg based on an estimated right atrial pressure of 3 mm Hg. Previously 45 mmHg. Mild atherosclerotic plaque(s) in the aortic arch. Procedure: A two-dimensional transthoracic echocardiogram with color flow and Doppler was performed. The study quality was technically adequate. Comparison is made with the echocardiogram of 07/22/2022. The patient was in normal sinus rhythm during the exam. Left Ventricle: The left ventricle is normal in size and wall thickness. There is no thrombus. Left ventricular systolic function is normal. Left ventricular ejection fraction is estimated to be 55 +/- 5%. Left ventricular systolic function has significantly improved compared to the previous exam. There are no focal wall motion abnormalities. Diastolic parameters suggest a pseudonormalization pattern, consistent with probable elevated filling pressures. Right Ventricle: The right ventricle is at the upper limits of normal in size. Visually RV function appears to be mildly reduced. Improved from the previous study. Atria: Both atria are severely dilated. Both atria have remained unchanged in size since the prior echo exam. The interatrial septum grossly appears intact with no obvious evidence for an atrial septal defect. Mitral Valve: An annuloplasty ring is noted in the mitral position. The mitral valve mean gradient is 3.2 mmHg. No significant mitral valve stenosis. There is trace mitral regurgitation. Aortic Valve: The aortic valve is trileaflet. The aortic valve opens well. There is mild aortic regurgitation. Compared to the prior echo study, there has been no change in the severity of aortic regurgitation. Tricuspid Valve: The tricuspid valve is normal in structure and function. There is trace tricuspid regurgitation. The right ventricular systolic pressure is estimated to be at least 30 mmHg based on an estimated right atrial pressure of 3 mm Hg. Compared to the prior echo exam, there has been a decrease in the severity of pulmonary hypertension. Pulmonic Valve: The pulmonic valve is not well seen, but is grossly normal. There is mild to moderate pulmonic regurgitation. Great Vessels: The aortic root is normal size. The dimensions of the ascending aorta are normal. Mild atherosclerotic plaque(s) in the aortic arch. The IVC is of normal diameter and collapses greater than 50% with a sniff. This suggests a low right atrial pressure of 3 mm Hg. Pericardium/ Pleura There is no pericardial effusion. There is no pleural effusion. MMode/2D Measurements & Calculations LVIDd: 5.5 cm LVOT diam: 2.2 cm LVIDs: 4.0 cm Ao root diam: 3.2 cm FS: 28.1 % asc Aorta Diam: 3.6 cm IVSd: 0.86 cm LVPWd: 0.88 cm LV douglas. diameter/BSA (cm/m^2): 3.1 LV sys. diameter/BSA (cm/m^2): 2.3 LA A2 area: 26.3 cm2 RA long axis: 6.3 cm LA A4 area: 36.4 cm2 RA area: 26.3 cm2 LA length (vol): 7.0 cm RA vol: 93.7 ml LA vol: 116.0 ml RA : 53.4 ml/m2 LA vol index: 66.1 ml/m2 TAPSE: 2.0 cm Doppler Measurements & Calculations Ao V2 max: 150.5 cm/sec LVOT Max Ramin: 108.6 cm/sec Ao V2 mean: 111.4 cm/sec LV V1 max P.7 mmHg Ao max P.1 mmHg LV V1 VTI: 21.1 cm Ao mean P.4 mmHg FILIPPO(I,D): 2.8 cm2 Ao V2 VTI: 29.9 cm FILIPPO(V,D): 2.8 cm2 sev ratio: 0.71 FILIPPO indexed to BSA (cm^2/m^2): 1.6 AI P1/2t: 595.8 msec AI dec slope: 189.1 cm/sec2 MV E max ramin: 120.3 cm/sec TR max ramin: 255.9 cm/sec MV A max ramin: 90.3 cm/sec TR max P.2 mmHg MV E/A: 1.3 Med Peak E' Ramin: 4.3 cm/sec E/E' med: 28.3 Lat Peak E' Ramin: 7.6 cm/sec E/E' lat: 15.9 E/e' average: 22.1 MV dec time: 0.22 sec MVA(VTI): 2.1 cm2 MV V2 mean: 86.4 cm/sec SV(LVOT): 83.0 ml MV mean P.2 mmHg MV V2 VTI: 39.7 cm Reading Physician:11:[id number] AM
[2022-08-15 15:37] LABS: Alanine Aminotransferase 31 IU/L (<35); Albumin 4.9 g/dL (3.5-5.0); Albumin Globulin Ratio 1.6 (1.0-2.8); Alkaline Phosphatase 65 U/L (38-126); Aspartate Aminotransferase 32 IU/L (14-36); BUN Creatinine Ratio 34.6 (6-22); Bilirubin Total 1.8 mg/dL (0.2-1.3); Blood Urea Nitrogen 27 mg/dL (7-17); Calcium 10.1 mg/dL (8.4-10.2); Carbon Dioxide 28 mmol/L (22-32); Chloride 100 mmol/L (98-107); Estimated Glomerular Filt Rate > 60 mL/min (>60); Glucose 95 mg/dL (80-110); HEMOLYSIS < 15 (0-50); Potassium 4.6 mmol/L (3.4-5.1); Sodium 138 mmol/L (137-145); Total Protein 7.9 g/dL (6.3-8.2)
== END ==
PROVIDERS: PCP Student in an Organized Health Care Education/Training Program; Referring Provider Internal Medicine Cardiovascular Disease; Visit Provider Internal Medicine Cardiovascular Disease
DX: I35.1 Nonrheumatic aortic (valve) insufficiency (principal); I37.1 Nonrheumatic pulmonary valve insufficiency; I70.0 Atherosclerosis of aorta; I50.20 Unspecified systolic (congestive) heart failure; Z98.890 Other specified postprocedural states; Z79.899 Other long term (current) drug therapy
CPT/HCPCS: 36415; 80053; 84443; 93306

== ENCOUNTER 2022-09-02 12:06 | Emergency (ER) | payer MEDICARE, SELFPAY ==
[2022-07-21 22:04] VITALS: BMI 28.3
[2022-09-02 12:18] VITALS: BP 124/59; PULSE 77; RESP 15; TEMP 36.1; O2SAT 98; BMI 26.6
--- NOTE | 2022-09-02 12:38 | DI.RAD.S_ITS ---
PROCEDURE: XR LUMBAR SPINE 2-3V INDICATIONS: fall with back pain TECHNIQUE: 3 views of the lumbar spine were acquired. COMPARISON: None. FINDINGS: Bones: 5 [id number] vertebrae are present. There is mild, approximately 4 millimeters of L4-L5 anterolisthesis secondary to facet hypertrophy. Convex left scoliosis. Loss of height noted in the T12 vertebral body compatible with compression fracture of indeterminate age. T12 compression fracture results in approximately 30% loss of normal anterior vertebral body height. No kyphosis or retropulsed fragments associated with the T12 compression fracture. No suspicious bony lesions. Spine degenerative disc disease and facet arthropathy. Soft tissues: Overlying bowel gas pattern is normal. No suspicious soft tissue calcifications. IMPRESSION: T12 compression fracture of indeterminate age. Dictated by: Sarahi Morse MD, PhD on 09/02/2022 at 13:35 Approved by: Sarahi Morse MD, PhD on 09/02/2022 at 13:37
--- NOTE | 2022-09-02 13:56 | DI.CT.S_ITS ---
PROCEDURE: CT HEAD/BRAIN WO CON INDICATIONS: fall on thinners TECHNIQUE: Noncontrast 4.5 mm thick angled axial sections acquired from the foramen magnum to the vertex, with coronal and sagittal reformats. For radiation dose reduction, the following was used: automated exposure control, adjustment of mA and/or kV according to patient size. COMPARISON: [facility], CT, HEAD WITHOUT CONTRAST, 08/20/2016, 20:36. [facility], CT, CT HEAD/BRAIN WO CON, 06/27/2020, 9:41. FINDINGS: Image quality: Excellent. CSF spaces: Basal cisterns are patent. No extra-axial fluid collections. The ventricles are symmetric in size and shape. Brain: No intracranial bleeds or masses. There is cerebral volume loss for age, with resultant ventricular and sulcal prominence. There are periventricular and deep white matter chronic small vessel ischemic changes. There is intracranial internal carotid artery atherosclerosis. Skull and face: Calvarium and visualized facial bones appear intact, without suspicious lesions. Sinuses: Visualized sinuses and mastoids are clear. IMPRESSION: No acute intracranial hemorrhage is seen. No acute intracranial process is seen. Dictated by: Paul Wood M.D. on 09/02/2022 at 13:16 Approved by: Paul Wood M.D. on 09/02/2022 at 13:17
--- NOTE | 2022-09-02 14:01 | ED.FALL ---
HPI - Fall General Chief Complaint: Fall Stated Complaint: fell Thursday, on blood thinners, phys referred Time Seen by Provider: 09/02/22 13:56 Source: patient Mode of arrival: Wheelchair History of Present Illness HPI Narrative: Patient is an 81-year-old female. Is on blood thinners. Here for evaluation of injuries that she sustained when she fell approximately 3 days ago. She states she was going down some stairs when she tripped. She tried to grab the bottom of the hand rail and she kind of swung around landing on her back. She did not think that she hit her head. She sustained some skin tears to her arms. Is having lower back pain but no neck pain. There was no loss of consciousness. She has been ambulatory. She was scheduled to get her INR checked today. She was also told by her primary doctor that she needs a head CT. Related Data Home Medications Medication Instructions Recorded Confirmed cholecalciferol (vitamin D3) 125 5,000 unit PO DAILY 10/29/18 07/21/22 mcg (5,000 unit) tablet (Vitamin D3) clonazepam 0.5 mg PO BEDTIME PRN Restless 10/29/18 07/21/22 Leg(S) acetaminophen 500 mg capsule 1,000 mg PO DAILY PRN Pain (Scale 07/21/22 07/21/22 Score 4-6) levothyroxine 50 mcg tablet 50 mcg PO DAILY 07/21/22 07/21/22 metoprolol succinate 50 mg 50 mg PO BID 07/21/22 07/21/22 tablet,extended release 24 hr potassium chloride 10 mEq 10 meq PO DAILY 07/21/22 07/21/22 tablet,extended release simvastatin 20 mg tablet 20 mg PO DAILY 07/21/22 07/21/22 furosemide 20 mg tablet 20 mg PO DAILY 07/22/22 07/22/22 Previous Rx's Medication Instructions Recorded acetaminophen 325 mg tablet 650 mg PO Q6HR PRN Fever/Mild Pain 07/24/22 (1-3) #90 tabs furosemide 20 mg tablet 20 mg PO DAILY #30 tabs 07/24/22 lisinopril 5 mg tablet 5 mg PO DAILY #30 tabs 07/24/22 metoprolol tartrate 25 mg tablet 75 mg PO TID #90 tabs 07/24/22 pantoprazole 40 mg tablet,delayed 40 mg PO DAILY #30 tabs 07/24/22 release tramadol 50 mg tablet 50 mg PO BID PRN pain #20 tabs 07/24/22 trazodone 50 mg tablet 25 mg PO BEDTIME PRN sleep #30 tabs 07/24/22 warfarin 1 mg tablet (Jantoven) 3 mg PO DAILY@1700 #30 tabs 07/24/22 hydrocodone 5 mg-acetaminophen 325 1 tab PO Q6H PRN pain #14 tabs 09/02/22 mg tablet Allergies Allergy/AdvReac Type Severity Reaction Status Date / Time Sulfa (Sulfonamide Allergy Severe Anaphylaxis Verified 09/02/22 12:18 Antibiotics) [SULFA (SULFONAMIDE ANTIBIOTICS)] adhesive tape [ADHESIVE TAPE] Allergy Unknown WELTS Verified 09/02/22 12:18 propoxyphene [From Darvon] Allergy Unknown Verified 09/02/22 12:18 Review of Systems Constitutional Constitutional: Reports system reviewed and no additional complaints, except as documented Cardiovascular Cardiovascular: Reports system reviewed and no additional complaints, except as documented Respiratory Respiratory: Reports system reviewed and no additional complaints, except as documented Gastrointestinal Gastrointestinal: Reports system reviewed and no additional complaints, except as documented Musculoskeletal Musculoskeletal: Reports system reviewed and no additional complaints, except as documented Integumentary/Breasts Skin/Breast: Reports system reviewed and no additional complaints, except as documented Neurologic Neurologic: Reports system reviewed and no additional complaints, except as documented Hematologic/Lymphatic On Anticoagulants: Yes Patient History Medical History Atrial fibrillation 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 Surgical History H/O hysterectomy for benign disease S/P hip replacement Total knee replacement status Family History (Updated 07/22/22 @ 03:16 by ROSARIO Ornelas) Mother Cancer Father Diabetes mellitus Social History household members: none Smoking Status: Never smoker alcohol intake: current Smoking Status: Never smoker alcohol intake frequency: 0-2 drinks per day Substance Use Type: does not use Exam Initial Vital Signs Initial Vital Signs: Vital Signs Temperature 97.0 F L 09/02/22 12:18 Pulse Rate 77 09/02/22 12:18 Respiratory Rate 15 09/02/22 12:18 Blood Pressure 124/59 L 09/02/22 12:18 Pulse Oximetry 98 09/02/22 12:18 Oxygen Delivery Method 09/02/22 12:18 Const General: cooperative, comfortable and No ill appearing HENAZ Head: normal to inspection and normocephalic Resp Effort & Inspection: normal respiratory effort Auscultation: clear to auscultation bilaterally Cardio Rate: regular rate Back/Spine/Pelvis Cervical Spine: No cervical spinal tenderness Thoracic/Lumbar Spine: No paraspinal tenderness, thoraco-lumbar ROM limited, No thoracic spinal tenderness and lumbar spinal tenderness Skin Other: Superficial skin tears to her left elbow/forearm and right forearm. Neuro General: patient alert, patient awake, patient oriented x3 and moves all extremities Speech: speech normal Extrem General: normal to inspection, capillary refill normal and No edema Other: Pelvis is stable. Full range of motion of upper and lower extremities. Psych Appearance: grossly normal and well kempt Scores GCS Marana coma scale eye opening: Spontaneous Tez coma scale verbal response: Orientated Tez coma scale motor response: Obey commands Tez coma scale total score: 15 Nexus Score for C-Spine Focal Neurologic deficit present: No Midline spinal tenderness present: No Altered level of conciousness present: No Intoxication present: No Course Orders Ordered: ED Orders 09/02/22 12:38 XR LSPINE 2-3 views [XR lumbar spine 2-3V] Stat 09/02/22 13:56 CT head/brain wo con Stat 09/02/22 14:08 Prothrombin Time INR Stat Discontinued Medications Bacitracin (Bacitracin Oint 0.9 Gm Pckt) 1 applic TOP NOW ONE Stop: 09/02/22 14:20 Last Admin: 09/02/22 14:34 Dose: 1 applic Documented By: BOO Vital Signs Vital signs: Vital Signs - 8 hr 09/02/22 12:18 09/02/22 14:35 09/02/22 16:08 Temperature 97.0 F L Pulse Rate 77 65 69 Respiratory Rate 15 17 18 Blood Pressure 124/59 L 153/65 H 121/54 L Pulse Oximetry 98 98 96 Oxygen Delivery Method Room Air Room Air Room Air MDM - Fall Lab Data Labs: Lab Results 09/02/22 Range/Units 14:08 PT 56.9 H (10.1-12.7) SECONDS INR 4.9 H* (0.9-1.3) Imaging Data lumbar spine: Radiologist's Impression: [address] [address] XRay Report Signed Patient: Kanika Valladares MR#: [id number] : 1940 Acct:[id number] Age/Sex: 81 / F Date of Service: 09/02/22 Loc: ED Accession Number: [id number] ?? Procedure: XR lumbar spine 2-3V Ordering Provider: Geovani Robles D.O. PROCEDURE:? XR LUMBAR SPINE 2-3V ? INDICATIONS:? fall with back pain ? TECHNIQUE:? 3 views of the lumbar spine were acquired.? ? COMPARISON:? None. ? FINDINGS:? ? Bones:? 5 [id number] vertebrae are present.? There is mild, approximately 4 millimeters of L4-L5 anterolisthesis secondary to facet hypertrophy.? Convex left scoliosis.? Loss of height noted in the T12 vertebral body compatible with compression fracture of indeterminate age.? T12 compression fracture results in approximately 30% loss of normal anterior vertebral body height.? No kyphosis or retropulsed fragments associated with the T12 compression fracture.? No suspicious bony lesions.? Spine degenerative disc disease and facet arthropathy. ? Soft tissues:? Overlying bowel gas pattern is normal.? No suspicious soft tissue calcifications.? ? ? IMPRESSION:? T12 compression fracture of indeterminate age. ? ? Dictated by: Sarahi Morse MD, PhD on 09/02/2022 at 13:35 ? ? Approved by: Sarahi Morse MD, PhD on 09/02/2022 at 13:37 CT scan - head: Radiologist's Impression: [address] [address] [address] Scan Report Signed Patient: Kanika Valladares MR#: [id number] : 1940 Acct:[id number] Age/Sex: 81 / F Date of Service: 09/02/22 Loc: ED Accession Number: [id number] ?? Procedure: CT head/brain wo con Ordering Provider: Geovani Robles D.O. PROCEDURE:? CT HEAD/BRAIN WO CON ? INDICATIONS:? fall on thinners ? TECHNIQUE:? Noncontrast 4.5 mm thick angled axial sections acquired from the foramen magnum to the vertex, with coronal and sagittal reformats.? For radiation dose reduction, the following was used:? automated exposure control, adjustment of mA and/or kV according to patient size.? ? COMPARISON:? [facility], CT, HEAD WITHOUT CONTRAST, 08/20/2016, 20:36.? [facility], CT, CT HEAD/BRAIN WO CON, 06/27/2020, 9:41. ? FINDINGS:? Image quality:? Excellent.? ? CSF spaces:? Basal cisterns are patent.? No extra-axial fluid collections.? The ventricles are symmetric in size and shape.? ? Brain:? No intracranial bleeds or masses.? There is cerebral volume loss for age, with resultant ventricular and sulcal prominence.? There are periventricular and deep white matter chronic small vessel ischemic changes.? There is intracranial internal carotid artery atherosclerosis.? ? Skull and face:? Calvarium and visualized facial bones appear intact, without suspicious lesions.? ? Sinuses:? Visualized sinuses and mastoids are clear.? IMPRESSION:? No acute intracranial hemorrhage is seen.? ? No acute intracranial process is seen.? ? ? Dictated by: Paul Wood M.D. on 09/02/2022 at 13:16 ? ? Approved by: Paul Wood M.D. on 09/02/2022 at 13:17 MDM Narrative Medical decision making narrative: The x-ray shows potentially new T12 compression fracture and she is tender over this area. She states she can ambulate without any problems it is just transitioning from lying to sitting and sitting to standing where she is having the discomfort. Will send home with medications for this and instructions to follow-up with primary care provider. The skin tears on her upper extremities need no intervention other than cleaning and bandaging here in the ER. Her head CT is unremarkable. Her INR is elevated. She has not taken her Coumadin today. Recommended that she not take it today and contact her primary doctor tomorrow for a follow-up. She was given return precautions. She expressed understanding and agreement. Discharge Plan Departure Patient Disposition: Home Clinical Impression: Compression fracture of T12 vertebra, Skin tear, Supratherapeutic INR Activity Restrictions/Additional Instructions: I recommend that you do not take any of your Coumadin today and contact your primary doctor's office tomorrow to see what they would like to do with adjusting your Coumadin dose. Just keep the skin tears clean with soap and water. You can cover them with a bandage. It does appear on your x-rays that there may be a compression fracture of the 12 thoracic vertebrae. You do have some discomfort over this area. Recommend you talk with your primary doctor regarding this as well. Use the pain medication as needed. Return to the emergency department for any new or worsening symptoms. Prescriptions: New hydrocodone-acetaminophen 5-325 mg tablet 1 tab PO Q6H PRN (Reason: pain) Qty: 14 0RF No Action simvastatin 20 mg tablet 20 mg PO DAILY metoprolol succinate 50 mg tablet extended release 24 hr 50 mg PO BID Rx Instructions: pt is unsure of doses levothyroxine 50 mcg tablet 50 mcg PO DAILY potassium chloride 10 mEq tablet extended release 10 meq PO DAILY acetaminophen 500 mg Capsule 1,000 mg PO DAILY PRN (Reason: Pain (Scale Score 4-6)) furosemide 20 mg Tablet 20 mg PO DAILY Label Comments: pt takes PRN, not every day tramadol 50 mg Tablet 50 mg PO BID PRN (Reason: pain) Qty: 20 0RF pantoprazole 40 mg Tablet,Delayed Release (Dr/Ec) 40 mg PO DAILY Qty: 30 0RF lisinopril 5 mg Tablet 5 mg PO DAILY Qty: 30 0RF furosemide 20 mg Tablet 20 mg PO DAILY Qty: 30 0RF warfarin [Jantoven] 1 mg Tablet 3 mg PO DAILY@1700 Qty: 30 0RF metoprolol tartrate 25 mg Tablet 75 mg PO TID Qty: 90 0RF trazodone 50 mg tablet 25 mg PO BEDTIME PRN (Reason: sleep) Qty: 30 0RF acetaminophen 325 mg Tablet 650 mg PO Q6HR PRN (Reason: Fever/Mild Pain (1-3)) Qty: 90 0RF cholecalciferol (vitamin D3) [Vitamin D3] 125 mcg (5,000 unit) Tablet 5,000 unit PO DAILY clonazepam 0.5 mg 0.5 mg PO BEDTIME PRN (Reason: Restless Leg(S)) Referrals: Rosette Grey PA-C [Primary Care Provider] - Visit Report Forms: Patient Portal/API
[2022-09-02] MEDS: BACITRACIN OINT 0.9 GM PCKT 1 APPLIC TOP (14:34)
[2022-09-02 14:35] VITALS: BP 153/65; PULSE 65; RESP 17; O2SAT 98
[2022-09-02 14:37] LABS: Prothrombin Time 56.9 SECONDS (10.1-12.7)
[2022-09-02 14:38] LABS: INR 4.9 (0.9-1.3)
[2022-09-02 16:08] VITALS: BP 121/54; PULSE 69; RESP 18; O2SAT 96
== END 2022-09-02 16:16 | disposition home or self-care (01) ==
PROVIDERS: Emergency Provider Emergency Medicine; PCP Student in an Organized Health Care Education/Training Program
DX: S22.089A Unspecified fracture of T11-T12 vertebra, initial encounter for closed fracture (principal); S41.112A Laceration without foreign body of left upper arm, initial encounter; S41.111A Laceration without foreign body of right upper arm, initial encounter; S09.90XA Unspecified injury of head, initial encounter; Z79.01 Long term (current) use of anticoagulants; W10.9XXA Fall (on) (from) unspecified stairs and steps, initial encounter
CPT/HCPCS: 70450; 72100; 85610; 99283

== ENCOUNTER → 2022-10-02 12:41 | Outpatient (CLI) | payer MEDICARE, SELFPAY ==
[2022-07-21 22:04] VITALS: BMI 28.3
[2022-10-02 14:01] LABS: COVID19 -Nasal RAPID Negative (Negative)
== END ==
PROVIDERS: PCP Student in an Organized Health Care Education/Training Program; Referring Provider Internal Medicine; Visit Provider Internal Medicine
DX: Z20.822 Contact with and (suspected) exposure to COVID-19 (principal)
CPT/HCPCS: 87635

== ENCOUNTER → 2022-10-02 12:43 | Outpatient (CLI) | payer MEDICARE, SELFPAY ==
[2022-07-21 22:04] VITALS: BMI 28.3
--- NOTE | 2022-10-08 09:05 | PM.PFT.1 ---
Pulmonary Function Test Referral & Results Date Patient Seen: 10/02/22 Requesting provider: Mukund Wilson Results: The spirometry demonstrates an FVC of 2.13 L which is 80% of predicted. The FEV1 was measured at 1.67 L which is 84% of predicted. The FEV1/FVC ratio was 78 which is 107% of predicted. Following the administration of bronchodilator there was no appreciable change. Lung volumes show an SVC of 2.11 L which is 77% of predicted. The diffusing capacity was measured at 12.88 which is 50% of predicted. The maximum voluntary ventilation was normal Interpretation: This study demonstrates probably normal spirometry the maybe a very slight reduction in lung volumes suggesting the possibility of barely detectable restrictive lung disease There is a notable reduction in diffusing capacity which is a 50% of predicted, suggesting significant disease at the capillary alveolar level Clinical correlation suggested
== END ==
PROVIDERS: PCP Student in an Organized Health Care Education/Training Program; Referring Provider Internal Medicine Cardiovascular Disease; Visit Provider Internal Medicine Cardiovascular Disease
DX: Z79.899 Other long term (current) drug therapy (principal); J98.8 Other specified respiratory disorders; Z20.822 Contact with and (suspected) exposure to COVID-19
CPT/HCPCS: 87635; 94060; 94726; 94729

== ENCOUNTER → 2022-11-28 11:59 | Outpatient (CLI) | payer MEDICARE, SELFPAY ==
[2022-07-21 22:04] VITALS: BMI 28.3
--- NOTE | 2022-12-03 10:36 | PM.PFT.1 ---
Pulmonary Function Test Referral & Results Date Patient Seen: 11/28/22 Requesting provider: Mukund Wilson Results: The spirometry demonstrates an FVC of 1.96 L which is 73% of predicted. The FEV1 was measured at 1.58 L which is 80% of predicted. The FEV1/FVC ratio was 81 which is 110% of predicted. Following the administration of bronchodilator there was no appreciable change. Lung volumes show an SVC of 2.03 L which is 74% of predicted. The diffusing capacity was measured at 10.96 which is 42% of predicted. No hemoglobin value was provided, so no correction for potential anemia could be made, if appropriate. The maximum voluntary ventilation was probably normal Interpretation: This study demonstrates potentially very minimal obstructive lung disease based on reduction FEV1 although FEV1/FVC ratio is preserved and there is really no evidence of benefit following bronchodilator There is also minimal reduction in lung volumes suggesting the presence of restrictive lung disease which probably explains the minimal abnormality in the FEV1 above There is a more moderate to moderately severe reduction diffusing capacity suggesting significant disease at the capillary alveolar level Compared to PFTs performed in September 2022, current study is essentially unchanged although there might be a slight decline in diffusing capacity Clinical correlation suggested
== END ==
PROVIDERS: PCP Student in an Organized Health Care Education/Training Program; Referring Provider Internal Medicine Cardiovascular Disease; Visit Provider Internal Medicine Cardiovascular Disease
DX: Z79.899 Other long term (current) drug therapy (principal); F17.210 Nicotine dependence, cigarettes, uncomplicated; J98.8 Other specified respiratory disorders
CPT/HCPCS: 94060; 94726; 94729

== ENCOUNTER 2022-12-02 11:26 | Emergency (ER) | payer MEDICARE, SELFPAY ==
[2022-07-21 22:04] VITALS: BMI 28.3
[2022-12-02] VITALS (18 sets, daily range): BP systolic 90–144; BP diastolic 51–65; PULSE 55–89; RESP 13–35; TEMP 36.7; O2SAT 98–100; BMI 24.0
--- NOTE | 2022-12-02 11:49 | PC.NURSE ---
pt states she feels like her afib has been acting up probably about the last week but the last 3 days it has been bad, she feels it is fast and irregular. she didnt come in sooner cause she was hoping she would convert on her own. she does endorse shortness of breath and sometimes a sharp stabbing pain in her left upper heart
--- NOTE | 2022-12-02 12:08 | DI.RAD.S_ITS ---
PROCEDURE: XR CHEST 1V INDICATIONS: chest pain TECHNIQUE: One view of the chest was acquired. COMPARISON: [facility], CR, XR CHEST 1V, 07/22/2022, 9:34. FINDINGS: Surgical changes and devices: Midline sternal wires Lungs and pleura: Lungs are clear. No pleural effusions or pneumothorax. Mediastinum: Mediastinal contours appear normal. Heart size is normal. Bones and chest wall: Old healed right-sided rib fractures Generalized decrease in osseous mineralization noted. Degenerative changes both shoulders IMPRESSION: No acute cardiopulmonary findings Approved by: Kelvin Kinsey M.D. on 12/02/2022 at 12:03
[2022-12-02 12:46] LABS: Add Manual Diff / Slide Review NO; Basophils Absolute Auto 100 /uL (0-100); Basophils Percent Auto 1.2 % (0-2); Eosinophils Absolute Auto 0 /uL (0-450); Eosinophils Percent Auto 0.5 % (2-4); Hemoglobin 13.1 g/dL (12.0-16.0); Lymphocytes Absolute Auto 800 /uL (1100-4500); Lymphocytes Percent Auto 14.1 % (25-40); Mean Corpuscular HGB Conc 34.4 % (30-36); Mean Corpuscular Volume 98.9 fL (80-100); Monocytes Absolute Auto 500 /uL (0-900); Neutrophils Absolute Auto 4300 /uL (1500-7000); Neutrophils Percent Auto 75.2 % (50-75); Platelet Count 231 X10^3/uL (150-400); Red Blood Cell Count 3.84 X10^6/uL (4.0-5.2); Red Cell Distribution Width 14.2 % (11.6-14.8); White Blood Cell Count 5.7 X10^3/uL (4.5-11.0)
[2022-12-02 12:52] LABS: INR 2.7 (0.9-1.3); Prothrombin Time 31.2 SECONDS (10.1-12.7)
[2022-12-02 12:54] LABS: PTT Partial Thromboplastin Tim 42 SECONDS (26-36)
[2022-12-02 12:58] LABS: Alanine Aminotransferase 17 IU/L (<35); Albumin 4.4 g/dL (3.5-5.0); Albumin Globulin Ratio 1.5 (1.0-2.8); Alkaline Phosphatase 62 U/L (38-126); Aspartate Aminotransferase 25 IU/L (14-36); Bilirubin Total 1.1 mg/dL (0.2-1.3); Blood Urea Nitrogen 20 mg/dL (7-17); Calcium 9.2 mg/dL (8.4-10.2); Carbon Dioxide 27 mmol/L (22-32); Chloride 101 mmol/L (98-107); Creatine Kinase 26 U/L (30-135); Estimated Glomerular Filt Rate > 60 mL/min (>60); Globulin 2.9 g/dL (1.7-4.1); Glucose 96 mg/dL (80-110); HEMOLYSIS < 15 (0-50); Lipase 95 U/L (23-300); Potassium 4.5 mmol/L (3.4-5.1); Sodium 136 mmol/L (137-145); Total Protein 7.3 g/dL (6.3-8.2)
[2022-12-02 13:07] LABS: NT-proBNP (BNP-Adult 18+) 1310 pg/mL (<450)
[2022-12-02 13:09] LABS: Troponin I < 0.012 ng/mL (0.01-0.034)
--- NOTE | 2022-12-02 13:18 | ED_ITS ---
HPI - Arrhythmia/Palpitations <Yovani Saldivar PA-C - Last Filed: 12/02/22 20:42> General Chief Complaint: Arrhythmia/Palpitations Stated Complaint: AFIB for T-2 not going away Time Seen by Provider: 12/02/22 12:07 Source: patient Mode of arrival: Ambulatory History of Present Illness HPI narrative: 82-year-old female with past medical history atrial fibrillation on Coumadin, CHF, hyperlipidemia, hypothyroid, hyperlipidemia, GERD, RLS presents to the ED with 1 week of intermittent palpitations. Patient states that sometimes, when her heart is beating hard, she feels some left-sided chest pain. Pain does not radiate. Patient also endorses intermittent lightheadedness. Patient denies fever, chills, rhinorrhea, cough, sore throat, shortness of breath, nausea, vomiting, abdominal pain, dysuria, dizziness, syncope. Patient states that she feels like she has been in AFib, states that she came to the ED since she did not feel palpitations for this length of time. Related Data Home Medications Medication Instructions Recorded Confirmed cholecalciferol (vitamin D3) 125 5,000 unit PO DAILY 10/29/18 07/21/22 mcg (5,000 unit) tablet (Vitamin D3) clonazepam 0.5 mg PO BEDTIME PRN Restless 10/29/18 07/21/22 Leg(S) acetaminophen 500 mg capsule 1,000 mg PO DAILY PRN Pain (Scale 07/21/22 07/21/22 Score 4-6) levothyroxine 50 mcg tablet 50 mcg PO DAILY 07/21/22 07/21/22 metoprolol succinate 50 mg 50 mg PO BID 07/21/22 07/21/22 tablet,extended release 24 hr potassium chloride 10 mEq 10 meq PO DAILY 07/21/22 07/21/22 tablet,extended release simvastatin 20 mg tablet 20 mg PO DAILY 07/21/22 07/21/22 furosemide 20 mg tablet 20 mg PO DAILY 07/22/22 07/22/22 Previous Rx's Medication Instructions Recorded acetaminophen 325 mg tablet 650 mg PO Q6HR PRN Fever/Mild Pain 07/24/22 (1-3) #90 tabs furosemide 20 mg tablet 20 mg PO DAILY #30 tabs 07/24/22 lisinopril 5 mg tablet 5 mg PO DAILY #30 tabs 07/24/22 metoprolol tartrate 25 mg tablet 75 mg PO TID #90 tabs 07/24/22 pantoprazole 40 mg tablet,delayed 40 mg PO DAILY #30 tabs 07/24/22 release tramadol 50 mg tablet 50 mg PO BID PRN pain #20 tabs 07/24/22 trazodone 50 mg tablet 25 mg PO BEDTIME PRN sleep #30 tabs 07/24/22 warfarin 1 mg tablet (Jantoven) 3 mg PO DAILY@1700 #30 tabs 07/24/22 hydrocodone 5 mg-acetaminophen 325 1 tab PO Q6H PRN pain #14 tabs 09/02/22 mg tablet Allergies Allergy/AdvReac Type Severity Reaction Status Date / Time Sulfa (Sulfonamide Allergy Severe Anaphylaxis Verified 12/02/22 12:09 Antibiotics) [SULFA (SULFONAMIDE ANTIBIOTICS)] adhesive tape [ADHESIVE TAPE] Allergy Unknown WELTS Verified 12/02/22 12:09 propoxyphene [From Darvon] Allergy Unknown Verified 12/02/22 12:09 Review of Systems <Yovani Saldivar PA-C - Last Filed: 12/02/22 20:42> Review of Systems ROS Unobtainable: All systems reviewed & are unremarkable except as noted in HPI and below Constitutional Constitutional: Denies chills, Denies fatigue, Denies fever(s), Denies frequent falls, Denies lethargy and Denies weakness Eyes Eyes: Denies change in vision, Denies eye discharge, Denies irritation and Denies loss of vision ENT Ears, Nose, Mouth, and Throat: Denies change in voice, Denies dizziness, Denies neck pain, Denies sore throat and Denies throat swelling Cardiovascular Cardiovascular: Reports chest pain, Reports irregular heart rhythm, Reports lightheadedness, Reports palpitations, Denies dyspnea, Denies dyspnea on exertion and Denies orthopnea Respiratory Respiratory: Denies cough, Denies dyspnea, Denies dyspnea on exertion and Denies wheezing Gastrointestinal Gastrointestinal: Denies abdominal pain, Denies change in bowel habits, Denies diarrhea, Denies nausea and Denies vomiting Genitourinary Genitourinary: Denies hematuria, Denies flank pain, Denies urinary incontinence and Denies urinary urgency Musculoskeletal Musculoskeletal: Denies back pain, Denies muscle weakness, Denies neck pain, Denies numbness and Denies tingling Integumentary/Breasts Skin/Breast: Denies pruritus, Denies erythema, Denies rash and Denies wounds Neurologic Neurologic: Denies behavioral changes, Denies confusion, Denies dizziness, Denies frequent falls, Denies loss of vision, Denies numbness, Denies tingling and Denies weakness Psychiatric Psychiatric: Denies anxiety, Denies behavioral changes, Denies confusion, Denies depression, Denies homicidal ideation and Denies suicidal ideation Endocrine Endocrine: Denies fatigue, Denies flushing and Reports palpitations Hematologic/Lymphatic Hematologic/Lymphatic: Denies easy bruising Allergic/Immunologic Allergic/Immunologic: Denies urticaria, Denies throat swelling and Denies wheezing Patient History <Yovani Saldivar PA-C - Last Filed: 12/02/22 20:42> Medical History Atrial fibrillation 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 Surgical History H/O hysterectomy for benign disease S/P hip replacement Total knee replacement status Family History Mother Cancer Father Diabetes mellitus Social History household members: none Smoking Status: Never smoker alcohol intake: current Smoking Status: Never smoker alcohol intake frequency: 0-2 drinks per day Substance Use Type: does not use Exam <Yovani Saldivar PA-C - Last Filed: 12/02/22 20:42> Narrative Exam Narrative: Const General:?cooperative, healthy appearing and comfortable [facility] Head:?normal to inspection Ears:?hearing grossly normal bilaterally Nose:?external nose normal Face and sinus:?normal facial exam and sinuses nontender Mouth:?oral mucosae normal Throat:?posterior oropharynx normal Eyes General:?appearance normal, both eyes and all related structures Neck Neck:?normal visual inspection and no lymphadenopathy noted Resp Effort & Inspection:?normal respiratory effort Auscultation:?clear to auscultation bilaterally Cardio Rate:?regular rate Rhythm:?regular rhythm No leg swelling Neuro General:?patient alert, patient awake and patient oriented x3 Initial Vital Signs Initial Vital Signs: Vital Signs Temperature 98.1 F 12/02/22 11:35 Pulse Rate 64 12/02/22 11:35 Respiratory Rate 17 12/02/22 11:35 Blood Pressure 114/58 L 12/02/22 11:35 Pulse Oximetry 99 12/02/22 11:35 Oxygen Delivery Method Room Air 12/02/22 11:35 <Johnnie Cruz MD - Last Filed: 12/09/22 08:06> Initial Vital Signs Initial Vital Signs: Vital Signs Temperature 98.1 F 12/02/22 11:35 Pulse Rate 64 12/02/22 11:35 Respiratory Rate 17 12/02/22 11:35 Blood Pressure 114/58 L 12/02/22 11:35 Pulse Oximetry 99 12/02/22 11:35 Oxygen Delivery Method Room Air 12/02/22 11:35 Course <Yovani Saldivar PA-C - Last Filed: 12/02/22 20:42> Orders Ordered: Discontinued Medications Sodium Chloride (Normal Saline 0.9%) 1,000 mls @ 500 mls/hr IV BOLUS ONE Stop: 12/02/22 15:40 Last Admin: 12/02/22 13:48 Dose: Not Given Documented By: GO Sodium Chloride (Normal Saline 0.9%) 500 mls @ 1,000 mls/hr IV BOLUS ONE Stop: 12/02/22 14:17 Last Infusion: 12/02/22 14:36 Dose: 0 mls/hr Documented By: Admin: 12/02/22 13:49 Dose: 1,000 mls/hr Documented By: GO Sodium Chloride (Normal Saline 0.9%) 1,000 mls @ 500 mls/hr IV BOLUS ONE Stop: 12/02/22 17:06 Last Infusion: 12/02/22 17:18 Dose: 0 mls/hr Documented By: Admin: 12/02/22 15:56 Dose: 500 mls/hr Documented By: DANA Vital Signs Vital signs: Vital Signs - 8 hr 12/02/22 13:00 12/02/22 13:00 12/02/22 13:30 Pulse Rate 61 Respiratory Rate 21 Blood Pressure 112/59 L 90/51 L Pulse Oximetry 100 Oxygen Delivery Method 12/02/22 13:30 12/02/22 13:38 12/02/22 13:38 Pulse Rate 59 L 64 Respiratory Rate 17 27 H Blood Pressure 92/54 L Pulse Oximetry 99 99 Oxygen Delivery Method 12/02/22 14:00 12/02/22 14:00 12/02/22 14:30 Pulse Rate 89 56 L Respiratory Rate 26 H 18 Blood Pressure 105/53 L Pulse Oximetry 99 Oxygen Delivery Method 12/02/22 14:31 12/02/22 14:31 12/02/22 15:00 Pulse Rate 56 L Respiratory Rate 18 Blood Pressure 106/53 L 97/54 L Pulse Oximetry Oxygen Delivery Method 12/02/22 15:00 12/02/22 15:30 12/02/22 15:57 Pulse Rate 57 L 59 L Respiratory Rate 25 H 17 Blood Pressure 123/56 L Pulse Oximetry Oxygen Delivery Method 12/02/22 15:57 12/02/22 16:00 12/02/22 16:00 Pulse Rate 62 64 Respiratory Rate 13 14 Blood Pressure 144/65 H Pulse Oximetry 99 99 Oxygen Delivery Method Room Air 12/02/22 16:30 12/02/22 16:31 12/02/22 16:31 Pulse Rate 65 85 Respiratory Rate 22 20 Blood Pressure 111/56 L Pulse Oximetry 99 100 Oxygen Delivery Method 12/02/22 17:00 12/02/22 17:00 Pulse Rate 55 L Respiratory Rate 20 Blood Pressure 121/65 Pulse Oximetry 99 Oxygen Delivery Method <Johnnie Cruz MD - Last Filed: 12/09/22 08:06> Orders Ordered: Discontinued Medications Sodium Chloride (Normal Saline 0.9%) 1,000 mls @ 500 mls/hr IV BOLUS ONE Stop: 12/02/22 15:40 Last Admin: 12/02/22 13:48 Dose: Not Given Documented By: GO Sodium Chloride (Normal Saline 0.9%) 500 mls @ 1,000 mls/hr IV BOLUS ONE Stop: 12/02/22 14:17 Last Infusion: 12/02/22 14:36 Dose: 0 mls/hr Documented By: Admin: 12/02/22 13:49 Dose: 1,000 mls/hr Documented By: GO Sodium Chloride (Normal Saline 0.9%) 1,000 mls @ 500 mls/hr IV BOLUS ONE Stop: 12/02/22 17:06 Last Infusion: 12/02/22 17:18 Dose: 0 mls/hr Documented By: Admin: 12/02/22 15:56 Dose: 500 mls/hr Documented By: DANA Vital Signs Vital signs: Vital Signs - 8 hr 12/02/22 13:00 12/02/22 13:00 12/02/22 13:30 Pulse Rate 61 Respiratory Rate 21 Blood Pressure 112/59 L 90/51 L Pulse Oximetry 100 Oxygen Delivery Method 12/02/22 13:30 12/02/22 13:38 12/02/22 13:38 Pulse Rate 59 L 64 Respiratory Rate 17 27 H Blood Pressure 92/54 L Pulse Oximetry 99 99 Oxygen Delivery Method 12/02/22 14:00 12/02/22 14:00 12/02/22 14:30 Pulse Rate 89 56 L Respiratory Rate 26 H 18 Blood Pressure 105/53 L Pulse Oximetry 99 Oxygen Delivery Method 12/02/22 14:31 12/02/22 14:31 12/02/22 15:00 Pulse Rate 56 L Respiratory Rate 18 Blood Pressure 106/53 L 97/54 L Pulse Oximetry Oxygen Delivery Method 12/02/22 15:00 12/02/22 15:30 12/02/22 15:57 Pulse Rate 57 L 59 L Respiratory Rate 25 H 17 Blood Pressure 123/56 L Pulse Oximetry Oxygen Delivery Method 12/02/22 15:57 12/02/22 16:00 12/02/22 16:00 Pulse Rate 62 64 Respiratory Rate 13 14 Blood Pressure 144/65 H Pulse Oximetry 99 99 Oxygen Delivery Method Room Air 12/02/22 16:30 12/02/22 16:31 12/02/22 16:31 Pulse Rate 65 85 Respiratory Rate 22 20 Blood Pressure 111/56 L Pulse Oximetry 99 100 Oxygen Delivery Method 12/02/22 17:00 12/02/22 17:00 Pulse Rate 55 L Respiratory Rate 20 Blood Pressure 121/65 Pulse Oximetry 99 Oxygen Delivery Method MDM - Arrhythmia/Palpitations <Yovani Saldivar PA-C - Last Filed: 12/02/22 20:42> Lab Data 12/02/22 12:33 12/02/22 12:33 Labs: Lab Results 12/02/22 12/02/22 12/02/22 Range/Units 12:33 12:33 12:33 WBC 5.7 (4.5-11.0) X10^3/uL RBC 3.84 L (4.0-5.2) X10^6/uL Hgb 13.1 (12.0-16.0) g/dL Hct 38.0 (36-46) % MCV 98.9 (80-100) fL MCH 34.0 (26-34) PG MCHC 34.4 (30-36) % RDW 14.2 (11.6-14.8) % Plt Count 231 (150-400) X10^3/uL Neut % (Auto) 75.2 H (50-75) % Lymph % (Auto) 14.1 L (25-40) % [place] % (Auto) 9.0 (3-14) % Eos % (Auto) 0.5 L (2-4) % Baso % (Auto) 1.2 (0-2) % Neut # (Auto) 4300 (1462-4888) /uL Lymph # (Auto) 800 L (6800-5281) /uL [place] # (Auto) 500 (0-900) /uL Eos # (Auto) 0 (0-450) /uL Baso # (Auto) 100 (0-100) /uL PT 31.2 H (10.1-12.7) SECONDS INR 2.7 H (0.9-1.3) APTT 42 H (26-36) SECONDS Sodium 136 L (137-145) mmol/L Potassium 4.5 (3.4-5.1) mmol/L Chloride 101 (98-107) mmol/L Carbon Dioxide 27 (22-32) mmol/L BUN 20 H (7-17) mg/dL Creatinine 0.77 (0.52-1.04) mg/dL Estimated GFR > 60 (>60) mL/min BUN/Creatinine Ratio 26.0 H (6-22) Glucose 96 (80-110) mg/dL Calcium 9.2 (8.4-10.2) mg/dL Magnesium 2.0 (1.6-2.3) mg/dL Total Bilirubin 1.1 (0.2-1.3) mg/dL AST 25 (14-36) IU/L ALT 17 (<35) IU/L Alkaline Phosphatase 62 (38-126) U/L Total Creatine Kinase 26 L (30-135) U/L CK-MB (CK-2) TNP CK-MB (CK-2) Rel Index TNP Troponin I < 0.012 (0.01-0.034) ng/mL NT-Pro-B Natriuret Pep (<450) pg/mL Total Protein 7.3 (6.3-8.2) g/dL Albumin 4.4 (3.5-5.0) g/dL Globulin 2.9 (1.7-4.1) g/dL Albumin/Globulin Ratio 1.5 (1.0-2.8) Lipase 95 (23-300) U/L TSH (0.47-4.68) uIU/mL 12/02/22 12/02/22 12/02/22 Range/Units 12:33 12:33 14:20 WBC (4.5-11.0) X10^3/uL RBC (4.0-5.2) X10^6/uL Hgb (12.0-16.0) g/dL Hct (36-46) % MCV (80-100) fL MCH (26-34) PG MCHC (30-36) % RDW (11.6-14.8) % Plt Count (150-400) X10^3/uL Neut % (Auto) (50-75) % Lymph % (Auto) (25-40) % [place] % (Auto) (3-14) % Eos % (Auto) (2-4) % Baso % (Auto) (0-2) % Neut # (Auto) (9852-0268) /uL Lymph # (Auto) (8484-6065) /uL [place] # (Auto) (0-900) /uL Eos # (Auto) (0-450) /uL Baso # (Auto) (0-100) /uL PT (10.1-12.7) SECONDS INR (0.9-1.3) APTT (26-36) SECONDS Sodium (137-145) mmol/L Potassium (3.4-5.1) mmol/L Chloride (98-107) mmol/L Carbon Dioxide (22-32) mmol/L BUN (7-17) mg/dL Creatinine (0.52-1.04) mg/dL Estimated GFR (>60) mL/min BUN/Creatinine Ratio (6-22) Glucose (80-110) mg/dL Calcium (8.4-10.2) mg/dL Magnesium (1.6-2.3) mg/dL Total Bilirubin (0.2-1.3) mg/dL AST (14-36) IU/L ALT (<35) IU/L Alkaline Phosphatase (38-126) U/L Total Creatine Kinase 25 L (30-135) U/L CK-MB (CK-2) TNP CK-MB (CK-2) Rel Index TNP Troponin I < 0.012 (0.01-0.034) ng/mL NT-Pro-B Natriuret Pep 1310 H (<450) pg/mL Total Protein (6.3-8.2) g/dL Albumin (3.5-5.0) g/dL Globulin (1.7-4.1) g/dL Albumin/Globulin Ratio (1.0-2.8) Lipase (23-300) U/L TSH 1.87 (0.47-4.68) uIU/mL MDM Narrative Medical decision making narrative: 82-year-old female with past medical history atrial fibrillation on Coumadin, CH F, hyperlipidemia, hypothyroid, hyperlipidemia, GERD, RLS presents to the ED with 1 week of intermittent palpitations. Concern for ACS versus CHF exacerbation versus thyroid derangements versus metabolic derangements versus dehydration versus other. Will obtain EKG, chest x-ray, labs, troponin, BNP, TSH, coags. Regular rate and rhythm on exam, patient endorses still feeling palpitations during the exam. Will reassess. Chest x-ray, EKG, labs, troponin x2 within normal limits. Patient stayed in sinus rhythm through the ED stay. Patient was stable. Patient's blood pressures tended to be somewhat soft in the 90s over 50s. Patient was given 1 L IV saline bolus, with good improvement in blood pressure to 121/65. Discussed findings with patient. Recommend follow-up with Cardiology. ED return precautions were discussed with patient. Patient verbalized understanding. Medical records reviewed: Yes <Johnnie Cruz MD - Last Filed: 12/09/22 08:06> Lab Data Labs: Lab Results 12/02/22 12/02/22 12/02/22 Range/Units 12:33 12:33 12:33 WBC 5.7 (4.5-11.0) X10^3/uL RBC 3.84 L (4.0-5.2) X10^6/uL Hgb 13.1 (12.0-16.0) g/dL Hct 38.0 (36-46) % MCV 98.9 (80-100) fL MCH 34.0 (26-34) PG MCHC 34.4 (30-36) % RDW 14.2 (11.6-14.8) % Plt Count 231 (150-400) X10^3/uL Neut % (Auto) 75.2 H (50-75) % Lymph % (Auto) 14.1 L (25-40) % [place] % (Auto) 9.0 (3-14) % Eos % (Auto) 0.5 L (2-4) % Baso % (Auto) 1.2 (0-2) % Neut # (Auto) 4300 (8720-1105) /uL Lymph # (Auto) 800 L (6375-7724) /uL [place] # (Auto) 500 (0-900) /uL Eos # (Auto) 0 (0-450) /uL Baso # (Auto) 100 (0-100) /uL PT 31.2 H (10.1-12.7) SECONDS INR 2.7 H (0.9-1.3) APTT 42 H (26-36) SECONDS Sodium 136 L (137-145) mmol/L Potassium 4.5 (3.4-5.1) mmol/L Chloride 101 (98-107) mmol/L Carbon Dioxide 27 (22-32) mmol/L BUN 20 H (7-17) mg/dL Creatinine 0.77 (0.52-1.04) mg/dL Estimated GFR > 60 (>60) mL/min BUN/Creatinine Ratio 26.0 H (6-22) Glucose 96 (80-110) mg/dL Calcium 9.2 (8.4-10.2) mg/dL Magnesium 2.0 (1.6-2.3) mg/dL Total Bilirubin 1.1 (0.2-1.3) mg/dL AST 25 (14-36) IU/L ALT 17 (<35) IU/L Alkaline Phosphatase 62 (38-126) U/L Total Creatine Kinase 26 L (30-135) U/L CK-MB (CK-2) TNP CK-MB (CK-2) Rel Index TNP Troponin I < 0.012 (0.01-0.034) ng/mL NT-Pro-B Natriuret Pep (<450) pg/mL Total Protein 7.3 (6.3-8.2) g/dL Albumin 4.4 (3.5-5.0) g/dL Globulin 2.9 (1.7-4.1) g/dL Albumin/Globulin Ratio 1.5 (1.0-2.8) Lipase 95 (23-300) U/L TSH (0.47-4.68) uIU/mL 12/02/22 12/02/22 12/02/22 Range/Units 12:33 12:33 14:20 WBC (4.5-11.0) X10^3/uL RBC (4.0-5.2) X10^6/uL Hgb (12.0-16.0) g/dL Hct (36-46) % MCV (80-100) fL MCH (26-34) PG MCHC (30-36) % RDW (11.6-14.8) % Plt Count (150-400) X10^3/uL Neut % (Auto) (50-75) % Lymph % (Auto) (25-40) % [place] % (Auto) (3-14) % Eos % (Auto) (2-4) % Baso % (Auto) (0-2) % Neut # (Auto) (7731-2837) /uL Lymph # (Auto) (9185-8502) /uL [place] # (Auto) (0-900) /uL Eos # (Auto) (0-450) /uL Baso # (Auto) (0-100) /uL PT (10.1-12.7) SECONDS INR (0.9-1.3) APTT (26-36) SECONDS Sodium (137-145) mmol/L Potassium (3.4-5.1) mmol/L Chloride (98-107) mmol/L Carbon Dioxide (22-32) mmol/L BUN (7-17) mg/dL Creatinine (0.52-1.04) mg/dL Estimated GFR (>60) mL/min BUN/Creatinine Ratio (6-22) Glucose (80-110) mg/dL Calcium (8.4-10.2) mg/dL Magnesium (1.6-2.3) mg/dL Total Bilirubin (0.2-1.3) mg/dL AST (14-36) IU/L ALT (<35) IU/L Alkaline Phosphatase (38-126) U/L Total Creatine Kinase 25 L (30-135) U/L CK-MB (CK-2) TNP CK-MB (CK-2) Rel Index TNP Troponin I < 0.012 (0.01-0.034) ng/mL NT-Pro-B Natriuret Pep 1310 H (<450) pg/mL Total Protein (6.3-8.2) g/dL Albumin (3.5-5.0) g/dL Globulin (1.7-4.1) g/dL Albumin/Globulin Ratio (1.0-2.8) Lipase (23-300) U/L TSH 1.87 (0.47-4.68) uIU/mL Discharge Plan Departure Patient Disposition: Home Clinical Impression: Palpitations Instructions: DI for Atrial Fibrillation, DI for Palpitations Activity Restrictions/Additional Instructions: You were evaluated in the ED today for palpitations. Your chest x-ray, EKG, labs were normal. You were given some IV fluids since your blood pressure was on the low side. Your blood pressure improved with the IV fluids. It is possible that your palpitations could be caused from dehydration, so please ensure that you are drinking enough water at home. Please follow-up with your poultry veterinarian Dr. Wilson as soon as possible for further evaluation. Please return to the ED if your symptoms worsen, you experience chest pain, shortness of breath. Prescriptions: No Action simvastatin 20 mg tablet 20 mg PO DAILY metoprolol succinate 50 mg tablet extended release 24 hr 50 mg PO BID Rx Instructions: pt is unsure of doses levothyroxine 50 mcg tablet 50 mcg PO DAILY potassium chloride 10 mEq tablet extended release 10 meq PO DAILY acetaminophen 500 mg Capsule 1,000 mg PO DAILY PRN (Reason: Pain (Scale Score 4-6)) furosemide 20 mg Tablet 20 mg PO DAILY Patient Comments: pt takes PRN, not every day tramadol 50 mg Tablet 50 mg PO BID PRN (Reason: pain) Qty: 20 0RF pantoprazole 40 mg Tablet,Delayed Release (Dr/Ec) 40 mg PO DAILY Qty: 30 0RF lisinopril 5 mg Tablet 5 mg PO DAILY Qty: 30 0RF furosemide 20 mg Tablet 20 mg PO DAILY Qty: 30 0RF warfarin [Jantoven] 1 mg Tablet 3 mg PO DAILY@1700 Qty: 30 0RF metoprolol tartrate 25 mg Tablet 75 mg PO TID Qty: 90 0RF trazodone 50 mg tablet 25 mg PO BEDTIME PRN (Reason: sleep) Qty: 30 0RF acetaminophen 325 mg Tablet 650 mg PO Q6HR PRN (Reason: Fever/Mild Pain (1-3)) Qty: 90 0RF hydrocodone-acetaminophen 5-325 mg tablet 1 tab PO Q6H PRN (Reason: pain) Qty: 14 0RF cholecalciferol (vitamin D3) [Vitamin D3] 125 mcg (5,000 unit) Tablet 5,000 unit PO DAILY clonazepam 0.5 mg 0.5 mg PO BEDTIME PRN (Reason: Restless Leg(S)) Referrals: Rosette Grey, PARachaelC [Primary Care Provider] - Stand Alone Forms: Patient Portal/API <Johnnie Cruz MD - Last Filed: 12/09/22 08:06> [facility]ie Attestation: I was immediately available in the department for consultation. ?This documentation has been reviewed and I agree with assessment and plan. Supervised by Johnnie Cruz MD
[2022-12-02 13:33] LABS: TSH w/ Reflex to FT4 1.87 uIU/mL (0.47-4.68)
[2022-12-02] MEDS: SODIUM CHLORIDE 0.9% 500 ML 1000 ML IV (13:49)
[2022-12-02 14:36] LABS: Creatine Kinase 25 U/L (30-135)
[2022-12-02 14:48] LABS: Troponin I < 0.012 ng/mL (0.01-0.034)
[2022-12-02] MEDS: SODIUM CHLORIDE 0.9% 1,000 ML 500 ML IV (15:56)
== END 2022-12-02 17:25 | disposition home or self-care (01) ==
PROVIDERS: Emergency Provider Student in an Organized Health Care Education/Training Program; PCP Student in an Organized Health Care Education/Training Program
DX: R00.2 Palpitations (principal); R07.9 Chest pain, unspecified; I48.91 Unspecified atrial fibrillation; Z79.01 Long term (current) use of anticoagulants
CPT/HCPCS: 36415; 71045; 80053; 82550; 83690; 83735; 83880; 84443; 84484; 85025; 85610; 85730; 93005; 99284

== ENCOUNTER → 2023-01-26 13:57 | Outpatient (CLI) | payer MEDICARE, SELFPAY ==
[2022-07-21 22:04] VITALS: BMI 28.3
[2023-01-26 14:52] LABS: Alanine Aminotransferase 17 IU/L (<35); Albumin 4.4 g/dL (3.5-5.0); Albumin Globulin Ratio 1.7 (1.0-2.8); Alkaline Phosphatase 53 U/L (38-126); Aspartate Aminotransferase 25 IU/L (14-36); BUN Creatinine Ratio 33.8 (6-22); Bilirubin Total 0.9 mg/dL (0.2-1.3); Blood Urea Nitrogen 25 mg/dL (7-17); Calcium 9.3 mg/dL (8.4-10.2); Carbon Dioxide 26 mmol/L (22-32); Chloride 101 mmol/L (98-107); Estimated Glomerular Filt Rate > 60 mL/min (>60); Globulin 2.6 g/dL (1.7-4.1); Glucose 87 mg/dL (80-110); HEMOLYSIS < 15 (0-50); Potassium 4.7 mmol/L (3.4-5.1); Sodium 133 mmol/L (137-145)
[2023-01-26 15:20] LABS: Thyroid Stimulating Hormone 2.13 uIU/mL (0.47-4.68)
== END ==
PROVIDERS: PCP Student in an Organized Health Care Education/Training Program; Referring Provider Internal Medicine Cardiovascular Disease; Visit Provider Internal Medicine Cardiovascular Disease
DX: Z79.899 Other long term (current) drug therapy (principal)
CPT/HCPCS: 36415; 80053; 84443

== ENCOUNTER → 2023-02-25 11:14 | Outpatient (CLI) | payer MEDICARE, SELFPAY ==
[2022-07-21 22:04] VITALS: BMI 28.3
--- NOTE | 2023-02-25 | DI.MG.S_ITS ---
BILATERAL DIGITAL SCREENING MAMMOGRAM 3D/2D WITH CAD: 02/25/2023 CLINICAL: Routine screening. Family history of breast cancer. Comparison is made to exams dated: 02/14/2022 mammogram, 02/13/2021 mammogram, 10/04/2019 mammogram, and 09/03/2018 mammogram - [facility]. There are scattered areas of fibroglandular density in both breasts (category b / 25%-50% glandular tissue). Current study was also evaluated with a Computer Aided Detection (CAD) system. There are benign calcifications in both breasts. There also are benign vascular calcifications in the left breast. Additionally, there are benign post operative findings in the left breast. No significant masses, calcifications, or other findings are seen in either breast. There has been no significant interval change. IMPRESSION: BENIGN There is no mammographic evidence of malignancy. A 1 year screening mammogram is recommended. Based on the Tyrer Cuzick model (a risk assessment model) the patient's lifetime risk is 1.2% and her 10 year risk is 0.0%. According to the ACR, ACS, and NCCN guidelines, an annual breast MRI exam along with mammogram is recommended if the patient's lifetime risk is 20% or greater. This exam was interpreted at Station ID: [id number]. NOTE: For mammograms, a report in lay terms will be sent to the patient. Approximately 15% of breast malignancies will not be visualized mammographically. In the management of a palpable breast mass, a negative mammogram must not discourage biopsy of a clinically suspicious lesion. Electronically Signed By: Kamron cole/marielle:02/25/2023 13:25:21 letter sent: Normal Exam ACR BI-RADS Category 2: Benign Finding(s) [id number]
== END ==
PROVIDERS: PCP Student in an Organized Health Care Education/Training Program; Referring Provider Student in an Organized Health Care Education/Training Program; Visit Provider Student in an Organized Health Care Education/Training Program
DX: Z12.31 Encounter for screening mammogram for malignant neoplasm of breast (principal); Z80.3 Family history of malignant neoplasm of breast
CPT/HCPCS: 77063; 77067

== ENCOUNTER 2023-06-16 17:13 | Emergency (ER) | payer MEDICARE, SELFPAY ==
[2022-07-21 22:04] VITALS: BMI 28.3
[2023-06-16 17:21] VITALS: BP 139/76; PULSE 71; RESP 18; TEMP 36.7; O2SAT 99; BMI 23.1
--- NOTE | 2023-06-16 18:17 | ED_ITS ---
HPI - Fall General Chief Complaint: Fall Stated Complaint: bilateral hand injuries s/p fall Time Seen by Provider: 06/16/23 18:17 Source: patient Mode of arrival: Ambulatory History of Present Illness HPI Narrative: 82F nonsmoker with history of Afib on anticoagulation presents for evaluation of bilateral hand injury. She had a purely mechanical fall in which her feet got caught up in her per stretch and fell forward injuring her hands with superficial skin tears only. She denies prodromal symptoms such as dizziness, weakness or lightheadedness. She has no chest pain or shortness of breath. She denies any nausea, vomiting or diarrhea. She absolutely denies any head injury nor any neck or back pain. She denies any loss of consciousness, nausea or vomiting. She denies any blurred vision or trouble speech. She denies any neck pain. She denies extremity pain other than superficial skin tears on bilateral hands Related Data Home Medications Medication Instructions Recorded Confirmed cholecalciferol (vitamin D3) 125 5,000 unit PO DAILY 10/29/18 07/21/22 mcg (5,000 unit) tablet (Vitamin D3) clonazepam 0.5 mg PO BEDTIME PRN Restless 10/29/18 07/21/22 Leg(S) acetaminophen 500 mg capsule 1,000 mg PO DAILY PRN Pain (Scale 07/21/22 07/21/22 Score 4-6) levothyroxine 50 mcg tablet 50 mcg PO DAILY 07/21/22 07/21/22 metoprolol succinate 50 mg 50 mg PO BID 07/21/22 07/21/22 tablet,extended release 24 hr potassium chloride 10 mEq 10 meq PO DAILY 07/21/22 07/21/22 tablet,extended release simvastatin 20 mg tablet 20 mg PO DAILY 07/21/22 07/21/22 furosemide 20 mg tablet 20 mg PO DAILY 07/22/22 07/22/22 Previous Rx's Medication Instructions Recorded acetaminophen 325 mg tablet 650 mg PO Q6HR PRN Fever/Mild Pain 07/24/22 (1-3) #90 tabs furosemide 20 mg tablet 20 mg PO DAILY #30 tabs 07/24/22 lisinopril 5 mg tablet 5 mg PO DAILY #30 tabs 07/24/22 metoprolol tartrate 25 mg tablet 75 mg PO TID #90 tabs 07/24/22 pantoprazole 40 mg tablet,delayed 40 mg PO DAILY #30 tabs 07/24/22 release tramadol 50 mg tablet 50 mg PO BID PRN pain #20 tabs 07/24/22 trazodone 50 mg tablet 25 mg PO BEDTIME PRN sleep #30 tabs 07/24/22 warfarin 1 mg tablet (Jantoven) 3 mg PO DAILY@1700 #30 tabs 07/24/22 hydrocodone 5 mg-acetaminophen 325 1 tab PO Q6H PRN pain #14 tabs 09/02/22 mg tablet Allergies Allergy/AdvReac Type Severity Reaction Status Date / Time Sulfa (Sulfonamide Allergy Severe Anaphylaxis Verified 06/16/23 17:26 Antibiotics) [SULFA (SULFONAMIDE ANTIBIOTICS)] adhesive tape [ADHESIVE TAPE] Allergy Unknown WELTS Verified 06/16/23 17:26 propoxyphene [From Darvon] Allergy Unknown Verified 06/16/23 17:26 zolpidem [From Ambien] AdvReac Severe Hallucinati Verified 06/16/23 17:26 ng Review of Systems Review of Systems Narrative: GENERAL: Denies chills, fatigue, malaise, fever, sweats. HEENT: Denies sinus pain, ear pain, sore throat, difficulty swallowing, dizziness. RESPIRATORY: Denies dyspnea, cough, wheezing, hemoptysis, sputum. CARDIOVASCULAR: Denies chest pain, palpitations, orthopnea, edema, GASTROINTESTINAL: Denies nausea, vomiting, abdominal pain, diarrhea, constipation, melena. : Denies dysuria, frequency, incontinence, hematuria, urinary retention. MUSCULOSKELETAL: denies weakness, joint pain, or bony pain SKIN: See HPI NEUROLOGIC: Denies weakness, headache, numbness, change in speech, confusion, seizures, incoordination. PSYCHIATRIC: No concerning psychosocial issues. 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 Well-developed patient, in mild distress. GCS 15 HEAD: Very small area of ecchymosis with superficial abrasion adjacent to right eye over zygoma, no other contusion, abrasion or laceration on her head, no evidence of depressed skull fracture EYES: Pupils equal round and reactive. No hyphema Extraocular motions intact. No scleral icterus. No injection or drainage. ENT: Nose without bleeding, purulent drainage. No nasal septal hematoma or hemotympanum Throat without erythema, tonsillar hypertrophy or exudate. Airway patent. NECK: Trachea midline. Non tender CARDIOVASCULAR: Regular rate and rhythm without murmurs, gallops, or rubs. RESPIRATORY: Clear to auscultation. Breath sounds equal bilaterally. No wheezes, rales, or rhonchi. GASTROINTESTINAL: Abdomen soft, non-tender, nondistended. EXTREMITIES: Full painless range of motion of bilateral upper and lower extremities, multiple superficial abrasions on bilateral hands, none with a depth or severity requiring sutures, wound repair and attention by nursing with Steri-Strips BACK: Nontender without deformity or crepitance. No flank tenderness. NEURO: AOx3. SKIN: No rash or erythema of visible areas Initial Vital Signs Initial Vital Signs: Vital Signs Temperature 98.1 F 06/16/23 17:21 Pulse Rate 71 06/16/23 17:21 Respiratory Rate 18 06/16/23 17:21 Blood Pressure 139/76 06/16/23 17:21 Pulse Oximetry 99 06/16/23 17:21 Oxygen Delivery Method Room Air 06/16/23 17:21 Course Orders Ordered: ED Orders 06/16/23 19:34 CT head/brain wo con Stat Vital Signs Vital signs: Vital Signs - 8 hr 06/16/23 21:20 Pulse Rate 66 Respiratory Rate 18 Blood Pressure 121/57 L Pulse Oximetry 100 Oxygen Delivery Method Room Air MDM - Fall MDM Narrative Medical decision making narrative: [82] year old patient presents with multiple superficial skin tear Multiple etiologies for patient's symptoms considered including, but not limited to: [Intracranial hemorrhage versus other] Prior Charts reviewed in our EMR Primary Historian: patient Imaging reviewed: CT of head without acute findings Patient's symptoms improved over duration of stay with above-stated therapies. Findings and discharge diagnosis discussed with patient/family followed by verbalization of understanding Return precautions discussed with patient/family whom verbalize understanding of diagnosis and plan Discharge Plan Departure Patient Disposition: Home Clinical Impression: Skin tear of right upper extremity, Skin tear of left hand without complication Instructions: How to Prevent Falls Activity Restrictions/Additional Instructions: *You have been diagnosed with [minor skin tears, as] we discussed the CT of your head was unremarkable and you have no evidence of bleeding in your brain or fracture *What to do: *Please continue to take your regular medications as directed. [ ] New medication prescriptions sent to your pharmacy: [ ] [ ] New medication written as a paper prescription [ ] No new medications given *Please follow up with your primary care provider in 2-3 days, call for an appointment. Let them know you were seen in the Emergency Department and that we ask that you be seen in follow up. We will electronically transmit a record of today's note if your PCP is in our system *If you do not have a primary care provider please contact the [facility] Resource line at [phone]. They will ask some questions about your medical history and help get you set up with a doctor in the community. *Return to Emergency Department if you should have any new, worsening or concerning symptoms, such as [fever greater than 101 F, shaking chills, worsening pain, persistent vomiting or other bothersome symptoms] Prescriptions: No Action simvastatin 20 mg tablet 20 mg PO DAILY metoprolol succinate 50 mg tablet extended release 24 hr 50 mg PO BID Rx Instructions: pt is unsure of doses levothyroxine 50 mcg tablet 50 mcg PO DAILY potassium chloride 10 mEq tablet extended release 10 meq PO DAILY acetaminophen 500 mg Capsule 1,000 mg PO DAILY PRN (Reason: Pain (Scale Score 4-6)) furosemide 20 mg Tablet 20 mg PO DAILY Patient Comments: pt takes PRN, not every day tramadol 50 mg Tablet 50 mg PO BID PRN (Reason: pain) Qty: 20 0RF pantoprazole 40 mg Tablet,Delayed Release (Dr/Ec) 40 mg PO DAILY Qty: 30 0RF lisinopril 5 mg Tablet 5 mg PO DAILY Qty: 30 0RF furosemide 20 mg Tablet 20 mg PO DAILY Qty: 30 0RF warfarin [Octtoven] 1 mg Tablet 3 mg PO DAILY@1700 Qty: 30 0RF metoprolol tartrate 25 mg Tablet 75 mg PO TID Qty: 90 0RF trazodone 50 mg tablet 25 mg PO BEDTIME PRN (Reason: sleep) Qty: 30 0RF acetaminophen 325 mg Tablet 650 mg PO Q6HR PRN (Reason: Fever/Mild Pain (1-3)) Qty: 90 0RF hydrocodone-acetaminophen 5-325 mg tablet 1 tab PO Q6H PRN (Reason: pain) Qty: 14 0RF cholecalciferol (vitamin D3) [Vitamin D3] 125 mcg (5,000 unit) Tablet 5,000 unit PO DAILY clonazepam 0.5 mg 0.5 mg PO BEDTIME PRN (Reason: Restless Leg(S)) Referrals: Rosette Grey PA-C [Primary Care Provider] - Stand Alone Forms: Patient Portal/API
--- NOTE | 2023-06-16 19:34 | DI.CT.S_ITS ---
PROCEDURE: CT HEAD/BRAIN WO CON INDICATIONS: fall, minor head injury, on anticoagulant TECHNIQUE: Noncontrast 4.5 mm thick angled axial sections acquired from the foramen magnum to the vertex, with coronal and sagittal reformats. For radiation dose reduction, the following was used: automated exposure control, adjustment of mA and/or kV according to patient size. COMPARISON: [facility], CT, CT HEAD/BRAIN WO CON, 09/02/2022, 14:01. FINDINGS: Image quality: Excellent. CSF spaces: Basal cisterns are patent. No extra-axial fluid collections. There is moderate cerebral volume loss, with resultant ventricular and sulcal prominence. Brain: No intracranial hemorrhage, mass, or mass effect. There are subcortical, periventricular and deep white matter hypodensities consistent with mild chronic small vessel ischemic changes. The bagley-white matter junction appears preserved. There is intracranial internal carotid artery atherosclerosis. Skull and face: Calvarium and visualized facial bones appear intact, without suspicious lesions. Sinuses: Visualized sinuses and mastoids are clear. IMPRESSION: 1. No acute intracranial abnormality. Dictated by: Danilo Friend M.D. on 06/16/2023 at 20:20 Approved by: Danilo Friend M.D. on 06/16/2023 at 20:21
[2023-06-16 21:20] VITALS: BP 121/57; PULSE 66; RESP 18; O2SAT 100
== END 2023-06-16 21:26 | disposition home or self-care (01) ==
PROVIDERS: Emergency Provider Emergency Medicine; PCP Student in an Organized Health Care Education/Training Program
DX: S61.412A Laceration without foreign body of left hand, initial encounter (principal); S61.411A Laceration without foreign body of right hand, initial encounter; S09.90XA Unspecified injury of head, initial encounter; W18.30XA Fall on same level, unspecified, initial encounter; Z79.01 Long term (current) use of anticoagulants
CPT/HCPCS: 70450; 99283; 99284

== ENCOUNTER → 2023-07-03 10:20 | Outpatient (CLI) | payer MEDICARE, SELFPAY ==
[2022-07-21 22:04] VITALS: BMI 28.3
[2023-07-03 10:52] LABS: Add Manual Diff / Slide Review NO; Basophils Absolute Auto 100 /uL (0-100); Basophils Percent Auto 1.3 % (0-2); Eosinophils Absolute Auto 100 /uL (0-450); Eosinophils Percent Auto 2.1 % (2-4); Hemoglobin 12.3 g/dL (12.0-16.0); Lymphocytes Absolute Auto 1100 /uL (1100-4500); Lymphocytes Percent Auto 24.1 % (25-40); Mean Corpuscular HGB Conc 34.1 % (30-36); Mean Corpuscular Hemoglobin 34.2 PG (26-34); Mean Corpuscular Volume 100.5 fL (80-100); Monocytes Absolute Auto 500 /uL (0-900); Neutrophils Absolute Auto 2800 /uL (1500-7000); Neutrophils Percent Auto 61.5 % (50-75); Platelet Count 210 X10^3/uL (150-400); Red Blood Cell Count 3.58 X10^6/uL (4.0-5.2); Red Cell Distribution Width 13.5 % (11.6-14.8); White Blood Cell Count 4.5 X10^3/uL (4.5-11.0)
[2023-07-03 11:01] LABS: Alanine Aminotransferase 20 IU/L (<35); Albumin 4.5 g/dL (3.5-5.0); Albumin Globulin Ratio 1.7 (1.0-2.8); Alkaline Phosphatase 48 U/L (38-126); Aspartate Aminotransferase 26 IU/L (14-36); BUN Creatinine Ratio 29.5 (6-22); Bilirubin Total 0.9 mg/dL (0.2-1.3); Blood Urea Nitrogen 23 mg/dL (7-17); Calcium 9.9 mg/dL (8.4-10.2); Carbon Dioxide 28 mmol/L (22-32); Chloride 104 mmol/L (98-107); Estimated Glomerular Filt Rate > 60 mL/min (>60); Globulin 2.7 g/dL (1.7-4.1); Glucose 82 mg/dL (80-110); HEMOLYSIS < 15 (0-50); Sodium 138 mmol/L (137-145); Total Protein 7.2 g/dL (6.3-8.2)
[2023-07-03 11:07] LABS: INR 1.8 (0.9-1.3); Prothrombin Time 20.6 SECONDS (10.1-12.7)
[2023-07-03 11:30] LABS: Thyroid Stimulating Hormone 2.04 uIU/mL (0.47-4.68)
== END ==
PROVIDERS: PCP Student in an Organized Health Care Education/Training Program; Referring Provider Internal Medicine Cardiovascular Disease; Visit Provider Internal Medicine Cardiovascular Disease
DX: I48.0 Paroxysmal atrial fibrillation (principal); Z79.899 Other long term (current) drug therapy
CPT/HCPCS: 36415; 80053; 84443; 85025; 85610

== ENCOUNTER → 2023-08-11 10:49 | Outpatient (CLI) | payer MEDICARE, SELFPAY ==
[2022-07-21 22:04] VITALS: BMI 28.3
== END ==
PROVIDERS: PCP Student in an Organized Health Care Education/Training Program; Referring Provider Internal Medicine Cardiovascular Disease; Visit Provider Internal Medicine Cardiovascular Disease
DX: J98.8 Other specified respiratory disorders (principal); Z79.899 Other long term (current) drug therapy
CPT/HCPCS: 94060; 94726; 94729

== ENCOUNTER → 2023-10-30 13:58 | Outpatient (CLI) | payer MEDICARE, SELFPAY ==
[2022-07-21 22:04] VITALS: BMI 28.3
[2023-10-30 14:39] LABS: Add Manual Diff / Slide Review NO; Basophils Absolute Auto 100 /uL (0-100); Basophils Percent Auto 1.2 % (0-2); Eosinophils Absolute Auto 0 /uL (0-450); Eosinophils Percent Auto 0.5 % (2-4); Hematocrit 42.6 % (36-46); Hemoglobin 14.2 g/dL (12.0-16.0); Lymphocytes Absolute Auto 1200 /uL (1100-4500); Lymphocytes Percent Auto 21.1 % (25-40); Mean Corpuscular HGB Conc 33.3 % (30-36); Mean Corpuscular Hemoglobin 32.9 PG (26-34); Mean Corpuscular Volume 98.9 fL (80-100); Monocytes Absolute Auto 500 /uL (0-900); Monocytes Percent Auto 8.8 % (3-14); Neutrophils Absolute Auto 3700 /uL (1500-7000); Neutrophils Percent Auto 68.4 % (50-75); Platelet Count 203 X10^3/uL (150-400); Red Blood Cell Count 4.31 X10^6/uL (4.0-5.2); Red Cell Distribution Width 15.3 % (11.6-14.8); White Blood Cell Count 5.5 X10^3/uL (4.5-11.0)
[2023-10-30 15:17] LABS: Alanine Aminotransferase 21 IU/L (<35); Albumin 4.2 g/dL (3.5-5.0); Albumin Globulin Ratio 1.6 (1.0-2.8); Alkaline Phosphatase 61 U/L (38-126); Aspartate Aminotransferase 31 IU/L (14-36); BUN Creatinine Ratio 34.2 (6-22); Bilirubin Total 1.7 mg/dL (0.2-1.3); Blood Urea Nitrogen 38 mg/dL (7-17); Calcium 9.3 mg/dL (8.4-10.2); Carbon Dioxide 27 mmol/L (22-32); Chloride 102 mmol/L (98-107); Estimated Glomerular Filt Rate 50 mL/min (>60); Globulin 2.7 g/dL (1.7-4.1); Glucose 105 mg/dL (80-110); HEMOLYSIS < 15 (0-50); Potassium 4.5 mmol/L (3.4-5.1); Sodium 136 mmol/L (137-145); Total Protein 6.9 g/dL (6.3-8.2)
== END ==
PROVIDERS: PCP Student in an Organized Health Care Education/Training Program; Referring Provider Physician Assistant Medical; Visit Provider Physician Assistant Medical
DX: I48.20 Chronic atrial fibrillation, unspecified (principal); Z79.899 Other long term (current) drug therapy
CPT/HCPCS: 36415; 80053; 84443; 85025

== ENCOUNTER → 2023-11-19 14:48 | Outpatient (CLI) | payer MEDICARE, SELFPAY ==
[2022-07-21 22:04] VITALS: BMI 28.3
[2023-11-19 15:30] LABS: Add Manual Diff / Slide Review NO; Basophils Absolute Auto 100 /uL (0-100); Basophils Percent Auto 1.4 % (0-2); Eosinophils Absolute Auto 100 /uL (0-450); Eosinophils Percent Auto 1.2 % (2-4); Hematocrit 42.3 % (36-46); Hemoglobin 14.2 g/dL (12.0-16.0); Lymphocytes Absolute Auto 1000 /uL (1100-4500); Lymphocytes Percent Auto 18.7 % (25-40); Mean Corpuscular HGB Conc 33.6 % (30-36); Mean Corpuscular Volume 98.4 fL (80-100); Monocytes Absolute Auto 500 /uL (0-900); Monocytes Percent Auto 9.2 % (3-14); Neutrophils Absolute Auto 3700 /uL (1500-7000); Neutrophils Percent Auto 69.5 % (50-75); Platelet Count 153 X10^3/uL (150-400); Red Cell Distribution Width 17.4 % (11.6-14.8); White Blood Cell Count 5.4 X10^3/uL (4.5-11.0)
[2023-11-19 16:03] LABS: BUN Creatinine Ratio 32.2 (6-22); Blood Urea Nitrogen 38 mg/dL (7-17); Calcium 9.2 mg/dL (8.4-10.2); Carbon Dioxide 26 mmol/L (22-32); Chloride 104 mmol/L (98-107); Estimated Glomerular Filt Rate 46 mL/min (>60); Glucose 92 mg/dL (80-110); HEMOLYSIS < 15 (0-50); Potassium 4.5 mmol/L (3.4-5.1); Sodium 138 mmol/L (137-145)
== END ==
LOC: LAB 14:50
PROVIDERS: PCP Student in an Organized Health Care Education/Training Program; Referring Provider Physician Assistant Medical; Visit Provider Physician Assistant Medical
DX: I48.20 Chronic atrial fibrillation, unspecified (principal)
CPT/HCPCS: 36415; 80048; 85025

== ENCOUNTER → 2024-01-26 12:02 | Outpatient (CLI) | payer MEDICARE, SELFPAY ==
[2022-07-21 22:04] VITALS: BMI 28.3
[2024-01-26 13:44] LABS: BUN Creatinine Ratio 42.7 (6-22); Blood Urea Nitrogen 32 mg/dL (7-17); Calcium 9.8 mg/dL (8.4-10.2); Carbon Dioxide 30 mmol/L (22-32); Chloride 104 mmol/L (98-107); Estimated Glomerular Filt Rate > 60 mL/min (>60); Glucose 87 mg/dL (80-110); HEMOLYSIS < 15 (0-50); Potassium 4.8 mmol/L (3.4-5.1); Sodium 139 mmol/L (137-145)
== END ==
LOC: LAB 12:05
PROVIDERS: PCP Student in an Organized Health Care Education/Training Program; Referring Provider Internal Medicine Cardiovascular Disease; Visit Provider Internal Medicine Cardiovascular Disease
DX: I10 Essential (primary) hypertension (principal)
CPT/HCPCS: 36415; 80048

== ENCOUNTER → 2024-03-03 10:39 | Outpatient (CLI) | payer MEDICARE, SELFPAY ==
[2022-07-21 22:04] VITALS: BMI 28.3
--- NOTE | 2024-03-03 10:41 | DI.MG.S_ITS ---
BILATERAL DIGITAL SCREENING MAMMOGRAM 3D/2D WITH CAD: 03/03/2024 CLINICAL: Routine screening. Family history of breast cancer. Comparison is made to exams dated: 02/25/2023 mammogram, 02/14/2022 mammogram, and 02/13/2021 mammogram - [facility]. There are scattered areas of fibroglandular density in both breasts (category b / 25%-50% glandular tissue). Current study was also evaluated with a Computer Aided Detection (CAD) system. There are benign calcifications in both breasts. There also are benign vascular calcifications in the left breast. No significant masses, calcifications, or other findings are seen in either breast. There has been no significant interval change. IMPRESSION: BENIGN There is no mammographic evidence of malignancy. A 1 year screening mammogram is recommended. Based on the Tyrer Cuzick model (a risk assessment model) the patient's lifetime risk is 0.8% and her 10 year risk is 0.0%. According to the ACR, ACS, and NCCN guidelines, an annual breast MRI exam along with mammogram is recommended if the patient's lifetime risk is 20% or greater. This exam was interpreted at Station ID: [id number]. NOTE: For mammograms, a report in lay terms will be sent to the patient. Approximately 15% of breast malignancies will not be visualized mammographically. In the management of a palpable breast mass, a negative mammogram must not discourage biopsy of a clinically suspicious lesion. Electronically Signed By: Olivia paul/marielle:03/03/2024 16:58:57 letter sent: Normal Exam ACR BI-RADS Category 2: Benign Finding(s) [id number]
== END ==
LOC: MAMMO 10:40
PROVIDERS: PCP Student in an Organized Health Care Education/Training Program; Referring Provider Student in an Organized Health Care Education/Training Program; Visit Provider Student in an Organized Health Care Education/Training Program
DX: Z12.31 Encounter for screening mammogram for malignant neoplasm of breast (principal); Z80.3 Family history of malignant neoplasm of breast; R92.323 Mammographic fibroglandular density, bilateral breasts
CPT/HCPCS: 77063; 77067

== ENCOUNTER → 2024-05-27 10:56 | Outpatient (CLI) | payer MEDICARE, SELFPAY ==
[2022-07-21 22:04] VITALS: BMI 28.3
[2024-05-27 12:24] LABS: BUN Creatinine Ratio 49.3 (6-22); Blood Urea Nitrogen 35 mg/dL (7-17); Calcium 9.7 mg/dL (8.4-10.2); Carbon Dioxide 24 mmol/L (22-32); Chloride 105 mmol/L (98-107); Estimated Glomerular Filt Rate > 60 mL/min (>60); Glucose 103 mg/dL (80-110); HEMOLYSIS < 15 (0-50); Potassium 4.5 mmol/L (3.4-5.1); Sodium 139 mmol/L (137-145)
[2024-05-27 12:25] LABS: Digoxin 0.6 ng/mL (0.8-2.0)
== END ==
PROVIDERS: PCP Student in an Organized Health Care Education/Training Program; Referring Provider Internal Medicine Cardiovascular Disease; Visit Provider Internal Medicine Cardiovascular Disease
DX: I50.22 Chronic systolic (congestive) heart failure (principal)
CPT/HCPCS: 36415; 80048; 80162

== ENCOUNTER → 2024-08-08 13:58 | Outpatient (CLI) | payer MEDICARE, SELFPAY ==
[2022-07-21 22:04] VITALS: BMI 28.3
[2024-08-08 17:03] LABS: Blood Urea Nitrogen 20 mg/dL (7-17); Calcium 9.4 mg/dL (8.4-10.2); Carbon Dioxide 25 mmol/L (22-32); Chloride 102 mmol/L (98-107); Cholesterol 203 mg/dL (140-199); Estimated Glomerular Filt Rate > 60 mL/min (>60); Glucose 85 mg/dL (80-110); HDL Cholesterol 82 mg/dL (40-60); HEMOLYSIS < 15 (0-50); LDL Cholesterol Calculated 106 mg/dL (<100); Potassium 3.9 mmol/L (3.4-5.1); Sodium 137 mmol/L (137-145); Triglycerides 77 mg/dL (35-150)
[2024-08-08 17:13] LABS: NT-proBNP (BNP-Adult 18+) 3860 pg/mL (<450)
== END ==
PROVIDERS: PCP Student in an Organized Health Care Education/Training Program; Referring Provider Nurse Practitioner Acute Care; Visit Provider Nurse Practitioner Acute Care
DX: I50.22 Chronic systolic (congestive) heart failure (principal); E78.5 Hyperlipidemia, unspecified
CPT/HCPCS: 36415; 80048; 80061; 83880

== ENCOUNTER → 2024-09-14 14:52 | Outpatient (CLI) | payer MEDICARE, SELFPAY ==
[2022-07-21 22:04] VITALS: BMI 28.3
[2024-09-14 18:09] LABS: BUN Creatinine Ratio 29.8 (6-22); Blood Urea Nitrogen 25 mg/dL (7-17); Calcium 9.9 mg/dL (8.4-10.2); Carbon Dioxide 28 mmol/L (22-32); Chloride 103 mmol/L (98-107); Estimated Glomerular Filt Rate > 60 mL/min (>60); Glucose 91 mg/dL (80-110); HEMOLYSIS < 15 (0-50); Potassium 4.4 mmol/L (3.4-5.1); Sodium 136 mmol/L (137-145)
== END ==
PROVIDERS: PCP Student in an Organized Health Care Education/Training Program; Referring Provider Nurse Practitioner Acute Care; Visit Provider Nurse Practitioner Acute Care
DX: I42.9 Cardiomyopathy, unspecified (principal)
CPT/HCPCS: 36415; 80048

== ENCOUNTER → 2024-11-02 14:30 | Outpatient (CLI) | payer MEDICARE, SELFPAY ==
[2022-07-21 22:04] VITALS: BMI 28.3
--- NOTE | 2024-11-02 14:31 | DI.RAD.S_ITS ---
PROCEDURE: XR DEXA AXIAL SKELETON INDICATIONS: screening COMPARISON: [facility], , XR DEXA AXIAL SKELETON, 08/12/2022, 12:04. FINDINGS: Lumbar Spine: Bone mineral density 0.948 g/cm2, T score -1.2, Z-score 1.7. Bone mineral density change versus baseline.-0.084, -8.1 percent decrease. Left Forearm: Bone mineral density is 0.424 g/cm2, T score -2.9, Z-score 0.6. Density change versus baseline. -0.039, -6.7 percent decrease. Fracture Risk Calculation (when applicable): Fracture risk is not calculated . (T score greater or equal to -1.0 to: NORMAL) (T score from -1.1 to -2.4: OSTEOPENIA) (T score less than or equal to -2.5: OSTEOPOROSIS) IMPRESSION: Osteopenia lumbar spine, osteoporosis left forearm Follow-up guidelines as follows: Osteoporosis: Consider a repeat DEXA and Vertebral Fracture Assessment (VFA) exam in 2 years or sooner if medically necessary, to reassess this patient's status. Osteopenia: Consider a repeat DEXA in 2-3 years to reassess this patient's status, or if there is a new clinical indication. Normal: Consider a repeat DEXA in 5 years or sooner, or if there is a new clinical indication. All treatment decisions require clinical judgment and consideration of individual patient factors, including patient preferences, comorbidities, previous drug use, risk factors not captured in the FRAX model (e.g., frailty, falls, vitamin D deficiency, increased bone turnover, interval significant decline in bone density ) and possible under- or over-estimation of fracture risk by FRAX. In addition, the NOF Guide recommends that FDA-approved medical therapies be considered in postmenopausal women and men age >= 50 years with a: * Hip or vertebral (clinical or morphometric) fracture * T-score of <=-2.5 at the spine or hip * Ten-year fracture probability by FRAX of >= 3% for hip fracture or >=20% for major osteoporotic fracture. Dictated by: Maxwell Birmingham M.D. on 11/02/2024 at 18:18 Approved by: Maxwell Birmingham M.D. on 11/02/2024 at 18:27
== END ==
PROVIDERS: PCP Student in an Organized Health Care Education/Training Program; Referring Provider Student in an Organized Health Care Education/Training Program; Visit Provider Student in an Organized Health Care Education/Training Program
DX: M81.0 Age-related osteoporosis without current pathological fracture (principal); N95.9 Unspecified menopausal and perimenopausal disorder
CPT/HCPCS: 77080; 77081

== ENCOUNTER → 2025-03-22 10:21 | Outpatient (CLI) | payer MEDICARE, SELFPAY ==
[2022-07-21 22:04] VITALS: BMI 28.3
--- NOTE | 2025-03-22 10:50 | DI.ECHO.S_ITS ---
[facility] : : [id number] : [place] : : [id number] : : Phone: [phone] Echocardiogram Report + + :Name: TARSHA VILLAGOMEZ Study Date: 03/22/2025 Height: 62 in : :[facility] ReadingLocation: Weight: 119 lb: : Gender: Female BSA: 1.5 m2 : :: 1940 Age: 84 yrs BP: 94/58 mmHg: :Reason For Study: Cardiomyopathy : :Ordering Physician: JOSE, : :REENA Performed By: Freda Washington : :Referring: REENA GARCIA : + + Interpretation Summary The left ventricle is normal in size and wall thickness. Left ventricular ejection fraction is estimated to be 40 +/- 5%. Previous LVEF 30 to 35%. Base of the RV appears to be mildly dilated. Mildly decreased RV function. Previously moderately decreased. There is severe biatrial enlargement. Both atria have remained unchanged in size since the prior echo exam. The mitral valve has been surgically repaired and an annuloplasty ring sewn in place. Peak E velocity across mitral valve 1.46 m/s, mean gradient 2.56 mmHg, mild MR. Previously peak E velocity 1.5 m/s. Previously mild to moderate MR. There is mild to moderate aortic regurgitation. Compared to the prior echo study, there has been no change in the severity of aortic regurgitation. There is mild to moderate tricuspid regurgitation. Compared to the prior echo exam, there has been no change in TR severity. The right ventricular systolic pressure is estimated to be at least 34 mmHg based on an estimated right atrial pressure of 8 mm Hg. Previously 47 mmHg. The ascending aorta is mildly enlarged. 4.0 cm in diameter. Previously 4.2. Procedure: A two-dimensional transthoracic echocardiogram with color flow and Doppler was performed. The study quality was technically good. Comparison is made with the echocardiogram of 02-19-24. The heart rate ranged between 48- 67 bpm during the study. The patient has a paced rhythm. Underlying A-fib. Left Ventricle: The left ventricle is normal in size and wall thickness. There is no thrombus. Left ventricular ejection fraction is estimated to be 40 +/- 5%. There is a mild dyssynchronous contraction pattern due to the paced rhythm. There is mild to moderate global hypokinesis of the left ventricle. Diastolic function could not be accurately assessed due to paced rhythm. Right Ventricle: There is a pacemaker lead in the right ventricle. Base of the RV appears to be mildly dilated. Mildly decreased RV function. Previously moderately decreased. Atria: The left atrium is severely dilated. There is severe biatrial enlargement. Both atria have remained unchanged in size since the prior echo exam. The right atrium is severely dilated. The interatrial septum grossly appears intact with no obvious evidence for an atrial septal defect. Mitral Valve: The mitral valve leaflets appear moderately thickened, but open well. The mitral valve has been surgically repaired and an annuloplasty ring sewn in place. Peak E velocity across mitral valve 1.46 m/s, mean gradient 2.56 mmHg, mild MR. Previously peak E velocity 1.5 m/s. Previously mild to moderate MR. There is mild mitral regurgitation. Aortic Valve: The aortic valve is trileaflet. The aortic valve opens well. The aortic valve is slightly calcified. There is no aortic valve stenosis. There is mild to moderate aortic regurgitation. Compared to the prior echo study, there has been no change in the severity of aortic regurgitation. Tricuspid Valve: The tricuspid valve leaflets are thin and pliable. There is mild to moderate tricuspid regurgitation. The right ventricular systolic pressure is estimated to be at least 34 mmHg based on an estimated right atrial pressure of 8 mm Hg. Compared to the prior echo exam, there has been no change in TR severity. Pulmonic Valve: The pulmonic valve leaflets appear thickened, but open well. There is mild to moderate pulmonic regurgitation. Great Vessels: The aortic root is normal size. The ascending aorta is mildly enlarged. The aortic arch is normal in size. The IVC is dilated (diameter is greater than 2.1 cm) yet it collapses greater than 50% with a sniff. This suggests a right atrial pressure of 8 mm Hg. Pericardium/ Pleura There is no pericardial effusion. There is no pleural effusion. MMode/2D Measurements & Calculations LVIDd: 4.9 cm LVOT diam: 2.1 cm LVIDs: 3.6 cm Ao root diam: 3.2 cm FS: 25.8 % asc Aorta Diam: 4.0 cm EPSS: 0.61 cm Ao Arch Diam (Prox Trans): 2.0 cm IVSd: 0.75 cm LVPWd: 0.80 cm LV oduglas. diameter/BSA (cm/m^2): 3.2 LV sys. diameter/BSA (cm/m^2): 2.4 LA A2 area: 46.6 cm2 RA long axis: 7.1 cm LA A4 area: 45.4 cm2 RA area: 31.4 cm2 LA length (vol): 7.9 cm RA vol: 117.9 ml LA vol: 226.5 ml RA : 76.9 ml/m2 LA vol index: 147.7 ml/m2 IVC diam: 2.2 cm RVD1 (basal): 3.0 cm TAPSE: 1.9 cm Doppler Measurements & Calculations Ao V2 max: 140.1 cm/sec LVOT Max Ramin: 76.0 cm/sec Ao V2 mean: 87.0 cm/sec LV V1 max P.3 mmHg Ao max P.8 mmHg LV V1 VTI: 17.1 cm Ao mean P.6 mmHg FILIPPO(I,D): 2.1 cm2 Ao V2 VTI: 27.8 cm FILIPPO(V,D): 1.8 cm2 sev ratio: 0.62 FILIPPO indexed to BSA (cm^2/m^2): 1.4 MVA(VTI): 1.8 cm2 TR max ramin: 256.7 cm/sec TR max P.4 mmHg PA V2 max: 67.3 cm/sec PA V2 mean: 37.2 cm/sec PA mean P.73 mmHg PA pr(Accel): 34.5 mmHg MV V2 mean: 68.8 cm/sec SV(LVOT): 58.2 ml MV mean P.6 mmHg MV V2 VTI: 32.2 cm Reading Physician:04:42 PM
== END ==
LOC: ECHO 10:23
PROVIDERS: PCP Nurse Practitioner Family; Referring Provider Nurse Practitioner Acute Care; Visit Provider Nurse Practitioner Acute Care
DX: I08.3 Combined rheumatic disorders of mitral, aortic and tricuspid valves (principal); I77.89 Other specified disorders of arteries and arterioles; I42.9 Cardiomyopathy, unspecified
CPT/HCPCS: 93306

== ENCOUNTER → 2025-03-23 12:22 | Outpatient (CLI) | payer MEDICARE, SELFPAY ==
[2022-07-21 22:04] VITALS: BMI 28.3
--- NOTE | 2025-03-23 12:25 | DI.CT.S_ITS ---
PROCEDURE: CT ABDOMEN PELVIS W CON INDICATIONS: Nausea, weight loss TECHNIQUE: After the administration of intravenous contrast, axial sections acquired from the lung bases to the pubic symphysis. Coronal and sagittal reformats were performed. For radiation dose reduction, the following was used: automated exposure control, adjustment of mA and/or kV according to patient size. COMPARISON: [facility], CR, XR CHEST 2 VIEWS, 11/02/2023, 13:27. [facility], CR, XR DEXA AXIAL SKELETON, 11/02/2024, 14:50. FINDINGS: Image quality: Motion artifact and streak artifact limits evaluation of the pelvis. Lower Chest: Mild pulmonary scar is present at the right lung base. The heart is markedly enlarged. No pericardial effusion. ABDOMEN: Liver: No solid mass. Gallbladder: No radiopaque gallstones or wall thickening. Biliary ducts: No biliary dilation. Pancreas: No ductal dilation. Spleen: Size is within normal limits. Adrenal Glands: No adrenal nodules. Kidneys and Ureters: No hydronephrosis. No solid mass. No complex renal cystic lesion which requires follow up. Stomach and Bowel: Normal colonic caliber, without significant wall thickening. There are scattered sigmoid diverticula. No evidence for diverticulitis. The appendix is not visualized; however there is no discrete right lower quadrant fluid or fat stranding to suggest acute appendicitis. Peritoneum: No abnormal intraperitoneal fluid. No free air. Ventral Wall: No significant ventral hernia. Abdominal Nodes: No retroperitoneal or mesenteric adenopathy by size criteria. Vessels: Aorta and inferior vena cava are normal in size. PELVIS: Pelvic Organs: Unremarkable. Bladder: No bladder wall thickening, accounting for underdistention. Pelvic Nodes: No enlarged lymph nodes. Miscellaneous: No inguinal hernias are seen. Bones: A severe compression deformity is present at T12 with approximately 90% vertebral body height loss. This is likely unchanged from the lateral view of the chest dated November 02, 2023. Severe degenerative changes are present throughout the lumbar spine. IMPRESSION: 1. No acute intra-abdominal findings. The appendix is not visualized; however there are no ancillary findings to suggest acute appendicitis. 2. Diverticulosis. No acute diverticulitis. Dictated by: Laura Stewart M.D. on 03/24/2025 at 12:23 Approved by: Laura Stewart M.D. on 03/24/2025 at 12:27
[2025-03-23 12:52] LABS: Estimated Glomerular Filt Rate > 60 mL/min (>60)
== END ==
LOC: CT 12:25
PROVIDERS: PCP Nurse Practitioner Family; Referring Provider Student in an Organized Health Care Education/Training Program; Visit Provider Student in an Organized Health Care Education/Training Program
DX: K57.30 Diverticulosis of large intestine without perforation or abscess without bleeding (principal); R63.4 Abnormal weight loss; R11.0 Nausea; I51.7 Cardiomegaly; M47.816 Spondylosis without myelopathy or radiculopathy, lumbar region; M43.8X4 Other specified deforming dorsopathies, thoracic region
CPT/HCPCS: 74177; 82565; Q9967

== ENCOUNTER → 2025-04-21 14:11 | Outpatient (CLI) | payer MEDICARE, SELFPAY ==
[2022-07-21 22:04] VITALS: BMI 28.3
--- NOTE | 2025-04-21 14:13 | DI.MG.S_ITS ---
MM screening mammo BI: 04/21/2025. BI-RADS: 2 CLINICAL: 84-year old female for bilateral screening mammogram. Tyrer-Cuzick lifetime risk of 0.5%. Current reported family history of breast cancer: mother and maternal aunt. PRIOR EXAMS: 03/03/2024, 02/25/2023, 02/14/2022, 02/13/2021. MAMMOGRAPHY TECHNIQUE: 2D and 3D (tomosynthesis) digital mammographic views obtained, with additional images as needed for full coverage. Current study was also evaluated with a Computer Aided Detection (CAD) system. DENSITY C. The breasts are heterogeneously dense, which may obscure small masses. MAMMOGRAPHY FINDINGS Left: An implanted medical officer obscures a portion of the breast/axilla. Bilateral: Benign-appearing calcifications noted. There are no suspicious masses, calcifications, or other findings in the breast. IMPRESSION: * No evidence of malignancy with benign findings. RECOMMENDATIONS Bilateral * Annual screening mammography. OVERALL ASSESSMENT CATEGORY BI-RADS-2: Benign. The [employer] recommends annual screening mammography beginning at age 40 for women with average risk of breast cancer. ELECTRONICALLY SIGNED: Cristel Acuña M.D. on 04/21/2025 at 04:31:13 PM PT Interpreting Station ID: [id number]
== END ==
PROVIDERS: PCP Nurse Practitioner Family; Referring Provider Nurse Practitioner Family; Visit Provider Nurse Practitioner Family
DX: Z12.31 Encounter for screening mammogram for malignant neoplasm of breast (principal); Z80.3 Family history of malignant neoplasm of breast; R92.333 Mammographic heterogeneous density, bilateral breasts
CPT/HCPCS: 77063; 77067

== ENCOUNTER → 2025-06-23 16:57 | Outpatient (CLI) | payer MEDICARE, SELFPAY ==
[2022-07-21 22:04] VITALS: BMI 28.3
[2025-06-23 18:16] LABS: Digoxin < 0.4 ng/mL (0.8-2.0)
== END ==
PROVIDERS: PCP Nurse Practitioner Family; Referring Provider Internal Medicine Cardiovascular Disease; Visit Provider Internal Medicine Cardiovascular Disease
DX: I48.20 Chronic atrial fibrillation, unspecified (principal)
CPT/HCPCS: 36415; 80162

== ENCOUNTER 2025-07-13 15:35 | Emergency (ER) | payer MEDICARE, SELFPAY ==
[2022-07-21 22:04] VITALS: BMI 28.3
[2025-07-13 15:42] VITALS: BP 165/66; PULSE 60; RESP 16; TEMP 36.3; O2SAT 100; BMI 20.3
--- NOTE | 2025-07-13 15:51 | DI.RAD.S_ITS ---
PROCEDURE: XR HIP W PEL IF DONE LT 2V INDICATIONS: L hip pain TECHNIQUE: AP pelvis and lateral view of the hip acquired. COMPARISON: None. FINDINGS: Bones: Patient is status post prior bilateral total hip arthroplasty and subsequent internal fixation of right proximal femur. Increased radiolucency surrounding in proximal femoral shaft surrounding the femoral prosthesis in left hip is seen concerning for hardware loosening. No acute fracture or dislocation. Soft tissues: No suspicious soft tissue densities. IMPRESSION: Prior extensive bilateral hip surgery and arthroplasty as above. Finding is concerning for hardware loosening surrounding left hip prosthesis in proximal femur. Clinical correlation is recommended. No acute fracture or dislocation. Dictated by: Aurelio Roberts M.D. on 07/13/2025 at 17:09 Approved by: Aurelio Roberts M.D. on 07/13/2025 at 17:11
--- NOTE | 2025-07-13 15:51 | DI.RAD.S_ITS ---
PROCEDURE: XR KNEE LT 1TO2V INDICATIONS: L knee pain TECHNIQUE: 2 views of the knee were acquired. COMPARISON: [facility], CR, XR KNEE RT 1TO2V, 06/27/2020, 9:37. FINDINGS: Bones: Patient is status post ORIF of distal left femoral shaft. There is also prior left total knee arthroplasty. No gross hardware loosening or failure. Alignment of left knee is anatomic. No acute fracture or dislocation. Soft tissues: No joint effusion. No suspicious soft tissue calcifications. IMPRESSION: Anatomic left knee alignment. No acute fracture or dislocation. No gross hardware loosening or failure. Dictated by: Aurelio Roberts M.D. on 07/13/2025 at 17:08 Approved by: Aurelio Roberts M.D. on 07/13/2025 at 17:09
--- NOTE | 2025-07-13 16:00 | ED_ITS ---
HPI - Extremity Problem <Ebenezer Bourne PA-C - Last Filed: 07/13/25 19:29> General Chief complaint: Extremity Problem,Nontraumatic Stated complaint: L hip pain, thinks dislocated Time Seen by Provider: 07/13/25 15:49 Source: EMS Mode of arrival: EMS History of Present Illness HPI Narrative: 84-year-old female presents emergency department due to left leg pain. She states that she was trying to get up to go urinate last night when she fell a 910 pain affecting her left hip and left knee. Since then she has been able to ambulate using a walker but states that it was a ?quick step? on her left leg. She denies any significant pain at rest. Denies any numbness. He extensive history of orthopedic surgeries including left hip and left total knee arthroplasty. No accidents or trauma prior to this episode of pain. Related Data Home Medications ?Medication ?Instructions ?Recorded ?Confirmed cholecalciferol (vitamin D3) 125 5,000 unit PO DAILY 0 10/29/18 07/21/22 mcg (5,000 unit) tablet (Vitamin D3) clonazepam 0.5 mg PO BEDTIME PRN Restle ss 10/29/18 07/21/22 Leg(S) acetaminophen 500 mg capsule 1,000 mg PO DAILY PRN Nadege n (Scale 07/21/22 07/21/22 Score 4-6) levothyroxine 50 mcg tablet 50 mcg PO DAILY 07/21/22 1 metoprolol succinate 50 mg 50 mg PO BID 07/21/2207/21 tablet,extended release 24 hr potassium chloride 10 mEq 10 meq PO DAILY 07/21/22 tablet,extended release simvastatin 20 mg tablet 20 mg PO DAILY 07/21/2207/05 furosemide 20 mg tablet 20 mg PO DAILY 07/22/2207/05 Previous Rx's ?Medication ?Instructions ?Recorded acetaminophen 325 mg tablet 650 mg (2 x 325 mg) PO Q6H R PRN 07/24/22 Fever/Mild Pain (1-3) #90 tabs furosemide 20 mg tablet 20 mg PO DAILY #30 tabs 07/06 lisinopril 5 mg tablet 5 mg PO DAILY #30 tabs 07/24 metoprolol tartrate 25 mg tablet 75 mg (3 x 25 mg) PO TID #90 tabs 07/24/22 pantoprazole 40 mg tablet,delayed 40 mg PO DAILY #30 t abs 07/24/22 release tramadol 50 mg tablet 50 mg PO BID PRN pain #20 ta bs 07/24/22 trazodone 50 mg tablet 25 mg (1/2 x 50 mg) PO BEDTI ME PRN 07/24/22 sleep #30 tabs warfarin 1 mg tablet (Jantoven) 3 mg (3 x 1 mg) PO ALEJANDRA LY@1700 #30 07/24/22 tabs hydrocodone 5 mg-acetaminophen 325 1 tab PO Q6H PRN pa in #14 tabs 09/02/22 mg tablet Allergies Allergy/AdvReac Type Severity Reaction Status Date / Time Sulfa (Sulfonamide Allergy Severe Anaphylaxis Verified 06/16/23 17:26 Antibiotics) (SULFA (SULFONAMIDE ANTIBIOTICS)) adhesive tape (ADHESIVE TAPE) Allergy Unknown WELTS Verified 06/16/23 17:26 propoxyphene (From Darvon) Allergy Unknown Verified 06/16/23 17:26 zolpidem (From Ambien) AdvReac Severe Hallucinati Verified 06/16/23 17:26 ng Review of Systems <Ebenezer Bourne PA-C - Last Filed: 07/13/25 19:29> Review of Systems Narrative: GENERAL: Denies chills, fatigue, malaise, fever, sweats. HEENT: Denies sinus pain, ear pain, sore throat, difficulty swallowing, dizziness. RESPIRATORY: Denies dyspnea, cough, wheezing, hemoptysis, sputum. CARDIOVASCULAR: Denies chest pain, palpitations, orthopnea, edema, GASTROINTESTINAL: Denies nausea, vomiting, abdominal pain, diarrhea, constipation, melena. : Denies dysuria, frequency, incontinence, hematuria, urinary retention. MUSCULOSKELETAL: Reports left lower extremity pain SKIN: Denies rash, skin lesions, or other NEUROLOGIC: Denies weakness, headache, numbness, change in speech, confusion, seizures, incoordination. PSYCHIATRIC: No concerning psychosocial issues. 12 point review of systems is negative except for those stated above Patient History <Ebenezer Bourne PA-C - Last Filed: 07/13/25 19:29> Medical History Atrial fibrillation 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 Surgical History H/O hysterectomy for benign disease Total knee replacement status S/P hip replacement Family History Mother Cancer Father Diabetes mellitus Social History household members: none alcohol intake: current alcohol intake frequency: 0-2 drinks per day Exam <Ebenezer Bourne PA-C - Last Filed: 07/13/25 19:29> Narrative Exam Narrative: GENERAL: Well-developed patient, in mild distress. HEAD: Atraumatic. Normocephalic. EYES: Pupils equal round and reactive. Extraocular motions intact. No scleral icterus. No injection or drainage. ENT: Nose without bleeding, purulent drainage. Throat without erythema, tonsillar hypertrophy or exudate. Airway patent. NECK: Trachea midline. Non tender EXTREMITIES: Very mild pain with flexion of the knee, at proximally the distal thigh. No significant tenderness to palpation to left hip. Not internally rotated short and. Neurovascularly intact throughout. NEURO: AOx3. SKIN: No rash or erythema of visible areas Initial Vital Signs Initial Vital Signs: Vital Signs Temperature 97.4 F L 07/13/25 15:42 Pulse Rate 60 07/13/25 15:42 Respiratory Rate 16 07/13/25 15:42 Blood Pressure 165/66 H 07/13/25 15:42 Pulse Oximetry 100 07/13/25 15:42 Oxygen Delivery Method Room Air 07/13/25 15:42 <Phyllis Felton DO - Last Filed: 07/14/25 20:43> Initial Vital Signs Initial Vital Signs: Vital Signs Temperature 97.4 F L 07/13/25 15:42 Pulse Rate 60 07/13/25 15:42 Respiratory Rate 16 07/13/25 15:42 Blood Pressure 165/66 H 07/13/25 15:42 Pulse Oximetry 100 07/13/25 15:42 Oxygen Delivery Method Room Air 07/13/25 15:42 Course <Ebenezer Bouren PA-C - Last Filed: 07/13/25 19:29> Orders Ordered: ED Orders 07/13/25 15:51 XR hip w pel LT 2V Stat XR knee LT 3V Stat 07/13/25 18:06 CT pelvis wo con Stat Vital Signs Vital signs: Vital Signs - 8 hr 07/13/25 15:42 Temperature 97.4 F L Pulse Rate 60 Respiratory Rate 16 Blood Pressure 165/66 H Pulse Oximetry 100 Oxygen Delivery Method Room Air <Phyllis Felton DO - Last Filed: 07/14/25 20:43> Orders Ordered: ED Orders 07/13/25 15:51 XR hip w pel LT 2V Stat XR knee LT 3V Stat 07/13/25 18:06 CT pelvis wo con Stat Vital Signs Vital signs: Vital Signs - 8 hr 07/13/25 15:42 Temperature 97.4 F L Pulse Rate 60 Respiratory Rate 16 Blood Pressure 165/66 H Pulse Oximetry 100 Oxygen Delivery Method Room Air MDM - Extremity (Nontraumatic) <Ebenezer Bourne PA-C - Last Filed: 07/13/25 19:29> Imaging Data Extremity x-ray #1: Radiologist's Impression: [address] [address] XRay Report Signed Patient: Kanika Valladares MR#: [id number] : 1940 Acct:[id number] Age/Sex: 84 / F Date of Service: 07/13/25 Loc: ED Accession Number: [id number] Procedure: XR knee LT 3V Ordering Provider: Ebenezer Bourne PA-C PROCEDURE: XR KNEE LT 1TO2V INDICATIONS: L knee pain TECHNIQUE: 2 views of the knee were acquired. COMPARISON: [facility], , XR KNEE RT 1TO2V, 06/27/2020, 9:37. FINDINGS: Bones: Patient is status post ORIF of distal left femoral shaft. There is also prior left total knee arthroplasty. No gross hardware loosening or failure. Alignment of left knee is anatomic. No acute fracture or dislocation. Soft tissues: No joint effusion. No suspicious soft tissue calcifications. IMPRESSION: Anatomic left knee alignment. No acute fracture or dislocation. No gross hardware loosening or failure. Dictated by: Aurelio Roberts M.D. on 07/13/2025 at 17:08 Approved by: Aurelio Roberts M.D. on 07/13/2025 at 17:09 Extremity x-ray #2: Radiologist's Impression: [address] [address] XRay Report Signed Patient: Kanika Valladares MR#: [id number] : 1940 Acct:[id number] Age/Sex: 84 / F Date of Service: 07/13/25 Loc: ED Accession Number: [id number] Procedure: XR hip w pel LT 2V Ordering Provider: Ebenezer Bourne PA-C PROCEDURE: XR HIP W PEL IF DONE LT 2V INDICATIONS: L hip pain TECHNIQUE: AP pelvis and lateral view of the hip acquired. COMPARISON: None. FINDINGS: Bones: Patient is status post prior bilateral total hip arthroplasty and subsequent internal fixation of right proximal femur. Increased radiolucency surrounding in proximal femoral shaft surrounding the femoral prosthesis in left hip is seen concerning for hardware loosening. No acute fracture or dislocation. Soft tissues: No suspicious soft tissue densities. IMPRESSION: Prior extensive bilateral hip surgery and arthroplasty as above. Finding is concerning for hardware loosening surrounding left hip prosthesis in proximal femur. Clinical correlation is recommended. No acute fracture or dislocation. Dictated by: Aurelio Roberts M.D. on 07/13/2025 at 17:09 Approved by: Aurelio Roberts M.D. on 07/13/2025 at 17:11 CT scan - abdomen/pelvis: Radiologist's Impression: [address] [address] [address] Scan Report Signed Patient: Kanika Valladares MR#: [id number] : 1940 Acct:[id number] Age/Sex: 84 / F Date of Service: 07/13/25 Loc: ED Accession Number: [id number] Procedure: CT pelvis wo con Ordering Provider: Ebenezer Bourne PA-C PROCEDURE: CT PEL WO CON INDICATIONS: f/u possible hardware loosening TECHNIQUE: Noncontrast 3 mm axial sections acquired through the bony pelvis, with coronal and sagittal reformatting. COMPARISON: [facility], CT, CT ABDOMEN PELVIS W CON, 03/23/2025, 13:43. [facility], CR, XR KNEE LT 1TO2V, 07/13/2025, 15:47. [facility], CR, XR HIP W PEL LT 2V, 07/13/2025, 15:47. FINDINGS: Image quality: Diagnostic Bones: No acute fracture or dislocation identified in the bony pelvis. Lower lumbar spondylosis. No acute compression fracture of the lower lumbar spine. No suspicious osseous lesions. Status post left total hip arthroplasty which appears stable in alignment. As noted on comparison radiograph, there is increased lucency involving the bone hardware interface involving the proximal left femur. This measures approximately 4 mm medially and 7 mm laterally. No evidence to suggest hardware failure. Patient is also status post right total hip arthroplasty. Long segment lateral plate and screw fixation of the right femur. No CT evidence to suggest hardware failure or loosening. Alignment is unchanged. Soft tissues: No definite joint effusion seen. No suspicious soft tissue mass. Intraperitoneal structures of the pelvis demonstrate moderate fecal burden seen throughout the colon. Colonic diverticulosis without acute diverticulitis. No pelvic sidewall adenopathy. No pathologic pelvic free fluid. No findings to suggest bowel obstruction. Atherosclerosis. IMPRESSION: 1. Increased lucency involving the left bone-hardware interface of proximal femoral component of left total hip arthroplasty hardware suggestive of hardware loosening. No evidence for hardware failure. 2. Status post right total hip arthroplasty without evidence for hardware complication. Stable appearance of long segment lateral plate and screw fixation of the right femur. Other chronic findings as above. Dictated by: Gokul Padron M.D. on 07/13/2025 at 19:14 Approved by: Gokul Padron M.D. on 07/13/2025 at 19:23 MDM Narrative Medical decision making narrative: ED course: This is an 84-year-old female presents emergency department due to left hip pain onset last night. Left hip x-rays were ordered which showed possible hardware loosening. Discussed the case with on-call orthopedist, Dr. Clancy, who recommended CT scan and follow up with the outpatient. CT showed evidence of possible hardware loosening as well although no hardware failure. Agreed with the plan for weight-bearing as tolerated. Patient was neurovascularly intact throughout. Patient was follow up with Dr. Clancy outpatient for management. CC: Left hip pain Complicating co-morbidities: As below Data collected from: Previous notes Medical records reviewed: Patient was last seen here 2 years ago due to a mechanical ground level fall. History of AFib on anticoagulation. Also takes levothyroxine so suspected history of hypothyroidism, metoprolol, furosemide. 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 History of hip replacement. History of total knee replacement. Differential considered, but not limited to: Fracture, hardware failure Exam documented above, pertinent findings include: Left hip tenderness to palpation Lab Test results independently reviewed as above. Pertinent findings: None obtained Imaging studies independently reviewed: X-ray showed possible loosening of 1 of the screws of the left hip hardware Scores Used: None MIPS Elements: None Consultations: None Treatments: None Re-evaluations: None Discussion: Discussed plan with the patient was comfortable with the plan Diagnosis: Left hip pain Disposition: see below, along with detailed discharge instructions that have been reviewed with patient as well as indications for ED re-evaluation and additional outpatient follow up Discharge Plan Departure Patient Disposition: Home Clinical Impression: Acute hip pain Activity Restrictions/Additional Instructions: Thank you for coming to the [facility] Emergency Department today. Your x-ray showed no evidence of fractures. You have obtained a CT scan to obtain a closer look at the hardware in your left hip. We have also referred you to Dr. Clancy, the orthopedist office for further management. Please call their office tomorrow to arrange an appointment. You may bear weight as tolerated using a walker as needed. Please return to the emergency department if you develop any significant new or worsening pain, numbness, or any other concerning signs or symptoms. I hope you feel better soon. Please follow up with your primary care provider within a week if your symptoms continue. If you do not have a primary care provider please contact the [facility] Resource line at [phone]. They will ask some questions about your medical history and help you get set up with a provider in the community. Prescriptions: No Action simvastatin 20 mg tablet 20 mg PO DAILY metoprolol succinate 50 mg tablet extended release 24 hr 50 mg PO BID Rx Instructions: pt is unsure of doses levothyroxine 50 mcg tablet 50 mcg PO DAILY potassium chloride 10 mEq tablet extended release 10 meq PO DAILY acetaminophen 500 mg Capsule 1,000 mg PO DAILY PRN (Reason: Pain (Scale Score 4-6)) furosemide 20 mg Tablet 20 mg PO DAILY Patient Comments: pt takes PRN, not every day tramadol 50 mg Tablet 50 mg PO BID PRN (Reason: pain) Qty: 20 0RF pantoprazole 40 mg Tablet,Delayed Release (Dr/Ec) 40 mg PO DAILY Qty: 30 0RF lisinopril 5 mg Tablet 5 mg PO DAILY Qty: 30 0RF furosemide 20 mg Tablet 20 mg PO DAILY Qty: 30 0RF warfarin [Jantoven] 1 mg Tablet 3 mg PO DAILY@1700 Qty: 30 0RF metoprolol tartrate 25 mg Tablet 75 mg PO TID Qty: 90 0RF trazodone 50 mg tablet 25 mg PO BEDTIME PRN (Reason: sleep) Qty: 30 0RF acetaminophen 325 mg Tablet 650 mg PO Q6HR PRN (Reason: Fever/Mild Pain (1-3)) Qty: 90 0RF hydrocodone-acetaminophen 5-325 mg tablet 1 tab PO Q6H PRN (Reason: pain) Qty: 14 0RF cholecalciferol (vitamin D3) [Vitamin D3] 125 mcg (5,000 unit) Tablet 5,000 unit PO DAILY clonazepam 0.5 mg 0.5 mg PO BEDTIME PRN (Reason: Restless Leg(S)) Referrals: Lina Del Valle ARNP [Primary Care Provider, Nursing] Kelvin Clancy MD [Physician, Orthopedic Surgery] - As soon as possible Referral Note: f/u possible hardware loosening, left hip, thank you! Clinical Impression: Acute hip pain Stand Alone Forms: Patient Portal/API ED Sign-out <Phyllis Felton DO - Last Filed: 07/14/25 20:43> Cosign ED Attending Catherineature Attestation: I was available for consultation.
--- NOTE | 2025-07-13 16:33 | PC.NURSE ---
patient had to urinate, she was able to bridge her bottom up in to that air enough to place bedpan. she urinated approx 100 cc of urine. She had no complaints of pain while moving. When transferred to fast track she was able to stand to and pivot to the other bed and put wt on with only a minimal amount of pain. She stated that the pain was on the outside of her left leg from the knee to the hip/groin area.
--- NOTE | 2025-07-13 18:06 | DI.CT.S_ITS ---
PROCEDURE: CT PEL WO CON INDICATIONS: f/u possible hardware loosening TECHNIQUE: Noncontrast 3 mm axial sections acquired through the bony pelvis, with coronal and sagittal reformatting. COMPARISON: [facility], CT, CT ABDOMEN PELVIS W CON, 03/23/2025, 13:43. [facility], CR, XR KNEE LT 1TO2V, 07/13/2025, 15:47. [facility], CR, XR HIP W PEL LT 2V, 07/13/2025, 15:47. FINDINGS: Image quality: Diagnostic Bones: No acute fracture or dislocation identified in the bony pelvis. Lower lumbar spondylosis. No acute compression fracture of the lower lumbar spine. No suspicious osseous lesions. Status post left total hip arthroplasty which appears stable in alignment. As noted on comparison radiograph, there is increased lucency involving the bone hardware interface involving the proximal left femur. This measures approximately 4 mm medially and 7 mm laterally. No evidence to suggest hardware failure. Patient is also status post right total hip arthroplasty. Long segment lateral plate and screw fixation of the right femur. No CT evidence to suggest hardware failure or loosening. Alignment is unchanged. Soft tissues: No definite joint effusion seen. No suspicious soft tissue mass. Intraperitoneal structures of the pelvis demonstrate moderate fecal burden seen throughout the colon. Colonic diverticulosis without acute diverticulitis. No pelvic sidewall adenopathy. No pathologic pelvic free fluid. No findings to suggest bowel obstruction. Atherosclerosis. IMPRESSION: 1. Increased lucency involving the left bone-hardware interface of proximal femoral component of left total hip arthroplasty hardware suggestive of hardware loosening. No evidence for hardware failure. 2. Status post right total hip arthroplasty without evidence for hardware complication. Stable appearance of long segment lateral plate and screw fixation of the right femur. Other chronic findings as above. Dictated by: Gokul Padron M.D. on 07/13/2025 at 19:14 Approved by: Gokul Padron M.D. on 07/13/2025 at 19:23
[2025-07-13 19:48] VITALS: BP 158/64; PULSE 59; RESP 16; O2SAT 99
== END 2025-07-13 19:40 | disposition home or self-care (01) ==
PROVIDERS: Emergency Provider Physician Assistant Medical; PCP Nurse Practitioner Family
DX: M25.552 Pain in left hip (principal); M25.562 Pain in left knee; W19.XXXA Unspecified fall, initial encounter
CPT/HCPCS: 72192; 73502; 73562; 99281; 99284

== ENCOUNTER 2025-07-23 09:38 | Inpatient (IN) | payer MEDICARE, SELFPAY ==
[2022-07-21 22:04] VITALS: BMI 28.3
[2025-07-23] VITALS (38 sets, daily range): BP systolic 128–179; BP diastolic 59–84; PULSE 57–144; RESP 13–23; TEMP 36.6; O2SAT 85–100; BMI 17.8
--- NOTE | 2025-07-23 09:50 | DI.CT.S_ITS ---
PROCEDURE: CT CERVICAL SPINE WO CON INDICATIONS: fall vs syncope TECHNIQUE: Noncontrast 3 mm thick sections acquired from the skull base to the T4 level. Sagittal and coronal reformats were then constructed. For radiation dose reduction, the following was used: automated exposure control, adjustment of mA and/or kV according to patient size. COMPARISON: [facility], CT, CT CERVICAL SPINE WO CON, 06/27/2020, 9:41. FINDINGS: Image quality: Excellent. Bones: No fractures or dislocations. Visualized superior ribs are intact. Disc space narrowing and hypertrophic facet joints noted particularly in the entire spine. Soft tissues: Prevertebral soft tissues are normal in thickness. No paravertebral hematomas. No apical pneumothoraces. IMPRESSION: No displaced fracture or traumatic subluxation. Approved by: Kelvin Kinsey M.D. on 07/23/2025 at 10:37
--- NOTE | 2025-07-23 09:50 | DI.CT.S_ITS ---
PROCEDURE: CT HEAD/BRAIN WO CON INDICATIONS: fall vs syncope TECHNIQUE: Noncontrast 4.5 mm thick angled axial sections acquired from the foramen magnum to the vertex, with coronal and sagittal reformats. For radiation dose reduction, the following was used: automated exposure control, adjustment of mA and/or kV according to patient size. COMPARISON: [facility], CT, CT HEAD/BRAIN WO CON, 06/16/2023, 19:50. FINDINGS: CSF spaces: Basal cisterns are patent. No extra-axial fluid collections. Ventricles are normal in size and shape. Brain: No midline shift. No intracranial mass effect or hemorrhage. De La Cruz- white matter interface is normal. Skull and face: Calvarium and visualized facial bones are intact, without suspicious lesions. Sinuses: Visualized sinuses and mastoids are clear. IMPRESSION: Atrophy and chronic ischemic change acute hemorrhage or mass effect Approved by: Kelvin Kinsey M.D. on 07/23/2025 at 10:31
--- NOTE | 2025-07-23 09:50 | DI.RAD.S_ITS ---
PROCEDURE: XR CHEST 1V INDICATIONS: fall vs syncope TECHNIQUE: One view of the chest was acquired. COMPARISON: [facility], CR, XR CHEST 1V, 12/02/2022, 12:13. FINDINGS: Surgical changes and devices: Midline sternal wires. Single lead pacer Lungs and pleura: Lungs are clear. No pleural effusions or pneumothorax. Mediastinum: Heart size enlarged. Mild vascular congestion Bones and chest wall: No suspicious bony lesions. Overlying soft tissues appear unremarkable. IMPRESSION: Cardiomegaly and mild vascular congestion Approved by: Kelvin Kinsey M.D. on 07/23/2025 at 10:11
--- NOTE | 2025-07-23 09:51 | DI.RAD.S_ITS ---
PROCEDURE: XR HIP W PEL IF DONE RT 2V INDICATIONS: R hip pain, fall vs syncope TECHNIQUE: 2 views of the hip were acquired. COMPARISON: [facility], CT, CT PEL WO CON, 07/13/2025, 18:27. [facility], CR, XR HIP W PEL LT 2V, 07/13/2025, 15:47. FINDINGS: Bones: Bilateral hip arthroplasty. Prior proximal femoral instrumented fractures. Cortical sideplate appears to have slightly shifted compared to the prior exam. Probable underlying fracture Soft tissues: No suspicious soft tissue calcifications or masses. IMPRESSION: Bilateral hip arthroplasty. Right proximal femoral previously instrumented fracture with significant osteopenia and probable underlying acute fracture Approved by: Kelvin Kinsey M.D. on 07/23/2025 at 10:23
--- NOTE | 2025-07-23 09:51 | ED.GENADULT ---
HPI - General Adult <Amber Pelayo, DO - Last Filed: 07/25/25 23:24> General Chief complaint: Weakness Stated complaint: GLF Time Seen by Provider: 07/23/25 09:41 Source: patient, EMS, RN notes reviewed and old records reviewed Mode of arrival: EMS Limitations: no limitations History of Present Illness HPI narrative: 84-year-old female history of congenital mitral valve with repair, atrial fibrillation with Watchman and pacemaker on Eliquis, congestive heart failure, hypothyroidism, dyslipidemia with possible fall earlier this morning. Patient states she remembers falling but does not remember exactly how it occurred. She is unsure if she hit her head. She denies headache or neck pain, denies any midline back pain, denies any chest pain or shortness of breath. She denies any nausea or vomiting. She notes chronic urinary incontinence but no new urinary changes. No diarrhea or constipation. No black or bloody stools. Patient notes that her lower extremities are always swollen and looked purple ever since she started her anticoagulants. She notes right hip pain but states she chronically has a right hip pain. She does normally ambulate with a walker. She has been having issues at home with the ability to care for herself and her daughter is in process of transferring her to [place]. Patient reports allergies to sulfa and tramadol. States surgeries include mitral valve repair, Watchman and pacemaker. Hip arthroplasty left knee arthroplasty. Patient denies tobacco, occasional alcohol, no recreational drugs. Related Data Home Medications ?Medication ?Instructions ?Recorded ?Confirmed cholecalciferol (vitamin D3) 125 5,000 unit PO DAILY 10/29/18 07/21/22 mcg (5,000 unit) tablet (Vitamin D3) clonazepam 0.5 mg PO BEDTIME PRN Restless 10/29/18 07/21/22 Leg(S) acetaminophen 500 mg capsule 1,000 mg PO DAILY PRN Pain (Scale 07/21/22 07/21/22 Score 4-6) levothyroxine 50 mcg tablet 50 mcg PO DAILY 07/21/22 07/21/22 metoprolol succinate 50 mg 50 mg PO BID 07/21/22 07/21/22 tablet,extended release 24 hr potassium chloride 10 mEq 10 meq PO DAILY 07/21/22 07/21/22 tablet,extended release simvastatin 20 mg tablet 20 mg PO DAILY 07/21/22 07/21/22 furosemide 20 mg tablet 20 mg PO DAILY 07/22/22 07/22/22 Previous Rx's ?Medication ?Instructions ?Recorded acetaminophen 325 mg tablet 650 mg (2 x 325 mg) PO Q6HR PRN 07/24/22 Fever/Mild Pain (1-3) #90 tabs furosemide 20 mg tablet 20 mg PO DAILY #30 tabs 07/24/22 lisinopril 5 mg tablet 5 mg PO DAILY #30 tabs 07/24/22 metoprolol tartrate 25 mg tablet 75 mg (3 x 25 mg) PO TID #90 tabs 07/24/22 pantoprazole 40 mg tablet,delayed 40 mg PO DAILY #30 tabs 07/24/22 release tramadol 50 mg tablet 50 mg PO BID PRN pain #20 tabs 07/24/22 trazodone 50 mg tablet 25 mg (1/2 x 50 mg) PO BEDTIME PRN 07/24/22 sleep #30 tabs warfarin 1 mg tablet (Jantoven) 3 mg (3 x 1 mg) PO DAILY@1700 #30 07/24/22 tabs hydrocodone 5 mg-acetaminophen 325 1 tab PO Q6H PRN pain #14 tabs 09/02/22 mg tablet Allergies Allergy/AdvReac Type Severity Reaction Status Date / Time Sulfa (Sulfonamide Allergy Severe Anaphylaxis Verified 07/23/25 10:00 Antibiotics) (SULFA (SULFONAMIDE ANTIBIOTICS)) adhesive tape (ADHESIVE TAPE) Allergy Unknown WELTS Verified 07/23/25 10:00 propoxyphene (From Darvon) Allergy Unknown Verified 07/23/25 10:00 zolpidem (From Ambien) AdvReac Severe Hallucinati Verified 07/23/25 10:00 ng Review of Systems <Amber Pelayo DO - Last Filed: 07/25/25 23:24> Review of Systems ROS Unobtainable: All systems reviewed & are unremarkable except as noted in HPI and below Patient History <Amber Pelayo DO - Last Filed: 07/25/25 23:24> Medical History Chronic anticoagulation Atrial fibrillation Mitral valve disease Bella-Danlos syndrome Surgical History H/O hysterectomy for benign disease Total knee replacement status S/P hip replacement Family History Mother Cancer Father Diabetes mellitus Social History household members: none Smoking Status: Never smoker alcohol intake: current alcohol intake frequency: 0-2 drinks per day Exam <Amber Pelayo DO - Last Filed: 07/25/25 23:24> Narrative Exam Narrative: GEN: Elderly appearing female, alert and oriented x 3, patient appears to be in mild distress. HEENT: Atraumatic, pupils are equal round reactive to light, extraocular movements are intact, nares are clear, TMs are clear with no fluid, there is no conjunctival pallor. Throat is clear without any exudates, erythema, tonsillar enlargement or uvular deviation, no cervical vertebral tenderness HEART: Regular rate and rhythm without murmur, clicks, rubs. No carotid bruits, patient has equal pulses bilateral readily. Patient has decreased cap refill with purplish discoloration bilateral feet and venous stasis changes up to the mid shins. Patient's feet are cool but ankles and a above are warm. Patient states this is her normal. LUNGS:Lungs clear to auscultation, no wheezes, rales, crackles, chest moves symmetrically, no tachypnea accessory muscle use ABD:bowel sounds normal, soft, non-tender, no guarding, rebound, rigidity, no masses noted, no hepatosplenomegaly :No CVA tenderness BACK: No cervical, thoracic or lumbar vertebral point tenderness. Patient has normal range of motion. MSCL: Patient has a right hip discomfort with palpation, generalized weakness patient can barely lift her feet off the bed bilaterally,, full range of motion. NEURO:CN 2-12 intact, sensation normal. Initial Vital Signs Initial Vital Signs: Vital Signs Blood Pressure 134/81 07/23/25 09:42 <Artur Renner DO - Last Filed: 07/24/25 01:43> Initial Vital Signs Initial Vital Signs: Vital Signs Blood Pressure 134/81 07/23/25 09:42 Course <Amber Pelayo DO - Last Filed: 07/25/25 23:24> Orders Ordered: Acetaminophen (Acetaminophen 325 Mg Tablet) 650 mg PO Q6H PRN PRN Reason: Fever/Mild Pain (1-3) Last Admin: 07/25/25 16:35 Dose: 650 mg Documented By: Admin: 07/25/25 09:21 Dose: 650 mg Documented By: JOSE Hydrocodone Bitart/Acetaminophen (Hydrocodone/Acet 5/325 Tablet) 1 tab PO Q4H PRN PRN Reason: Pain, Moderate (4-6) Apixaban (Apixaban 5 Mg Tablet) 2.5 mg PO BID [facility] Last Admin: 07/25/25 21:03 Dose: 2.5 mg Documented By: TD Atorvastatin Calcium (Atorvastatin 20 Mg Tablet) 10 mg PO BEDTIME [facility] Last Admin: 07/25/25 21:03 Dose: 10 mg Documented By: Admin: 07/24/25 20:48 Dose: 10 mg Documented By: JOSE(2) Benzonatate (Benzonatate 100 Mg Capsule) 100 mg PO TID PRN PRN Reason: Cough Furosemide (Furosemide 20 Mg Tablet) 20 mg PO DAILY [facility] Last Admin: 07/25/25 09:25 Dose: Not Given Documented By: JOSE Levothyroxine Sodium (Levothyroxine 50 Mcg Tablet) 50 mcg PO 0600 [facility] Last Admin: 07/25/25 06:17 Dose: 50 mcg Documented By: JOSE(2) Admin: 07/24/25 06:31 Dose: 50 mcg Documented By: MARILUZ Lisinopril (Lisinopril 5 Mg Tablet) 5 mg PO DAILY [facility] Last Admin: 07/25/25 09:23 Dose: 5 mg Documented By: Admin: 07/24/25 11:44 Dose: 5 mg Documented By: IRENE Metoprolol Succinate (Metoprolol Er 50 Mg Tablet) 50 mg PO BID [facility] Last Admin: 07/25/25 21:02 Dose: Not Given Documented By: Admin: 07/25/25 09:23 Dose: 50 mg Documented By: Admin: 07/24/25 20:49 Dose: Not Given Documented By: JOSE(2) Admin: 07/24/25 11:44 Dose: 50 mg Documented By: IRENE Naloxone HCl (Naloxone 0.4 Mg/Ml Vial) 0.2 mg IV Q2MIN PRN PRN Reason: Opiate Reversal Pantoprazole Sodium (Pantoprazole Dr 40 Mg Tablet) 40 mg PO DAILY [facility] Last Admin: 07/25/25 09:24 Dose: Not Given Documented By: Admin: 07/24/25 11:44 Dose: 40 mg Documented By: IRENE Potassium Chloride (Potassium Chloride 10 Meq Tab) 10 meq PO DAILY [facility] Last Admin: 07/25/25 09:21 Dose: 10 meq Documented By: Admin: 07/24/25 11:44 Dose: 10 meq Documented By: CLL Sodium Chloride (Sodium Chloride 0.9% Flush) 10 ml IV PRN PRN PRN Reason: Flush Sodium Chloride (Sodium Chloride 0.9% Flush) 10 ml IV BID [facility] Last Admin: 07/25/25 21:05 Dose: 10 ml Documented By: Admin: 07/25/25 09:25 Dose: 10 ml Documented By: JOSE Discontinued Medications Acetaminophen (Acetaminophen 325 Mg Tablet) 975 mg PO NOW ONE Stop: 07/23/25 12:12 Last Admin: 07/23/25 12:25 Dose: Not Given Documented By: Furosemide (Furosemide 40 Mg/4 Ml Vial) 20 mg IV NOW ONE Stop: 07/24/25 05:23 Last Admin: 07/24/25 06:06 Dose: 20 mg Documented By: MARILUZ Heparin Sodium (Porcine) (Heparin 5,000 Unit/Ml Vial) 5,000 unit SUBCUT BID [facility] Last Admin: 07/24/25 22:42 Dose: Not Given Documented By: JOSE(2) Sodium Chloride (Normal Saline 0.9%) 1,000 mls @ 1,000 mls/hr IV BOLUS ONE Stop: 07/23/25 11:58 Last Infusion: 07/23/25 12:25 Dose: Infused Documented By: Admin: 07/23/25 11:09 Dose: 1,000 mls/hr Documented By: SBF Naloxone HCl (Naloxone 4 Mg Nasal [place]) 4 mg MISC DIRECTED ONE Stop: 07/23/25 21:59 Last Admin: 07/23/25 22:38 Dose: Not Given Documented By: AB Non-Formulary Medication (Simvastatin) 20 mg PO DAILY JENNI Potassium Chloride (Potassium Chloride 10 Meq Tab) 10 meq PO NOW JENNI Potassium Chloride (Potassium Chloride 10 Meq Tab) 10 meq PO NOW ONE Stop: 07/25/25 09:46 Last Admin: 07/25/25 09:39 Dose: 10 meq Documented By: JOSE Warfarin Protocol (Warfarin Per Pharmacy (Inr 2-3)) 1 request MISC NOW PRN PRN Reason: afib Warfarin Sodium (Warfarin 1 Mg Tablet) 3 mg PO 1700 JENNI Last Admin: 07/24/25 20:48 Dose: 3 mg Documented By: CM(2) Vital Signs Vital signs: Vital Signs - 8 hr 07/23/25 18:00 07/23/25 18:01 07/23/25 18:01 Pulse Rate 60 60 Respiratory Rate 17 16 Blood Pressure 154/67 H Pulse Oximetry 96 96 Oxygen Delivery Method 07/23/25 18:30 07/23/25 18:31 07/23/25 18:31 Pulse Rate 60 60 Respiratory Rate 16 15 Blood Pressure 158/67 H Pulse Oximetry 95 95 Oxygen Delivery Method 07/23/25 19:00 07/23/25 19:00 07/23/25 19:30 Pulse Rate 60 Respiratory Rate 18 Blood Pressure 145/66 H 136/61 Pulse Oximetry 98 Oxygen Delivery Method 07/23/25 19:30 07/23/25 20:00 07/23/25 20:00 Pulse Rate 60 60 Respiratory Rate 15 16 Blood Pressure 138/65 Pulse Oximetry 96 93 Oxygen Delivery Method 07/23/25 20:30 07/23/25 20:30 07/23/25 21:00 Pulse Rate 60 Respiratory Rate 17 Blood Pressure 140/60 134/61 Pulse Oximetry 99 Oxygen Delivery Method 07/23/25 21:00 07/23/25 21:30 07/23/25 21:30 Pulse Rate 60 60 Respiratory Rate 16 16 Blood Pressure 132/60 Pulse Oximetry 100 100 Oxygen Delivery Method 07/23/25 22:00 07/23/25 22:00 07/23/25 22:30 Pulse Rate 60 Respiratory Rate 18 Blood Pressure 142/64 H 139/62 Pulse Oximetry 99 Oxygen Delivery Method 07/23/25 22:30 07/23/25 23:00 07/23/25 23:00 Pulse Rate 60 60 Respiratory Rate 19 23 Blood Pressure 140/63 Pulse Oximetry 99 100 Oxygen Delivery Method 07/23/25 23:30 07/23/25 23:30 07/24/25 00:00 Pulse Rate 60 60 Respiratory Rate 16 16 Blood Pressure 128/60 Pulse Oximetry 100 99 Oxygen Delivery Method 07/24/25 00:00 07/24/25 00:30 07/24/25 00:30 Pulse Rate 60 Respiratory Rate 17 Blood Pressure 133/63 143/65 H Pulse Oximetry 100 Oxygen Delivery Method Room Air <Artur EddaLadariusCarolynLadarius Renner, DO - Last Filed: 07/24/25 01:43> Orders Ordered: Acetaminophen (Acetaminophen 325 Mg Tablet) 650 mg PO Q6H PRN PRN Reason: Fever/Mild Pain (1-3) Last Admin: 07/25/25 16:35 Dose: 650 mg Documented By: Admin: 07/25/25 09:21 Dose: 650 mg Documented By: JOSE Hydrocodone Bitart/Acetaminophen (Hydrocodone/Acet 5/325 Tablet) 1 tab PO Q4H PRN PRN Reason: Pain, Moderate (4-6) Apixaban (Apixaban 5 Mg Tablet) 2.5 mg PO BID [facility] Last Admin: 07/25/25 21:03 Dose: 2.5 mg Documented By: TD Atorvastatin Calcium (Atorvastatin 20 Mg Tablet) 10 mg PO BEDTIME [facility] Last Admin: 07/25/25 21:03 Dose: 10 mg Documented By: Admin: 07/24/25 20:48 Dose: 10 mg Documented By: JOSE(2) Benzonatate (Benzonatate 100 Mg Capsule) 100 mg PO TID PRN PRN Reason: Cough Furosemide (Furosemide 20 Mg Tablet) 20 mg PO DAILY [facility] Last Admin: 07/25/25 09:25 Dose: Not Given Documented By: JOSE Levothyroxine Sodium (Levothyroxine 50 Mcg Tablet) 50 mcg PO 0600 [facility] Last Admin: 07/25/25 06:17 Dose: 50 mcg Documented By: JOSE(2) Admin: 07/24/25 06:31 Dose: 50 mcg Documented By: MARILUZ Lisinopril (Lisinopril 5 Mg Tablet) 5 mg PO DAILY [facility] Last Admin: 07/25/25 09:23 Dose: 5 mg Documented By: Admin: 07/24/25 11:44 Dose: 5 mg Documented By: IRENE Metoprolol Succinate (Metoprolol Er 50 Mg Tablet) 50 mg PO BID [facility] Last Admin: 07/25/25 21:02 Dose: Not Given Documented By: Admin: 07/25/25 09:23 Dose: 50 mg Documented By: Admin: 07/24/25 20:49 Dose: Not Given Documented By: JOSE(2) Admin: 07/24/25 11:44 Dose: 50 mg Documented By: CLL Naloxone HCl (Naloxone 0.4 Mg/Ml Vial) 0.2 mg IV Q2MIN PRN PRN Reason: Opiate Reversal Pantoprazole Sodium (Pantoprazole Dr 40 Mg Tablet) 40 mg PO DAILY [facility] Last Admin: 07/25/25 09:24 Dose: Not Given Documented By: Admin: 07/24/25 11:44 Dose: 40 mg Documented By: CLL Potassium Chloride (Potassium Chloride 10 Meq Tab) 10 meq PO DAILY [facility] Last Admin: 07/25/25 09:21 Dose: 10 meq Documented By: Admin: 07/24/25 11:44 Dose: 10 meq Documented By: CLL Sodium Chloride (Sodium Chloride 0.9% Flush) 10 ml IV PRN PRN PRN Reason: Flush Sodium Chloride (Sodium Chloride 0.9% Flush) 10 ml IV BID [facility] Last Admin: 07/25/25 21:05 Dose: 10 ml Documented By: Admin: 07/25/25 09:25 Dose: 10 ml Documented By: CM Discontinued Medications Acetaminophen (Acetaminophen 325 Mg Tablet) 975 mg PO NOW ONE Stop: 07/23/25 12:12 Last Admin: 07/23/25 12:25 Dose: Not Given Documented By: Furosemide (Furosemide 40 Mg/4 Ml Vial) 20 mg IV NOW ONE Stop: 07/24/25 05:23 Last Admin: 07/24/25 06:06 Dose: 20 mg Documented By: MARILUZ Heparin Sodium (Porcine) (Heparin 5,000 Unit/Ml Vial) 5,000 unit SUBCUT BID [facility] Last Admin: 07/24/25 22:42 Dose: Not Given Documented By: JOSE(2) Sodium Chloride (Normal Saline 0.9%) 1,000 mls @ 1,000 mls/hr IV BOLUS ONE Stop: 07/23/25 11:58 Last Infusion: 07/23/25 12:25 Dose: Infused Documented By: Admin: 07/23/25 11:09 Dose: 1,000 mls/hr Documented By: SBF Naloxone HCl (Naloxone 4 Mg Nasal [place]) 4 mg MISC DIRECTED ONE Stop: 07/23/25 21:59 Last Admin: 07/23/25 22:38 Dose: Not Given Documented By: AB Non-Formulary Medication (Simvastatin) 20 mg PO DAILY [facility] Potassium Chloride (Potassium Chloride 10 Meq Tab) 10 meq PO NOW [facility] Potassium Chloride (Potassium Chloride 10 Meq Tab) 10 meq PO NOW ONE Stop: 07/25/25 09:46 Last Admin: 07/25/25 09:39 Dose: 10 meq Documented By: JOSE Warfarin Protocol (Warfarin Per Pharmacy (Inr 2-3)) 1 request MISC NOW PRN PRN Reason: afib Warfarin Sodium (Warfarin 1 Mg Tablet) 3 mg PO 1700 JENNI Last Admin: 07/24/25 20:48 Dose: 3 mg Documented By: JOSE(2) Vital Signs Vital signs: Vital Signs - 8 hr 07/23/25 18:00 07/23/25 18:01 07/23/25 18:01 Pulse Rate 60 60 Respiratory Rate 17 16 Blood Pressure 154/67 H Pulse Oximetry 96 96 Oxygen Delivery Method 07/23/25 18:30 07/23/25 18:31 07/23/25 18:31 Pulse Rate 60 60 Respiratory Rate 16 15 Blood Pressure 158/67 H Pulse Oximetry 95 95 Oxygen Delivery Method 07/23/25 19:00 07/23/25 19:00 07/23/25 19:30 Pulse Rate 60 Respiratory Rate 18 Blood Pressure 145/66 H 136/61 Pulse Oximetry 98 Oxygen Delivery Method 07/23/25 19:30 07/23/25 20:00 07/23/25 20:00 Pulse Rate 60 60 Respiratory Rate 15 16 Blood Pressure 138/65 Pulse Oximetry 96 93 Oxygen Delivery Method 07/23/25 20:30 07/23/25 20:30 07/23/25 21:00 Pulse Rate 60 Respiratory Rate 17 Blood Pressure 140/60 134/61 Pulse Oximetry 99 Oxygen Delivery Method 07/23/25 21:00 07/23/25 21:30 07/23/25 21:30 Pulse Rate 60 60 Respiratory Rate 16 16 Blood Pressure 132/60 Pulse Oximetry 100 100 Oxygen Delivery Method 07/23/25 22:00 07/23/25 22:00 07/23/25 22:30 Pulse Rate 60 Respiratory Rate 18 Blood Pressure 142/64 H 139/62 Pulse Oximetry 99 Oxygen Delivery Method 07/23/25 22:30 07/23/25 23:00 07/23/25 23:00 Pulse Rate 60 60 Respiratory Rate 19 23 Blood Pressure 140/63 Pulse Oximetry 99 100 Oxygen Delivery Method 07/23/25 23:30 07/23/25 23:30 07/24/25 00:00 Pulse Rate 60 60 Respiratory Rate 16 16 Blood Pressure 128/60 Pulse Oximetry 100 99 Oxygen Delivery Method 07/24/25 00:00 07/24/25 00:30 07/24/25 00:30 Pulse Rate 60 Respiratory Rate 17 Blood Pressure 133/63 143/65 H Pulse Oximetry 100 Oxygen Delivery Method Room Air Medical Decision Making <Amber Pelayo, DO - Last Filed: 07/25/25 23:24> Lab Data 07/25/25 05:33 07/25/25 05:33 Labs: Lab Results 07/23/25 07/23/25 07/23/25 Range/Units 10:00 11:23 23:20 WBC 10.3 (4.5-11.0) X10^3/uL RBC 4.44 (4.0-5.2) X10^6/uL Hgb 14.7 (12.0-16.0) g/dL Hct 43.2 (36-46) % MCV 97.3 (80-100) fL MCH 33.1 (26-34) PG MCHC 34.0 (30-36) % RDW 14.1 (11.6-14.8) % Plt Count 232 (150-400) X10^3/uL Neut % (Auto) 91.0 H (50-75) % Lymph % (Auto) 4.1 L (25-40) % [place] % (Auto) 4.4 (3-14) % Eos % (Auto) 0.0 L (2-4) % Baso % (Auto) 0.5 (0-2) % Neut # (Auto) 9400 H (4180-9701) /uL Lymph # (Auto) 400 L (9397-8380) /uL [place] # (Auto) 500 (0-900) /uL Eos # (Auto) 0 (0-450) /uL Baso # (Auto) 0 (0-100) /uL Sodium 138 (137-145) mmol/L Potassium 4.0 (3.4-5.1) mmol/L Chloride 101 (98-107) mmol/L Carbon Dioxide 27 (22-32) mmol/L BUN 47 H (7-17) mg/dL Creatinine 0.63 (0.52-1.04) mg/dL Estimated GFR > 60 (>60) mL/min BUN/Creatinine Ratio 74.6 H (6-22) Glucose 154 H (70-99) mg/dL Calcium 10.3 H (8.4-10.2) mg/dL Magnesium 2.3 (1.6-2.3) mg/dL Total Bilirubin 1.7 H (0.2-1.3) mg/dL AST 36 (14-36) IU/L ALT 22 (<35) IU/L Alkaline Phosphatase 60 (38-126) U/L Troponin I 0.021 0.039 H (0.01-0.034) ng/mL NT-Pro-B Natriuret Pep 2970 H (<450) pg/mL Total Protein 8.0 (6.3-8.2) g/dL Albumin 5.0 (3.5-5.0) g/dL Globulin 3.0 (1.7-4.1) g/dL Albumin/Globulin Ratio 1.7 (1.0-2.8) Lipase 78 (23-300) U/L Urine Color Yellow Urine Appearance Clear Urine pH 5.5 (4.5-8.0) Ur Specific [place] 1.025 (1.000-1.035) Urine Protein 1+ H (Negative) Urine Glucose (UA) 3+ H (Negative) g/dL Urine Ketones 1+ H (NEGATIVE) Urine Occult Blood Trace-intact (Negative) Urine Nitrate Negative (Negative) Urine Bilirubin Negative (NEGATIVE) Urine Urobilinogen 1.0 (0.2) E.U./dL Ur Leukocyte Esterase Negative (NEGATIVE) Urine RBC 0-1/hpf (0-5/HPF) Urine WBC 0-1/hpf (0-5/HPF) Ur Squamous Epith Cells 0-1 /hpf (0-5/HPF) Urine Bacteria Occasional (0-1) (None) Ur Culture Indicated? Cult not indicated Vol Urine Centrifuged 10ml (spun) MDM Narrative Medical decision making narrative: Labs show normal CBC, INR 1.8, chemistries are appropriate BUN 47, glucose is 154 calcium is 10.3 bilirubin is 1.7 LFTs are normal troponin 0.021 with a BNP of 2970. Urine shows 1+ protein 3+ glucose 1+ ketones, trace blood, 1 red cell, white cell and squamous. Head CT shows atrophy and chronic ischemic change acute hemorrhagic mass or fact. CT cervical spine shows no displaced fracture or traumatic subluxation. Chest x-ray Cardiomegaly mild vascular congestion. Hip x-ray shows bilateral hip arthroplasty right proximal femur present with a significant osteopenia and probable underlying acute fracture EKG Ventricularly paced rhythm with PVCs rate of 61 QRS of [address] pelvis without contrast bilateral hip arthroplasty on right significant regional osteopenia involving proximal right femur prior fracture supported by plate and screw hardware as well as cerclage wires several soft large areas have failed but there was no change in configuration compared to prior exam no acute fracture right proximal femoral old healed fractures with a unchanged supporting hardware. No evidence of acute fracture hardware migration. Patient received fluids patient has a acetaminophen. Spoke with orthopedic surgery Dr. Cruz @ 1210, will obtaine CT imaging and if true periprosthetic fracture we would likely need transfer. CT imaging does not show any new fracture no new changes to hardware. Dr. Cruz, in department to evaluate patient he notes the hardware does have displacement and on exam patient is pain free. Notes may not require surgical repair emergently. Patient seen by PT, unable to follow commands adequately for eval. No pain with movement. Patient does seem confused, daughter over the phone noted seems to be worsening over the last few days no clear source of confusion is found but patient workups otherwise been appropriate accept for her orthopedic issues. Patient signed out to Dr. Renner while awaiting final disposition. <Artur Renner, DO - Last Filed: 07/24/25 01:43> Lab Data Labs: Lab Results 07/23/25 07/23/25 07/23/25 Range/Units 10:00 11:23 23:20 WBC 10.3 (4.5-11.0) X10^3/uL RBC 4.44 (4.0-5.2) X10^6/uL Hgb 14.7 (12.0-16.0) g/dL Hct 43.2 (36-46) % MCV 97.3 (80-100) fL MCH 33.1 (26-34) PG MCHC 34.0 (30-36) % RDW 14.1 (11.6-14.8) % Plt Count 232 (150-400) X10^3/uL Neut % (Auto) 91.0 H (50-75) % Lymph % (Auto) 4.1 L (25-40) % [place] % (Auto) 4.4 (3-14) % Eos % (Auto) 0.0 L (2-4) % Baso % (Auto) 0.5 (0-2) % Neut # (Auto) 9400 H (2080-5799) /uL Lymph # (Auto) 400 L (3627-3188) /uL [place] # (Auto) 500 (0-900) /uL Eos # (Auto) 0 (0-450) /uL Baso # (Auto) 0 (0-100) /uL Sodium 138 (137-145) mmol/L Potassium 4.0 (3.4-5.1) mmol/L Chloride 101 (98-107) mmol/L Carbon Dioxide 27 (22-32) mmol/L BUN 47 H (7-17) mg/dL Creatinine 0.63 (0.52-1.04) mg/dL Estimated GFR > 60 (>60) mL/min BUN/Creatinine Ratio 74.6 H (6-22) Glucose 154 H (70-99) mg/dL Calcium 10.3 H (8.4-10.2) mg/dL Magnesium 2.3 (1.6-2.3) mg/dL Total Bilirubin 1.7 H (0.2-1.3) mg/dL AST 36 (14-36) IU/L ALT 22 (<35) IU/L Alkaline Phosphatase 60 (38-126) U/L Troponin I 0.021 0.039 H (0.01-0.034) ng/mL NT-Pro-B Natriuret Pep 2970 H (<450) pg/mL Total Protein 8.0 (6.3-8.2) g/dL Albumin 5.0 (3.5-5.0) g/dL Globulin 3.0 (1.7-4.1) g/dL Albumin/Globulin Ratio 1.7 (1.0-2.8) Lipase 78 (23-300) U/L Urine Color Yellow Urine Appearance Clear Urine pH 5.5 (4.5-8.0) Ur Specific [place] 1.025 (1.000-1.035) Urine Protein 1+ H (Negative) Urine Glucose (UA) 3+ H (Negative) g/dL Urine Ketones 1+ H (NEGATIVE) Urine Occult Blood Trace-intact (Negative) Urine Nitrate Negative (Negative) Urine Bilirubin Negative (NEGATIVE) Urine Urobilinogen 1.0 (0.2) E.U./dL Ur Leukocyte Esterase Negative (NEGATIVE) Urine RBC 0-1/hpf (0-5/HPF) Urine WBC 0-1/hpf (0-5/HPF) Ur Squamous Epith Cells 0-1 /hpf (0-5/HPF) Urine Bacteria Occasional (0-1) (None) Ur Culture Indicated? Cult not indicated Vol Urine Centrifuged 10ml (spun) MDM Narrative Medical decision making narrative: Labs show normal CBC, INR 1.8, chemistries are appropriate BUN 47, glucose is 154 calcium is 10.3 bilirubin is 1.7 LFTs are normal troponin 0.021 with a BNP of 2970. Urine shows 1+ protein 3+ glucose 1+ ketones, trace blood, 1 red cell, white cell and squamous. Head CT shows atrophy and chronic ischemic change acute hemorrhagic mass or fact. CT cervical spine shows no displaced fracture or traumatic subluxation. Chest x-ray Cardiomegaly mild vascular congestion. Hip x-ray shows bilateral hip arthroplasty right proximal femur present with a significant osteopenia and probable underlying acute fracture EKG Ventricularly paced rhythm with PVCs rate of 61 QRS of [address] pelvis without contrast bilateral hip arthroplasty on right significant regional osteopenia involving proximal right femur prior fracture supported by plate and screw hardware as well as cerclage wires several soft large areas have failed but there was no change in configuration compared to prior exam no acute fracture right proximal femoral old healed fractures with a unchanged supporting hardware. No evidence of acute fracture hardware migration. Patient received fluids patient has a acetaminophen. Spoke with orthopedic surgery Dr. Cruz @ 1210, will obtaine CT imaging and if true periprosthetic fracture we would likely need transfer. CT imaging does not show any new fracture no new changes to hardware. Dr. Cruz, in department to evaluate patient he notes the hardware does have displacement and on exam patient is pain free. Notes may not require surgical repair emergently. Patient seen by PT, unable to follow commands adequately for eval. No pain with movement. Patient does seem confused, daughter over the phone noted seems to be worsening over the last few days no clear source of confusion is found but patient workups otherwise been appropriate accept for her orthopedic issues. Patient signed out to Dr. Renner while awaiting final disposition. All lab work, vital signs, nurse triage note, medication list, previous ER visits, and all imaging studies reviewed. Case discussed with Orthopedics at [facility] who recommend outpatient follow up non urgently since Dr. Proctor who operated on her originally and no longer works there. Physical therapy and weightbearing as tolerated is her recommendation. Her CT scan from 10 days ago similar in appearance in comparison per . Case discussed with Hospitalist who has graciously accepted the patient for inpatient admission. Discharge Plan Departure Patient Disposition: Admitted As Inpatient Clinical Impression: Loosening of bone fixation wire, Acute confusion Admit Date/Time: 07/24/25 01:25 Admit Provider: Santos Gallegos
--- NOTE | 2025-07-23 10:12 | EKG_ITS ---
[place] [id number] [place] [id number] Test Date: 2025-07-23 Pat Name: Kanika Valladares Department: Room: Gender: Female Security Team Lead: : 1940 Requested By: Order Number: [id number] Reading MD: Artur Mann MD Measurements Intervals [place] Rate: 61 P: TN: QRS: -71 QRSD: 180 T: 104 QT: 512 QTc: 515 Interpretive Statements Ventricular-paced rhythm with premature atrial complexes with aberrant conduction Electronically Signed On 07-23-2025 21:51:54 PDT by Artur Mann MD
[2025-07-23 10:21] LABS: Add Manual Diff / Slide Review NO; Hematocrit 43.2 % (36-46); Hemoglobin 14.7 g/dL (12.0-16.0); Lymphocytes Absolute Auto 400 /uL (1100-4500); Mean Corpuscular HGB Conc 34.0 % (30-36); Mean Corpuscular Hemoglobin 33.1 PG (26-34); Mean Corpuscular Volume 97.3 fL (80-100); Platelet Count 232 X10^3/uL (150-400)
[2025-07-23 10:34] LABS: Alanine Aminotransferase 22 IU/L (<35); Albumin 5.0 g/dL (3.5-5.0); Albumin Globulin Ratio 1.7 (1.0-2.8); Alkaline Phosphatase 60 U/L (38-126); Blood Urea Nitrogen 47 mg/dL (7-17); Calcium 10.3 mg/dL (8.4-10.2); Carbon Dioxide 27 mmol/L (22-32); Chloride 101 mmol/L (98-107); Estimated Glomerular Filt Rate > 60 mL/min (>60); Globulin 3.0 g/dL (1.7-4.1); Glucose 154 mg/dL (70-99); HEMOLYSIS < 15 (0-50); Lipase 78 U/L (23-300); Magnesium 2.3 mg/dL (1.6-2.3); Potassium 4.0 mmol/L (3.4-5.1); Sodium 138 mmol/L (137-145); Total Protein 8.0 g/dL (6.3-8.2)
[2025-07-23 10:45] LABS: NT-proBNP (BNP-Adult 18+) 2970 pg/mL (<450); Troponin I 0.021 ng/mL (0.01-0.034)
[2025-07-23] MEDS: SODIUM CHLORIDE 0.9% 1,000 ML 1000 ML IV (11:09)
--- NOTE | 2025-07-23 11:13 | PC.NURSE ---
patient extremely emaciated and appears to have chronic weakness
[2025-07-23 11:45] LABS: Appearance Urine UA CLEAR; Bilirubin Urine UA NEGATIVE (NEGATIVE); Color Urine UA YELLOW; Glucose Urine UA 3+ g/dL (Negative); Ketones Urine UA 1+ (NEGATIVE); Leukocyte Esterase Urine UA NEGATIVE (NEGATIVE); Nitrite Urine UA NEGATIVE (Negative); Occult Blood Urine UA TRACE-INTACT (Negative); Protein Urine UA 1+ (Negative); Specific Gravity Urine UA 1.025 (1.000-1.035); Urobilinogen Urine UA 1.0 E.U./dL (0.2)
[2025-07-23 11:46] LABS: pH Urine UA 5.5 (4.5-8.0)
[2025-07-23 11:55] LABS: Culture Indicated Urine Cult Not Indicated
--- NOTE | 2025-07-23 12:07 | DI.CT.S_ITS ---
PROCEDURE: CT PEL WO CON INDICATIONS: R hip ? acute fx/hardware TECHNIQUE: After the administration of oral contrast, 5 mm thick sections acquired from the iliac crests to the symphysis. 5 mm coronal and sagittal reformats were then performed. For radiation dose reduction, the following was used: automated exposure control, adjustment of mA and/or kV according to patient size. COMPARISON: [facility], CT, CT PEL WO CON, 07/13/2025, 18:27. FINDINGS: Bilateral hip arthroplasty. On the right, there is significant regional osteopenia involving the proximal right femur. Prior fractures are supported by plate and screw hardware as well as cerclage wires. Several of the soft large wires have failed, but there is no change in configuration compared to the prior exam. No acute fracture. IMPRESSION: Right proximal femoral old healed fractures with unchanged supporting hardware. No evidence of acute fracture or hardware migration. Approved by: Kelvin Kinsey M.D. on 07/23/2025 at 11:41
--- NOTE | 2025-07-23 13:23 | PC.NURSE ---
Attempted to ambulate patient with walker. Pt unable to follow directions. Was not able to lift up feet or even stand on her own. Pt needed assistance x2 being positioned back to bed. Pt declined any pain with standing assist. Very unsteady on her feet.
--- NOTE | 2025-07-23 13:49 | PC.NURSE ---
Left VM for PT
--- NOTE | 2025-07-23 15:21 | CM.DANOTE ---
ED PSYCHOLOGIST MILITARY PERSONNEL DCP Assessment Note: Pt is a 84yo female, resident of [facility], is seen in the ED for weakness and falls. Pt lives in a house alone. Pt's Primary Care Provider is VALENTIN Christian ([facility]) and insurance is Medicare [facility] Reviewed chart and discussed with multidisciplinary team pt's medical status and initial discharge needs. Per RN, pt failed ambulation trial. ED PSYCHOLOGIST MILITARY PERSONNEL met w/patient at bedside; introduced self and role. Patient was found in bed, kept eyes closed throughout assessment but cooperative. Pt confirmed living situation and good support in daughter and local relatives. Pt expressed preference in discharge home when cleared, pt denying any pain at this time. Pt's affect was found to not be congruent with mood. Pt states she has no history of home health or SNF Rehab. Pt states she utilizes a FWW at baseline, states she still drives. PSYCHOLOGIST MILITARY PERSONNEL spoke with pt daughter, Chel, who lives in [place] via phone call. She states pt has been complaining of hip pain everyday for the past several weeks. Pt was seen in the ED on 07/13/25 but was ultimately sent home after an Ortho consult, it is reported pt has an appt with [facility] (Dr. Sotelo) on 07/25/25 to determine if pt is a candidate for surgery as they found she has misplaced hardware from a surgery from approximately 20 years ago. Pt daughter explains she is in the process of moving pt to [place] with her but they wanted to determine if pt would get the surgery or not. Caregivers: Pt daughter explains pt currently has caregivers from [employer], 7 days/week for 3 hours in the morning and 3 hours at night. Hallucinations: Pt daughter explains pt called her last night stating she saw animals and a lady outside of her house, the caregivers denied this. Pt daughter expresses preference for pt to be seen by Orthopedic Surgeon to determine surgery or next steps; she is concerned with pt safety as she is not able to bear weight, She said she hasn't been able to fix meals for herself because of the pain, The other day, the caregivers walked in and found her incontinent of urine. Pt daughter hopeful that pt can be admitted and possibly go to a Fdc Facility until she can arrange pt to move to [place]. PSYCHOLOGIST MILITARY PERSONNEL discussed Medicare Choice List and how to refer to this via Medicare.gov; pt daughter identified [facility] to be their first preference if available. PSYCHOLOGIST MILITARY PERSONNEL discussed above with ED Provider, Dr. Pelayo; ordered PT evaluation. Plan: Awaiting PT/OT evaluations and recommendation for evolving discharge plans. CM team will follow closely for coordination of discharge plans. MARIAMA Grey Discharge Planning/Care Management CM Discharge Assessment Start: 07/23/25 14:53 Freq: Status: Active Protocol: Document 07/23/25 14:53 MW (Rec: 07/23/25 15:14 MW [id number]) Discharge Planning Assessment Assigned Discharge ERLIN Roberts Direct Care Supervisor Provider VALENTIN Christian ([facility]) Insurance Medicare Insurance Comment A[employer] (secondary) DPOA/Assigned Chel Palafox, Daughter Designee Name Contact Information [phone] Advance Directives? Yes Advance Directives No on File History Provided By Patient,Medical Record Has Patient been No admitted in last 30 days? Prior Living House Arrangements Comment [facility] Household Members none Type of Relies on Others transporation used prior to admit Independent with ADL No 's Is patient alert and No oriented? DME Already Rented / FWW / Walker Owned Patient/Family Fdc Facility Preference Comment 1. [facility] Discharge Plan Fdc Facility Review Status In Process Please Provide Date 07/23/25 Initial DC Assessment Was Performed Next Review Type Continued Stay Review
--- NOTE | 2025-07-23 16:43 | PT.IIE ---
Surgical History (Last Reviewed 07/23/25 @ 09:56 by Amber Pelayo DO) H/O hysterectomy for benign disease S/P hip replacement Total knee replacement status Medical History (Last Reviewed 07/23/25 @ 09:56 by Amber Pelayo DO) Atrial fibrillation 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 Physical Therapy Inpatient Evaluation/Re-Eval M1 PT/OT-IP Prior Functional Status Start: 07/23/25 16:34 Freq: Status: Active Protocol: Document 07/23/25 16:34 [facility] (Rec: 07/23/25 16:43 [facility] [id number]) Medical Review Prior Functional Status Medical History Yes Reviewed Communication difficult to get prior functional status Mobility and Gait pt notes she walks w/walker Activities of Daily pt notes CG help with bathing, cooking and cleaning but Living and IADL's she does some of the cleaning Social History Household Members none Living Arrangements House Number of Floors ( Two Floors Floors) Number of Stairs To TOMMIE but pt unable to say how many Enter/Railing? Home Environment Standard Height Toilet,Tub/Shower Additional Social pt notes bench in tub but unable to share what kind, History Comment notes she has a walker but unable to state what kind M2 PT-IP Current Condition Start: 07/23/25 16:34 Freq: Status: Active Protocol: Document 07/23/25 16:34 [facility] (Rec: 07/23/25 16:43 [facility] [id number]) Physical Therapy Current Condition Current Condition Evaluation Date 07/23/25 Treatment Diagnosis difficulty in walking, weakness M3 PT-IP Subjective Start: 07/23/25 16:34 Freq: Status: Active Protocol: Document 07/23/25 16:34 [facility] (Rec: 07/23/25 16:43 [facility] [id number]) Subjective Physical Therapy Visit Type Type Initial Evaluation Visit Start Time 16:10 Visit Stop Time 16:33 Number of ETHNOGRAPHIC MATERIALS CONSERVATOR Visits 0 M4 PT-IP Mobility and Gait Start: 07/23/25 16:34 Freq: Status: Active Protocol: Document 07/23/25 16:34 [facility] (Rec: 07/23/25 16:43 [facility] [id number]) PT-Bed Mobility Assessment Supine to Sit Supine to Sit Total Assistance,Head of Bed Elevated Sit to Supine Sit to Supine Total Assistance,Head of Bed Elevated Scooting Scooting to Edge of Dependent Bed Scooting Up and Down Dependent in Bed PT-Transfer Assessment Sit to and From Stand Sit to and from Total Assistance,2 Person Assistance,Use of Upper Stand Extremities Equipment Transfer Assistive Gait Belt,Front Wheeled Walker Device Orthotic/Prosthetic No Devices or Brace: Comments Mobility Comments pt difficult to get a history on and when cued to move body parts or given general cues to sit up, pt unable to follow any commands (even 1 step commands). She was dependent with all mobility and when asked to take some small steps, she lifts L leg but will not lift RLE to take step that was about 1 in fwd w/max Ax2. She was sat to EOB dependent and dependent w/bed mobility. Pt left with RN setting pt up. PT-Balance Assessment Sitting Balance and Reactions Static Sitting Poor Balance Ability Dynamic Sitting Poor Balance Ability Standing Balance and Reactions Static Standing Poor Balance Ability Dynamic Standing Poor Balance Ability Device Used fww M5 PT-IP Objective Assessments Start: 07/23/25 16:34 Freq: Status: Active Protocol: Document 07/23/25 16:34 [facility] (Rec: 07/23/25 16:43 [facility] [id number]) Orientation Orientation/Cognition Level of Alertness Confusional State Language Function Garbled Speech,Hard of Hearing Ability Safety Awareness Decreased Safety Awareness Gross Range of Motion Lower Extremity ROM Impairments PROM WFL but pt unable to demo AROM B Strength Lower Extremity Strength Assessment Bilaterally Impaired Hip unable to test but dec AROM M7 PT-IP Assessment and Plan Start: 07/23/25 16:34 Freq: Status: Active Protocol: Document 07/23/25 16:34 [facility] (Rec: 07/23/25 16:43 [facility] [id number]) PT Summary Assessment and Plan Potential Rehabilitation Fair Potential Status of Condition Unstable at Evaluation Summary Impairments Pain,Strength,Balance,Bed Mobility,Transfers,Gait, Activity Tolerance Assessment Summary Pt presents after possible fall w/hip pain and overall weakness. She was unable to participate or follow commands in PT session today. She appears confused and has difficulty answering questions about her history and was unable to follow even 1 step commands. At this time, pt is not safe for mobility at home and would benefit from SNF rehab as she was dependent w/all mobility today. Goals Bed Mobility Goal Independent Transfer Goal Independent Gait Goal Independent,Front Wheel Walker Gait Distance 75ft Days to Meet Goals 10 Frequency of Treatment Frequency Of Once a Day Treatment Treatment Plan Physical Therapy Bed Mobility Training,Transfer Training,Gait Training, Treatment Plan Therapeutic Exercise,Balance Retraining,Discharge Planning,Neuromuscular Re-ed Other cont to work on bed mobility/transfers Recommendations and Next Treatment Focus Recommendations To Nursing Amount of Assist 2 Person Assist,Mechanical Lift Needed Discharge Recommendations PT Discharge SNF Rehab Recommendations Transportation Needs Wheelchair/Cabulance,Stretcher/Ambulance at Discharge - PT assist 2
--- NOTE | 2025-07-23 17:50 | PM.CN.IH.1 ---
History of Present Illness Consult details Date Patient Seen: 07/23/25 Time Patient Seen: 17:50 Chief complaint: GLF Reason for consult: Ground level fall with history of prior ORIF for periprosthetic femur fract Requesting provider: Amber Pelayo Narrative: Kanika is an 84-year-old female who presents to the emergency room today after a ground level fall. She has history of bilateral total hip arthroplasties. She was recently seen on the and had some pain on the left side. She has some mild discomfort on the right today. Imaging of the pelvis and right hip performed earlier showed evidence of prior total hip arthroplasty with open reduction internal fixation of a complex periprosthetic femur fracture performed at some point in the past. Ortho consult was requested for further evaluation and recommendations regarding management. She reports no substantial pain in the right hip at this time. She lives at home by herself independently with a caregiver overnight. She has been noted to be confused in the ER today. Meds Home Medications and Allergies Home Medications ?Medication ?Instructions ?Recorded ?Confirmed ?Type cholecalciferol (vitamin D3) 125 5,000 unit PO DAILY 10/29/18 07/21/22 History mcg (5,000 unit) tablet (Vitamin D3) clonazepam 0.5 mg PO BEDTIME PRN Restless 10/29/18 07/21/22 History Leg(S) acetaminophen 500 mg capsule 1,000 mg PO DAILY PRN Pain (Scale 07/21/22 07/21/22 History Score 4-6) levothyroxine 50 mcg tablet 50 mcg PO DAILY 07/21/22 07/21/22 History metoprolol succinate 50 mg 50 mg PO BID 07/21/22 07/21/22 History tablet,extended release 24 hr potassium chloride 10 mEq 10 meq PO DAILY 07/21/22 07/21/22 History tablet,extended release simvastatin 20 mg tablet 20 mg PO DAILY 07/21/22 07/21/22 History furosemide 20 mg tablet 20 mg PO DAILY 07/22/22 07/22/22 History acetaminophen 325 mg tablet 650 mg (2 x 325 mg) PO Q6HR PRN 07/24/22 Rx Fever/Mild Pain (1-3) #90 tabs furosemide 20 mg tablet 20 mg PO DAILY #30 tabs 07/24/22 Rx lisinopril 5 mg tablet 5 mg PO DAILY #30 tabs 07/24/22 Rx metoprolol tartrate 25 mg tablet 75 mg (3 x 25 mg) PO TID #90 tabs 07/24/22 Rx pantoprazole 40 mg tablet,delayed 40 mg PO DAILY #30 tabs 07/24/22 Rx release tramadol 50 mg tablet 50 mg PO BID PRN pain #20 tabs 07/24/22 Rx trazodone 50 mg tablet 25 mg (1/2 x 50 mg) PO BEDTIME PRN 07/24/22 Rx sleep #30 tabs warfarin 1 mg tablet (Jantoven) 3 mg (3 x 1 mg) PO DAILY@1700 #30 07/24/22 Rx tabs hydrocodone 5 mg-acetaminophen 325 1 tab PO Q6H PRN pain #14 tabs 09/02/22 Rx mg tablet Allergies Allergy/AdvReac Type Severity Reaction Status Date / Time Sulfa (Sulfonamide Allergy Severe Anaphylaxis Verified 07/23/25 10:00 Antibiotics) (SULFA (SULFONAMIDE ANTIBIOTICS)) adhesive tape (ADHESIVE TAPE) Allergy Unknown WELTS Verified 07/23/25 10:00 propoxyphene (From Darvon) Allergy Unknown Verified 07/23/25 10:00 zolpidem (From Ambien) AdvReac Severe Hallucinati Verified 07/23/25 10:00 ng Exam Vital Signs (past 8 hours): - 07/23/25 09:59 07/23/25 10:00 07/23/25 10:00 Temperature 97.8 F Pulse Rate 144 H 60 Respiratory Rate 16 18 Blood Pressure 129/84 133/63 Pulse Oximetry 98 92 Oxygen Delivery Method Room Air 07/23/25 10:33 07/23/25 10:33 07/23/25 11:00 Temperature Pulse Rate 109 H 60 Respiratory Rate 15 18 Blood Pressure 143/65 H Pulse Oximetry 85 L 94 Oxygen Delivery Method 07/23/25 11:11 07/23/25 11:11 07/23/25 11:30 Temperature Pulse Rate 65 Respiratory Rate 15 Blood Pressure 131/60 144/77 H Pulse Oximetry 94 Oxygen Delivery Method 07/23/25 11:30 07/23/25 12:00 07/23/25 12:00 Temperature Pulse Rate 88 63 Respiratory Rate 17 15 Blood Pressure 152/70 H Pulse Oximetry 93 93 Oxygen Delivery Method 07/23/25 12:26 07/23/25 12:26 07/23/25 12:30 Temperature Pulse Rate 83 Respiratory Rate 15 Blood Pressure 179/67 H 153/75 H Pulse Oximetry 94 Oxygen Delivery Method 07/23/25 12:30 07/23/25 13:07 07/23/25 13:08 Temperature Pulse Rate 60 60 Respiratory Rate 15 13 Blood Pressure Pulse Oximetry 94 89 L 93 Oxygen Delivery Method Room Air 07/23/25 13:08 07/23/25 13:30 07/23/25 13:30 Temperature Pulse Rate 60 Respiratory Rate 17 Blood Pressure 146/68 H 144/67 H Pulse Oximetry 97 Oxygen Delivery Method 07/23/25 14:00 07/23/25 14:01 07/23/25 14:01 Temperature Pulse Rate 70 69 Respiratory Rate 15 16 Blood Pressure 143/66 H Pulse Oximetry 98 98 Oxygen Delivery Method 07/23/25 14:30 07/23/25 14:30 07/23/25 15:00 Temperature Pulse Rate 75 67 Respiratory Rate 15 16 Blood Pressure 159/73 H Pulse Oximetry 97 99 Oxygen Delivery Method 07/23/25 15:00 07/23/25 15:30 07/23/25 15:30 Temperature Pulse Rate 60 Respiratory Rate 15 Blood Pressure 155/68 H 138/65 Pulse Oximetry 98 Oxygen Delivery Method 07/23/25 16:00 07/23/25 16:01 07/23/25 16:01 Temperature Pulse Rate 57 L 68 Respiratory Rate 15 15 Blood Pressure 134/59 L Pulse Oximetry 97 98 Oxygen Delivery Method 07/23/25 16:30 07/23/25 16:30 07/23/25 17:00 Temperature Pulse Rate 60 Respiratory Rate 15 Blood Pressure 153/66 H 142/68 H Pulse Oximetry 94 Oxygen Delivery Method 07/23/25 17:00 Temperature Pulse Rate 61 Respiratory Rate 15 Blood Pressure Pulse Oximetry 96 Oxygen Delivery Method Oxygen Delivery Method Room Air Narrative Exam Narrative: Right lower extremity shows well-healed surgical incisions consistent with previous history of total hip arthroplasty and subsequent ORIF. Range of motion is somewhat diminished. Passive range of motion with the hip does not produce any substantial pain. Palpation around the hip also does not produce any substantial pain. Axial load across the hip also is without pain. Distal motor and sensory exams are grossly intact. Objective Imaging Pelvis and right hip films: My impression: AP pelvis along with AP and lateral view of the right hip performed July 23, 2025 were personally assessed. The films demonstrate a right total hip arthroplasty with a Press-Fit cup which appears to be well placed. The femoral prosthesis is reduced in the cup. There is a greater trochanter cable plate in place along with what appears to be a probable distal femoral locking plate that may have been placed for a prior distal femoral fracture. The cerclage cables associated with the greater trochanter plate have all failed. The greater trochanter is displaced anteriorly relative to the prosthesis best appreciated on the lateral view. The locking plate is sitting somewhat anterior on the proximal portion of the femur with the anterior most screw just anterior to the femoral stem. The stem is without obvious evidence of loosening distally below the level of the cable plate. Compared to films from July 13 showing a an AP of the pelvis but performed for left hip pain do not show any significant differences from the x-rays performed today. CT scan - pelvis: My impression: CT scan of the pelvis performed July 23, 2025 is also personally assessed. Again, there is evidence of a total hip arthroplasty of the right hip with a noncemented cup. The femoral prosthesis is reduced within the acetabular components appropriately. The greater trochanter has previously been fractured and fixed with a cable plate construct which shows evidence of failure of all the cables and displacement of the greater trochanter anteriorly relative to the stem. It is difficult to determine the acuity of this failure, but based on the appearance it may be a chronic failure as the fragments appear to be somewhat corticated. The distal portion of the stem that was within the canal distally appears that it may still be reasonably stable as I do not appreciate substantial osteolysis around the stem distally. There is also a locking plate placed along the lateral aspect of the femur distally that is only partially visualized. Additionally, she has a noncemented total hip arthroplasty of the left hip which is in good position and does not show any evidence of acute failure complication. Labs 07/23/25 10:00 07/23/25 10:00 Labs: Laboratory Results - last 24 hr 07/23/25 07/23/25 10:00 11:23 WBC 10.3 RBC 4.44 Hgb 14.7 Hct 43.2 MCV 97.3 MCH 33.1 MCHC 34.0 RDW 14.1 Plt Count 232 Neut % (Auto) 91.0 H Lymph % (Auto) 4.[address] [place] % (Auto) 4.4 Eos % (Auto) 0.0 L Baso % (Auto) 0.5 Neut # (Auto) 9400 H Lymph # (Auto) [address] [place] # (Auto) 500 Eos # (Auto) 0 Baso # (Auto) 0 Sodium 138 Potassium 4.0 Chloride 101 Carbon Dioxide 27 BUN 47 H Creatinine 0.63 Estimated GFR > 60 BUN/Creatinine Ratio 74.6 H Glucose 154 H Calcium 10.3 H Magnesium 2.3 Total Bilirubin 1.7 H AST 36 ALT 22 Alkaline Phosphatase 60 Troponin I 0.021 NT-Pro-B Natriuret Pep 2970 H Total Protein 8.0 Albumin 5.0 Globulin 3.0 Albumin/Globulin Ratio 1.7 Lipase 78 Urine Color Yellow Urine Appearance Clear Urine pH 5.5 Ur Specific [place] 1.025 Urine Protein 1+ H Urine Glucose (UA) 3+ H Urine Ketones 1+ H Urine Occult Blood Trace-intact Urine Nitrate Negative Urine Bilirubin Negative Urine Urobilinogen 1.0 Ur Leukocyte Esterase Negative Urine RBC 0-1/hpf Urine WBC 0-1/hpf Ur Squamous Epith Cells 0-1 /hpf Urine Bacteria Occasional (0-1) Ur Culture Indicated? Cult not indicated Vol Urine Centrifuged 10ml (spun) [facility] Medical History Chronic anticoagulation Atrial fibrillation Mitral valve disease Bella-Danlos syndrome Surgical History H/O hysterectomy for benign disease Total knee replacement status S/P hip replacement Family History Mother Cancer Father Diabetes mellitus Social History household members: none Tobacco & Substance Use Smoking Status: Never smoker alcohol intake: current Assessment & Plan Assessment & Plan narrative: History of right hip periprosthetic fracture treated with open reduction internal fixation now with evidence of loss of fixation of the greater trochanteric cable plate of indeterminate age. Her x-rays are quite impressive as she has a total hip arthroplasty in place along with a greater trochanteric cable plate with evidence of failure of the cable plate fixation construct and displacement of the greater trochanter anteriorly relative to the stem. There is also a distal femoral locking plate that enters the lower portion of the arthroplasty, but the stem appears to be unchanged in its position on all the films relative to the films performed on the . Additionally, the CT scan also does not show a significant void that would suggest acute loss of fixation of the stem within the distal shaft. Taking this into account along with the physical exam findings that show little to no pain with palpation around the hip as well as no pain with passive motion and axial load across the hip, it is difficult to know whether or not these findings represent a acute failure of the fixation without adequate compared to films from more than a few days ago. Given her overall medical condition, she would be at high risk for revision surgery and in light of the complexity, would be best treated with somebody skilled in complex revision arthroplasty including possible proximal femoral replacement with a tumor prosthesis if a revision were to be considered. This would also require removal of several of the locking screws from the locking plate to allow adequate distal femoral canal length for the prosthesis. I have report that she has to be seeing Dr. Clancy for evaluation this week for hip, but it is unclear as to which hip and for what reason. I do not see a need for any acute orthopedic surgical intervention at this time given her clinical picture of painless range of motion and no pain with axial load. I would recommend that she work with therapy and her medical conditions be addressed to see if we can get her ambulating again. Depending on her progress, she could potentially have evaluation for revision surgery as an outpatient if required. Time-Based Coding :: [TOTAL MINUTES] spent with patient and on the chart (including review of chart, obtaining history, exam, reviewing outside data, placing orders, documenting exam and treatment plan, and counseling patient) on [DATE]. PROFEE Charge Codes Inpatient or Observation consultation: 28637
--- NOTE | 2025-07-23 19:10 | CM.SWNOTE ---
ED QUALITY ASSURANCE ADVISOR DCP Note: Per PT, recommending SNF - could not follow commands or bear weight without assistance; states pt is technically a total care at this time. Per ED Provider, attempting transfer to higher level of care. QUALITY ASSURANCE ADVISOR updated daughter of above, daughter stated preference of updates of surgery so she can determine plans afterwards. QUALITY ASSURANCE ADVISOR assisted pt with connecting via phone call with daughter, pt found to be very confused and not oriented to place/time. Patient could not remember her cellphone lock code and would not follow through on actions while holding phone. When pt daughter able to speak with her, pt daughter wanted to note with this QUALITY ASSURANCE ADVISOR of pt's confusion which is very new. QUALITY ASSURANCE ADVISOR updated ED sheet rock layer, ED Provider of above and daughter's request for update of transfer/plan of care when available. BRENTON GreySW
--- NOTE | 2025-07-23 19:30 | PC.NURSE ---
pt noted with bruising in various places, especially on the lower arms, pt appears very cachectic, pt oriented but drowsy, dozing off but is easy to arouse
--- NOTE | 2025-07-23 20:01 | PC.NURSE ---
pt states she does not normally have difficulty swallowing, pt taking small sips of water and then coughing, coughing is not severe but is warrant a SLASHER HAND evaluation prior to allowing pt to eat,
[2025-07-24] VITALS (12 sets, daily range): BP systolic 98–152; BP diastolic 57–72; PULSE 59–68; RESP 14–19; TEMP 35.9–36.6; O2SAT 95–100; BMI 17.8
[2025-07-24 00:10] LABS: Troponin I 0.039 ng/mL (0.01-0.034)
--- NOTE | 2025-07-24 02:30 | PC.NURSE ---
pt requesting something to eat, explained to pt that she had not gotten any food d/t the coughing she was experiencing earlier with drinking her jacquelin yash, pt states she had some mucous she was having difficulty with in her throat, pt was given some more jacquelin yash and was able to drink the 8 oz without any coughing noted
--- NOTE | 2025-07-24 04:15 | PC.NURSE ---
Belongings Personal belongings (wallet with credit cards and gift cards) sent to safe as per pt request.
--- NOTE | 2025-07-24 05:07 | PC.NURSE ---
cris caraballo [facility] [phone]
--- NOTE | 2025-07-24 05:11 | PM.HP.1 ---
History of Present Illness History of Present Illness Date Patient Seen: 07/24/25 Time Patient Seen: 00:11 Chief complaint: GLF Narrative: 84-year-old female with past medical history of atrial fibrillation status post Watchman procedure and pacemaker on Eliquis, mitral valve repair, dyslipidemia, congestive heart failure, right hip arthroplasty and left knee arthroplasty. Per report, the patient might have fallen earlier today but does not remember exactly how it happened. The patient also is unsure if the patient has hit her head or not. The patient however denies any loss of consciousness. The patient does have chronic right hip pain but the pain seems slightly worse than her baseline. Otherwise the patient denies any recent fever, chills, nausea, vomiting, diarrhea, chest pain or shortness of breath. In the emergency room, patient was hemodynamically stable. Labs were relatively benign, CTA of the head was negative. Chest x-ray shows cardiomegaly with mild vascular congestion. Shows possible underlying acute fracture. CT of the pelvis without contrast of bilateral hip shows right significant regional osteopenia involving proximal right femur prior fracture supported by plate and screw hardware as well as several soft large areas have fell but there is no change in configuration compared to prior exam no acute fracture of the right proximal femoral old healed fracture with unchanged supporting hardware orthopedic surgeon was consulted and patient for surgical in intervention at this time. Recommended admission for pain control with PT OT. Patient's daughter also was made aware of the plan. Orthopedic surgeon also states that depending on her progress, she could potentially have evaluation for revision as an outpatient if required. [facility] Medical History Chronic anticoagulation Atrial fibrillation Mitral valve disease Bella-Danlos syndrome Surgical History H/O hysterectomy for benign disease Total knee replacement status S/P hip replacement Family History Mother Cancer Father Diabetes mellitus Social History household members: none Smoking Status: Never smoker alcohol intake: current Meds Home Medications and Allergies Home Medications ?Medication ?Instructions ?Recorded ?Confirmed ?Type cholecalciferol (vitamin D3) 125 5,000 unit PO DAILY 10/29/18 07/21/22 History mcg (5,000 unit) tablet (Vitamin D3) clonazepam 0.5 mg PO BEDTIME PRN Restless 10/29/18 07/21/22 History Leg(S) acetaminophen 500 mg capsule 1,000 mg PO DAILY PRN Pain (Scale 07/21/22 07/21/22 History Score 4-6) levothyroxine 50 mcg tablet 50 mcg PO DAILY 07/21/22 07/21/22 History metoprolol succinate 50 mg 50 mg PO BID 07/21/22 07/21/22 History tablet,extended release 24 hr potassium chloride 10 mEq 10 meq PO DAILY 07/21/22 07/21/22 History tablet,extended release simvastatin 20 mg tablet 20 mg PO DAILY 07/21/22 07/21/22 History furosemide 20 mg tablet 20 mg PO DAILY 07/22/22 07/22/22 History acetaminophen 325 mg tablet 650 mg (2 x 325 mg) PO Q6HR PRN 07/24/22 Rx Fever/Mild Pain (1-3) #90 tabs furosemide 20 mg tablet 20 mg PO DAILY #30 tabs 07/24/22 Rx lisinopril 5 mg tablet 5 mg PO DAILY #30 tabs 07/24/22 Rx metoprolol tartrate 25 mg tablet 75 mg (3 x 25 mg) PO TID #90 tabs 07/24/22 Rx pantoprazole 40 mg tablet,delayed 40 mg PO DAILY #30 tabs 07/24/22 Rx release tramadol 50 mg tablet 50 mg PO BID PRN pain #20 tabs 07/24/22 Rx trazodone 50 mg tablet 25 mg (1/2 x 50 mg) PO BEDTIME PRN 07/24/22 Rx sleep #30 tabs warfarin 1 mg tablet (Jantoven) 3 mg (3 x 1 mg) PO DAILY@1700 #30 07/24/22 Rx tabs hydrocodone 5 mg-acetaminophen 325 1 tab PO Q6H PRN pain #14 tabs 09/02/22 Rx mg tablet Allergies Allergy/AdvReac Type Severity Reaction Status Date / Time Sulfa (Sulfonamide Allergy Severe Anaphylaxis Verified 07/23/25 10:00 Antibiotics) (SULFA (SULFONAMIDE ANTIBIOTICS)) adhesive tape (ADHESIVE TAPE) Allergy Unknown WELTS Verified 07/23/25 10:00 propoxyphene (From Darvon) Allergy Unknown Verified 07/23/25 10:00 zolpidem (From Ambien) AdvReac Severe Hallucinati Verified 07/23/25 10:00 ng Review of Systems Review of Systems ROS: Yes unobtainable due to mental condition Exam Vital Signs (past 8 hours): - 07/23/25 21:30 07/23/25 21:30 07/23/25 22:00 Temperature Pulse Rate 60 Respiratory Rate 16 Blood Pressure 132/60 142/64 H Pulse Oximetry 100 Oxygen Delivery Method Oxygen Flow Rate 07/23/25 22:00 07/23/25 22:30 07/23/25 22:30 Temperature Pulse Rate 60 60 Respiratory Rate 18 19 Blood Pressure 139/62 Pulse Oximetry 99 99 Oxygen Delivery Method Oxygen Flow Rate 07/23/25 23:00 07/23/25 23:00 07/23/25 23:30 Temperature Pulse Rate 60 Respiratory Rate 23 Blood Pressure 140/63 128/60 Pulse Oximetry 100 Oxygen Delivery Method Oxygen Flow Rate 07/23/25 23:30 07/24/25 00:00 07/24/25 00:00 Temperature Pulse Rate 60 60 Respiratory Rate 16 16 Blood Pressure 133/63 Pulse Oximetry 100 99 Oxygen Delivery Method Oxygen Flow Rate 07/24/25 00:30 07/24/25 00:30 07/24/25 01:00 Temperature Pulse Rate 60 Respiratory Rate 17 Blood Pressure 143/65 H 133/62 Pulse Oximetry 100 Oxygen Delivery Method Room Air Oxygen Flow Rate 07/24/25 01:00 07/24/25 01:30 07/24/25 01:30 Temperature Pulse Rate 60 60 Respiratory Rate 17 15 Blood Pressure 152/63 H Pulse Oximetry 100 99 Oxygen Delivery Method Oxygen Flow Rate 07/24/25 02:00 07/24/25 02:01 07/24/25 02:01 Temperature Pulse Rate 60 60 Respiratory Rate 17 19 Blood Pressure 132/61 Pulse Oximetry 98 98 Oxygen Delivery Method Room Air Oxygen Flow Rate 07/24/25 02:30 07/24/25 02:30 07/24/25 02:34 Temperature 96.6 F L Pulse Rate 60 68 Respiratory Rate 17 14 Blood Pressure 139/64 130/72 Pulse Oximetry 99 95 Oxygen Delivery Method Oxygen Flow Rate 07/24/25 03:20 Temperature 97.8 F Pulse Rate 60 Respiratory Rate 17 Blood Pressure 130/72 Pulse Oximetry 99 Oxygen Delivery Method Oxygen Flow Rate 0 Oxygen Delivery Method Room Air Oxygen Flow Rate 0 Narrative Exam Narrative: Physical Exam: GENERAL: The patient is not in any acute distressed. Awake with mild confusion HEENT: Nonicteric sclerae, PERRLA, EOMI. Oropharynx clear. Moist mucous membranes. Conjunctivae appear well perfused. HEART: Regular rate and rhythm without murmurs. 1+ lower extremities edema. LUNGS: Mild crackles at the basis. Clear to auscultation bilaterally. No wheezing, crackles or rhonchi ABDOMEN: Soft, positive bowel sounds, nontender. SKIN: No rash, no excessive bruising, petechiae, or purpura. NEUROLOGIC: AxO x 2 Cranial nerves II-XII intact without motor/sensory deficit. Objective Labs 07/23/25 10:00 07/23/25 10:00 Labs: Laboratory Results - last 24 hr 07/23/25 07/23/25 07/23/25 10:00 11:23 23:20 WBC 10.3 RBC 4.44 Hgb 14.7 Hct 43.2 MCV 97.3 MCH 33.1 MCHC 34.0 RDW 14.1 Plt Count 232 Neut % (Auto) 91.0 H Lymph % (Auto) 4.1 L [place] % (Auto) 4.4 Eos % (Auto) 0.0 L Baso % (Auto) 0.5 Neut # (Auto) 9400 H Lymph # (Auto) 400 L [place] # (Auto) 500 Eos # (Auto) 0 Baso # (Auto) 0 Sodium 138 Potassium 4.0 Chloride 101 Carbon Dioxide 27 BUN 47 H Creatinine 0.63 Estimated GFR > 60 BUN/Creatinine Ratio 74.6 H Glucose 154 H Calcium 10.3 H Magnesium 2.3 Total Bilirubin 1.7 H AST 36 ALT 22 Alkaline Phosphatase 60 Troponin I 0.021 0.039 H NT-Pro-B Natriuret Pep 2970 H Total Protein 8.0 Albumin 5.0 Globulin 3.0 Albumin/Globulin Ratio 1.7 Lipase 78 Urine Color Yellow Urine Appearance Clear Urine pH 5.5 Ur Specific [place] 1.025 Urine Protein 1+ H Urine Glucose (UA) 3+ H Urine Ketones 1+ H Urine Occult Blood Trace-intact Urine Nitrate Negative Urine Bilirubin Negative Urine Urobilinogen 1.0 Ur Leukocyte Esterase Negative Urine RBC 0-1/hpf Urine WBC 0-1/hpf Ur Squamous Epith Cells 0-1 /hpf Urine Bacteria Occasional (0-1) Ur Culture Indicated? Cult not indicated Vol Urine Centrifuged 10ml (spun) Assessment & Plan Assessment & Plan narrative: Ground level fall with right hip pain.. Stated above, CT of the pelvis without contrast of bilateral hip shows right significant regional osteopenia involving proximal right femur prior fracture supported by plate and screw hardware as well as several soft large areas have fell but there is no change in configuration compared to prior exam no acute fracture of the right proximal femoral old healed fracture with unchanged supporting hardware orthopedic surgeon was consulted and patient for surgical in intervention at this time. Recommended admission for pain control with PT OT. Patient's daughter also was made aware of the plan. Orthopedic surgeon also states that depending on her progress, she could potentially have evaluation for revision as an outpatient if required. PT, OT and pain control. Confusion. Per patient's daughter, the patient has mild cognative decline. No clear etiology. CT head negative. No clear sign of infection as chest x-ray and UA is not suggestive of pneumonia or UTI respectively. Patient mentation seems to be improving. Will continue to monitor for now. Atrial fibrillation. Digoxin level low. Resume home digoxin and consider consulting pharmacy for redosing if patient has been compliant at home. Resume home Eliquis. Acute on chronic heart failure exacerbation. BNP close to 3000 and mild pulmonary edema on chest x-ray. Basic I's and O's and daily weight. Mild elevated trop. No clear sign of acute changes on EKG to suggest acute ischemia. Likely demand from CHF. Monitor for now. Dysphagia. Per the patient's following. NPO. Swallow eval. Aspiration precaution. DVT prophylaxis Eliquis. CODE STATUS Will need to verify with patient's daughter tomorrow but full code for now. Disposition likely home versus rehab 1 to 2 days - As the provider of this telehealth evaluation, requested by the patient's evaluating physician, I attest that I introduced myself to the patient, provided my credentials and determined that telemedicine via a real-time, 2 way interactive audio and video platform is an appropriate and effective means of providing this service. - I reviewed the patient's chart and had a discussion with the member of the patient's treatment team. - The patient and I mutually agreed with continuation of this evaluation via telemedicine. The patient consented for the telemedicine evaluation. - This virtual encounter was taken place from [place] by Dr. Santos Gallegos. The patient was evaluated at [facility]. The encounter was approximately 35 minutes. The nurse was present during the entire time of the encounter and was able assists with the stethoscope to listen to the patients. Time-Based Coding :: [TOTAL MINUTES] spent with patient and on the chart (including review of chart, obtaining history, exam, reviewing outside data, placing orders, documenting exam and treatment plan, and counseling patient) on [DATE]. Quality VTE Deep Vein Thrombosis/Pulmonary Embolism Present on Admission: No
[2025-07-24] MEDS: FUROSEMIDE 40 MG/4 ML VIAL 20 MG IV (06:06)
[2025-07-24 06:29] LABS: INR 1.3 (0.9-1.3); Prothrombin Time 14.2 SECONDS (9.4-12.5)
[2025-07-24] MEDS: LEVOTHYROXINE 50 MCG TABLET PO (06:31)
--- NOTE | 2025-07-24 09:34 | PM.PN.IH.1 ---
Subjective Subjective Date Patient Seen: 07/24/25 Time Patient Seen: 09:34 Interval history: Hospital day 2. For fall. Reports some discomfort in both hips. Exam Vital Signs (past 8 hours): - 07/24/25 02:00 07/24/25 02:01 07/24/25 02:01 Temperature Pulse Rate 60 60 Respiratory Rate 17 19 Blood Pressure 132/61 Pulse Oximetry 98 98 Oxygen Delivery Method Room Air Oxygen Flow Rate 07/24/25 02:30 07/24/25 02:30 07/24/25 02:34 Temperature 96.6 F L Pulse Rate 60 68 Respiratory Rate 17 14 Blood Pressure 139/64 130/72 Pulse Oximetry 99 95 Oxygen Delivery Method Oxygen Flow Rate 07/24/25 03:20 Temperature 97.8 F Pulse Rate 60 Respiratory Rate 17 Blood Pressure 130/72 Pulse Oximetry 99 Oxygen Delivery Method Oxygen Flow Rate 0 Oxygen Delivery Method Room Air Oxygen Flow Rate 0 Narrative Exam Narrative: Left hip exam has some minimal tenderness. I am able to range the hip with minimal discomfort. Distal motor and sensory exam is intact. Right hip exam has minimal tenderness as well. I can range her hip reasonably well with minimal discomfort. I do not appreciate a significant change from yesterday's exam. Distal motor and sensory exam is intact. Objective Labs 07/23/25 10:00 07/23/25 10:00 Labs: Laboratory Results - last 24 hr 07/23/25 07/23/25 07/23/25 10:00 11:23 23:20 WBC 10.3 RBC 4.44 Hgb 14.7 Hct 43.2 MCV 97.3 MCH 33.1 MCHC 34.0 RDW 14.1 Plt Count 232 Neut % (Auto) 91.0 H Lymph % (Auto) 4.1 L [place] % (Auto) 4.4 Eos % (Auto) 0.0 L Baso % (Auto) 0.5 Neut # (Auto) 9400 H Lymph # (Auto) 400 L [place] # (Auto) 500 Eos # (Auto) 0 Baso # (Auto) 0 PT INR Sodium 138 Potassium 4.0 Chloride 101 Carbon Dioxide 27 BUN 47 H Creatinine 0.63 Estimated GFR > 60 BUN/Creatinine Ratio 74.6 H Glucose 154 H Calcium 10.3 H Magnesium 2.3 Total Bilirubin 1.7 H AST 36 ALT 22 Alkaline Phosphatase 60 Troponin I 0.021 0.039 H NT-Pro-B Natriuret Pep 2970 H Total Protein 8.0 Albumin 5.0 Globulin 3.0 Albumin/Globulin Ratio 1.7 Lipase 78 Urine Color Yellow Urine Appearance Clear Urine pH 5.5 Ur Specific [place] 1.025 Urine Protein 1+ H Urine Glucose (UA) 3+ H Urine Ketones 1+ H Urine Occult Blood Trace-intact Urine Nitrate Negative Urine Bilirubin Negative Urine Urobilinogen 1.0 Ur Leukocyte Esterase Negative Urine RBC 0-1/hpf Urine WBC 0-1/hpf Ur Squamous Epith Cells 0-1 /hpf Urine Bacteria Occasional (0-1) Ur Culture Indicated? Cult not indicated Vol Urine Centrifuged 10ml (spun) 07/24/25 06:12 WBC RBC Hgb Hct MCV MCH MCHC RDW Plt Count Neut % (Auto) Lymph % (Auto) [place] % (Auto) Eos % (Auto) Baso % (Auto) Neut # (Auto) Lymph # (Auto) [place] # (Auto) Eos # (Auto) Baso # (Auto) PT 14.2 H INR 1.3 Sodium Potassium Chloride Carbon Dioxide BUN Creatinine Estimated GFR BUN/Creatinine Ratio Glucose Calcium Magnesium Total Bilirubin AST ALT Alkaline Phosphatase Troponin I NT-Pro-B Natriuret Pep Total Protein Albumin Globulin Albumin/Globulin Ratio Lipase Urine Color Urine Appearance Urine pH Ur Specific [place] Urine Protein Urine Glucose (UA) Urine Ketones Urine Occult Blood Urine Nitrate Urine Bilirubin Urine Urobilinogen Ur Leukocyte Esterase Urine RBC Urine WBC Ur Squamous Epith Cells Urine Bacteria Ur Culture Indicated? Vol Urine Centrifuged [facility] Medical History Chronic anticoagulation Atrial fibrillation Mitral valve disease Bella-Danlos syndrome Surgical History H/O hysterectomy for benign disease Total knee replacement status S/P hip replacement Family History Mother Cancer Father Diabetes mellitus Social History household members: none Smoking Status: Never smoker alcohol intake: current Assessment & Plan Assessment & Plan narrative: Hospital day 2. From ground level fall. I do not appreciate a convincing new injury on the right hip, but she does have substantial hardware failure from her prior fracture surgeries. I will be discussing her case with 1 of the orthopedist here to help with appropriate follow up and planning. At this time, I think she can be weight-bearing as tolerated with assistance to avoid any further falls. Time-Based Coding :: [TOTAL MINUTES] spent with patient and on the chart (including review of chart, obtaining history, exam, reviewing outside data, placing orders, documenting exam and treatment plan, and counseling patient) on [DATE]. Quality VTE Deep Vein Thrombosis/Pulmonary Embolism Present on Admission: No [facility] PROFEE Transmission Supervisor Document charge(s): Yes Charge Codes Subsequent inpatient/observation care: [id number]
[2025-07-24] MEDS: PANTOPRAZOLE DR 40 MG TABLET PO (11:44)
[2025-07-24] MEDS: METOPROLOL ER 50 MG TABLET PO (11:44)
[2025-07-24] MEDS: POTASSIUM CHLORIDE 10 MEQ TAB PO (11:44)
--- NOTE | 2025-07-24 12:30 | PT.IPTN ---
Physical Therapy Treatment Note M2 PT-IP Current Condition Start: 07/23/25 16:34 Freq: Status: Active Protocol: Document 07/23/25 16:34 [facility] (Rec: 07/23/25 16:43 [facility] [id number]) Physical Therapy Current Condition Current Condition Evaluation Date 07/23/25 Treatment Diagnosis difficulty in walking, weakness M3 PT-IP Subjective Start: 07/23/25 16:34 Freq: Status: Active Protocol: Document 07/24/25 13:52 [facility] (Rec: 07/24/25 13:59 [facility] [id number]) Subjective Physical Therapy Visit Type Type Treatment Note Visit Start Time 11:43 Visit Stop Time 12:24 Number of [employer] Visits 0 Physical Therapy Visit Comments Patient Comments Pt agreeable to get up M4 PT-IP Mobility and Gait Start: 07/23/25 16:34 Freq: Status: Active Protocol: Document 07/24/25 13:52 [facility] (Rec: 07/24/25 13:59 [facility] [id number]) PT-Bed Mobility Assessment Supine to Sit Supine to Sit Moderate Assistance,1 Person Assistance,Head of Bed Elevated,Bedrails Scooting Scooting to Edge of Maximum Assistance Bed PT-Transfer Assessment Sit to and From Stand Sit to and from Moderate Assistance,1 Person Assistance,Use of Upper Stand Extremities Equipment Transfer Assistive Gait Belt,Front Wheeled Walker Device Orthotic/Prosthetic No Devices or Brace: Transfers Transfer Destination Chair Transfer Technique Stand Step Pivot Transfer Ability Level of Assist Moderate Assistance Comments Mobility Comments supine BP 120/56, seated 121/68, supine to sit w/HOB elevated and use of rails w/mod A and max A to scoot to EOB with max cueing throughout for hand placement and wt shift w/body. Sit to stand mod A w/cues for hand placement and fwd lean. mod A w/FWW to transfer very slowly w/tactile cues for each leg for each small step. Pt sat in chair w/mod A to lower and left w/call light in reach. PT-Balance Assessment Sitting Balance and Reactions Static Sitting Fair Balance Ability Dynamic Sitting Poor Balance Ability Standing Balance and Reactions Static Standing Poor Balance Ability Dynamic Standing Poor Balance Ability Device Used fww M5 PT-IP Objective Assessments Start: 07/23/25 16:34 Freq: Status: Active Protocol: Document 07/23/25 16:34 [facility] (Rec: 07/23/25 16:43 [facility] [id number]) Orientation Orientation/Cognition Level of Alertness Confusional State Language Function Garbled Speech,Hard of Hearing Ability Safety Awareness Decreased Safety Awareness Gross Range of Motion Lower Extremity ROM Impairments PROM WFL but pt unable to demo AROM B Strength Lower Extremity Strength Assessment Bilaterally Impaired Hip unable to test but dec AROM M6 PT-IP Treatment Start: 07/23/25 16:34 Freq: Status: Active Protocol: Document 07/24/25 13:52 [facility] (Rec: 07/24/25 13:59 [facility] [id number]) Physical Therapy Treatment Exercises Exercises Ankle Pumps Education Education Provided Safety Other Treatments Other Treatment marches Performed M7 PT-IP Assessment and Plan Start: 07/23/25 16:34 Freq: Status: Active Protocol: Document 07/24/25 13:52 [facility] (Rec: 07/24/25 13:59 [facility] [id number]) PT Summary Assessment and Plan Summary Impairments Pain,ROM,Strength,Balance,Coordination,Cognition,Bed Mobility,Transfers,Gait,Activity Tolerance Progress Towards Progressing Toward Goals Goals Assessment Summary Pt was more awake and aware during session today, but still had notable memory loss and mild confusion. She was very slow with movement and required assistance with all activity today. At this time, she cont to not be safe to return home alone and would benefit from SNF rehab. Goals Bed Mobility Goal Independent Transfer Goal Independent Gait Goal Independent,Front Wheel Walker Gait Distance 75ft Days to Meet Goals 10 Frequency of Treatment Frequency Of Once a Day Treatment Treatment Plan Physical Therapy Bed Mobility Training,Transfer Training,Gait Training, Treatment Plan Therapeutic Exercise,Balance Retraining,Discharge Planning,Hot or Cold Pack,Neuromuscular Re-ed, Coordination Retraining,Manual Therapy Weight Bearing Status Weight Bearing Weight Bear as Tolerated Status Recommendations To Nursing Amount of Assist 1 Person Assist Needed Discharge Recommendations PT Discharge SNF Rehab Recommendations Transportation Needs Wheelchair/Cabulance at Discharge - PT assist 1
--- NOTE | 2025-07-24 13:43 | ST.IPCSEOM ---
Visit Care Team Role Provider Type VALENTIN Islas Primary Care Provider Physician Specialty: Nursing Address: [address] [place] [address], [id number] Email: Artur Renner DO Emergency Provider Physician Referring Provider Specialty: Emergency Medicine Address: [address] [place] [address], [id number] Phone: Fax: Email: [email or web address] Santos Gallegos MD Admit Provider Physician Attending Provider Specialty: Internal Medicine Address: [address] [place] [address], [id number] Email: [email or web address] Past Medical History (Last Reviewed 07/23/25 @ 09:56 by Amber Pelayo DO) Atrial fibrillation (Medical) Chronic anticoagulation (Medical) 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) Repaired in the past Speech-Language Pathology Swallow Evaluation PORTRAIT ARTIST Clinical Swallow Evaluation Start: 07/24/25 12:05 Freq: Status: Active Protocol: Document 07/24/25 12:05 SS (Rec: 07/24/25 12:12 SS DESKTOP) Clinical Swallow Evaluation Session Time Visit Start Time 10:50 Visit Stop Time 11:30 Total Visit Minutes 40 Visit Information Visit Number 1 Referral Referring Provider Santos Gallegos MD Reason for Referral Dysphagia Setting Assessment Location Acute Care Visit Type Note Type Initial evaluation Next Note Type Next Note Type Treatment Note Patient Information Identification Type Name History Per H&P: 84-year-old female with past medical history of atrial fibrillation status post Watchman procedure and pacemaker on Eliquis, mitral valve repair, dyslipidemia, congestive heart failure, right hip arthroplasty and left knee arthroplasty. Per report, the patient might have fallen earlier today but does not remember exactly how it happened. The patient also is unsure if the patient has hit her head or not. The patient however denies any loss of consciousness. The patient does have chronic right hip pain but the pain seems slightly worse than her baseline. Otherwise the patient denies any recent fever, chills, nausea, vomiting, diarrhea, chest pain or shortness of breath. In the emergency room, patient was hemodynamically stable. Labs were relatively benign, CTA of the head was negative. Chest x-ray shows cardiomegaly with mild vascular congestion. Shows possible underlying acute fracture. CT of the pelvis without contrast of bilateral hip shows right significant regional osteopenia involving proximal right femur prior fracture supported by plate and screw hardware as well as several soft large areas have fell but there is no change in configuration compared to prior exam no acute fracture of the right proximal femoral old healed fracture with unchanged supporting hardware orthopedic surgeon was consulted and patient for surgical in intervention at this time. Recommended admission for pain control with PT OT. Patient's daughter also was made aware of the plan. Orthopedic surgeon also states that depending on her progress, she could potentially have evaluation for revision as an outpatient if required. Clinical swallow evaluation completed to assess swallowing function, aspiration risk, and determine need for further instrumental swallow study. Subjective Pt was alert, though not oriented to place or date upon Observations PORTRAIT ARTIST arrival. PORTRAIT ARTIST assisted in upright positioning in preparation for PO trials. Pt denied overt s/sx of aspiration. She reported unintentional weight loss of about 40 lbs over the past year. Unclear how reliable pt report is given waxing and waning cognition and alertness. Per RN report, pt had failed nursing swallow screen and has been NPO. Reported by Patient/Caregiver Other Symptoms Coughing,Difficulty swallowing liquids,Difficulty swallowing solids,Weight loss Comment BASELINE LEVEL OF FUNCTION Solids: Regular Liquids: Thin Medications: Whole with liquid wash Functional Oral Intake Scale (FOIS): FOIS level 7 FOIS Lutz: Level 1 = no oral intake, Level 2 = tube dependent with minimal/inconsistent oral intake, Level 3 = tube supplements with consistent oral intake, Level 4 = total oral intake of a single consistency, Level 5 = total oral intake of multiple consistencies requiring special preparation, Level 6 = total oral intake with no special preparation, but must avoid specific foods or liquid items, Level 7 = total oral intake with no restrictions Current Diet Regular (IDDSI 7) Baseline Feeding Independent in self-feeding Method The IDDSI Framework Protocol: IDDSI.1 Objective Assessment Mental Status Alert,Responsive,Cooperative Oral Integrity WFL Dentition Within normal limits,Missing teeth Lip Function Mild impairment Tongue Function Mild impairment Jaw Function Within normal limits Hard/Soft Palate Within normal limits Function Comment Generalized lingual and labial weakness. Suspect this is related to age. Pt?s oral health is fair. Patient has own dentition with multiple implants noted. She reports brushing her teeth 1-2 x daily, although she expresses he sometimes misses. Food and Liquid Trials Position During Upright (90 degrees) Assessment Liquids Trialed Thin (IDDSI 0) Solid Trials Purred (IDDSI 4),Soft & Bite-sized (IDDSI 6),Regular ( IDDSI 7) Oral Impairment Mildly impaired Oral Phase Comments Pt observed across trials of thin liquids (>3 oz water) via tsp and cup, puree via tsp (apple sauce), soft/ bite sized via tsp (diced peaches), and regular ( cracker). Pt required set-up assistance but was able to feed self. Pt exhibited adequate bolus retrieval with no anterior loss. Pt exhibited mildly prolonged bolus manipulation and reduced oral clearance resulting in mild oral residue. Pt independently cleared reside with liquid wash and lingual sweep. Pharyngeal Moderately impaired Impairment Pharyngeal Phase Clinical signs/symptoms of possible pharyngeal Comments dysphagia include inconsistent immediate coughing of thin liquids (increasingly with sequential cup sips or with large sips) as well as wet vocal quality immediately post-swallows with thin liquids only. No globus sensation reported. No overt s/sx of aspiration following solids. Throat clearing at baseline (pt reporting increased mucous) difficult to distinguish from s/sx of aspiration with PO intake. Fatigue/Endurance Endurance WNL [place] Swallow No Protocol Results The Belinda Swallow Protocol is an evidence-based swallow screening protocol to determine aspiration risk. This tool has been validated across a number of different patient diagnoses and in a number of clinical settings. This is the only screening instrument that both identifies aspiration risk and, when passed, is able to recommend specific oral diets without the need for further instrumental dysphagia testing. Based upon research by Drs. Jesus Clifton and Alexandra Zaragoza, this is a reliable and validated swallow screening protocol. Results with 3oz water test: COULD NOT ADMINISTER GIVEN INCONSISTENT COUGHING WITH CUP SIPS OF THIN - deemed unsafe The IDDSI Framework Protocol: IDDSI.1 Findings Swallowing Function Oropharyngeal phase dysphagia Severity of Swallow Mildly-moderately impaired Impairment Contributing Factors Reduced alertness or attention,Difficulty following to Swallow directions,Reduced oral strength/coordination/sensation Impairment ,Mastication inefficiency,Impaired airway protection Prognosis Fair Based on Cognitive status,Age Comment Pt presents with mild oral phase dysphagia characterized by difficulty with bolus manipulation and clearance and concern for possible pharyngeal phase dysphagia given presence of signs/symptoms of aspiration (coughing, wet vocal quality). Based on pt?s current fair oral health status and intact immune function, pt remains at a moderate risk of pulmonary compromise associated with aspiration at this time. Pt appears to be at risk for malnutrition/ dehydration due to decreased appetite and unintentional weight loss. Diet modification/non oral nutrition not indicated. Recommend pt continue eating regular diet to maintain nutrition and hydration given. Modified Barium Swallow Study (MBSS) is indicated to thoroughly assess pt?s swallow pathophysiology in order to determine the safest diet, effective compensatory strategies, and potential rehabilitative exercises for therapy. MBSS scheduled for 07/25 at 11:00. Recommend safest/most efficient least restrictive diet of regular solids (IDDSI 7) and thin liquids (IDDSI 0) with aspiration precautions. Recommend [place] Free Water protocol between meals given aspiration concern with thin liquids. No liquids with meals at this time. Recommend water only between meals following thorough oral care, upright position, and with supervision. Handout with pt's individualized safe swallow strategies left in pt's room on hospital board; pt verbalized understanding/agreement with diet recommendation and strategies pending MBSS. MD and RN notified of assessment results and recommendations. Impact on Safety and Risk for aspiration,Risk for inadequate nutrition/ Functioning hydration Recommendations Instrumental Yes Assessment Swallowing Treatment Yes Frequency Daily Duration During admission Recommended Solids Regular (IDDSI 7) Recommended Liquids Thin (IDDSI 0) Other free water protocol (water only between meals after Recommendations oral care), oral care before and after meals Safety Precautions/ Supervision needed for all meals,1 to 1 close Swallowing supervision,Feed only when alert,Reduce distractions, Recommendations Remain upright (90 degrees) during all oral intake, Needs verbal cues to use recommended strategies,Upright position at least 30 minutes after meals,Small bites and sips when eating,Slow rate; swallow between bites, No straw,Strict oral care after intake Medication As Tolerated,Whole in Carrier Recommendations Discharge senior living facility Recommendations Referrals Recommended Dietary Referrals Education Patient/Caregiver Described results of evaluation,Patient expressed Education understanding of evaluation,Patient expressed agreement with goals & treatment plans Goals Short-term Goals Patient will complete MBSS to further evaluate swallowing pathophysiology and determine next steps in POC. Long-term Goals Patient will safely tolerate least restrictive diet consistency to allow for safe consumption of daily meals without s/sx of aspiration.
--- NOTE | 2025-07-24 15:33 | CM.DPC ---
DCP Cont: Per MD, pt with complex hardware displacement in bilateral hips and to have Ortho Consult with her tomorrow to determine recommendations. Pt remains OBS status at this time and awaiting Ortho Consult to determine if pt meets Inpt Criteria at that time pending POC. Pt hopeful for SNF at d/c but OBS Status a barrier to SNF coverage. PT/ST to work with pt today to determine if pt able to make progress and ambulate further. ERLIN Emerson
--- NOTE | 2025-07-24 15:51 | PM.HP.1 ---
History of Present Illness History of Present Illness Chief complaint: GLF Narrative: Chief complaint Ground level fall and mild confusion History of present illness: 07/24: 84-year-old female with past medical history of atrial fibrillation status post Watchman procedure and pacemaker on Eliquis, mitral valve repair, dyslipidemia, congestive heart failure, right hip arthroplasty and left knee arthroplasty. Per report, the patient might have fallen earlier today but does not remember exactly how it happened. The patient also is unsure if the patient has hit her head or not. The patient however denies any loss of consciousness. The patient does have chronic right hip pain but the pain seems slightly worse than her baseline. Otherwise the patient denies any recent fever, chills, nausea, vomiting, diarrhea, chest pain or shortness of breath. In the emergency room, patient was hemodynamically stable. Labs were relatively benign, CTA of the head was negative. Chest x-ray shows cardiomegaly with mild vascular congestion. Shows possible underlying acute fracture. CT of the pelvis without contrast of bilateral hip shows right significant regional osteopenia involving proximal right femur prior fracture supported by plate and screw hardware as well as several soft large areas have fell but there is no change in configuration compared to prior exam no acute fracture of the right proximal femoral old healed fracture with unchanged supporting hardware Orthopedic surgeon was consulted and patient for surgical in intervention at this time. Recommended admission for pain control with PT OT. Patient's daughter also was made aware of the plan. Orthopedic surgeon also states that depending on her progress, she could potentially have evaluation for revision as an outpatient if required. Discussed case with Dr. Clancy who is happy to see her and evaluate her for her left hip only as an outpatient. If patient desires evaluation and further management of the right hip, our recommendations are that she be referred to a teaching facility given the complexity of the problem with her right hip that would require a much more extensive surgery than what is safe to perform here. Hospital course: No reported complaints throughout the day afebrile vital signs stable Review of systems: Patient has memory loss however, No fever or chills rigors Chest pain palpitations or shortness for breath Abdominal pain nausea vomiting Physical exam: Elderly female in no acute distress alert HEENT unremarkable No labored respirations Abdomen nondistended Extremities no edema Assessment and plan: Ground level fall probable unsafe alone at home we will need placement patient also with mild cognitive decline Refer to case management Multiple orthopedic procedures with senescent left prosthesis No urgent fractures or need for surgery Risks and benefits favor conservative approach DVT prophylaxis: Covered with warfarin Code status: Full code blue Disposition: Observation but we will need placement Time based billin minutes were involved in the management of this patient including [id number] evaluation of the patient physical examined of the patient review of the records and review of objective laboratory and imaging findings including direct imaging and review of imaging with Orthopedic surgery [facility], [facility] Medical History Chronic anticoagulation Atrial fibrillation Mitral valve disease Bella-Danlos syndrome Surgical History H/O hysterectomy for benign disease Total knee replacement status S/P hip replacement Family History Mother Cancer Father Diabetes mellitus Social History household members: none Smoking Status: Never smoker alcohol intake: current Meds Home Medications and Allergies Home Medications ?Medication ?Instructions ?Recorded ?Confirmed ?Type cholecalciferol (vitamin D3) 125 5,000 unit PO DAILY 10/29/18 07/21/22 History mcg (5,000 unit) tablet (Vitamin D3) clonazepam 0.5 mg PO BEDTIME PRN Restless 10/29/18 07/21/22 History Leg(S) acetaminophen 500 mg capsule 1,000 mg PO DAILY PRN Pain (Scale 07/21/22 07/21/22 History Score 4-6) levothyroxine 50 mcg tablet 50 mcg PO DAILY 07/21/22 07/21/22 History metoprolol succinate 50 mg 50 mg PO BID 07/21/22 07/21/22 History tablet,extended release 24 hr potassium chloride 10 mEq 10 meq PO DAILY 07/21/22 07/21/22 History tablet,extended release simvastatin 20 mg tablet 20 mg PO DAILY 07/21/22 07/21/22 History furosemide 20 mg tablet 20 mg PO DAILY 07/22/22 07/22/22 History acetaminophen 325 mg tablet 650 mg (2 x 325 mg) PO Q6HR PRN 07/24/22 Rx Fever/Mild Pain (1-3) #90 tabs furosemide 20 mg tablet 20 mg PO DAILY #30 tabs 07/24/22 Rx lisinopril 5 mg tablet 5 mg PO DAILY #30 tabs 07/24/22 Rx metoprolol tartrate 25 mg tablet 75 mg (3 x 25 mg) PO TID #90 tabs 07/24/22 Rx pantoprazole 40 mg tablet,delayed 40 mg PO DAILY #30 tabs 07/24/22 Rx release tramadol 50 mg tablet 50 mg PO BID PRN pain #20 tabs 07/24/22 Rx trazodone 50 mg tablet 25 mg (1/2 x 50 mg) PO BEDTIME PRN 07/24/22 Rx sleep #30 tabs warfarin 1 mg tablet (Jantoven) 3 mg (3 x 1 mg) PO DAILY@1700 #30 07/24/22 Rx tabs hydrocodone 5 mg-acetaminophen 325 1 tab PO Q6H PRN pain #14 tabs 09/02/22 Rx mg tablet Allergies Allergy/AdvReac Type Severity Reaction Status Date / Time Sulfa (Sulfonamide Allergy Severe Anaphylaxis Verified 07/23/25 10:00 Antibiotics) (SULFA (SULFONAMIDE ANTIBIOTICS)) adhesive tape (ADHESIVE TAPE) Allergy Unknown WELTS Verified 07/23/25 10:00 propoxyphene (From Darvon) Allergy Unknown Verified 07/23/25 10:00 zolpidem (From Ambien) AdvReac Severe Hallucinati Verified 07/23/25 10:00 ng Exam Vital Signs (past 8 hours): - 07/24/25 08:00 Temperature 97.4 F L Pulse Rate 60 Respiratory Rate 15 Blood Pressure 124/57 L Pulse Oximetry 100 Oxygen Flow Rate 0 Oxygen Delivery Method Room Air Oxygen Flow Rate 0 Objective Labs 07/23/25 10:00 07/23/25 10:00 Labs: Laboratory Results - last 24 hr 07/23/25 07/24/25 23:20 06:12 PT 14.2 H INR 1.3 Troponin I 0.039 H Assessment & Plan Time-Based Coding :: [TOTAL MINUTES] spent with patient and on the chart (including review of chart, obtaining history, exam, reviewing outside data, placing orders, documenting exam and treatment plan, and counseling patient) on [DATE]. Quality VTE Deep Vein Thrombosis/Pulmonary Embolism Present on Admission: No
--- NOTE | 2025-07-24 16:01 | PC.NURSE ---
Addendum entered by Rosa Maria Gerber RN 07/27/25 07:49: Late Entry: Patient does have calluses to the bottom of her toes on the r.foot, she has bruising to bilateral arms, and dry skin to lower legs with some scratches with hemosiderin staining to calves and shins. Bottom is red but blanchable, with mepelex dressing in place. Original Note: Patient is sitting up in the chair at this time, she worked with pt, 1person assist with walker per PT. She is confused and hallucinates at times. Has been pleasant with care. She is resting comfortably. Will get patient back to bed after dinner.
--- NOTE | 2025-07-24 20:07 | P.PN_ITS ---
Subjective Subjective Interval history: I was contacted by the on-call surgeon regarding this patient. She has been noting left hip pain and was admitted for medical reasons today. She was scheduled to see me in clinic regarding her left hip pain. She has a history of a left total hip arthroplasty, the details of which are unknown to me, but appears to have been a primary total hip. Separately she has undergone multiple right hip surgeries which appear to have been related to periprosthetic femoral fracture. Per report, she is not complaining of pain on that right side where she has a total hip, and two femoral plates with broken cerclage cables around them. On her left side where she is noting pain she has CT findings demonstrating asymmetric polyethylene wear and a cyst behind the acetabular component. A prior radiology read had noted concerns for the femoral stem however that stem has spot welds distally on the CT scan indicating that the stem is not loose. There is potential for surgery on her left hip which would consist of an acetabular component exchange, however this is a non-urgent surgery which would be delayed to ensure the patient was medically optimized prior to proceeding with it. I had planned to see her in the outpatient setting to discuss this possibility prior to this admission. I had already communicated to the family that there was a possibility that I would not be able to offer surgery to the patient because of the limitations of this facility prior to that clinic visit. With her currently admitted, I have reached out to the anesthesia department here regarding the patient. That communication is included below: I reviewed the patient?s chart, including her studies from yesterday?s admission.?I agree with your assessment that she is too medically complex for revision surgery at our hospital. Her most recent echo shows an EF of 40% +/- 5%, and it was 30-35% on previous echo. She also has chronic heart failure, severe biatrial enlargement, mild MR across her annuloplasty, mild-mod AI, and mild-mod TR.? In addition, she has abnormal PFTs from 2022, severe osteopenia, surgical bleeding risks in a chronically anticoagulated patient who is only 51 kg, mild confusion at baseline, and Bella-Danlos syndrome. She will most likely need several units of blood, which will acutely worsen her CHF, and will probably require pressor support intraoperatively and postoperatively.? Based on her constellation of comorbidities, I would recommend she have a cardiac anesthesiologist care for her at an institution with more cardiac resources than [facility]. I expect she will need to remain hospitalized postoperatively for several days longer than the normal stay. Given these constraints, there is nothing that we as the orthopedic service can provide during this patient's admission. If the patient and family desire to more aggressively pursue surgical intervention - either as an inpatient or an outpatient - they will need to be triaged to a higher level facility. 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 There is no major risk of acute fracture. The orthopedic service will sign off at this point in time as we unfortunately are unable to contribute to the patient's care at this facility. I would be willing to meet with the patient in clinic however this would be largely to provide counseling regarding the pathogenesis of osteolysis and the anticipated course with nonoperative treatment as I will not be able to intervene surgically at our facility for her. Exam Vital Signs (past 8 hours): Oxygen Delivery Method Room Air Oxygen Flow Rate 0 Objective Labs 07/23/25 10:00 07/23/25 10:00 Labs: Laboratory Results - last 24 hr 07/23/25 07/24/25 23:20 06:12 PT 14.2 H INR 1.3 Troponin I 0.039 H PFSH Medical History Chronic anticoagulation Atrial fibrillation Mitral valve disease Bella-Danlos syndrome Surgical History H/O hysterectomy for benign disease Total knee replacement status S/P hip replacement Family History Mother Cancer Father Diabetes mellitus Social History household members: none Smoking Status: Never smoker alcohol intake: current Assessment & Plan Time-Based Coding :: [TOTAL MINUTES] spent with patient and on the chart (including review of chart, obtaining history, exam, reviewing outside data, placing orders, documenting exam and treatment plan, and counseling patient) on [DATE]. Quality VTE Deep Vein Thrombosis/Pulmonary Embolism Present on Admission: No [facility] Trust Administrator Document charge(s): No
[2025-07-24] MEDS: ATORVASTATIN 20 MG TABLET 10 MG PO (20:48)
[2025-07-24] MEDS: WARFARIN 1 MG TABLET 3 MG PO (20:48)
[2025-07-25] VITALS (7 sets, daily range): BP systolic 107–133; BP diastolic 60–70; PULSE 59–60; RESP 14–18; TEMP 36.2–36.9; O2SAT 94–99
[2025-07-25 05:56] LABS: Hematocrit 36.2 % (36-46); Hemoglobin 12.6 g/dL (12.0-16.0); Mean Corpuscular HGB Conc 34.9 % (30-36); Mean Corpuscular Hemoglobin 33.7 PG (26-34); Mean Corpuscular Volume 96.7 fL (80-100); Platelet Count 175 X10^3/uL (150-400)
--- NOTE | 2025-07-25 06:01 | PM.PN.IH.1 ---
Subjective Subjective Date Patient Seen: 07/25/25 Time Patient Seen: 06:01 Interval history: Patient reports no events overnight. She reports no pain in her hips at this time. Exam Vital Signs (past 8 hours): - 07/25/25 02:09 Temperature 97.1 F L Pulse Rate 60 Respiratory Rate 16 Blood Pressure 121/70 Pulse Oximetry 97 Oxygen Delivery Method Room Air Oxygen Flow Rate 0 Narrative Exam Narrative: No tenderness around the right hip today. Distal motor and sensory exam is intact. Objective Labs 07/25/25 05:33 07/23/25 10:00 Labs: Laboratory Results - last 24 hr 07/24/25 07/25/25 06:12 05:33 WBC 5.8 RBC 3.74 L Hgb 12.6 Hct 36.2 MCV 96.7 MCH 33.7 MCHC 34.9 RDW 13.9 Plt Count 175 PT 14.2 H INR 1.3 PFSH Medical History Chronic anticoagulation Atrial fibrillation Mitral valve disease Bella-Danlos syndrome Surgical History H/O hysterectomy for benign disease Total knee replacement status S/P hip replacement Family History Mother Cancer Father Diabetes mellitus Social History household members: none Smoking Status: Never smoker alcohol intake: current Assessment & Plan Assessment & Plan narrative: 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 If patient and family wished to pursue intervention for this, she would require treatment at a tertiary care center with specialized providers focused on complex adult hip reconstruction techniques. Additionally, Dr. Clancy evaluated her yesterday as he was to see her this week in clinic. Given her medical condition, she is not stable enough for management at our facility for revision of the left hip. She again would require treatment at a higher acuity facility. No orthopedic intervention required during this hospitalization. We will sign off at this time. Please contact us if there are any concerns or questions. Time-Based Coding :: [TOTAL MINUTES] spent with patient and on the chart (including review of chart, obtaining history, exam, reviewing outside data, placing orders, documenting exam and treatment plan, and counseling patient) on [DATE]. Quality VTE Deep Vein Thrombosis/Pulmonary Embolism Present on Admission: No IH PROFEE Analytics Specialist Document charge(s): Yes Charge Codes Subsequent inpatient/observation care: [id number]
[2025-07-25 06:07] LABS: INR 1.3 (0.9-1.3); Prothrombin Time 14.4 SECONDS (9.4-12.5)
[2025-07-25 06:11] LABS: Blood Urea Nitrogen 40 mg/dL (7-17); Calcium 9.0 mg/dL (8.4-10.2); Carbon Dioxide 27 mmol/L (22-32); Chloride 102 mmol/L (98-107); Estimated Glomerular Filt Rate > 60 mL/min (>60); Glucose 85 mg/dL (70-99); HEMOLYSIS 19 (0-50); Potassium 3.5 mmol/L (3.4-5.1); Sodium 134 mmol/L (137-145)
[2025-07-25] MEDS: LEVOTHYROXINE 50 MCG TABLET PO (06:17)
[2025-07-25] MEDS: POTASSIUM CHLORIDE 10 MEQ TAB PO ×2 (09:21→09:39)
[2025-07-25] MEDS: ACETAMINOPHEN 325 MG TABLET 650 MG PO ×2 (09:21→16:35)
[2025-07-25] MEDS: METOPROLOL ER 50 MG TABLET PO (09:23)
[2025-07-25] MEDS: SODIUM CHLORIDE 0.9% FLUSH 10 ML IV ×2 (09:25→21:05)
--- NOTE | 2025-07-25 14:44 | P.PN_ITS ---
Subjective Subjective Date Patient Seen: 07/25/25 Interval history: Chief complaint Ground level fall and mild confusion History of present illness: 07/24: 84-year-old female with past medical history of atrial fibrillation status post Watchman procedure and pacemaker on Eliquis, mitral valve repair, dyslipidemia, congestive heart failure, right hip arthroplasty and left knee arthroplasty. Per report, the patient might have fallen earlier today but does not remember exactly how it happened. The patient also is unsure if the patient has hit her head or not. The patient however denies any loss of consciousness. The patient does have chronic right hip pain but the pain seems slightly worse than her baseline. Otherwise the patient denies any recent fever, chills, nausea, vomiting, diarrhea, chest pain or shortness of breath. In the emergency room, patient was hemodynamically stable. Labs were relatively benign, CTA of the head was negative. Chest x-ray shows cardiomegaly with mild vascular congestion. Shows possible underlying acute fracture. CT of the pelvis without contrast of bilateral hip shows right significant regional osteopenia involving proximal right femur prior fracture supported by plate and screw hardware as well as several soft large areas have fell but there is no change in configuration compared to prior exam no acute fracture of the right proximal femoral old healed fracture with unchanged supporting hardware Orthopedic surgeon was consulted and patient for surgical in intervention at this time. Recommended admission for pain control with PT OT. Patient's daughter also was made aware of the plan. Orthopedic surgeon also states that depending on her progress, she could potentially have evaluation for revision as an outpatient if required. Discussed case with Dr. Clancy who is happy to see her and evaluate her for her left hip only as an outpatient. If patient desires evaluation and further management of the right hip, our recommendations are that she be referred to a teaching facility given the complexity of the problem with her right hip that would require a much more extensive surgery than what is safe to perform here. Excerpt from orthopedic consult: I was contacted by the on-call surgeon regarding this patient. She has been noting left hip pain and was admitted for medical reasons today. She was scheduled to see me in clinic regarding her left hip pain. She has a history of a left total hip arthroplasty, the details of which are unknown to me, but appears to have been a primary total hip. Separately she has undergone multiple right hip surgeries which appear to have been related to periprosthetic femoral fracture. Per report, she is not complaining of pain on that right side where she has a total hip, and two femoral plates with broken cerclage cables around them. On her left side where she is noting pain she has CT findings demonstrating asymmetric polyethylene wear and a cyst behind the acetabular component. A prior radiology read had noted concerns for the femoral stem however that stem has spot welds distally on the CT scan indicating that the stem is not loose. There is potential for surgery on her left hip which would consist of an acetabular component exchange, however this is a non-urgent surgery which would be delayed to ensure the patient was medically optimized prior to proceeding with it. I had planned to see her in the outpatient setting to discuss this possibility prior to this admission. I had already communicated to the family that there was a possibility that I would not be able to offer surgery to the patient because of the limitations of this facility prior to that clinic visit. With her currently admitted, I have reached out to the anesthesia department here regarding the patient. That communication is included below: I reviewed the patient?s chart, including her studies from yesterday?s admission.?I agree with your assessment that she is too medically complex for revision surgery at our hospital. Her most recent echo shows an EF of 40% +/- 5%, and it was 30-35% on previous echo. She also has chronic heart failure, severe biatrial enlargement, mild MR across her annuloplasty, mild-mod AI, and mild-mod TR.? In addition, she has abnormal PFTs from 2022, severe osteopenia, surgical bleeding risks in a chronically anticoagulated patient who is only 51 kg, mild confusion at baseline, and Bella-Danlos syndrome. She will most likely need several units of blood, which will acutely worsen her CHF, and will probably require pressor support intraoperatively and postoperatively.? Based on her constellation of comorbidities, I would recommend she have a cardiac anesthesiologist care for her at an institution with more cardiac resources than [facility]. I expect she will need to remain hospitalized postoperatively for several days longer than the normal stay. Given these constraints, there is nothing that we as the orthopedic service can provide during this patient's admission. If the patient and family desire to more aggressively pursue surgical intervention - either as an inpatient or an outpatient - they will need to be triaged to a higher level facility. 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 There is no major risk of acute fracture. The orthopedic service will sign off at this point in time as we unfortunately are unable to contribute to the patient's care at this facility. I would be willing to meet with the patient in clinic however this would be largely to provide counseling regarding the pathogenesis of osteolysis and the anticipated course with nonoperative treatment as I will not be able to intervene surgically at our facility for her. Hospital course: 07/25: No new developments today significant oral dysphagia according to speech therapy: Review of systems: Patient has memory loss however, No fever or chills rigors Chest pain palpitations or shortness for breath Abdominal pain nausea vomiting Physical exam: Elderly female in no acute distress alert HEENT unremarkable No labored respirations Abdomen nondistended Extremities no edema Assessment and plan: Ground level fall probable unsafe alone at home we will need placement patient also with mild cognitive decline * Refer to case management Multiple orthopedic procedures with senescent left prosthesis * No urgent fractures or need for surgery * Risks and benefits favor conservative approach DVT prophylaxis: * Covered with warfarin Code status: * Full code blue Disposition: * Observation but we will need placement Time based billing: * 55 minutes were involved in the management of this patient including [id number] evaluation of the patient physical examined of the patient review of the records and review of objective laboratory and imaging findings including direct imaging and review of imaging with Orthopedic surgery Disposition: * DIRECTOR INSTRUCTIONAL MATERIAL had multiple contacts throughout day with pt daughter, Freda, who states preference for pt to go to SNF Rehab ([facility]) as she coordinates pt to move to [facility] in [place], [place] where she lives. DIRECTOR INSTRUCTIONAL MATERIAL answered questions to best of ability re: Medicare status, private pay vs. Medicare benefit, etc. * DIRECTOR INSTRUCTIONAL MATERIAL uploaded pt's POLST form provided by daughter. * Pending second level review for inpatient status, pending decision. * DIRECTOR INSTRUCTIONAL MATERIAL sent initial referral to [facility] Rehab for review, pending clinical acceptance. * Plan: Anticipating discharge to SNF Rehab when accepted. CM Team will continue to follow for coordination of discharge plans. * Alejandra Donohue, [facility] DVT prophylaxis: * Covered with Eliquis Code status: Do not resuscitate Time based billing: * 35 minutes were involved in the evaluation of this patient including [id number] patient evaluation physical examination discussion with daughter discussion with care management team discussion with Orthopedic surgery review of objective laboratory evaluation and discussion of resuscitation status Exam Vital Signs (past 8 hours): - 07/25/25 07:00 07/25/25 09:23 07/25/25 09:23 Temperature 97.5 F L Pulse Rate 59 L Respiratory Rate 15 Blood Pressure 133/69 133/69 133/69 Pulse Oximetry 98 Oxygen Flow Rate 0 07/25/25 13:42 Temperature 98.4 F Pulse Rate 60 Respiratory Rate 14 Blood Pressure 107/60 Pulse Oximetry 94 Oxygen Flow Rate 0 Oxygen Delivery Method Room Air Oxygen Flow Rate 0 Objective Labs 07/25/25 05:33 07/25/25 05:33 Labs: Laboratory Results - last 24 hr 07/25/25 05:33 WBC 5.8 RBC 3.74 L Hgb 12.6 Hct 36.2 MCV 96.7 MCH 33.7 MCHC 34.9 RDW 13.9 Plt Count 175 PT 14.4 H INR 1.3 Sodium 134 L Potassium 3.5 Chloride 102 Carbon Dioxide 27 BUN 40 H Creatinine 0.58 Estimated GFR > 60 BUN/Creatinine Ratio 69.0 H Glucose 85 Calcium 9.0 PFSH Medical History Chronic anticoagulation Atrial fibrillation Mitral valve disease Bella-Danlos syndrome Surgical History H/O hysterectomy for benign disease Total knee replacement status S/P hip replacement Family History Mother Cancer Father Diabetes mellitus Social History household members: none Smoking Status: Never smoker alcohol intake: current Assessment & Plan Time-Based Coding :: [TOTAL MINUTES] spent with patient and on the chart (including review of chart, obtaining history, exam, reviewing outside data, placing orders, documenting exam and treatment plan, and counseling patient) on [DATE]. Quality VTE Deep Vein Thrombosis/Pulmonary Embolism Present on Admission: No
--- NOTE | 2025-07-25 14:45 | PT.IPTN ---
Physical Therapy Treatment Note M2 PT-IP Current Condition Start: 07/23/25 16:34 Freq: Status: Active Protocol: Document 07/23/25 16:34 LR (Rec: 07/23/25 16:43 [facility] [id number]) Physical Therapy Current Condition Current Condition Evaluation Date 07/23/25 Treatment Diagnosis difficulty in walking, weakness M3 PT-IP Subjective Start: 07/23/25 16:34 Freq: Status: Active Protocol: Document 07/25/25 14:45 AB (Rec: 07/25/25 15:54 AB [id number]) Subjective Physical Therapy Visit Type Type Treatment Note Visit Start Time 14:45 Visit Stop Time 15:35 Number of ENGINE TESTING SUPERVISOR Visits 0 M4 PT-IP Mobility and Gait Start: 07/23/25 16:34 Freq: Status: Active Protocol: Document 07/25/25 14:45 AB (Rec: 07/25/25 15:54 AB [id number]) PT-Bed Mobility Assessment Supine to Sit Supine to Sit Maximum Assistance Scooting Scooting to Edge of Maximum Assistance Bed PT-Transfer Assessment Sit to and From Stand Sit to and from Maximum Assistance,1 Person Assistance,2 Person Stand Assistance,Use of Upper Extremities Equipment Transfer Assistive Gait Belt,Front Wheeled Walker Device Orthotic/Prosthetic No Devices or Brace: Transfers Transfer Destination Chair,Bedside Commode Transfer Technique Stand Step Pivot Transfer Ability Level of Assist Maximum Assistance,1 Person Assistance,2 Person Assistance,Use of Upper Extremities Comments Mobility Comments pt in bed. pt's friends in room. completed supine to sit max A and max cues. HOB elevated. pt needed increase time to complete all tasks and max cues with all tasks. total A for scooting to EOB. needed increase rest breaks. pt requested to use the toilet. sit to stand max A x 1-2 and max cues. presents with increase posterior trunk lean needing max A for balance and max cues to use FWW for support. step transfer to bedside commode max A 1-2 and max cues. sit to stand from the bedside commode max A x 1-2 and max cues. pt needed assist with hygiene care and brief management. step transfer to chair using FWW max A x 1-2 and max cues. positioned pt on the chair. call light and table placed within reach. M5 PT-IP Objective Assessments Start: 07/23/25 16:34 Freq: Status: Active Protocol: Document 07/23/25 16:34 [facility] (Rec: 07/23/25 16:43 [facility] [id number]) Orientation Orientation/Cognition Level of Alertness Confusional State Language Function Garbled Speech,Hard of Hearing Ability Safety Awareness Decreased Safety Awareness Gross Range of Motion Lower Extremity ROM Impairments PROM WFL but pt unable to demo AROM B Strength Lower Extremity Strength Assessment Bilaterally Impaired Hip unable to test but dec AROM M6 PT-IP Treatment Start: 07/23/25 16:34 Freq: Status: Active Protocol: Document 07/25/25 14:45 AB (Rec: 07/25/25 15:54 AB [id number]) Physical Therapy Treatment Education Education Provided Safety M7 PT-IP Assessment and Plan Start: 07/23/25 16:34 Freq: Status: Active Protocol: Document 07/25/25 14:45 AB (Rec: 07/25/25 15:54 AB [id number]) PT Summary Assessment and Plan Potential Rehabilitation Fair Potential Summary Impairments Pain,ROM,Strength,Balance,Coordination,Sensation,Tone, Cognition,Bed Mobility,Transfers,Gait,Activity Tolerance Progress Towards Slow Progress due to Medical Issues,Slow Progress due Goals to Activity Tolerance,Slow Progress - Other Assessment Summary pt requiring max A x 1-2 and max cues with all tasks. pt needing increase time to complete all tasks and one step cues due to difficulty following directions. pt will require SNF rehab to improve strength and mobility . Goals Bed Mobility Goal Independent Transfer Goal Independent Gait Goal Independent,Front Wheel Walker Gait Distance 75ft Days to Meet Goals 10 Frequency of Treatment Frequency Of Once a Day Treatment Treatment Plan Physical Therapy Bed Mobility Training,Transfer Training,Gait Training, Treatment Plan Therapeutic Exercise,Balance Retraining,Discharge Planning,Hot or Cold Pack,Neuromuscular Re-ed, Coordination Retraining,Manual Therapy Recommendations To Nursing Amount of Assist Mechanical Lift Needed Discharge Recommendations PT Discharge SNF Rehab Recommendations Transportation Needs Wheelchair/Cabulance at Discharge - PT assist 1-2
--- NOTE | 2025-07-25 15:15 | CM.DPNOTE ---
DCP Continued: Reviewed EMR and team rounds for pt?s medical status. Per hospitalist and Ortho, pt does not qualify for a revision surgery of hip. Per RN, pt still a 2 person assist and would benefit from SNF rehab. OPTICAL ENGINEERING MANAGER spoke with Glen[facility] and updated on pt status, she offers up to 24hr care in patient home with home health to support pt to go home if necessary. OPTICAL ENGINEERING MANAGER had multiple contacts throughout day with pt daughter, Freda, who states preference for pt to go to SNF Rehab ([facility]) as she coordinates pt to move to [facility] in [place], [place] where she lives. OPTICAL ENGINEERING MANAGER answered questions to best of ability re: Medicare status, private pay vs. Medicare benefit, etc. OPTICAL ENGINEERING MANAGER uploaded pt's POLST form provided by daughter. Pending second level review for inpatient status, pending decision. OPTICAL ENGINEERING MANAGER sent initial referral to [facility] Re[facility] for review, pending clinical acceptance. Plan: Anticipating discharge to SNF Rehab when accepted. CM Team will continue to follow for coordination of discharge plans. MARIAMA Grey
--- NOTE | 2025-07-25 15:55 | ST.IPDYTX ---
Visit Care Team Role Provider Type VALENTIN Islas Primary Care Provider Physician Specialty: Nursing Address: [address] [place] [address], [id number] Email: Artur Renner DO Emergency Provider Physician Referring Provider Specialty: Emergency Medicine Address: [address] [place] [address], [address] Phone: Fax: Email: [email or web address] Gallegos MD Admit Provider Physician Attending Provider Specialty: Internal Medicine Address: [address] [place] [address], [address] Email: MULTI NEEDLE MACHINE OPERATOR Dysphagia Treatment MULTI NEEDLE MACHINE OPERATOR Dysphagia Treatment Start: 07/24/25 12:05 Freq: Status: Active Protocol: Document 07/25/25 15:40 LNK (Rec: 07/25/25 15:54 LNK Desktop) Dysphagia Treatment Session Time Visit Start Time 11:45 Visit Stop Time 12:30 Total Visit Minutes 45 Setting Assessment Location Acute Care Visit Type Note Type Treatment Note Patient Information Identification Type Name,Date of Subjective Pt was seated in a chair in her room following MBSS Observations Treatment Treatment Activities No PO trails were provided as pt had just returned from an MBSS. Video stills were reviewed with the pt. 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 pt lives alone, which may be problematic given her aspiration risk. She is planning to move to her daughters home in the near future. pt indicated yelitza understood and was appreciative. All pt Reviewed the chin tuck strategy with the pt practicing with water x5. questions were answered. The IDDSI Framework Protocol: IDDSI.1 Assessment Patient Response to Excellent Treatment Rehab Potential Good Recommendations Liquids Order Thin (IDDSI 0) Diet Order Soft & Bite-sized (IDDSI 6) Additional Dietary Single Sips Needs Aspiration Precautions Recommended Upright at 90 Degrees,Small Bites/Sips,Chin Tuck Precautions Treatment Plan Placement Home,Home Care Recommendation after Discharge Appropriate for Yes Continued Therapy
--- NOTE | 2025-07-25 15:56 | ST.SWALLOW ---
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 Pt was seen on 07/24/25 for a clinical swallow evaluation. The results of that evaluation indicated mild oral phase dysphagia characterized by difficulty with bolus manipulation and clearance and concern for possible pharyngeal phase dysphagia given presence of signs/ symptoms of aspiration (coughing, wet vocal quality). Based on pt?s current fair oral health status and intact immune function, pt remains at a moderate risk of pulmonary compromise associated with aspiration at this time. MBSS was recommended to thoroughly assess pt?s swallow and determine the safest diet, effective compensatory strategies, and potential rehabilitative exercises for therapy. Subjective Pt was seated in the flouroscopy chair with directions Observations and procedures explained for her. He indicated she understood and agreed to proceed. Patient Positioning Position View Lat-A/P Imaging Lateral View Textures Administered Trials Presented Thin Liquid via Spoon (IDDSI 0),Thin Liquid via Cup ( IDDSI 0),Thin Liquid via Straw (IDDSI 0),Mildly Thick Liquid via Spoon (IDDSI 2),Extremely Thick Liquid via Straw (IDDSI 4),Regular (IDDSI 7) Barium Tablet Yes The IDDSI Framework Protocol: IDDSI.1 Oral Impairment Source: The Modified Barium Swallow Impairment Profile (MBSImP??) Lip Closure Interlabial escape; no progression to anterior lip Tongue Control Cohesive bolus between tongue to palatal seal During Bolus Hold Bolus Preparation/ Slow prolonged chewing/mashing with complete re- Mastication collection Bolus Transport/ Delayed initiation of tongue motion Lingual Motion Oral Residue Complete oral clearance,Residue collection on oral structures Location Tongue Initiation of Bolus head at pyriforms Pharyngeal Swallow Additional Oral *OME indicated labial and lingual weakness. Pt?s oral Impairment health was noted to be fair - missing teeth, unsure Observations about oral care today *DKS were observed to be WNL. *Mastication observed to be slow with a rotary chew pattern. *Good bolus formation with delayed swallow initiation. AP transition was adequate *Velopharyngeal closure was WNL. Pharyngeal Impairment Source: The Modified Barium Swallow Impairment Profile (MBSImP??) Soft Palate No bolus between soft palate & pharyngeal wall Elevation Laryngeal Elevation Part.sup.move.thyroid cart/part.approx.arytenoids to epiglot.petiole Anterior Hyoid Partial anterior movement Excursion Epiglottic Movement Partial inversion Laryngeal Vestibular Incomplete; narrow column air/contrast in laryngeal Closure vestibule Pharyngeal Stripping Present - diminished Wave Pharyngoesophageal Complete distention & complete duration; no obstruction Segment Opening of flow Tongue Base Wide column of contrast/air betwn tongue base & post. Retraction pharyngeal wall Pharyngeal Residue Collection of residue within/on pharyngeal structures Location Diffuse (>3 areas) Additional *Reduced hyolaryngeal elevation and movement and e Pharyngeal *Partial epiglottic inversion resulting in moderate Impairment residue within the vallecula. Silent aspiration of Observations secretions observed *Tongue base retraction was moderately reduced resulting in moderate vallecular and pyriform sinus residue *Reduced pharyngeal stripping wave reducing bolus control *Cricopharyngeal opening appeared adequate and did not appear to impede bolus flow. *Post-swallow residue was noted primarily within the vallecula and pyriform sinuses primarily across al trials texture. Pt did not sensate to residue *Chin tuck strategy effective in reducing aspiration risk *Laryngeal penetration with vocal fold contact and visible laryngeal residue observed (PAS 5) SILENT *Tracheal aspiration below the vocal folds without response or effort with tracheal residue (PAS 8) SILENT A/P View Textures Administered Trials Presented Thin Liquid via Cup (IDDSI 0),Thin Liquid via Straw ( IDDSI 0),Mildly Thick Liquid via Spoon (IDDSI 2), Extremely Thick Liquid via Spoon (IDDSI 4) The IDDSI Framework Protocol: IDDSI.1 A/P View Observations Pharyngeal Complete Contraction Esophageal Clearance Complete clearance; esophageal coating Upright Position Vocal Fold Function Good Esophageal Function Slowed Clearing Additional A-P *Barium tablet and thin barium used for AP trials Observations *Barium tablet became stuck in the pt's vallecula. Several attempts to clear were made to dislodge the tablet from the vallecula using thin liquid swallows, swallows of nectar, honey and spoon thick liquid trials. *Nothing cleared the tablet from the vallecula. After 25 minutes, the pt expressed fatigue and discomfort and the MBSS was stopped with the tablet still in the vallecula. 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 She was told the tablet will eventually dissolve in place. She was aware of the aspiration risk and wanted to go back to her room The hospitalist and nursing staff were made aware of the tablet within the vallecula and the risk for aspiration. *Esophageal clearance was observed to be WFL. Pt's esophagus was slow to clear; suspect this is age- related. Clearance to the lower esophagus was observed Clinical Impressions Dysphagia Type Oral,Pharyngeal Findings Pt presented with mild to moderate oropharyngeal dysphagia characterized by overall structural weakness, difficulty with bolus manipulation, control and clearance. Overall reduction in hyolaryngeal elevation/ movement, epiglottal inversion and pharyngeal strength negatively impact bolus control. Weak closure of the laryngeal vestibule resulted in silent penetration and aspiration. Chin tuck strategy was effective in reducing pharyngeal residue and aspiration risk. A barium tablet was trapped within the vallecula an despite multiple trials of liquids and semi-solid food, the tablet remained in the vallecula, increasing aspiration risk. Pt denied a PMH of pneumonia. She lives alone, but will be moving in with her daughter in [place] soon. Given her risk of aspirating, living alone may present a problem. Discussed with the pt the risks and recommended a soft and moist diet, single sips of liquids and medications crushed in a carrier. All pt's questions were answered. results and recommendations were discussed with nursing staff and Hospitalist. Rehabilitation Good Potential Recommendations Diet Liquids Order Thin (IDDSI 0) Diet Order Soft & Bite-sized (IDDSI 6) Medication Crushed in Carrier Recommendation Additional Dietary Single Sips,No Straws,Reminders to Use Strategies Needs Aspiration Precautions Recommended Upright at 90 Degrees,Small Bites/Sips,Chin Tuck, Precautions Lingual Sweep Treatment Plan Therapy Inpatient Speech Therapy,Outpatient Speech Therapy Recommendations Therapy Strategy Sitting Upright (90 deg),Chin Tuck,No Straw Recommendations Short Term Goals Pt review of MBSS video/stills Review results of MBSS with pt Review recommendations with pt
[2025-07-25] MEDS: APIXABAN 5 MG TABLET 2.5 MG PO (21:03)
[2025-07-25] MEDS: ATORVASTATIN 20 MG TABLET 10 MG PO (21:03)
[2025-07-26 01:00] VITALS: BP 124/69; PULSE 60; RESP 18; TEMP 36.3; O2SAT 96
[2025-07-26 05:49] LABS: Blood Urea Nitrogen 28 mg/dL (7-17); Calcium 8.7 mg/dL (8.4-10.2); Carbon Dioxide 27 mmol/L (22-32); Chloride 101 mmol/L (98-107); Estimated Glomerular Filt Rate > 60 mL/min (>60); Glucose 91 mg/dL (70-99); HEMOLYSIS < 15 (0-50); Potassium 3.9 mmol/L (3.4-5.1); Sodium 132 mmol/L (137-145)
[2025-07-26] MEDS: LEVOTHYROXINE 50 MCG TABLET PO (06:02)
[2025-07-26 08:16] VITALS: BP 132/74; PULSE 66; RESP 18; TEMP 36.3; O2SAT 98
[2025-07-26] MEDS: ACETAMINOPHEN 325 MG TABLET 650 MG PO ×2 (09:30→21:40)
[2025-07-26 09:31] VITALS: BP 132/75; PULSE 78
[2025-07-26] MEDS: FUROSEMIDE 20 MG TABLET PO (09:32)
[2025-07-26] MEDS: POTASSIUM CHLORIDE 10 MEQ TAB PO (09:32)
[2025-07-26] MEDS: PANTOPRAZOLE DR 40 MG TABLET PO (09:32)
[2025-07-26] MEDS: APIXABAN 5 MG TABLET 2.5 MG PO ×2 (09:32→21:37)
[2025-07-26 09:33] VITALS: BP 134/75; PULSE 78
[2025-07-26] MEDS: METOPROLOL ER 50 MG TABLET PO ×2 (09:33→21:37)
--- NOTE | 2025-07-26 10:30 | PT.IPTN ---
Physical Therapy Treatment Note M2 PT-IP Current Condition Start: 07/23/25 16:34 Freq: Status: Active Protocol: Document 07/23/25 16:34 LR (Rec: 07/23/25 16:43 [facility] [id number]) Physical Therapy Current Condition Current Condition Evaluation Date 07/23/25 Treatment Diagnosis difficulty in walking, weakness M3 PT-IP Subjective Start: 07/23/25 16:34 Freq: Status: Active Protocol: Document 07/26/25 10:30 AB (Rec: 07/26/25 13:33 AB [id number]) Subjective Physical Therapy Visit Type Type Treatment Note Visit Start Time 10:30 Visit Stop Time 10:55 Number of BIOINFORMATICS ANALYST Visits 0 Physical Therapy Visit Comments Patient Comments agreeable to do PT M4 PT-IP Mobility and Gait Start: 07/23/25 16:34 Freq: Status: Active Protocol: Document 07/26/25 10:30 AB (Rec: 07/26/25 13:33 AB [id number]) PT-Transfer Assessment Sit to and From Stand Sit to and from Maximum Assistance,1 Person Assistance,2 Person Stand Assistance,Use of Upper Extremities Equipment Transfer Assistive Gait Belt,Front Wheeled Walker Device Orthotic/Prosthetic No Devices or Brace: Comments Mobility Comments pt sitting on the chair and agreeable to do PT. pt needed increase time to complete all tasks and expresses fear of falling. completed sit to stand from the chair max A x 1-2 and max cues. increase posterior trunk lean needing max A for standing balance . cued for steadiness and use of FWW support. instructed to take a step and pt required max A and max cues to be able to weight shift and elevate LE. able to take 3 small steps. pt with tendency to step LE to midline and (+) R knee buckling. agreed to stand again . sit to stand x 3 attempts requiring max Ax 2 and max cues. able to take 2 steps using fWW max a x 2 and max cues. pt sat back on chair. positioned on the chair. Left pt with OT. M5 PT-IP Objective Assessments Start: 07/23/25 16:34 Freq: Status: Active Protocol: Document 07/23/25 16:34 [facility] (Rec: 07/23/25 16:43 [facility] [id number]) Orientation Orientation/Cognition Level of Alertness Confusional State Language Function Garbled Speech,Hard of Hearing Ability Safety Awareness Decreased Safety Awareness Gross Range of Motion Lower Extremity ROM Impairments PROM WFL but pt unable to demo AROM B Strength Lower Extremity Strength Assessment Bilaterally Impaired Hip unable to test but dec AROM M6 PT-IP Treatment Start: 07/23/25 16:34 Freq: Status: Active Protocol: Document 07/26/25 10:30 AB (Rec: 07/26/25 13:33 AB [id number]) Physical Therapy Treatment Education Education Provided Safety M7 PT-IP Assessment and Plan Start: 07/23/25 16:34 Freq: Status: Active Protocol: Document 07/26/25 10:30 AB (Rec: 07/26/25 13:33 AB [id number]) PT Summary Assessment and Plan Potential Rehabilitation Fair Potential Summary Impairments Pain,ROM,Strength,Balance,Coordination,Sensation,Tone, Cognition,Bed Mobility,Transfers,Gait,Activity Tolerance Progress Towards Slow Progress due to Medical Issues,Slow Progress due Goals to Activity Tolerance,Slow Progress - Other Assessment Summary pt requiring max A x 1-2 for sit to stand and able to take ~ 2 steps using FWW max A x 2 and max cues. pt will require 24/7 assist and will need SNF rehab. Goals Bed Mobility Goal Independent Transfer Goal Independent Gait Goal Independent,Front Wheel Walker Gait Distance 75ft Days to Meet Goals 10 Frequency of Treatment Frequency Of Once a Day Treatment Treatment Plan Physical Therapy Bed Mobility Training,Transfer Training,Gait Training, Treatment Plan Therapeutic Exercise,Balance Retraining,Discharge Planning,Hot or Cold Pack,Neuromuscular Re-ed, Coordination Retraining,Manual Therapy Recommendations To Nursing Amount of Assist Mechanical Lift Needed Discharge Recommendations PT Discharge SNF Rehab Recommendations Transportation Needs Wheelchair/Cabulance at Discharge - PT assist 1-2
--- NOTE | 2025-07-26 10:37 | DIET.CONS ---
Dietary Consultation Note Admission Date: 07/24/2025 01:25 Assessment: 84 y F admitted for GLF and confusion. Dietitian screened for low BMI. Met with pt at bedside who reports appetite is good, was eating 2 small meals at home and an Ensure. Has a daughter who went to school for nutrition and provides her with guidance on eating enough food and protein. Variable PO intakes 25-75%. DFM reviewed for composition. Ht: 170.18 cm Wt: 52 kg BMI: 17.8 UBW: hx of 61-63 kg in 2022 and 68-75 kg in 2021, unsure UBW now. Last BM: () MNA: Alberto Score: 12 Diet: 07/25/25 Dinner Dysphagia Diet Diet Modifications: Food Texture: Level 6-Soft & Bite-sized Liquid Consistency: Level 0 - Thin Nutrition Percent Meal Consumed 75% 07/26/25 09:34 Percent Meal Consumed 75% 07/25/25 18:00 Percent Meal Consumed 25% 07/25/25 13:20 Percent Meal Consumed 50% 07/25/25 09:30 Labs: RBC 3.74 X10^6/uL (4.0-5.2) L 07/25/25 05:33 Hgb 12.6 g/dL (12.0-16.0) 07/25/25 05:33 Hct 36.2 % (36-46) 07/25/25 05:33 Creatinine 0.61 mg/dL (0.52-1.04) 07/26/25 05:07 NT-Pro-B Natriuret Pep 2970 pg/mL (<450) H 07/23/25 10:00 Nutrition Diagnosis: BMI underweight for age r/t inadequate oral intakes aeb Interventions: Pt open to Ensure daily, which she does at home. Added Ensure+ 1x/day at lunch EER: [id number] kcals (30-35 kcals/kg per BMI vs MSJx1.25+500) 55-65 g protein (1g/kg per age vs 16% kcals) Monitoring/Evaluations: PO intakes and ONS tolerance Electronically Signed by: Kristen Dee 07/26/25 10:37 Clinical Dietitian [address] [address]
--- NOTE | 2025-07-26 11:03 | PC.NURSE ---
Addendum entered by Rosa Maria Gerber RN 07/27/25 08:06: Late Entry- Patient has reddish purple bruise on her l.forearm, her calluses to her toes on the r.foot remain there, as well as dry,flaky skin to bilateral shins with hemosidrin staining to both bilateral lower legs. She also has a red bottom that is blanchable with mepelex in place. Original Note: Patient seems to have better mentation this morning, she is still slightly confused. Up to the bsc this morning and patient had a xl bm. She is a two person assist. Resting now, tylenol given for general comfort.
--- NOTE | 2025-07-26 14:01 | CM.DPC ---
DCP Cont. Reviewed EMR and team rounds for pt's medical status and updates. Pt has been converted to INPT as of this morning, she will now be eligible to go to [facility] with Medicare as payor. She will be eligible for d/c tomorrow, 07/27. Transport time will be confirmed in the am. Called dtr to update, and spent time providing teaching and reassurance about transition to rehab. Pt is also supportive and understanding of this plan.
--- NOTE | 2025-07-26 15:27 | P.PN_ITS ---
Subjective Subjective Date Patient Seen: 07/26/25 Interval history: Chief complaint Ground level fall and mild confusion History of present illness: 07/24: 84-year-old female with past medical history of atrial fibrillation status post Watchman procedure and pacemaker on Eliquis, mitral valve repair, dyslipidemia, congestive heart failure, right hip arthroplasty and left knee arthroplasty. Per report, the patient might have fallen earlier today but does not remember exactly how it happened. The patient also is unsure if the patient has hit her head or not. The patient however denies any loss of consciousness. The patient does have chronic right hip pain but the pain seems slightly worse than her baseline. Otherwise the patient denies any recent fever, chills, nausea, vomiting, diarrhea, chest pain or shortness of breath. In the emergency room, patient was hemodynamically stable. Labs were relatively benign, CTA of the head was negative. Chest x-ray shows cardiomegaly with mild vascular congestion. Shows possible underlying acute fracture. CT of the pelvis without contrast of bilateral hip shows right significant regional osteopenia involving proximal right femur prior fracture supported by plate and screw hardware as well as several soft large areas have fell but there is no change in configuration compared to prior exam no acute fracture of the right proximal femoral old healed fracture with unchanged supporting hardware Orthopedic surgeon was consulted and patient for surgical in intervention at this time. Recommended admission for pain control with PT OT. Patient's daughter also was made aware of the plan. Orthopedic surgeon also states that depending on her progress, she could potentially have evaluation for revision as an outpatient if required. Discussed case with Dr. Clancy who is happy to see her and evaluate her for her left hip only as an outpatient. If patient desires evaluation and further management of the right hip, our recommendations are that she be referred to a teaching facility given the complexity of the problem with her right hip that would require a much more extensive surgery than what is safe to perform here. Excerpt from orthopedic consult: I was contacted by the on-call surgeon regarding this patient. She has been noting left hip pain and was admitted for medical reasons today. She was scheduled to see me in clinic regarding her left hip pain. She has a history of a left total hip arthroplasty, the details of which are unknown to me, but appears to have been a primary total hip. Separately she has undergone multiple right hip surgeries which appear to have been related to periprosthetic femoral fracture. Per report, she is not complaining of pain on that right side where she has a total hip, and two femoral plates with broken cerclage cables around them. On her left side where she is noting pain she has CT findings demonstrating asymmetric polyethylene wear and a cyst behind the acetabular component. A prior radiology read had noted concerns for the femoral stem however that stem has spot welds distally on the CT scan indicating that the stem is not loose. There is potential for surgery on her left hip which would consist of an acetabular component exchange, however this is a non-urgent surgery which would be delayed to ensure the patient was medically optimized prior to proceeding with it. I had planned to see her in the outpatient setting to discuss this possibility prior to this admission. I had already communicated to the family that there was a possibility that I would not be able to offer surgery to the patient because of the limitations of this facility prior to that clinic visit. With her currently admitted, I have reached out to the anesthesia department here regarding the patient. That communication is included below: I reviewed the patient?s chart, including her studies from yesterday?s admission.?I agree with your assessment that she is too medically complex for revision surgery at our hospital. Her most recent echo shows an EF of 40% +/- 5%, and it was 30-35% on previous echo. She also has chronic heart failure, severe biatrial enlargement, mild MR across her annuloplasty, mild-mod AI, and mild-mod TR.? In addition, she has abnormal PFTs from 2022, severe osteopenia, surgical bleeding risks in a chronically anticoagulated patient who is only 51 kg, mild confusion at baseline, and Bella-Danlos syndrome. She will most likely need several units of blood, which will acutely worsen her CHF, and will probably require pressor support intraoperatively and postoperatively.? Based on her constellation of comorbidities, I would recommend she have a cardiac anesthesiologist care for her at an institution with more cardiac resources than [facility]. I expect she will need to remain hospitalized postoperatively for several days longer than the normal stay. Given these constraints, there is nothing that we as the orthopedic service can provide during this patient's admission. If the patient and family desire to more aggressively pursue surgical intervention - either as an inpatient or an outpatient - they will need to be triaged to a higher level facility. 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 There is no major risk of acute fracture. The orthopedic service will sign off at this point in time as we unfortunately are unable to contribute to the patient's care at this facility. I would be willing to meet with the patient in clinic however this would be largely to provide counseling regarding the pathogenesis of osteolysis and the anticipated course with nonoperative treatment as I will not be able to intervene surgically at our facility for her. Hospital course: 07/25: No new developments today significant oral dysphagia according to speech therapy: 07/26: No new complaints or developments decreased pain working with physical therapy Review of systems: Patient has memory loss however, No fever or chills rigors Chest pain palpitations or shortness for breath Abdominal pain nausea vomiting Physical exam: Elderly female in no acute distress alert HEENT unremarkable No labored respirations Abdomen nondistended Extremities no edema Assessment and plan: Ground level fall probable unsafe alone at home we will need placement patient also with mild cognitive decline * Refer to case management Multiple orthopedic procedures with senescent left prosthesis * No urgent fractures or need for surgery * Risks and benefits favor conservative approach Disposition: * Pt has been converted to INPT as of this morning, she will now be eligible to go to [facility] with Medicare as payor. She will be eligible for d/c tomorrow, 07/27. Transport time will be confirmed in the am. Called dtr to update, and spent time providing teaching and reassurance about transition to rehab. Pt is also supportive and understanding of this plan. DVT prophylaxis: * Covered with Eliquis Code status: * Do not resuscitate Time based billing: * 35 minutes were involved in the evaluation of this patient including [id number] patient evaluation physical examination discussion with daughter discussion with care management team discussion with Orthopedic surgery review of objective laboratory evaluation and discussion of resuscitation status Exam Vital Signs (past 8 hours): - 07/26/25 08:16 07/26/25 09:31 07/26/25 09:33 Temperature 97.3 F L Pulse Rate 66 78 78 Respiratory Rate 18 Blood Pressure 132/74 132/75 134/75 Pulse Oximetry 98 Oxygen Delivery Method Room Air Oxygen Flow Rate 0 Objective Labs 07/25/25 05:33 07/26/25 05:07 Labs: Laboratory Results - last 24 hr 07/26/25 05:07 Sodium 132 L Potassium 3.9 Chloride 101 Carbon Dioxide 27 BUN 28 H Creatinine 0.61 Estimated GFR > 60 BUN/Creatinine Ratio 45.9 H Glucose 91 Calcium 8.7 PFSH Medical History Chronic anticoagulation Atrial fibrillation Mitral valve disease Bella-Danlos syndrome Surgical History H/O hysterectomy for benign disease Total knee replacement status S/P hip replacement Family History Mother Cancer Father Diabetes mellitus Social History household members: none Smoking Status: Never smoker alcohol intake: current Assessment & Plan Time-Based Coding :: [TOTAL MINUTES] spent with patient and on the chart (including review of chart, obtaining history, exam, reviewing outside data, placing orders, documenting exam and treatment plan, and counseling patient) on [DATE]. Quality VTE Deep Vein Thrombosis/Pulmonary Embolism Present on Admission: No
--- NOTE | 2025-07-26 15:37 | ST.IPDYTX ---
Visit Care Team Role Provider Type VALENTIN Islas Primary Care Provider Physician Specialty: Nursing Address: [address] [place] [address], [id number] Email: Artur Renner DO Emergency Provider Physician Referring Provider Specialty: Emergency Medicine Address: [address] [place] [address], [id number] Phone: Fax: Email: [email or web address] Gallegos MD Admit Provider Physician Attending Provider Specialty: Internal Medicine Address: [address] [place] [address], [id number] Email: [email or web address] EMBROIDERY ASSISTANT Dysphagia Treatment EMBROIDERY ASSISTANT Dysphagia Treatment Start: 07/24/25 12:05 Freq: Status: Active Protocol: Document 07/26/25 15:28 MM (Rec: 07/26/25 15:36 MM Desktop) Dysphagia Treatment Session Time Visit Start Time 15:05 Visit Stop Time 15:20 Total Visit Minutes 15 Setting Assessment Location Acute Care Visit Type Note Type Treatment Note Patient Information Identification Type Name Subjective Upon ST arrival, pt reclined in bed, awake/alert, Observations breathing comfortably on room air. Pt agreeable to participate in swallow tx. Treatment Treatment Activities No PO trials were provided as pt politely declined given fatigue/pain at the time of tx, indicated preference to remain reclined. The IDDSI Framework Protocol: IDDSI.1 Assessment Patient Response to Good Treatment Rehab Potential Good Assessment of Pt recalled completing MBSS yesterday, however, unable Improvement to recall details of results/recommendations. ST reviewed results with pt using visual for oropharyngeal anatomy, pt verbalized understanding. ST reviewed aspiration risk with recommendations using external aid (handout left on hospital board with diet and safe swallow strategies), pt verbalized understanding and demonstrated ability to teach-back with min cueing. ST emphasized importance to follow recommendations to minimize risk of developing aspiration pneumonia given oropharyngeal dysphagia observed on MBSS. ST attempted to engage pt in effortful swallow exercises, however, pt politely declined given fatigue/pain at the time of tx, indicated preference to remain reclined. Recommendations Liquids Order Thin (IDDSI 0) Diet Order Soft & Bite-sized (IDDSI 6) Medication Crushed in Carrier Recommendations Additional Dietary Single Sips Needs Aspiration Precautions Recommended Upright at 90 Degrees,Small Bites/Sips,Chin Tuck Precautions Treatment Plan Placement Home,Home Care Recommendation after Discharge Appropriate for Yes Continued Therapy Dysphagia Goals Pt review of MBSS video/stills. 07/26/2025: Goal met following MBSS. Review results of MBSS with pt. 07/26/2025: Ongoing, continue for consistent recall. Review recommendations with pt. 07/26/2025: Ongoing, continue for consistent recall.
[2025-07-26 21:33] VITALS: BP 121/65; PULSE 84; RESP 16; TEMP 36.5; O2SAT 98
[2025-07-26] MEDS: ATORVASTATIN 20 MG TABLET 10 MG PO (21:38)
[2025-07-26] MEDS: SODIUM CHLORIDE 0.9% FLUSH 10 ML IV (21:39)
[2025-07-27] MEDS: LEVOTHYROXINE 50 MCG TABLET PO (05:52)
[2025-07-27 08:48] VITALS: BP 140/68; PULSE 60; RESP 16; TEMP 35.7; O2SAT 100
--- NOTE | 2025-07-27 09:10 | PC.NURSE ---
Assess- Patient is alert but confused at times. No hallucinations noted. Patient is pleasant and cooperative with care. She uses a purewick to void, sometimes she is incontinent. Denies pain to hip this morning. Repostioning every 2 hours for comfort. Skin with hemosiderin staining to bilateral shins, she has callus to 2nd and third toes that are chronic, bruising to arms and legs, and bottom is red but blanchable, mepelex dressing changed by restaurant shift supervisor RN. Patient is going to [facility] rehab today at 1130.
[2025-07-27 09:49] VITALS: BP 140/68; PULSE 60
[2025-07-27] MEDS: FUROSEMIDE 20 MG TABLET PO (09:49)
[2025-07-27] MEDS: APIXABAN 5 MG TABLET 2.5 MG PO (09:49)
[2025-07-27] MEDS: METOPROLOL ER 50 MG TABLET PO (09:49)
[2025-07-27 09:50] VITALS: BP 140/68; PULSE 60
[2025-07-27] MEDS: POTASSIUM CHLORIDE 10 MEQ TAB PO (09:50)
[2025-07-27] MEDS: PANTOPRAZOLE DR 40 MG TABLET PO (09:50)
--- NOTE | 2025-07-27 10:37 | P.DS_ITS ---
History of Present Illness History of Present Illness Chief complaint: GLF Narrative: From H&P: 07/24: 84-year-old female with past medical history of atrial fibrillation status post Watchman procedure and pacemaker on Eliquis, mitral valve repair, dyslipidemia, congestive heart failure, right hip arthroplasty and left knee arthroplasty. Per report, the patient might have fallen earlier today but does not remember exactly how it happened. The patient also is unsure if the patient has hit her head or not. The patient however denies any loss of consciousness. The patient does have chronic right hip pain but the pain seems slightly worse than her baseline. Otherwise the patient denies any recent fever, chills, nausea, vomiting, diarrhea, chest pain or shortness of breath. In the emergency room, patient was hemodynamically stable. Labs were relatively benign, CTA of the head was negative. Chest x-ray shows cardiomegaly with mild vascular congestion. Shows possible underlying acute fracture. CT of the pelvis without contrast of bilateral hip shows right significant regional osteopenia involving proximal right femur prior fracture supported by plate and screw hardware as well as several soft large areas have fell but there is no change in configuration compared to prior exam no acute fracture of the right proximal femoral old healed fracture with unchanged supporting hardware Orthopedic surgeon was consulted and patient for surgical in intervention at this time. Recommended admission for pain control with PT OT. Patient's daughter also was made aware of the plan. Orthopedic surgeon also states that depending on her progress, she could potentially have evaluation for revision as an outpatient if required. Discussed case with Dr. Clancy who is happy to see her and evaluate her for her left hip only as an outpatient. If patient desires evaluation and further management of the right hip, our recommendations are that she be referred to a teaching facility given the complexity of the problem with her right hip that would require a much more extensive surgery than what is safe to perform here. (Dr. Tucker). Discharge Providers Provider Date of admission: 07/24/25 01:25 Discharge Date: 07/27/25 Primary care physician: VALENTIN Islas Consults: 07/23/25 13:09 Consult to [facility] - Hyperbaric Welder Diver Stat Comment: Hyperbaric Welder Diver Consult needed for:: Other reason (Comment) 07/23/25 13:35 Consult to Physical Therapy Evaluate & Treat Comment: fall, weakness Physician Instructions: Evaluate and Treat 07/24/25 04:02 Consult to [facility] - Hyperbaric Welder Diver Routine Comment: Hyperbaric Welder Diver Consult needed for:: Lives alone 07/24/25 04:51 Consult to Speech Therapy Evaluate & Treat Comment: swallow eval Physician Instructions: Evaluate and treat 07/25/25 13:03 Consult to Pharmacy Routine Comment: at discharge 07/25/25 15:59 Consult to Occupational Therapy Evaluate & Treat Comment: Physician Instructions: Evaluate and treat Discharge provider: Baljeet Smith MD Summary Hospital Course Discharge Diagnosis: 1. Ground level fall probable unsafe alone at home we will need placement patient also with mild cognitive decline. 2. Multiple orthopedic procedures with senescent left prosthesis (Hip contusion). * No urgent fractures or need for surgery * Risks and benefits favor conservative approach Chronic stable conditions: Atrial fibrillation [facility] Course: Hospital course: 07/25: No new developments today significant oral dysphagia according to speech therapy: 07/26: No new complaints or developments decreased pain working with physical therapy 07/27: Good pain control, stable for transfer to [facility] facility. Status at Discharge Cognitive/behavioral status at discharge: oriented Functional status at discharge: uses cane/walker Overall status at discharge: patient is progressing back to baseline Time Spent with Patient Time spent: Greater than 30 minutes Exam Vital Signs (past 8 hours): - 07/27/25 08:48 07/27/25 09:49 07/27/25 09:50 Temperature 96.3 F L Pulse Rate 60 60 60 Respiratory Rate 16 Blood Pressure 140/68 140/68 140/68 Pulse Oximetry 100 Oxygen Flow Rate 0 Oxygen Delivery Method Room Air Oxygen Flow Rate 0 Narrative Exam Narrative: NAD, alert and oriented. Fluent speech. Lungs are clear, normal rate and effort. Heart is regular, no murmur gallop or rub. Abdomen is soft, non distended. Extremities are free of edema. Objective Imaging Multiple studies:: Radiologist's impression: Pelvis CT: Bilateral hip arthroplasty. On the right, there is significant regional osteopenia involving the proximal right femur. Prior fractures are supported by plate and screw hardware as well as cerclage wires. Several of the soft large wires have failed, but there is no change in configuration compared to the prior exam. No acute fracture. IMPRESSION: Right proximal femoral old healed fractures with unchanged supporting hardware. No evidence of acute fracture or hardware migration. Hip x-ray: Bilateral hip arthroplasty. Right proximal femoral previously instrumented fracture with significant osteopenia and probable underlying acute fracture Head CT: Atrophy and chronic ischemic change acute hemorrhage or mass effect Chest x-ray: Cardiomegaly and mild vascular congestion Cervical spine CT: No displaced fracture or traumatic subluxation. Pelvis CT: 1. Increased lucency involving the left bone-hardware interface of proximal femoral component of left total hip arthroplasty hardware suggestive of hardware loosening. No evidence for hardware failure. 2. Status post right total hip arthroplasty without evidence for hardware complication. Stable appearance of long segment lateral plate and screw fixation of the right femur. Other chronic findings as above. Knee x-ray: Anatomic left knee alignment. No acute fracture or dislocation. No gross hardware loosening or failure. Hip x-ray: Prior extensive bilateral hip surgery and arthroplasty as above. Finding is concerning for hardware loosening surrounding left hip prosthesis in proximal femur. Clinical correlation is recommended. No acute fracture or dislocation. Labs 07/25/25 05:33 07/26/25 05:07 PFSH Medical History Chronic anticoagulation Atrial fibrillation Mitral valve disease Eblla-Danlos syndrome Surgical History H/O hysterectomy for benign disease Total knee replacement status S/P hip replacement Family History Mother Cancer Father Diabetes mellitus Social History household members: none Smoking Status: Never smoker alcohol intake: current Discharge Assessment & Plan Assessment and Plan Assessment: 1. Ground level fall probable unsafe alone at home we will need placement patient also with mild cognitive decline. 2. Multiple orthopedic procedures with senescent left prosthesis (Hip contusion). * No urgent fractures or need for surgery * Risks and benefits favor conservative approach Chronic stable conditions: Atrial fibrillation Colleen Salinas Plan of Treatment: Transfer to [facility] for rehab efforts. Discharge Plan Discharge Plan Patient Disposition: SNF Transfer to: [facility] Under care of provider: SNF provider. Provider Discharge Comment: Stable for discharge to [facility] facility. Discharge orders & Medications Prescriptions: New acetaminophen 325 mg Tablet 650 mg PO Q6H PRN (Reason: Fever/Mild Pain (1-3)) Qty: 0 0RF hydrocodone-acetaminophen 5-325 mg Tablet 1 tab PO Q4H PRN (Reason: Pain, Moderate (4-6)) Qty: 15 0RF Eliquis 5 mg Tablet 2.5 mg PO BID Qty: 60 0RF Continued simvastatin 20 mg tablet 20 mg PO DAILY metoprolol succinate 50 mg tablet extended release 24 hr 50 mg PO BID Rx Instructions: pt is unsure of doses levothyroxine 50 mcg tablet 50 mcg PO DAILY potassium chloride 10 mEq tablet extended release 10 meq PO DAILY furosemide 20 mg Tablet 20 mg PO DAILY Patient Comments: pt takes PRN, not every day pantoprazole 40 mg Tablet,Delayed Release (Dr/Ec) 40 mg PO DAILY Qty: 30 0RF lisinopril 5 mg Tablet 5 mg PO DAILY Qty: 30 0RF clonazepam 0.5 mg 0.5 mg PO BEDTIME PRN (Reason: Restless Leg(S) or sleep) Qty: 15 0RF cholecalciferol (vitamin D3) [Vitamin D3] 125 mcg (5,000 unit) Tablet 5,000 unit PO DAILY Discontinued acetaminophen 500 mg Capsule 1,000 mg PO DAILY PRN (Reason: Pain (Scale Score 4-6)) tramadol 50 mg Tablet 50 mg PO BID PRN (Reason: pain) Qty: 20 0RF furosemide 20 mg Tablet 20 mg PO DAILY Qty: 30 0RF warfarin [Jantoven] 1 mg Tablet 3 mg PO DAILY@1700 Qty: 30 0RF metoprolol tartrate 25 mg Tablet 75 mg PO TID Qty: 90 0RF trazodone 50 mg tablet 25 mg PO BEDTIME PRN (Reason: sleep) Qty: 30 0RF acetaminophen 325 mg Tablet 650 mg PO Q6HR PRN (Reason: Fever/Mild Pain (1-3)) Qty: 90 0RF hydrocodone-acetaminophen 5-325 mg tablet 1 tab PO Q6H PRN (Reason: pain) Qty: 14 0RF Follow up/Referrals: Lina Del Valle ARNP [Primary Care Provider, Nursing] Discharge Health Status Multidrug resistant organism: No MDRO Diet/Activity/Treatments Diet: Regular Activity: As tolerated, WBAT. Special Rehabilitation Services Reason for rehabilitation: Recovery r/t decondition Rehab type: Physical therapy and Occupational therapy Visit Report/Discharge Packet Stand Alone Forms: Patient Portal/API Discharge Data Primary Care Provider: Del Valle,Lina E Quality VTE Deep Vein Thrombosis/Pulmonary Embolism Present on Admission: No
--- NOTE | 2025-07-27 11:05 | CM.DPC ---
Addendum entered by ERLIN Emerson 07/27/25 12:20: ADD: Called pt's DPOA Dtr Chel and updated on pt discharge and she confirmed she was aware and remains agreeable and had questions about ST recommendations for diet and SW assisted with sending secure email for modified barium and ST note to her email and Dtr very appreciative as she could not find the notes in pt's portal. BF Original Note: DCP Discharge to SNF Per MD, pt is medically stable to d/c to SNF today and discharge placed and completed. LUCINDA confirmed [facility] can accept still today with transport around 1130. SW faxed PAS[facility], signed med list, scripts, orders, and d/c summary to [facility] to review. Updated foxing painter, SLATE ROOFER, and RN and provided number to call report. SW to call and update Dtr although she is aware of likely d/c this AM to [facility]. ERLIN Emerson
--- NOTE | 2025-07-27 11:46 | PC.NURSE ---
Patient discharged over to [facility], report called.
== END 2025-07-27 11:46 | DRG 560 ==
LOC: ED 20:13 → AC 07-24 01:43
PROVIDERS: Emergency Medicine; Pharmacist Pharmacist Clinician (PhC)/ Clinical Pharmacy Specialist; Admitting Provider Internal Medicine; Emergency Provider Family Medicine; PCP Nurse Practitioner Family; Referring Provider Family Medicine; Visit Provider Internal Medicine
DX: T84.114A Breakdown (mechanical) of internal fixation device of right femur, initial encounter (principal); I48.20 Chronic atrial fibrillation, unspecified; Q79.60 Ehlers-Danlos syndrome, unspecified; S70.02XA Contusion of left hip, initial encounter; T84.061A Wear of articular bearing surface of internal prosthetic left hip joint, initial encounter; M85.88 Other specified disorders of bone density and structure, other site; R41.81 Age-related cognitive decline; I50.9 Heart failure, unspecified; R79.89 Other specified abnormal findings of blood chemistry; R13.10 Dysphagia, unspecified; M89.552 Osteolysis, left thigh; E78.5 Hyperlipidemia, unspecified; Y79.3 Surgical instruments, materials and orthopedic devices (including sutures) associated with adverse incidents; Z79.01 Long term (current) use of anticoagulants; Z95.818 Presence of other cardiac implants and grafts; Z96.643 Presence of artificial hip joint, bilateral; Z74.2 Need for assistance at home and no other household member able to render care; Z95.0 Presence of cardiac pacemaker
CPT/HCPCS: 36415; 70450; 71045; 72125; 72192; 73502; 74230; 80048; 80053; 81001; 83690; 83735; 83880; 84484; 85025; 85027; 85610; 92526; 92610; 92611; 93005; 93010; 96360; 97163; 97166; 97530; 99231; 99232; 99233; 99284; J1938; J7030

== ENCOUNTER 2025-08-05 04:24 | Emergency (ER) | payer MEDICARE, SELFPAY ==
[2025-07-24 02:34] VITALS: BMI 17.8
[2025-08-05 04:30] VITALS: BP 120/63; PULSE 60; RESP 18; TEMP 36.3; O2SAT 99; BMI 19.5
[2025-08-05 04:31] VITALS: PULSE 88; RESP 15; O2SAT 98
--- NOTE | 2025-08-05 04:32 | DI.CT.S_ITS ---
PROCEDURE: CT HEAD/BRAIN WO CON INDICATIONS: Trauma, on Eliquis TECHNIQUE: Noncontrast 4.5 mm thick angled axial sections acquired from the foramen magnum to the vertex, with coronal and sagittal reformats. For radiation dose reduction, the following was used: automated exposure control, adjustment of mA and/or kV according to patient size. COMPARISON: [facility], CT, CT HEAD/BRAIN WO CON, 07/23/2025, 10:05. FINDINGS: Image quality: Diagnostic. CSF spaces: Basal cisterns are patent. No extra-axial fluid collections. Ventricles are normal in size and shape. Brain: No midline shift. No intracranial mass effect or hemorrhage. De La Cruz- white matter interface is normal. Moderate cerebral and cerebellar volume loss with multifocal white matter chronic ischemic change noted. Atherosclerotic calcification noted associated with cavernous segments of both internal carotid arteries. Skull and face: Calvarium and visualized facial bones are intact, without suspicious lesions. Sinuses: Visualized sinuses and mastoids are clear. IMPRESSION: Atrophy and chronic ischemic change without acute hemorrhage or mass effect Note: This final report is concordant with the preliminary after-hours interpretation provided by [facility] Approved by: Kelvin Kinsey M.D. on 08/05/2025 at 8:42
--- NOTE | 2025-08-05 04:33 | DI.CT.S_ITS ---
PROCEDURE: CT CHEST WO CON INDICATIONS: trauma, pain to the left lateral ribs TECHNIQUE: Noncontrast 5 mm thick sections acquired from the pulmonary apices to the posterior costophrenic angles. 1 mm lung window, 5 mm thick coronal and sagittal and 7 mm axial MIP reformats were then acquired. For radiation dose reduction, the following was used: automated exposure control, adjustment of mA and/or kV according to patient size. COMPARISON: None. FINDINGS: Image quality: Diagnostic. Lower Neck: No enlarged lymph nodes. Thyroid: No thyroid nodules which require sonographic follow up, per consensus guidelines. Axillae: No enlarged lymph nodes. Chest Wall: Unremarkable. Bones: T12 compression fracture Lungs and Pleura: No pneumothorax or pleural effusions. No consolidation or suspicious nodules. Heart: Moderate cardiomegaly. Large the main pulmonary arteries. Atrial appendage occlusion device. Pacer wires. Dense coronary artery vascular calcification. Midline sternal wires. Thoracic Vessels: The aorta and pulmonary arteries demonstrate normal size. Mediastinum and Mayda: No enlarged lymph nodes. Esophagus: No wall thickening. No hiatal hernia. Upper Abdomen: Visualized upper abdomen solid organs and bowel loops appear normal. IMPRESSION: No evidence of rib fracture or pneumothorax. Cardiomegaly, pulmonary hypertension Note: This final report is concordant with the preliminary after-hours interpretation provided by [employer] Approved by: Kelvin Kinsey M.D. on 08/05/2025 at 9:21
--- NOTE | 2025-08-05 04:33 | DI.CT.S_ITS ---
PROCEDURE: CT CERVICAL SPINE WO CON INDICATIONS: trauma TECHNIQUE: Noncontrast 3 mm thick sections acquired from the skull base to the T4 level. Sagittal and coronal reformats were then constructed. For radiation dose reduction, the following was used: automated exposure control, adjustment of mA and/or kV according to patient size. COMPARISON: [facility], CT, CT CERVICAL SPINE WO CON, 07/23/2025, 10:05. FINDINGS: Image quality: Excellent. Bones: No fractures or dislocations. Visualized superior ribs are intact. Disc space narrowing and hypertrophic facet joints noted particularly in the mid to lower spine. Degenerative anterior listhesis noted at C7-T1, T1-2 and T2-3. Soft tissues: Prevertebral soft tissues are normal in thickness. No paravertebral hematomas. No apical pneumothoraces. IMPRESSION: No displaced fracture or traumatic subluxation. << Note: This final report is concordant with the preliminary after-hours interpretation provided by [employer] Approved by: Kelvin Kinsey M.D. on 08/05/2025 at 9:18
--- NOTE | 2025-08-05 04:33 | ED.FALL ---
HPI - Fall General Chief Complaint: Back Pain/Injury Stated Complaint: GLF Time Seen by Provider: 08/05/25 04:29 History of Present Illness HPI Narrative: 84-year-old female history of congenital mitral valve repair, AFib with Watchman and pacemaker on Eliquis, CHF hypothyroidism hyperlipidemia brought in by EMS from [facility] for evaluation of fall. She states that she was leaning against furniture and states that she fell and had something fall on her. She is complaining of right shoulder pain, she is also complaining of some left rib pain, she denies hitting her head, she denies any other symptoms at this time. States that she did take her medications as prescribed which includes Eliquis. States that she normally uses a walker at baseline. States that she was unable to get up by herself due to the fact that there were some pieces of furniture that fell on top of her. She denies any other complaints at this time Related Data Home Medications ?Medication ?Instructions ?Recorded ?Confirmed cholecalciferol (vitamin D3) 125 5,000 unit PO DAILY 10/29/18 07/21/22 mcg (5,000 unit) tablet (Vitamin D3) levothyroxine 50 mcg tablet 50 mcg PO DAILY 07/21/22 07/21/22 metoprolol succinate 50 mg 50 mg PO BID 07/21/22 07/21/22 tablet,extended release 24 hr potassium chloride 10 mEq 10 meq PO DAILY 07/21/22 07/21/22 tablet,extended release simvastatin 20 mg tablet 20 mg PO DAILY 07/21/22 07/21/22 furosemide 20 mg tablet 20 mg PO DAILY 07/22/22 07/22/22 Previous Rx's ?Medication ?Instructions ?Recorded lisinopril 5 mg tablet 5 mg PO DAILY #30 tabs 07/24/22 pantoprazole 40 mg tablet,delayed 40 mg PO DAILY #30 tabs 07/24/22 release acetaminophen 325 mg tablet 650 mg (2 x 325 mg) PO Q6H PRN 07/27/25 Fever/Mild Pain (1-3) #0 tabs apixaban 5 mg tablet (Eliquis) 2.5 mg (1/2 x 5 mg) PO BID #60 tabs 07/27/25 clonazepam 0.5 mg PO BEDTIME PRN Restless 07/27/25 Leg(S) or sleep #15 caps hydrocodone 5 mg-acetaminophen 325 1 tab PO Q4H PRN Pain, Moderate 07/27/25 mg tablet (4-6) #15 tabs Allergies Allergy/AdvReac Type Severity Reaction Status Date / Time Sulfa (Sulfonamide Allergy Severe Anaphylaxis Verified 07/23/25 10:00 Antibiotics) (SULFA (SULFONAMIDE ANTIBIOTICS)) adhesive tape (ADHESIVE TAPE) Allergy Unknown WELTS Verified 07/23/25 10:00 propoxyphene (From Darvon) Allergy Unknown Verified 07/23/25 10:00 zolpidem (From Ambien) AdvReac Severe Hallucinati Verified 07/23/25 10:00 ng Review of Systems Review of Systems Narrative: General: Positive ground level fall Denies fever, chills, weight loss HEENT: Denies headache, eye drainage, eye irritation, head trauma, sore throat, voice change Cardiovascular: Denies any chest pain, palpitations, tachycardia Respiratory: Denies any shortness of breath, cough, wheeze, stridor GI/: Denies any abdominal pain, nausea, vomiting, diarrhea, bright red blood per rectum, melanotic stools, urinary frequency, urinary retention, dysuria, hematuria MSK: Positive right shoulder pain, left rib pain Skin: Denies any rashes, lesions, discoloration Neuro: Denies any headache, lightheadedness, dizziness, fainting, weakness Psych: Denies SI/HI Patient History Medical History Chronic anticoagulation Atrial fibrillation Mitral valve disease Bella-Danlos syndrome Surgical History H/O hysterectomy for benign disease Total knee replacement status S/P hip replacement Family History Mother Cancer Father Diabetes mellitus Social History household members: none alcohol intake: current alcohol intake frequency: 0-2 drinks per day Alcohol type: wine Exam Narrative Exam Narrative: General: Cooperative, elderly, frail HEENT: Normocephalic, atraumatic, PERRLA, normal sclera, eyelids normal Neck: Active full range of motion, atraumatic Chest: Normal to inspection, negative crepitus, no overlying erythema ecchymosis Respiratory: Normal respiratory effort, not in acute respiratory distress, clear to auscultation bilaterally negative cough, wheeze, tachypnea, rhonchi, rales Cardiology: Regular rate rhythm negative gallop, murmur, rubs GI/: No tenderness to palpation, soft, non rigid, normal to inspection, exam deferred MSK: Full active range of motion in all 4 extremities, atraumatic, no tenderness to palpation of any bony prominences Skin: No rashes or lesions noted Neuro: Alert awake oriented x3, moves all 4 extremities spontaneously, cranial nerves intact, able to answer all questions appropriately follows commands appropriately Psych: Cooperative, negative suicidal or homicidal ideations Course Orders Ordered: ED Orders 08/05/25 04:32 CT head/brain wo con Stat XR shoulder RT 2+ views Stat 08/05/25 04:33 CT cervical spine wo con Stat CT chest wo con Stat MDM - Fall MDM Narrative Medical decision making narrative: 84-year-old female history of congenital mitral valve with repair, AFib with Watchman and pacemaker on Eliquis, CHF hypothyroidism hyperlipidemia comes into the ED via EMS from [facility] for evaluation of fall. Patient states that she was leaning against some furniture earlier and had some of the furniture fall on her, she is complaining of right shoulder left rib pain, she denies head strike LOC she states that she was unable to get up by herself due to the fact that there was some pieces of furniture on her however she is not complaining of any other pain, no reproducible tenderness to palpation of any bony prominences. Denies any syncopal or presyncopal symptoms normally uses a walker at baseline. Patient had imaging performed here. Preliminary read of the CT cervical spine showing no acute findings, degenerative changes noted. CT scan of the head shows no acute intracranial finding. Chronic age-related changes. CT chest preliminary read showing no acute intrathoracic processes. 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 Imaging has been unremarkable, patient will be sent home with symptomatic relief strict return precautions she verbalized understanding agrees to being discharged home with outpatient follow up Discharge Plan Departure Patient Disposition: Home Clinical Impression: Ground-level fall, Contusion of rib on left side, Acute pain of right shoulder Instructions: DI for Contusion, How to Prevent Falls Prescriptions: No Action simvastatin 20 mg tablet 20 mg PO DAILY metoprolol succinate 50 mg tablet extended release 24 hr 50 mg PO BID Rx Instructions: pt is unsure of doses levothyroxine 50 mcg tablet 50 mcg PO DAILY potassium chloride 10 mEq tablet extended release 10 meq PO DAILY furosemide 20 mg Tablet 20 mg PO DAILY Patient Comments: pt takes PRN, not every day pantoprazole 40 mg Tablet,Delayed Release (Dr/Ec) 40 mg PO DAILY Qty: 30 0RF lisinopril 5 mg Tablet 5 mg PO DAILY Qty: 30 0RF acetaminophen 325 mg Tablet 650 mg PO Q6H PRN (Reason: Fever/Mild Pain (1-3)) Qty: 0 0RF hydrocodone-acetaminophen 5-325 mg Tablet 1 tab PO Q4H PRN (Reason: Pain, Moderate (4-6)) Qty: 15 0RF Eliquis 5 mg Tablet 2.5 mg PO BID Qty: 60 0RF clonazepam 0.5 mg 0.5 mg PO BEDTIME PRN (Reason: Restless Leg(S) or sleep) Qty: 15 0RF cholecalciferol (vitamin D3) [Vitamin D3] 125 mcg (5,000 unit) Tablet 5,000 unit PO DAILY Referrals: Lina Del Valle ARNP [Primary Care Provider, Nursing] Stand Alone Forms: Patient Portal/API
--- NOTE | 2025-08-05 04:38 | DI.RAD.S_ITS ---
PROCEDURE: XR SHOULDER RT MIN 2V INDICATIONS: Pain TECHNIQUE: 3 views of the shoulder were acquired. COMPARISON: None. FINDINGS: Bones: Generalized decreased osseous mineralization noted. Old healed proximal humeral fracture. Advanced glenohumeral joint space narrowing and marginal osteophyte. Superior migration humeral head reflects chronic rotator cuff tear Midline sternal wires. Old healed right-sided rib fractures. No acute pulmonary process visualized. Soft tissues: No suspicious soft tissue calcifications. IMPRESSION: Osteopenia and advanced degenerative changes without fracture or dislocation Approved by: Kelvin Kinsey M.D. on 08/05/2025 at 8:25
--- NOTE | 2025-08-05 04:54 | PC.NURSE ---
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
[2025-08-05 05:30] VITALS: BP 98/57; PULSE 59; RESP 18; O2SAT 98
[2025-08-05 06:00] VITALS: BP 105/53; PULSE 59; RESP 18; O2SAT 99
--- NOTE | 2025-08-05 06:16 | PC.NURSE ---
Pt resting quietly with eyes closed, resps even and not labored. No distress noted at this time. Pt remains connected to cardiac, resp, blood pressure, and pulse ox monitors with alarms on and audible. VS stable. Call light within reach.
--- NOTE | 2025-08-05 06:27 | PC.NURSE ---
Contacted daughter, Chel Palafox at phone number listed on chart. 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
[2025-08-05 06:30] VITALS: BP 115/58; PULSE 75; RESP 18; O2SAT 99
[2025-08-05 07:00] VITALS: BP 132/61; PULSE 60; RESP 19; O2SAT 99
== END 2025-08-05 07:57 | disposition home or self-care (01) ==
PROVIDERS: Emergency Provider Student in an Organized Health Care Education/Training Program; PCP Nurse Practitioner Family
DX: S20.212A Contusion of left front wall of thorax, initial encounter (principal); M25.511 Pain in right shoulder; Z79.01 Long term (current) use of anticoagulants; Z95.0 Presence of cardiac pacemaker; Z95.2 Presence of prosthetic heart valve; W19.XXXA Unspecified fall, initial encounter
CPT/HCPCS: 70450; 71250; 72125; 73030; 99281; 99284